=== PATIENT | male | born 1950 | race Caucasian/White ===

== ENCOUNTER 2019-12-23 07:30 | Outpatient (CLI) | payer MEDICARE, SELFPAY ==
--- NOTE | ~2019-12-23 | CT_ITS ---
EXAMINATION: CT abdomen pelvis wo con DATE: 12/23/2019 08:19 INDICATION: Gross hematuria TECHNIQUE: Computed tomography (CT) of the abdomen and pelvis was performed without intravenous contr ast. The dose-length product (DLP) was 1166.29 mGy-cm. Automated exposure control and iterative recon struction technique were employed. COMPARISON: None FINDINGS: The lung bases are clear. The heart size is normal. Calcified coronary artery atheroscleros is is noted. The liver, spleen, pancreas, gallbladder, and adrenal glands are normal. There is atroph y of the left kidney. There is an 11 mm cyst of the right kidney. No stones are identified in the kid neys, ureters, or bladder. There is no hydronephrosis or hydroureter. No suspicious renal or urotheli al lesion is identified although sensitivity is limited by the absence of intravenous contrast. The p rostate is enlarged. Colonic diverticulosis is present without evidence of diverticulitis. No patholo gically enlarged abdominal or pelvic lymph nodes are identified. There is no free intraperitoneal gas or evidence of bowel obstruction. There are changes of anterior and posterior lumbar fusion from L4 through S1. Severe spondylosis is noted at L3-4. IMPRESSION: 1. No CT correlate for the patient's symptoms. Sensitivity for renal or urothelial lesion limited by the absence of intravenous contrast, not given due to low GFR. Reviewed, dictated and finalized at location A. IMPRESSION: 1. No CT correlate for the patient's symptoms. Sensitivity for renal or urothel ial lesion limited by the absence of intravenous contrast, not given due to low GFR.
[2019-12-23 07:57] LABS: Estimated Glomerular Filt Rate 28
== END 2019-12-23 07:31 | disposition home or self-care (01) ==
PROVIDERS: PCP Internal Medicine; Visit Provider Urology
DX: R31.0 Gross hematuria (principal)
CPT/HCPCS: 74176

== ENCOUNTER 2020-05-04 15:01 | Outpatient (CLI) | payer MEDICARE, SELFPAY ==
--- NOTE | ~2020-05-04 | CT_ITS ---
EXAMINATION: CT lung screening DATE: 05/04/2020 15:28 INDICATION: Personal history of tobacco dependence, current smoker with 40 pack year history TECHNIQUE: Computed tomography (CT) of the chest was performed without intravenous contrast. The dose -length product (DLP) was 238.62 mGy-cm. Automated exposure control and iterative reconstruction tech [employer] were employed. COMPARISON: None FINDINGS: There is a 7 mm endobronchial filling defect in a right lower lobe bronchus on image 66. Th ere is moderate emphysema. The lungs are free of acute opacities. There is no pleural effusion or pne umothorax. Calcified pulmonary nodules and calcified bilateral hilar and mediastinal lymph nodes are consistent with old granulomatous disease. No pathologically enlarged thoracic lymph nodes are identi fied. The heart size is normal. Calcified coronary artery atherosclerosis is noted. There are bridgin g osteophytes at multiple levels in the spine, consistent with diffuse idiopathic skeletal hyperostos is (DISH). IMPRESSION: 1. Lung-RADS category 3: Probably benign. Followup with noncontrast low-dose chest CT in 6 months is recommended. Reviewed, dictated and finalized at location A. INE FINISHER IMPRESSION: 1. Lung-RADS category 3: Probably benign. Followup with noncontrast low-dose ch est CT in 6 months is recommended.
== END 2020-05-04 15:02 | disposition home or self-care (01) ==
PROVIDERS: PCP Internal Medicine; Visit Provider Nurse Practitioner
DX: Z12.2 Encounter for screening for malignant neoplasm of respiratory organs (principal); Z87.891 Personal history of nicotine dependence
CPT/HCPCS: 71271

== ENCOUNTER 2020-08-03 09:27 | Outpatient (CLI) | payer MEDICARE, SELFPAY ==
--- NOTE | ~2020-08-03 | US_ITS ---
EXAMINATION: US renal BI DATE: 08/03/2020 10:02 INDICATION: Chronic kidney disease TECHNIQUE: Multiple ultrasound grayscale images of the kidneys were obtained. COMPARISON: CT dated 12/23/2019 FINDINGS: The right kidney measures 10.9 x 5.6 x 5.4 with normal echogenicity. 10 mm anechoic cyst at the mid r ight kidney. The left kidney measures 7.3 x 3.5 x 4.2 cm with cortical thinning and increased echogen icity. There is no hydronephrosis in either kidney. No stones identified. There is diffuse mild blad [place] wall thickening to at least in part to incomplete distention but which may represent sequela of c hronic outlet obstruction from the enlarged prostate. IMPRESSION: 1. Unchanged moderate left renal atrophy and 10 mm right renal cyst. No hydronephrosis. 2. Diffuse mild bladder wall thickening which is likely due to combination of incomplete distention a nd chronic outlet obstruction from the enlarged prostate. Reviewed, dictated and finalized at location A. IMPRESSION: 1. Unchanged moderate left renal atrophy and 10 mm right renal cyst. No hydron ephrosis. 2. Diffuse mild bladder wall thickening which is likely due to combination of i ncomplete distention and chronic outlet obstruction from the enlarged prostate.
== END 2020-08-03 09:28 | disposition home or self-care (01) ==
PROVIDERS: PCP Internal Medicine; Visit Provider Internal Medicine Nephrology
DX: N18.32 Chronic kidney disease, stage 3b (principal); N28.1 Cyst of kidney, acquired; R93.41 Abnormal radiologic findings on diagnostic imaging of renal pelvis, ureter, or bladder
CPT/HCPCS: 76775

== ENCOUNTER 2020-11-04 11:20 | Outpatient (CLI) | payer MEDICARE, SELFPAY ==
--- NOTE | ~2020-11-04 | CT_ITS ---
EXAMINATION: CT diagnostic chest wo con EXAM DATE: 11/04/2020 12:25 INDICATION: R93.89 - Abnormal findings on diagnostic imaging of other specified body structures. Endo bronchial nodule. TECHNIQUE: Spiral CT of the chest without contrast. Axial, coronal and sagittal images of the chest were reviewed. Coronal maximum intensity pixel images of chest reviewed. The dose-length product ( DLP) for this examination was 478.22 mGy-cm. The exposure was tailored according to patient size (au to mA exposure control), and iterative reconstruction (ASIR) was used as additional dose reduction te chnique. There is no prior study for comparison. FINDINGS: Moderate emphysema. Tracheobronchial tree is patent, no nodule identified on this exam. S ome scattered calcified lung granulomata. No suspicious nodules.. There are no pleural or pericardial effusions. Tracheobronchial tree is patent. There is no mediastinal, hilar or axillary lymphaden opathy. There is no pneumothorax. Heart normal in size. There is mild to moderate coronary ming rial calcification, arterial sclerosis. Upper abdomen is unremarkable. Mid and lower thoracic diff use idiopathic skeletal hyperostosis. There are no osteoblastic or osteolytic lesions identified. IMPRESSION: 1. Moderate emphysema. 2. Postinfectious residua. 3. Consider one-year follow-up LDCT if patient still qualifies. Reviewed, dictated and finalized at location B.
== END 2020-11-04 11:21 ==
PROVIDERS: PCP Internal Medicine; Visit Provider Nurse Practitioner
DX: R93.89 Abnormal findings on diagnostic imaging of other specified body structures (principal); J43.9 Emphysema, unspecified
CPT/HCPCS: 71250

== ENCOUNTER 2022-04-18 10:30 | Outpatient (CLI) | payer MEDICARE, SELFPAY ==
[2022-04-18 11:18] LABS: Partial Thromboplastin Time 27.1 SECONDS (22.3-36.8)
[2022-04-18 11:26] LABS: Anion Gap 12 mmol/L (8-16); Blood Urea Nitrogen 28 mg/dL (9-20); Calcium 9.7 mg/dL (8.4-10.2); Carbon Dioxide 29 mmol/L (22-30); Chloride 104 mmol/L (98-107); Estimated Glomerular Filt Rate 29; Glucose 54 mg/dL (65-110); Potassium 4.4 mmol/L (3.4-5.0); Sodium 145 mmol/L (137-145)
== END 2022-04-18 10:31 | disposition home or self-care (01) ==
PROVIDERS: Anesthesiology; PCP Family Medicine; Visit Provider Podiatrist Foot & Ankle Surgery
DX: N18.30 Chronic kidney disease, stage 3 unspecified (principal); E11.9 Type 2 diabetes mellitus without complications; Z01.818 Encounter for other preprocedural examination
CPT/HCPCS: 36415; 80048; 85610; 85730

== ENCOUNTER 2022-08-11 04:22 | Day surgery (SDC) | payer MEDICARE, SELFPAY ==
--- NOTE | 2022-08-04 13:29 | PC.NURSE ---
Report to the Outpatient Waiting Room, entrance under the green pavilion located off [facility], at time _1130 on date __08/11/22 . Planned Procedure Time: __1330 . Time changes happen often and if your time is changed the preop area will call you the afternoon before. - You and your visitor will be asked to self-screen and do not enter if you have any COVID symptoms. - A mask is optional within the hospital at this time. Patients may have clear liquids (water, carbonated beverages, clear teas, apple juice) until 3 hours prior to surgery with a maximum of 20 ounces. - No food from midnight until time of surgery - Infants may have breast milk until 4 hours before surgery, formula 6 hours prior to surgery. - Children will be allowed to drink immediately following surgery. If applicable, please bring a bottle or sippy cup to assist with drinking. Juice, water, soda, and popsicles are readily available. For infants on formula, please bring formula the day of surgery. Pacifiers are allowed. Take the following medications with a SIP of water the morning of surgery: _AMLODIPINE, DO NOT STOP ANY OF YOUR OTHER PRESCRIPTION MEDICATIONS PRIOR TO SURGERY ?EXCEPT THE FOLLOWING Medications to discontinue per physician __ASPIRIN AND XARELTO PER DR CERVANTES WILL CALL Please no make-up, nail algerian, hairspray, perfume, deodorant, or body powder the day of surgery. No jewelry (including any body piercings) or valuables the day of surgery, leave them at home. Please take a shower or bath the night before, or the morning of, surgery with an antibacterial soap. Wear comfortable, loose fitting clothing. Children are encouraged to wear pajamas. - Jewelry must be removed prior to entering the operating room. Rings and piercings that are not removed may be cut off. - The hospital will not accept responsibility for valuables. - Please leave all valuables, including medications, at home the day of surgery. If you are going home after surgery, a licensed contract driver must drive you home. - NO public transportation without another adult if you receive anesthesia. - We recommend that an adult stay with you for 24 hours following discharge. - We also recommend that you do not drive, make important decision, drink alcoholic beverages, or take any drugs that were not prescribed by your health care provider for at least 24 hours after your discharge time. For Pediatric surgeries, we recommend two adults accompany the child home. Follow any additional instructions given to you from your surgeon. If you or anyone in your household have experienced Covid symptoms in the past week, please notify your surgeon or the nurse liaison at the phone number below for possible testing. Telephone instructions given to __PT'S TERI and asked if any additional questions and then verbalized understanding. Patient advised to call surgeon office or pre surgery nurse liaison [phone] if any additional questions.
[2022-08-04 13:39] VITALS: BMI 28.9
--- NOTE | 2022-08-07 12:32 | PC.NURSE ---
RECEIVED CALL FROM LAB @1220 WITH CRITICAL GLUCOSE OF 47. CALLED PT @ 1225, SPOKE TO WHO STATES PT ATE LUNCH SOON THEY GOT HOME FROM PREOP TESTING AND THAT HE IS FEELING FINE. INSTRUCTED TO REPORT ANY HYPOGLYEMIC EPISODED TO PMD IF PT SYMPTOMATIC. VERBALIZED UNDERSTANDING.
--- NOTE | 2022-08-10 14:50 | WPDANESEPPF ---
Anes - Initial Pre Proc Eval Procedure: Operation Date: 08/11/22 13:30 Proposed Procedures p Amputation Right Great Toe and Right Second Toe - Santosh Alvarez JR, MD Date/Time: 08/10/22 14:50 Surgeon: Santosh Alvarez JR, MD Pre Op Diagnosis: Gangrene Rt Foot Patient Data Age: 71 Gender: M Height: 1.83 m Weight: 96.65 kg Allergies Allergy/AdvReac Type Severity Reaction Status Date / Time SIBUTRAMINE HCL M-HYDRATE AdvReac Mild (MERIDIA) Uncoded 08/04/22 13:12 Watery Eyes/Blurred Vision Home Medications Medication Instructions Recorded Confirmed Type aspirin 81 mg tablet,delayed 81 mg PO DAILY 04/24/19 08/04/22 History release (Adult Aspirin Regimen) Cbd 25 mg PRN PRN Pain 04/13/22 08/04/22 History blood sugar diagnostic (OneTouch #100 ea 05/04/22 05/23/22 Rx Ultra Test strips) insulin regular human 100 unit/mL 30 unit (0.3 mL) subcut TID #30 mL 05/04/22 08/04/22 Rx injection solution (Humulin R Regular U-100 Insulin) pen needle, diabetic 31 gauge x #400 ea 05/04/22 05/23/22 Rx 5/16 (BD Ultra-Fine Short Pen Needle) amlodipine 5 mg tablet 5 mg PO DAILY 05/22/22 08/04/22 History ammonium lactate 12 % topical cream 1 applic topical BID 05/22/22 08/04/22 History rivaroxaban 2.5 mg tablet (Xarelto) 2.5 mg PO BID 05/22/22 08/04/22 History rosuvastatin 10 mg tablet See Rx Instructions .Route 05/31/22 08/04/22 Rx .COMPLEX #90 tabs insulin detemir U-100 100 unit/mL 40 unit (0.4 mL) subcut BID #90 mL 07/17/22 08/04/22 Rx (3 mL) subcutaneous pen insulin syringe,safetyneedle 0.3 #500 ea 07/26/22 Rx mL 30 x 5/16 dulaglutide 1.5 mg/0.5 mL 1.5 mg subcut WEEKLY 08/04/22 08/04/22 [facility] empagliflozin 25 mg tablet 25 mg PO DAILY 08/04/22 08/04/22 History (Jardiance) ramipril 5 mg capsule 5 mg PO DAILY 08/04/22 08/04/22 History Patient hx anesthesia problems: none Family hx anesthesia problems: none Results Review: All pre-operative results and documents have been reviewed as part of the pre-operative evaluation. [facility] Past Medical History Medical History (Updated 08/10/22 @ 14:53 by Reji Egan MD) CKD (chronic kidney disease), stage III Elevated PSA Essential (primary) hypertension Gangrene History of CVA in adulthood Long-term insulin use Mixed hyperlipidemia PAD (peripheral artery disease) Polycythemia Pulmonary emphysema Screening for colon cancer Smoker Type 2 diabetes mellitus with stage 3 chronic kidney disease Surgical History Surgical History History of lumbar fusion S/P peripheral artery angioplasty with stent placement Family History Family History Father Cerebrovascular accident Mother Family history of lupus erythematosus Social History Social History Smoking packs per day: 2 Smoking cigarettes per day: 40.0 Years smoked: 60 Smoking pack-years: 120.00 Smoking status: Former smoker Tobacco type: cigarettes Second hand tobacco smoke exposure: Yes Smoking end date: 05/03/22 Additional smoking assessment comments: STATES CURRENTLY DOWN TO SMOKING ABOUT 3 CIGARETTES/DAY Alcohol intake: current Alcohol use details: RARELY - STATES COUPLE TIMES A YEAR Substance use: current Substance use type: marijuana Other substance usage details: CDB 25MG GUMMY DAILY Last use: 07/29/22 Lack of Transportation: No Lack of Food: Never True Current Housing: I Have Housing Concerned About Future Housing: No Difficulty Paying Gas/Electric Bills: No Difficulty Paying for Meds: Decline to Answer Currently Unemployed: No Education: Trade/Vocational Certificate Difficulty w/ Childcare or Family Care: No Living arrangements: with family Occupation/Education: retired Gender identity (if v
--- NOTE | ~2022-08-11 | XR_ITS ---
XR surgery orthopedic DATE: 08/11/2022 13:56 INDICATION: Amputation TECHNIQUE: Single AP exposures of the toes 2. Seconds fluoroscopy time 0.1188 cGycm2 total DAP COMPARISON: None FINDINGS: There is complete amputation of the first and second digits. IMPRESSION: Amputation of first and second digits Reviewed, dictated and finalized at Location A. Reviewed, dictated and finalized at location []
--- NOTE | 2022-08-11 07:12 | WPDHPUPDATE1 ---
History and Physical Update Update Date/Time: 08/11/22 07:12 History and Physical has been reviewed, including an updated exam of the patient. There are NO changes in the patient's condition. Risks, benefits, and alternatives have been discussed and questions answered. Patient agrees to proceed with procedure.
[2022-08-11 12:13] LABS: Glucose Point of Care 162 mg/dl (65-105)
[2022-08-11 12:28] VITALS: BP 103/66; PULSE 75; RESP 14; TEMP 36; O2SAT 98
[2022-08-11] MEDS: LACTATED RINGERS 1,000 ML 30 ML IV CONT (12:50)
[2022-08-11] MEDS: ceFAZolin 2 GM/D5W 50 ML 2 GM/50 ML BAG IVPB (13:11)
[2022-08-11] MEDS: LIDOCAINE HCL 2% PF INJ 5 ML VIAL 30 ML INFILTRATE (13:42)
[2022-08-11] MEDS: BUPivacaine HCL 0.5% 10 ML AMP INFILTRATE (13:42)
[2022-08-11 14:14] VITALS: BP 161/78; PULSE 75; RESP 16; O2SAT 95
[2022-08-11 14:22] LABS: Glucose Point of Care 110 mg/dl (65-105)
--- NOTE | 2022-08-11 14:23 | P.OP_ITS ---
Procedure Note - Detailed Date of Procedure 08/11/22 Pre-op Diagnosis Gangrene Right Foot Post-op Diagnosis Same Procedure Performed Amputation of the right great toe and second toe Surgeon Santosh Alvarez JR, DANII Anesthesia MAC and Local Indications Gangrene to the right great toe and second toe Findings Post amputation of the right great toe and second toe the tissue was healthy, no signs of infection nor necrosis. Description of Procedure Under mild sedation, the patient was brought to the operating room, placed on the operating table in the supine position. A pneumatic ankle tourniquet was placed about the patient's ankle. Following general anesthesia, I performed a proximal 1st and 2nd metatarsal Cheema Block. The foot was then scrubbed, prepped, and draped in the usual aseptic manner with Betadine. An Esmarch bandage was then used to examine the patient's foot and pneumatic ankle tourniquet was then inflated. Surgery began in the following manner. Attention was directed to the dorsal aspect of the first and 2nd metatarsal phalangeal joint region where a racquet style incision was made about the base of the the hallux and 2nd digit. The incision was continued deep down through the subcutaneous tissues using sharp and blunt dissection. All bleeders were cauterized as necessary. A full-length periosteal incision was made overlying the 1st and 2nd metatarsal phalangeal joint, disarticulating the hallux and 2nd digit. The hallux and 2nd digit was removed from the operative site and placed on the back table and later sent for gross and histopathology. The remaining tissue was healthy and bleeding. The cartilage to the first and 2nd metatarsal head were normal and healthy. The wound site was then flushed with copious amounts of sterile saline. Next, the subcutaneous structures overlying the 1st and 2nd metatarsophalangeal joints were reapproximated with 4- 0 Vicryl. Next, the skin was reapproximated and coapted utilizing 3-0 Prolene in simple interrupted suture fashion technique. Upon completion of the procedure, the incisions were dressed with Adaptic, 4 x 4's, Kerlix, and Coban. The pneumatic ankle tourniquet was then deflated and a prompt hyperemic response noted to all digits of the foot. A surgical shoe was then applied. The patient did very well with the procedure and the anesthesia. The patient was transferred to the recovery room with vital signs stable and vascular status intact to all remaining toes of the affected foot. Following a period of postoperative monitoring, the patient will be discharged home on the following written and oral postoperative instructions: 1. Keep the dressing clean, dry, and intact. Use a cast protector bag with showers. 2. The patient should use a surgical shoe for ambulation postoperatively. 3. The patient should be on bedrest with bathroom privileges and elevate the affected foot when at rest. 4. The patient to contact Dr. Alvarez for all postop care and if any problems arise. 5. Prescriptions were written for Percocet 5/325 dispensed 40 to be taken 1 p.o. q.4 to 6 hours as needed for severe pain. Estimated Blood Loss 1 Packing No Pathology Yes Complications No immediate complications Condition Stable Disposition Same day
[2022-08-11 14:45] VITALS: BP 171/86; PULSE 68; RESP 16
[2022-08-11 15:05] VITALS: BP 177/86; PULSE 71; RESP 18
== END 2022-08-11 15:20 | disposition home or self-care (01) ==
PROVIDERS: PCP Family Medicine; Visit Provider Podiatrist Foot & Ankle Surgery
PROC: (CPT 28820; principal; 2022-08-11 13:30)
DX: E11.52 Type 2 diabetes mellitus with diabetic peripheral angiopathy with gangrene (principal); I96 Gangrene, not elsewhere classified; E11.69 Type 2 diabetes mellitus with other specified complication; M86.171 Other acute osteomyelitis, right ankle and foot; I12.9 Hypertensive chronic kidney disease with stage 1 through stage 4 chronic kidney disease, or unspecified chronic kidney disease; E11.22 Type 2 diabetes mellitus with diabetic chronic kidney disease; N18.30 Chronic kidney disease, stage 3 unspecified; E78.2 Mixed hyperlipidemia; E11.51 Type 2 diabetes mellitus with diabetic peripheral angiopathy without gangrene; J43.9 Emphysema, unspecified; Z86.73 Personal history of transient ischemic attack (TIA), and cerebral infarction without residual deficits; Z95.820 Peripheral vascular angioplasty status with implants and grafts; Z98.1 Arthrodesis status; F17.210 Nicotine dependence, cigarettes, uncomplicated; F12.90 Cannabis use, unspecified, uncomplicated; Z79.4 Long term (current) use of insulin; Z79.82 Long term (current) use of aspirin; Z79.01 Long term (current) use of anticoagulants; Z79.899 Other long term (current) drug therapy; Z79.84 Long term (current) use of oral hypoglycemic drugs
CPT/HCPCS: 28820 ×2; 82948; 88305; 88311; 99199; J0690; J2250; J2704; J3010; J7120

== ENCOUNTER 2023-12-03 11:02 | Outpatient (CLI) | payer MEDICARE, SELFPAY ==
--- NOTE | ~2023-12-03 | CT_ITS ---
CT Scan of the Chest without Contrast: Clinical Indication: Lung cancer screening, nicotine dependence Technique: Contiguous sections were acquired throughout the chest without intravenous contrast. Dose reduction technique was used on this scan by utilizing automated exposure control and iterative recon struction technique. The dose-length product (DLP) was 152.74 mGy-cm. COMPARISON: 11/04/2020 Findings: There is no evidence of any significant mediastinal, hilar or axillary lymphadenopathy. Moderate to s evere coronary artery calcification present. There is no evidence of pleural or pericardial effusion. Moderate upper lobe paraseptal emphysema present bilaterally. Calcified left lower lobe granuloma not ed. Images through the upper abdomen reveal atrophic left kidney with probable stent at the origin of lef t renal artery. Impression: Lung RADS 2: Benign appearance. 12 month follow-up screening CT advised. Moderate paraseptal emphysema. Reviewed, dictated and finalized at [facility]. Impression: Lung RADS 2: Benign appearance. 12 month follow-up screening CT advised. Moderate paraseptal emphysema.
== END 2023-12-03 11:03 | disposition home or self-care (01) ==
PROVIDERS: PCP Family Medicine; Visit Provider Nurse Practitioner Family
DX: Z12.2 Encounter for screening for malignant neoplasm of respiratory organs (principal); J43.9 Emphysema, unspecified; Z87.891 Personal history of nicotine dependence
CPT/HCPCS: 71271

== ENCOUNTER 2024-04-03 12:21 | Outpatient (CLI) | payer MEDICARE, SELFPAY ==
[2024-04-03 12:42] LABS: Basophils Absolute Auto 0.1 K/mm3 (0.0-0.1); Basophils Percent Auto 1.6 % (0.2-1.2); Eosinophils Absolute Auto 0.1 K/mm3 (0-0.3); Eosinophils Percent Auto 1.9 % (0-4.4); Hematocrit 52.4 % (42.0-52.0); Hemoglobin 17.3 g/dL (14.0-18.0); Immature Granulocyte Absolute 0.02 K/mm3 (0.00-0.031); Immature Granulocyte Percent A 0.3 % (0-0.5); Lymphocytes Absolute Auto 1.51 K/mm3 (0.9-3.2); Lymphocytes Percent Auto 23.5 % (18.3-44.2); Mean Corpuscular Hemoglobin 30.1 pg (26-34); Mean Corpuscular Volume 91.1 fl (80-100); Mean Platelet Volume 11.9 fl (7.4-10.4); Monocytes Absolute Auto 0.5 K/mm3 (0.1-0.6); Monocytes Percent Auto 7.3 % (2.6-8.5); Neutrophils Absolute Auto 4.2 K/mm3 (1.3-6.7); Neutrophils Percent Auto 65.4 % (45.5-73.1); Platelet Count Result 165 k/mm3 (150-375); Red Blood Count 5.75 M/mm3 (4.6-6.20); Red Cell Distribution Width 13.1 % (11.5-14.5); White Blood Count 6.4 K/mm3 (4.5-10.0)
--- OUTSIDE RECORDS SUMMARY | 2024-04-03 13:09 | XMS_ITS | Referral Summary ---
Author Organization [facility] [employer] Address [address] [place] [address] Care Team Providers Care Finish Remover Name Role Phone Jere Tillman MD Primary Care Provider [phone] Kieran Albert MD Unavailable [phone] Alek Enrique MD Unavailable Source Comments [facility],non-owned Affiliates and Associated Physician Practices is amultiple site organization consisting of ambulatory clinics and hospital sitesin [place], [place], [place] and [place]. This disclosure is being madepursuant to the Care Everywhere program and may not contain all information available regarding this patient. Last updated 17.[facility] Allergies Active Allergy Reactions Criticality Noted Date Comments Meridia 06/19/2011 Medications * Be aware that medications may not be up to date on this document. Alwaysverify current medications with the patient. Medication Sig Dispensed Refills Start Date End Date Status rosuvastatin (CRESTOR) 10 MG tablet Take 10 mg by mouth every other day 0 08/16/2015 Active amLODIPine-valsar chen (EXFORGE) 10-320 MG tablet Take 1 Tab by mouth Active HYDROcodone-aceta minophen (NORCO) 5-325 MG tablet Take 1 Tab by mouth every 4 hours as needed for Pain 30 Tab 08/17/2016 Active aspirin (ASPIRIN) 81 MG chew tablet Take 81 mg by mouth once daily Active insulin detemir (LEVEMIR) pen Inject 70 Units subcutaneously 2 times daily Active insulin regular human (HUMULIN R; NOVOLIN R) 100 UNIT/ML injection Inject 30 Units subcutaneously 3 times daily before meals Active ezetimibe (ZETIA) 10 MG tablet Take 1 tablet by mouth once daily 30 tablet 5 09/14/2017 Active hydroCHLOROthiazi de (HYDRODIURIL) 12.5 MG Take 1 tablet by mouth once daily 30 tablet 5 09/15/2017 Active Active Problems Problem Noted Date Diagnosed Date Syncope 09/11/2017 Septic shock(785.52) 08/10/2016 Overview (12/03/2016): IMO Update 12/03/2016 Perforated viscus 08/10/2016 Peritonitis 08/10/2016 Carotid stenosis 07/07/2014 History of stroke 04/24/2013 Osteoarthritis of hip 02/04/2013 Overview (07/27/2014): Piriformis syndrome 02/04/2013 Tendinitis of left rotator cuff 02/04/2013 Pain in joint, shoulder region - left 02/04/2013 Stroke 01/21/2013 Carotid stenosis, symptomatic, with infarction 1 03/23/2012 Overview (01/21/2013): S/p stent assisted angioplasty Weakness of left upper extremity 12/09/2012 Weakness of left leg 12/09/2012 HTN (hypertension) 12/09/2012 DM (diabetes mellitus) 12/09/2012 Low back pain 06/27/2010 Overview (01/10/2015): Immunizations Name Administration Dates Next Due INFLUENZA VACCINE 12/10/2012 Social History Tobacco Use Types Packs/Day Years Used Date Smoking Tobacco: Every Day Cigarettes 2 45 Smokeless Tobacco: Never Tobacco Cessation:Ready to Q uit: Yes; Counseling Given: Yes Alcohol Use Standard Drinks/Week Comments Yes 0 (1 standard drink = 0.6 oz pur e alcohol) Rarely Sex and Gender Information Value Date Recorded Sex Assigned at Not on file Gender Identity Not on file Sexual Orientation Not on file Last Filed Vital Signs Vital Sign Reading Time Taken Comments Blood Pressure 144/65 09/14/2017 11:29 AM CDT Pulse 50 09/14/2017 11:29 AM CDT Temperature 36.8 ??C (98.2 ??F) 09/14/2017 11:29 AM C DT Respiratory Rate 18 09/14/2017 11:29 AM CDT Oxygen Saturation 98% 09/14/2017 11:29 AM CDT Inhaled Oxygen Concentration 21% 08/17/2016 1 0:26 AM CDT Weight 95.3 kg (210 lb) 09/11/2017 2:35 PM CDT Height 177.8 cm (5' 10 ) 09/11/2017 2:35 PM CDT Body Mass Index 30.13 09/11/2017 2:35 PM CDT Functional Status Functional Status Response Date of Assess ment Is person deaf or have serious hearing difficult y? No 09/14/2017 Is person blind or have serious difficulty seein g? No 09/14/2017 Does person have serious dif ficulty walking/climbing stairs? No 09/14/2017 Does person have difficulty dressing/bathing? No 09/14/2017 Does person have difficulty doing errands alone? No 09/14/2017 Cognitive Status Response Date of Assessm ent Does person have difficulty concentrating/remembering/making decisions? No 09/14/2017 Plan of Treatment Not on file Administered Medications Advance Directives * Full Code (Latest Code Status on File) Date Activated Date Inactivated Comments 09/13/2017 1:38 PM 09/14/2017 3:41 PM * Full Code Date Activated Date Inactivated Comments 09/11/2017 6:04 PM 09/13/2017 1:38 PM * Full Code Date Activated Date Inactivated Comments 08/10/2016 12:12 PM 08/17/2016 2:30 PM * Full Code Date Activated Date Inactivated Comments 08/10/2016 11:40 AM 08/10/2016 12:12 PM * FULL RESUSCITATION Date Activated Date Inactivated Comments 12/13/2012 8:01 AM 12/28/2012 12:02 PM Care Teams Finish Remover Relationship Specialty Start Date End Date Jere Tillman MD [address] [place] [id number] PCP - General 06/07/10 Kieran Albert MD [address] [place] [id number] Orthopedic Surgery 07/10/11 Alek Enrique MD [address] [place] [address] Orthopedic Surgery 05/22/13
--- OUTSIDE RECORDS SUMMARY | 2024-04-03 13:09 | XMS_ITS | CONTINUITY OF CARE DOCUMENT ---
Author Name sandoval nick Address Unknown Organization [facility] Address [id number] [place] [address] [address] [place] [address] Phone [phone] Care Team Providers Care Roving Weight Gauger Name Role Phone Micah BRO, Bernardo Unavailable [phone] REAGAN SAUL MD Unavailable REAGAN SAUL MD Unavailable PROBLEMS Condition Status Date Provider Notes Anemia active Zaria Aj Subclavian stenosis - right active Bernardo Obrien MD Gangrene completed - Bernardo Obrien MD PVC's active Bernardo Obrien MD Syncope completed - Echo Gutierrez RN CAD active Bernardo Obrien MD PVD - unspecified active Echo Nolan N Aortic atherosclerosis active Echo Puente son RN Carotid artery stenosis - right active Echo Gutierrez third mate insufficiency chronic unspecified active Echo Gutierrez third mate artery stenosis active Echo engel RN Tobacco abuse active Echo Gutierrez RN Hypertension active ? Echo Gutierrez RN Hyperlipidemia active ? 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 Echo Gutierrez RN C V A / Stroke active ? Echo Gutierrez RN ( History of) ENCOUNTERS Date Type Provider Location Encounter Diag nosis - In-person encounter Office Visit Bernardo Obrien MD [facility] Office - In-person encounter Office Visit Bernardo [facility] Office - In-person encounter Office Visit Bernardo [facility] Office - In-person encounter Office Visit Bernardo [facility] - In-person encounter Office Visit Bernardo [facility] Gangrene - In-person encounter Office Visit Bernardo [facility] - In-person encounter Office Visit Bernardo [facility] - In-person encounter Office Visit Bernardo [facility] - In-person encounter Office Visit Bernardo [facility] - In-person encounter Office Visit Bernardo [facility] - In-person encounter Office Visit Bernardo [facility] - In-person encounter Office Visit Bernardo [facility] - In-person encounter Office Visit Bernardo [facility] - In-person encounter Office Visit Bernardo [facility] Syncope - In-person encounter Office Visit Bernardo [facility] PVC's - In-person encounter Office Visit Bernardo [facility] - In-person encounter Office Visit Bernardo [facility] CAD - In-person encounter Office Visit Bernardo [facility] CAD - In-person encounter Office Visit Bernardo [facility] - In-person encounter Office Visit Bernardo [facility] - In-person encounter Office Visit Bernardo [facility] C V A / StrokeDiabet es, Type 2HyperlipidemiaHypertensi onTobacco abuseRenal artery stenosisRenal insufficiency chronic unspecifiedCarotid artery stenosis - rightAortic atherosclerosisPVD - unspecified VITAL SIGNS Date Observation Value Provider Body Mass Index (Ratio) 24.01 kg/m2 [facility] Micah BRO weight E&M 182 [lb_av] Anna O'Junior PRIMING MIXTURE CARRIER blood pressure, diastolic 84 mm[Hg] Li nkLogic blood pressure, systolic 130 mm[Hg] Silvana kLogic respiratory rate E&M 16 /min Jaja Hunter pulse rate 80 /min Jaja Hunter height E&M 73 [in_i] Jaja Hunter oxygen saturation, oximetry 97 % Jaja Hunter blood pressure, diastolic 84 mm[Hg] Va lerie Hunter blood pressure, systolic 130 mm[Hg] Jes nu Hunter blood pressure, cuff size regular Va lerie Hunter Body Mass Index (Ratio) 26.78 kg/m2 nicole Obrien MD blood pressure, diastolic 72 mm[Hg] Me juan pablo Linson blood pressure, systolic 135 mm[Hg] Angelina an Linson oxygen saturation, oximetry 96 % Germania Linson pulse rate 70 /min Germania Linson blood pressure, cuff size regular Me juan pablo Linson respiratory rate E&M 18 /min Germania L inson weight E&M 203 [lb_av] Germania Linson Body Mass Index (Ratio) 27.31 kg/m2 [facility] Micah RBO blood pressure, diastolic 65 mm[Hg] Mi kash Pollard blood pressure, systolic 105 mm[Hg] Bryon helle Pollard oxygen saturation, oximetry 99 % Jacque Pollard pulse rate 96 /min Jacque mckeon respiratory rate E&M 16 /min Wendy Pollard blood pressure, cuff size large Althea hewitt Atul weight E&M 207 [lb_av] Jacque mckeon height E&M 73 [in_i] Jacque mckeon Body Mass Index (Ratio) 27.04 kg/m2 Sund xavier Obrien MD blood pressure, diastolic 95 mm[Hg] St lary Amaro blood pressure, systolic 160 mm[Hg] Sta anna marie Amaro oxygen saturation, oximetry 98 % Ghislaine Amaro pulse rate 78 /min Ghislaine Amaro respiratory rate E&M 18 /min Ghislaine schulte weight E&M 205 [lb_av] Ghislaine Amaro height E&M 73 [in_i] Jammie Corrigan Body Mass Index (Ratio) 27.18 kg/m2 Sund xavier Obrien MD blood pressure, diastolic 66 mm[Hg] Lupe nkLogpernell blood pressure, systolic 100 mm[Hg] Silvana kLog blood pressure, diastolic 66 mm[Hg] Althea hewitt Pollard blood pressure, systolic 100 mm[Hg] Bryon shahab Pollard oxygen saturation, oximetry 96 % Jacque Pollard pulse rate 87 /min Jacque mckeon weight E&M 206 [lb_av] Jacque mckeon respiratory rate E&M 16 /min Wendy Pollard blood pressure, cuff size large Althea hewitt Atul height E&M 73 [in_i] Jacque mckeon Body Mass Index (Ratio) 27.84 kg/m2 Sund p Micah BRO blood pressure, diastolic 53 mm[Hg] An gerson Suggs blood pressure, systolic 96 mm[Hg] Joanna luna Ifeanyi oxygen saturation, oximetry 97 % Whit Ifeanyi pulse rate 83 /min Whit Ifeanyi weight E&M 211 [lb_av] Whit Ifeanyi blood pressure, cuff size large An gerson Ifeanyi height E&M 73 [in_i] Whit Ifeanyi blood pressure, cuff size large Ke rri [facility]rockingham memorial hospitalmary blood pressure, diastolic 62 mm[Hg] Ke rri Nolanueashleyrockingham memorial hospitalmary blood pressure, systolic 94 mm[Hg] Silva ri Tknfeldmary oxygen saturation, oximetry 97 % Brook Hector respiratory rate E&M 14 /min Brook G usmanenedonovaneldmary pulse rate 72 /min Brook Sandinenfe ld height E&M 73 [in_i] Brook Sandinenfe [facility] Body Mass Index (Ratio) 27.84 kg/m2 p Micah BRO blood pressure, diastolic 70 mm[Hg] Sandra allen O'Junior blood pressure, systolic 120 mm[Hg] Marysol blankenship O'Junior oxygen saturation, oximetry 98 % Aminah O'Junior respiratory rate E&M 16 /min Aminah O'Junior pulse rate 73 /min Aminah O'Junior blood pressure, resting Yes [place] ferreira O'Junior weight E&M 211 [lb_av] Aminah O'Junior height E&M 73 [in_i] Aminah O'Junior Body Mass Index (Ratio) 28.63 kg/m2 Sund eenicole Obrien MD blood pressure, diastolic 89 mm[Hg] Lupe brizuela Perez blood pressure, systolic 143 mm[Hg] Maylin a Perez weight E&M 217 [lb_av] Dipti Perez pulse rate 77 /min Dipti Perez oxygen saturation, oximetry 97 % Dipti Perez Body Mass Index (Ratio) 28.36 kg/m2 Sund ellennicole Obrien MD respiratory rate E&M 16 /min Wendy Pollard height E&M 73 [in_i] Macarena cervantes blood pressure, diastolic 74 mm[Hg] Lupe brizuela Perez blood pressure, systolic 136 mm[Hg] Maylin a Perez weight E&M 215 [lb_av] Dipti Perez pulse rate 75 /min Dipti Perez oxygen saturation, oximetry 97 % Dipti Perez Body Mass Index (Ratio) 29.42 kg/m2 Sund ellennicole Obrien MD blood pressure, diastolic, supine 80 mm[H g] Portia Larry blood pressure, systolic, supine E&M 116 mm[Hg] Portia [place] blood pressure, diastolic 80 mm[Hg] Lupe nkLogic blood pressure, systolic 116 mm[Hg] Silvana kLogic oxygen saturation, oximetry 96 % Portia [place] respiratory rate E&M 16 /min Portia [place] pulse rate 75 /min Portia [place] blood pressure, cuff size large Ka leatha Larry blood pressure, diastolic 80 mm[Hg] Ka leatha [place] blood pressure, systolic 116 mm[Hg] Lula rice Larry height E&M 73 [in_i] Jacque mckeon weight E&M 223 [lb_av] Portia [place] Body Mass Index (Ratio) 27.44 kg/m2 [facility] blood pressure, cuff size large Althea hewitt [place] blood pressure, diastolic 90 mm[Hg] Althea hewitt [place] blood pressure, systolic 150 mm[Hg] Bryon gudino [place] oxygen saturation, oximetry 97 % Jacque Pollard respiratory rate E&M 16 /min Wendy crain Pollard pulse rate 84 /min Jacque mckeon weight E&M 208 [lb_av] Jacqueelvin mckeon height E&M 73 [in_i] Jacque mckeon Body Mass Index (Ratio) 28.10 kg/m2 [facility] Ob[facility] MD blood pressure, diastolic 96 mm[Hg] Althea hewitt [place] blood pressure, systolic 168 mm[Hg] Bryon gudino [place] blood pressure, resting Yes Reji oconnor [place] oxygen saturation, oximetry 98 % Jacque [place] respiratory rate E&M 20 /min Wendy crain [place] pulse rate 64 /min Jacque [place] weight E&M 213 [lb_av] Jacque [place] height E&M 73 [in_i] Jacque Holly Body Mass Index (Ratio) 29.81 kg/m2 [facility] xavier Obrien MD blood pressure, diastolic 80 mm[Hg] Sandra Rothman'Junior blood pressure, systolic 140 mm[Hg] Marysol blankenship O'Junior oxygen saturation, oximetry 98 % Aminah O'Junior respiratory rate E&M 18 /min Aminah O'Junior pulse rate 77 /min Aminah O'Junior weight E&M 226 [lb_av] Aminah O'Junior height E&M 73 [in_i] Aminah O'Junior Body Mass Index (Ratio) 31.00 kg/m2 Jaqui Obrien MD pulse rate 42 /min Anni Zeny oxygen saturation, oximetry 98 % Anni Zeny blood pressure, cuff size large Rh mercedes Moura blood pressure, diastolic, standing 60 mm [Hg] Anni Zeny blood pressure, systolic, standing 95 mm[ Hg] Anni Zeny blood pressure, diastolic 55 mm[Hg] Rh onjad Moura blood pressure, systolic 105 mm[Hg] Rho priscilla Zeny weight E&M 235 [lb_av] Anni Zeny height E&M 73 [in_i] Anni Zeny Body Mass Index (Ratio) 31.40 kg/m2 Yadira Gutierrez RN blood pressure, diastolic 60 mm[Hg] Rh mercedes Zeny blood pressure, systolic 135 mm[Hg] Rho priscilla Zeny oxygen saturation, oximetry 99 % Anni Zeny respiratory rate E&M 19 /min Anni Zeny blood pressure, cuff size regular Rh mercedes Zeny weight E&M 238 [lb_av] Anni Zeny height E&M 73 [in_i] Anni Zeny Body Mass Index (Ratio) 30.84 kg/m2 Yadira Gutierrez RN respiratory rate E&M 20 /min Echo Gutierrez RN pulse rate 94 /min Echo ornelas RN oxygen saturation, oximetry 97 % Echo Gutierrez RN blood pressure, diastolic 54 mm[Hg] Tamika Gutierrez RN blood pressure, systolic 104 mm[Hg] Maricarmen Gutierrez RN weight E&M 233.8 [lb_av] Partha naylor height E&M 73 [in_i] Partha dasilva Body Mass Index (Ratio) 30.21 kg/m2 Yadira Gutierrez RN blood pressure, diastolic 80 mm[Hg] Sandra terrancewilla Sigifredo blood pressure, systolic 134 mm[Hg] Marysol joseph Sigifredo pulse rate 81 /min Cinthia Sigifredo oxygen saturation, oximetry 98 % Cinthia Sigifredo respiratory rate E&M 17 /min Cinthia Sigifredo weight E&M 229 [lb_av] Cinthia Sigifredo height E&M 73 [in_i] Cinthia Sigifredo Body Mass Index (Ratio) 29.02 kg/m2 Jaqui Obrien MD blood pressure, diastolic, left arm 60 mm [Hg] Mehnaz Thomas blood pressure, systolic, left arm 130 mm [Hg] Mehnaz Thomas blood pressure, diastolic, right arm 70 m m[Hg] Mehnaz Thomas blood pressure, systolic, right arm 140 m m[Hg] Mehnaz Thomas blood pressure, diastolic 70 mm[Hg] Stevie Smith blood pressure, systolic 140 mm[Hg] Lacie roneygerson Thomas oxygen saturation, oximetry 98 % Mehnaz Thomas pulse rate 62 /min Mehnaz Thomas respiratory rate E&M 14 /min Mehnaz Thomas weight E&M 220 [lb_av] Mehnazisaias Thomas height E&M 73 [in_i] Mehnaz Thomas Body Mass Index (Ratio) 27.97 kg/m2 Jaqui Obrien MD blood pressure, diastolic 78 mm[Hg] Te julian Sánchez blood pressure, systolic 138 mm[Hg] Edin larissa Sánchez oxygen saturation, oximetry 98 % Angel Sánchez pulse rate 72 /min Angel Sánchez respiratory rate E&M 16 /min Angel Sánchez weight E&M 212 [lb_av] Angel Sánchez height E&M 73 [in_i] Angel Sánchez Body Mass Index (Ratio) 29.15 kg/m2 Maricarmenr kae Gutierrez RN blood pressure, resting Yes Iesh a [place] blood pressure, diastolic 60 mm[Hg] Ie sha [place] blood pressure, systolic 100 mm[Hg] Ies jhon [place] oxygen saturation, oximetry 97 % Pascale [place]ins respiratory rate E&M 16 /min P[place]ale Glenda lundberg pulse rate 78 /min [place] weight E&M 221 [lb_av] [place] height E&M 73 [in_i] [place] ALLERGIES Allergy Name Onset Date Reaction Criticality Status MERIDIA High Criticality active RESULTS Date Observation Value Provider Reference Range Interpretation Location 3 microalbumin/creat inine ratio, urine 373 MG/G CREAT Link[facility] 0-29 High 3 microalbumin, random, urine 20.4 mg/dL [facility] Units converted. See lab report for original value. 3 creatinine, random, urine 54.7 mg/dL [facility] Not Estab. 3 lipoprotein, beta, serum, point, quantitative, calculated 77 mg/dL [facility] 0-99 3 HDL cholesterol, serum 50 mg/dL [facility] >39 3 triglyceride, serum, random 208 mg/dL [facility] 0-149 High 3 cholesterol, serum 162 mg/dL [facility] 541-060 5732/03/1 1 hemoglobin A1C, blood, as % of total hemoglobin 6.7 % [facility] 4.8-5.6 High 6 basophil count, absolute 0.10 x10E9/L [facility] 0.00-0.08 High 6 Eosinophil Absolute Count 0.15 X10E9/L [facility] 0.00-0.47 6 monocyte count, blood, automated 0.55 X10E9/L [facility] 0.26-1.07 6 lymphocyte count, blood, automated 1.55 X10E9/L [facility] 1.07-3.94 6 Absolute Neutrophils 4.52 X10E9/L [facility] 2.01-7.14 6 basophils as percent of blood leukocytes 1.4 % [facility] 0.0-2.0 6 eosinophils as percent of blood leukocytes 2.2 % [facility] 0.0-6.0 6 monocytes as percent of blood leukocytes 8.0 % [facility] 5.0-13.0 6 lymphocytes as percent of blood leukocytes 22.5 % [facility] 20.0-43.0 6 neutrophils as percent of blood leukocytes 65.5 % [facility] 44.0-73.0 6 platelet count 166 X10E9/L [facility] 181-150 8422/02/1 red blood cell distribution width 12.8 % [facility] 12.1-14.9 6 mean corpuscular hemoglobin concentration, RBC 33.5 G/DL [facility] 30.8-35.9 6 mean corpuscular hemoglobin, RBC 30.6 pg [facility] 26.7-34.0 6 mean corpuscular volume, RBC 91.4 fL [facility] 80.7-98.3 hematocrit, blood 54.4 % [facility] 35.2-51.7 High hemoglobin, blood 18.2 g/dL [facility] 12.0-17.6 erythrocyte (RBC) count 5.95 X10E12/L [facility] 3.80-5.40 High 6 leukocyte count, blood 6.9 X10E9/L [facility] 4.4-10.7 6 prothrombin time (patient) 10.8 s [facility] 9.1-12.0 6 international normalized ratio (INR) 1.0 [facility] 0.9-1.2 6 lipoprotein, beta, serum, point, quantitative, calculated 59 mg/dL [facility] 0-99 6 HDL cholesterol, serum 41 mg/dL [facility] >39 6 triglyceride, serum, random 150 mg/dL [facility] 0-149 High 6 cholesterol, serum 126 mg/dL [facility] 360-516 3954/12/0 6 calcium, serum 10.5 mg/dL [facility] 8.6-10.2 High 6 carbon dioxide, venous blood 21 mmol/L [facility] 20-29 6 chloride, serum 101 mmol/L [facility] 96-106 6 potassium, serum 5.3 mmol/L [facility] 3.5-5.2 High 6 sodium, serum 142 mmol/L [facility] 756-794 0257/12/0 6 urea nitrogen/creatinin e ratio, serum 11 [facility] 10-24 6 creatinine, serum 2.22 mg/dL [facility] 0.76-1.27 High 6 urea nitrogen, blood 24 mg/dL [facility] 8-27 6 blood glucose, random 148 mg/dL [facility] 70-99 High 6 basophil count, absolute 0.1 x10E3/uL [facility] 0.0-0.2 Eosinophil Absolute Count 0.2 X10E3/UL [facility] 0.0-0.4 monocyte count, blood, automated 0.6 X10E3/UL [facility] 0.1-0.9 lymphocyte count, blood, automated 1.6 X10E3/UL [facility] 0.7-3.1 6 Absolute Neutrophils 5.6 X10E3/UL [facility] 1.4-7.0 6 basophils as percent of blood leukocytes 1 % [facility] Not Estab. 6 eosinophils as percent of blood leukocytes 2 % [facility] Not Estab. 6 monocytes as percent of blood leukocytes 8 % [facility] Not Estab. 6 lymphocytes as percent of blood leukocytes 20 % [facility] Not Estab. 6 neutrophils as percent of blood leukocytes 68 % [facility] Not Estab. 6 platelet count 178 X10E3/UL [facility] 314-193 2151/12/0 6 red blood cell distribution width 12.2 % [facility] 11.6-15.4 6 mean corpuscular hemoglobin concentration, RBC 34.2 G/DL [facility] 31.5-35.7 6 mean corpuscular hemoglobin, RBC 30.9 pg [facility] 26.6-33.0 6 mean corpuscular volume, RBC 90 fL [facility] 79-97 6 hematocrit, blood 55.5 % [facility] 37.5-51.0 High 6 hemoglobin, blood 19.0 g/dL [facility] 13.0-17.7 High 6 erythrocyte (RBC) count 6.14 X10E6/UL [facility] 4.14-5.80 High 6 leukocyte count, blood 8.1 X10E3/UL [facility] 3.4-10.8 6 c-reactive protein, quantitative, serum 2.59 mg/L [facility] 0.00-3.00 6 lipoprotein, beta, serum, point, quantitative, calculated 43 mg/dL [facility] 0-99 6 HDL cholesterol, serum 43 mg/dL [facility] >39 6 triglyceride, serum, random 160 mg/dL [facility] 0-149 High 6 cholesterol, serum 113 mg/dL [facility] [id number] 5969/11/0 3 microalbumin/creat inine ratio, urine 370 MG/G CREAT [facility] 0-29 High 3 microalbumin, random, urine 68.04 mg/dL [facility] Units converted. See lab report for original value. 3 creatinine, random, urine 184.0 mg/dL [facility] Not Estab. HISTORY OF MEDICATION USE Medication Status Instructions Dates Provider Indications Com ments Xarelto 2.5 mg tablet active TAKE 1 TABLET BY MOUTH TWICE DAILY 03/18 Pamela Rushing Xarelto 2.5 mg tablet completed TAKE 1 TABLET(2.5 MG) BY MOUTH TWICE DAILY 07/26 - 03/18 Pamela Rushi amlodipine 5 mg tablet active TAKE 1 TABLET BY MOUTH EVERY DAY 04/27 Freya Mei ramipril 5 mg capsule active TAKE 1 CAPSULE BY MOUTH EVERY DAY 03/06 [facility] Ozempic 1 mg/dose (4 mg/3 mL) pen injector active Inject 1 mg subcutaneously once a week 03/05nicole Obrien MD Jardiance 25 mg tablet active TAKE 1 TABLET BY MOUTH EVERY DAY 03/24 Keagan ammonium lactate 12% cream active as directed Jaja Harrison ramipril 5 mg capsule completed Take 1 capsule by mouth once a day 06/05 - 03/06 Jammie Corrigan Humulin R Regular U-100 Insuln 100 unit/mL solution active as directed Jaja Harrison Levemir FlexTouch U-100 Insuln 100 unit/mL (3 mL) insulin pen active inject 30 units twice a day Bernardo Micah BRO amlodipine 5 mg tablet completed - 06/05eep Micah BRO Xarelto 2.5 mg tablet completed Take 1 tablet by mouth twice a day - 07/26 [facility] ammonium lactate 12% cream completed Apply 1 liberally to affected area as directed 04/19 - 06/05xavier Obrien MD clopidogrel 75 mg tablet completed Take 1 tablet by mouth once a day 04/13 - 05/03eep Micah BRO Jardiance 25 mg tablet completed Take 1 tablet by mouth once a day TAKE 1 TABLET BY MOUTH DAILY 09/23 - 03/24 Jacque Pollard Jardiance 25 mg tablet completed TAKE 1 TABLET BY MOUTH DAILY 09/22 - 09/23 Brook Young Jardiance 10 mg tablet completed Take 1 tablet once a day 03/13 - 09/22 Jacque Atul FARXIGA 10 MG ORAL TABLET completed One tab by mouth daily Reduces cardiovascular and heart failure hospitalizations 03/06 - 03/13 Rubi Novak RN candesartan 4 mg tablet completed 1 tablet once a day 03/06 - 05/03xavier Obrien MD Trulicity 1.5 mg/0.5 mL pen injector completed Inject 1 pen injector subcutaneously once a week 04/27 - 10/14 Anna Abdullahi NP losartan 50 mg tablet completed Take 1 tablet once a day 05/06 - Bernardo Obrien MD CILOSTAZOL 100 MG ORAL TABLET completed Take 1 Tab Twice a Day 04/05 - 05/06 Bernardo Obrien MD CLOPIDOGREL 75MG TABLETS completed TAKE 1 TABLET BY MOUTH DAILY 07/20 - 03/06 Aminah Abdullahi DOXYCYCLINE HYCLATE 100 MG ORAL CAPSULE completed take one tablet by mouth once daily 03/14 - 03/06 Aminah Abdullahi #30, 15 days supply, Filled 9 ezetimibe 10 mg tablet completed 1 tablet once a day - 10/14 Jaja Harrison JARDIANCE 10 MG ORAL TABLET completed one tab by mouth daily 03/19 - Partha Dowell aspirin 81 mg tablet,delayed release (DR/EC) active 1 tablet by mouth once a day 09/11 Echo Gutierrez RN PANTOPRAZOLE SODIUM 40 MG INTRAVENOUS SOLUTION RECONSTITUTED completed Take 1 tab twice a day 09/11 - Partha Dowell Crestor 5 mg tablet active 1 tablet once a day 07/24xavier Obrien MD HYDROCHLOROTHIAZI DE 12.5 MG ORAL CAPSULE completed ONE TAB. DAILY - 05/06xavier Obrien MD LEVEMIR SOLUTION completed 40 unit twice a day 03/06 - 05/03xavier Obrien MD HYDROCODONE-ACETA MINOPHEN 5-325 MG ORAL TABLET completed as needed - 03/06 Aminah O'Junior Humulin R Regular U-100 Insuln 100 unit/mL solution completed as directed - 05/03 Bernardo Obrien MD EXFORGE HCT 10-320-25 MG ORAL TABLET completed 1 tab once daily - 05/06 Bernardo Obrien MD ASPIRIN 325 MG ORAL TABLET completed 07/24 - 09/11 Angel Olivernn SOCIAL HISTORY Date Observation Value Provider number of years as a smoker 40+ Jacque Pollard smoking history, tot al pack/day 2 Jacque Pollard cigarette use yes Jacque Hernandez cristina smoking status Former smoker Jacque nunes number of years as a smoker 40+ Ghislaine Prem smoking history, tot al pack/day 2 Ghislaine Prem cigarette use yes Ghislaine Prem smoking status Former smoker Ghislaine Prem number of years as a smoker 40+ Jacque Pollard smoking history, tot al pack/day 2 Jacque Pollard cigarette use yes Jacque Hernandez cristina smoking status Former smoker Jacque nunes social history E&M Smoking History: Nicole meneses is a former smoker. Bernardo Obrien MD social history reviewed E&M revi ewed - no changes required Bernardo Obrien MD number of years as a smoker 40+ Whit Suggs smoking history, tot al pack/day 2 Whit Suggs cigarette use yes Whit Suggs smoking status Former smoker Bernardo Obrien MD smoking/tobacco cess ation, patient education and counseling yes Aminah O'Junior number of years as a smoker 40+ Aminah O'Junior smoking history, tot al pack/day 2 Aminah O'Junior cigarette use yes Aminah O'Junior smoking status Current every day smoker M sahil O'Junior smoking history, tot al pack/day 2 Portia Pichardon cigarette use yes Portia Pichardon smoking status Current every day smoker Costa Juarez smoking/tobacco cess ation, patient education and counseling yes Jacque Pollard number of years as a smoker 40+ Jacque Pollard smoking history, tot al pack/day 1-2 Jacque Pollard cigarette use yes Jacque Hernandez nd smoking status Current every day smoker Anabel Pollard smoking/tobacco cess ation, patient education and counseling yes Jacque Holly number of years as a smoker 40+ Jacque Holly smoking history, tot al pack/day 1-2 Jacque Elayne cigarette use yes Jacque Jimenez y smoking status Current every day smoker Anabel Holly social history reviewed E&M revi ewed - no changes required Echo Gutierrez RN smoking/tobacco cess ation, patient education and counseling yes Aminah O'Junior number of years as a smoker 40+ Aminah O'Junior smoking history, tot al pack/day 1-2 Aminah O'Junior cigarette use yes Aminah O'Junior smoking status Current every day smoker M arsha O'Junior smoking/tobacco cess ation, patient education and counseling yes Bernardo Obrien MD social history reviewed E&M revi ewed - no changes required Bernardo Obrien MD smoking status Current every day smoker An Moura social history reviewed E&M revi ewed - no changes required Echo Gutierrez RN smoking/tobacco cess ation, patient education and counseling yes Anni Moura number of years as a smoker 40+ Anni Moura smoking history, tot al pack/day 1-2 Anni Moura cigarette use yes Anni Moura smoking status Current every day smoker An Moura smoking/tobacco cess ation, patient education and counseling yes Echo Gutierrez RN social history reviewed E&M revi ewed - no changes required Echo Gutierrez RN number of years as a smoker 40+ Partha Dowell smoking history, tot al pack/day 1-2 Partha Dowell cigarette use yes Partha naylor smoking status Current every day smoker Anabel Dowell smoking/tobacco cess ation, patient education and counseling yes Bernardo Obrien MD social history reviewed E&M revi ewed - no changes required Bernardo Obrien MD smoking status Current every day smoker Anabel Mei number of years as a smoker 48 a Bernardo Obrien MD smoking history, tot al pack/day 2-3 Bernardo Obrien MD cigarette use yes Bernardo Obrien MD smoking status Current every day smoker Haley Obrien MD smoking/tobacco cess ation, patient education and counseling yes Bernardo Obrien MD social history reviewed E&M revi ewed - no changes required Bernardo Obrien MD social history reviewed E&M revi ewed - no changes required Echo Gutierrez RN number of years as a smoker 48 a Bernardo Obrien MD smoking history, tot al pack/day 2-3 Bernardoxavier Obrien MD cigarette use yes Bernardoxavier Obrien MD social history reviewed E&M revi ewed - no changes required Bernardo Obrien MD social history E&M Patient ricky johnson smokes every day. Smoking History: P atient currently smokes every day. P atient has been counseled to quit. Bernardo Obrien MD smoking/tobacco cess ation, patient education and counseling yes Bernardo Obrien MD smoking status current every day smoker Haley Obrien MD FUNCTIONAL STATUS Date Observation Value Provider HRA, CV Assess/Plan, Angina (inactive) Management Plan continue current therapy Bernardo Obrien MD HRA, CV Assess/Plan, Angina (inactive) Management Plan continue current therapy Bernardo Obrien MD HRA, CV Assess/Plan, Angina (inactive) Management Plan continue current therapy Jaja Isaias De La Torre [employer]IMING M[employer]TURE [employer]RIER HRA, CV Assess/Plan, Angina (inactive) Management Plan continue current therapy Bernardo Obrien MD HRA, CV Assess/Plan, Angina (inactive) Management Plan continue current therapy Bernardo Obrien MD HRA, CV Assess/Plan, Angina (inactive) Management Plan continue current therapy Bernardo Obrien MD HRA, CV Assess/Plan, Angina (inactive) Management Plan continue current therapy Jaja A Wil [employer]URE [employer]ER HRA, CV Assess/Plan, Angina (inactive) Management Plan continue current therapy Bernardo Obrien MD HRA, CV Assess/Plan, Angina (inactive) Management Plan continue current therapy Bernardo Obrien MD HRA, CV Assess/Plan, Angina (inactive) Management Plan continue current therapy Bernardo Obrien MD HRA, CV Assess/Plan, Angina (inactive) Management Plan continue current therapy Bernardo Obrien MD HRA, CV Assess/Plan, Angina (inactive) Management Plan continue current therapy Jaja Isaias De La Torre [employer]IMING M[employer]ER HRA, CV Assess/Plan, Angina (inactive) Management Plan continue current therapy Bernardo Obrien MD HRA, CV Assess/Plan, Angina (inactive) Management Plan continue current therapy Echo Gutierrez RN HRA, CV Assess/Plan, Angina (inactive) Management Plan continue current therapy Bernardo Obrien HRA, CV Assess/Plan, Angina (inactive) Management Plan continue current therapy Echo Gutierrez NURSE AIDE EVALUATOR HISTORY Family Member Condition Full Brother Family History of Di abetes: Paternal Grandfather Family History of C VA or Stroke: Father Family History of CV A or Stroke: INSURANCE PROVIDERS Payer name Policy type / Coverage type [employer] party ID [employer] MEDICARE ADVANTAGE HMO-POS HMO [id number] ADVANCE DIRECTIVES Name Date DISCUSSED - NO DECISION MADE TREATMENT PLAN Date Name Performer [id number],Amarilys, H breann has since last visit had his great and 2nd toe amputated - and is healing H breann also had a US to bilateral LE today a ll the stents are patent, and arteries are open Micah BRO [id number],Amarilys, H breann has since last visit had his great and 2nd toe amputated H berann also had a US to bilateral LE today a ll the stents are patent, and arteries are open Jaja De La Torre [employer]IMING M[employer]TURE CARRIER [id number],C, l dl 59 w ill check LP(a) Jaja De La Torre [employer] M[employer] CARRIER [id number],C, B P today: 105/65 P rior BP: 160/95 (07/17/2022) Labs Reviewed: C reat:2.20 - (04/2022) C hol: 126 (02/07/2022) HDL: 41 (02/07/2022) w ill check UACR Jaja De La Torre [employer] CARRIER [id number],C,H as now quit smoking Jaja De La Torre [employer]IMING M[employer]TURE CARRIER [id number],C, n egative doppler 2020 Jaja De La Torre [employer] M[employer]TURE CARRIER [id number],C, a bdominal aortic atherosclerosis and stenosis, and left iliac stenosis. . CT Abd/thorax also showed atherosclerosis thoracic aorta likely has CAD as well e cho 2018 - EF 65%, mild AI Jaja Luna De La Torre BEBE [id number],C, r are cp a lways sob - copd Jaja Luna Wil SPENCE [id number],C,takes a puff every now and then Micah BRO [id number],C,a dvised to check at home His updated medication list for this problem includes: Ramipril 5 Mg Capsule (Ramipril) ..... Take 1 capsule by mouth once a day Aspirin 81 Mg Tablet,delayed Release (dr/ec) (Aspirin) ..... 1 tablet by mouth once a day BP today: 160/95 P rior BP: 100/66 (06/05/2022) Labs Reviewed: C reat: 2.22 (02/07/2022) C hol: 126 (02/07/2022) HDL: 41 (02/07/2022) Bernardo Obrien MD [id number],C, n egative doppler 2020 Bernardo Obrien MD [id number],C,I s walking and wants amputation for his first two toes/ R ight sfa stents patent on doppler Bernardo Obrien MD [id number],C,l dl 59 c martak Lp(a) Bernardo Obrien MD [id number],C,on jardiance Bernardo Obrien MD [id number],C, Since February when he underwent the AIF on the Right LE and was admitted for lytic rx afterwards, and 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 The rest of his foot has improved. Bernardo Obrien MD [id number],C,tolerating as a and xarelo Bernardo Obrien MD [id number],C, S juan the last visit he now is scheduled for a TMA of the right foot. 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 Tonja crain is scheduled for surgery in 2 days and the question is 'will there be enough circulation to heal the surgical wound?' d ry gangrene to the two toes, and wound to the lateral aspect of the heel S /p extensive intervention on the right leg for CLI. He had rethrombosed his SFA, popliteal, and BTK vessels. He had distal emoblization and was admitted for lytic therapy. He is now on aspirin and xarelto. Feels much better and his pain has resolved. Ambulating with a boot. Bernardo Obrien MD [id number],C, c heck A1c l ast A1c 7% d ouble trulicity to 1.5mg [facility] [id number],C, L DL 59 His updated medication list for this problem includes: Crestor 5 Mg Tablet (Rosuvastatin) ..... 1 tablet once a day Ezetimibe 10 Mg Tablet (Ezetimibe) ..... 1 tablet once a day [facility] [id number],S, H e has now quit smoking - very difficult but he continues to be successful [facility] [id number],S, r are cp a lways sob - copd [facility] [id number],C, B P today: 96/53 P rior BP: 94/62 (04/19/2022) The following medications were removed from the medication list: Candesartan 4 Mg Tablet (Candesartan) ..... 1 tablet once a day His updated medication list for this problem includes: Aspirin 81 Mg Tablet,delayed Release (dr/ec) (Aspirin) ..... 1 tablet by mouth once a day Candesartan 4 Mg Tablet (Candesartan) ..... 1 tablet once a day [facility] [id number],C, B P today: 94/62 P rior BP: 120/70 (02/22/2022) Labs Reviewed: C reat: 2.22 (02/07/2022) C hol: 126 (02/07/2022) HDL: 41 (02/07/2022) Jaja Luna Wil [employer]IMING M[employer] CARRIER [id number],C, H e has now quit smoking - very difficult but he continues to be successful Jaja De La Torre [employer]IM[employer] CARRIER [id number],C, c r 2.22 Jaja Isaias Wil [employer]ER [id number],C, S juan the last visit he now is scheduled for a TMA of the right foot. Currently it is still dry gangrene in the and 2nd toes of the foot. Tonja crain is scheduled for surgery in 2 days and the question is 'will there be enough circulation to heal the surgical wound?' dry gangrene to the two toes, and wound to the lateral aspect of the heel will obtain sensilase today to determine possiblity of healing post amputation Jaja De La Torre [employer]IM[employer] M[employer] CARRIER [id number],C, H is updated medication list for this problem includes: Aspirin 81 Mg Tablet,delayed Release (dr/ec) (Aspirin) ..... 1 tablet by mouth once a day Candesartan 4 Mg Tablet (Candesartan) ..... 1 tablet once a day [facility] [id number],C,R LE pain better post intervention but had dry gangrene in disal 1/2 of first and second toes. w ill do close surveillance advised to see Dr Alvarez (his health actuary for toe amputation) or might auto amputate h breann has no pain and this is dry gangrene [facility] [id number],C,100% isr left kidney on angiogram [facility] [id number],C,c r 2.22 [facility] [id number],C,w ill do aif in our lab with CO2 angiography [facility] [id number],C, H is updated medication list for this problem includes: Aspirin 81 Mg Tablet,delayed Release (dr/ec) (Aspirin) ..... 1 tablet by mouth once a day Candesartan 4 Mg Tablet (Candesartan) ..... 1 tablet once a day [facility] [id number],C,urged to quit [facility] [id number],C,C /o right leg geting cold and right calf weakness. He had to walk 600feet and right leg cramped up and had to stop twice 'left leg was fine. He can do 100 to 200 feet before he has to stop. Tonja crain is still smoking w ill plan aif as he is very sytomatic and finds this very limiting Micah BRO [id number],C,C /o right arm becoming weak if he does too much but states that he is very inactive. Micah BRO [id number],C,dm better wti h jardiance - 7% Micah BRO [id number],C,s till smoking n o intention of quitting l dct Micah BRO [id number],C,improved per pt Obrien [id number],C,n egative doppler 2020p Micah BRO [id number],C,C /o right leg geting cold and right calf weakness c heck bárbara Micah BRO [id number],C,r ight arm pain with exertion b ut does not bother enought to fix Micah BRO [id number],C, r are cp a lways sob - copd Micah BRO [id number],C,j ardiance 10 i ncrease to 25 uacr 370 Micah BRO [id number],C,wc Da s [id number],C,s till smoking u rged to quit Micah BRO [id number],C,n o claudication n o wounds or sores Micah BRO [id number],C,no cp or sob Micah BRO [id number],C,no palpitatio n Micah BRO [id number],C,r ight upper arm pain sometimes - l asts 10 minutes o nce every three days o ptions d/w pt and he does not thinks the sx are bad enough and will leave it be for now Bernardonicole Obrien MD [id number],C, s /p left renal stents in 2017 - was a herculink stent a ppear occluded on doppler today with atropic left kidney Bernardo Micah BRO [id number],C,a pparently about the same per Bernardo Micah BRO [id number],C,will check li pids and CRP Jaja De La Torre [employer]IMING M[employer] CARRIER [id number],C, s tates last hgb a1c 7 c heck uacr also advised to cut levemir down to 30 u bid Jaja De La Torre [employer]IMING MIXTURE CARRIER [id number],C, B P today: 150/90 P rior BP: 168/96 (07/05/2020) Jaja De La Torre [employer]IMING M[employer]TURE CARRIER [id number],C, c ontinues to smoke, not able to quit Jaja De La Torre [employer]IMING MIXTURE CARRIER [id number],C, s /p left renal stents Jaja De La Torre [employer]IMING M[employer]TURE CARRIER [id number],C, His renal function is worse and sees Dr Zimmerman. Jaja De La Torre [employer]IMING MIXTURE CARRIER [id number],C, a sx f ound on doppler Jaja De La Torre [employer]IMING M[employer]TURE CARRIER [id number],C, d zia shows previously treated right sfa is ok'left inspector poising - leave alone as not bothering him ABIs 07/2020 - R SFA papent, occluded left proximal to distal SFA, 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 Jaja De La Torre [employer]IM[employer] M[employer]TURE CARRIER [id number],C,l ast doppler 07/2020 - P atent right ICA stent. 2 . <50% stenosis of the left ICA. Jaja De La Torre [employer]IMING M[employer]TURE CARRIER Cardiology: H e has gone back to smoking 3/4 pack/day. S tressed cessation Anna Kaylen SPENCE Cardiology: Labs: l ipo-a: 39.3 t otal: 162, TG 208, HDL 50, LDL 77 The following medications were removed from the medication list: Ezetimibe 10 Mg Tablet (Ezetimibe) ..... 1 tablet once a day H is updated medication list for this problem includes: Crestor 5 Mg Tablet (Rosuvastatin) ..... 1 tablet once a day Anna Abdullahi NP Cardiology: B P today: 130/84 P rior BP: 135/72 (04/16/2023) Labs Reviewed: C reat: 2.22 (02/07/2022) C hol: 162 (04/27/2023) HDL: 50 (04/27/2023) LDL: 77 (04/27/2023) T (04/27/2023) His updated medication list for this problem includes: Amlodipine 5 Mg Tablet (Amlodipine) ..... Take 1 tablet by mouth every day Ramipril 5 Mg Capsule (Ramipril) ..... Take 1 capsule by mouth every day Aspirin 81 Mg Tablet,delayed Release (dr/ec) (Aspirin) ..... 1 tablet by mouth once a day Anna Abdullahi NP Cardiology:Will upda te probnp 04/2023 Labs: a lb/Cr ratio: 373 04/2022 Labs: C r 2.20 e GFR = 29 Anna Abdullahi NP Cardiology: c arotid duplex (05/01/2023): 1 . Mild plaque with less than 50% stenosis of the internal carotid arteries bilaterally. 2 . Vertebral flow is antegrade bilaterally. 3 . Right carotid stents are patent with no significant abnormalities. Anna Abdullahi NP Cardiology: s table clinically W ill update BÁRBARA next visit BÁRBARA(05/01/23): 1 . Moderate arterial disease of the right lower extremity. Stents in right SFA appear to be patent. 2 . Left SFA occluded. AIF (04/2023) 1 . Successful atherectomy and angioplasty of the entire SFA/popliteal which was done with three different devices Auryon 1.5, Auryon 2.0, and Jetstream 2.4/3.4. 2 . Stenting of the ostium of the SFA for an unyielding lesion. 3 . Atherectomy and angioplasty of right TP trunk and peroneal. 4 . Thrombectomy and angioplasty of the right distal peroneal 5 . Angioplasty of the posterior tibial artery and the lateral plantar artery in the foot. Anna Abdullahi [employer]IMING MIXTURE CARRIER Cardiology: d enies chest pain Anna Abdullahi [employer]IMING [employer]TURE CARRIER Cardiology: d enies pain Anna Abdullahi [employer]IMING M[employer]TURE CARRIER Cardiology:still andi lujan Bernardo Das Cardiology: H is updated medication list for this problem includes: Crestor 5 Mg Tablet (Rosuvastatin) ..... 1 tablet once a day Ezetimibe 10 Mg Tablet (Ezetimibe) ..... 1 tablet once a day C HOL: 126 (02/07/2022) LDL: 59 (02/07/2022) HDL: 41 (02/07/2022) T (02/07/2022) will check lipids Bernardo Das Cardiology: H is updated medication list for this problem includes: Ramipril 5 Mg Capsule (Ramipril) ..... Take 1 capsule by mouth every day Aspirin 81 Mg Tablet,delayed Release (dr/ec) (Aspirin) ..... 1 tablet by mouth once a day Obrien Cardiology:check bmp Obrien Cardiology:check carotids [facility] Cardiology:stable cl inically c heck bárbara Obrien Cardiology:no angina [facility]:right arm - once in a while - not bad enough per him Bernardo Das Cardiology: Tonja crain has since last visit had his great and 2nd toe amputated - and is healing Tonja crain also had a US to bilateral LE today a ll the stents are patent, and arteries are open Bernardo Micah BRO Cardiology: Tonja crain has since last visit had his great and 2nd toe amputated H e also had a US to bilateral LE today a ll the stents are patent, and arteries are open Jaja De La Torre [employer]IM[employer] M[employer] CARRIER Cardiology: l dl 59 w ill check LP(a) Jaja De La Torre [employer] CARRIER Cardiology: B P today: 105/65 P rior BP: 160/95 (07/17/2022) Labs Reviewed: C reat:2.20 - (04/2022) C hol: 126 (02/07/2022) HDL: 41 (02/07/2022) w ill check UACR Jaja De La Torre [employer]IM[employer] M[employer]TURE CARRIER Cardiology:Has now q uit smoking Jaja De La Torre [employer]IMING M[employer]URE CARRIER Cardiology: n egative doppler 2020 Jaja De La Torre [employer]IMING M[employer]TURE CARRIER Cardiology: a bdominal aortic atherosclerosis and stenosis, and left iliac stenosis. . CT Abd/thorax also showed atherosclerosis thoracic aorta likely has CAD as well e cho 2018 - EF 65%, mild AI Jaja De La Torre [employer]IMING M[employer]TURE CARRIER Cardiology: r are cp a lways sob - copd Jaja De La Torre [employer]IM[employer] CARRIER Cardiology:takes a puff every no w and then Bernardonicole Obrien MD Cardiology:advised t o check at home His updated medication list for this problem includes: Ramipril 5 Mg Capsule (Ramipril) ..... Take 1 capsule by mouth once a day Aspirin 81 Mg Tablet,delayed Release (dr/ec) (Aspirin) ..... 1 tablet by mouth once a day BP today: 160/95 P rior BP: 100/66 (06/05/2022) Labs Reviewed: C reat: 2.22 (02/07/2022) C hol: 126 (02/07/2022) HDL: 41 (02/07/2022) Bernardo Obrien MD Cardiology: n egative doppler 2020xavier Obrien MD Cardiology:Is walkin g and wants amputation for his first two toes/ R ight sfa stents patent on doppler Bernardo Obrien MD Cardiology:ldl 59 c heck Lp(a) Bernardo Obrien MD Cardiology:on jardiance Bernardo Obrien MD Cardiology: Since when he underwent the AIF on the Right LE and was admitted for lytic rx afterwards, and 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 The rest of his foot has improved. Bernardo Obrien MD Cardiology:tolerating asa and xa relo Bernardoxavier Obrien MD Cardiology: S juan the last visit he now is scheduled for a TMA of the right foot. 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 Tonja crain is scheduled for surgery in 2 days and the question is 'will there be enough circulation to heal the surgical wound?' d ry gangrene to the two toes, and wound to the lateral aspect of the heel S /p extensive intervention on the right leg for CLI. He had rethrombosed his SFA, popliteal, and BTK vessels. He had distal emoblization and was admitted for lytic therapy. He is now on aspirin and xarelto. Feels much better and his pain has resolved. Ambulating with a boot. Bernardo Obrien MD Cardiology: c heck A1c l ast A1c 7% d ouble trulicity to 1.5mg Bernardoxavier Obrien MD Cardiology: L DL 59 His updated medication list for this problem includes: Crestor 5 Mg Tablet (Rosuvastatin) ..... 1 tablet once a day Ezetimibe 10 Mg Tablet (Ezetimibe) ..... 1 tablet once a day Bernardo Obrien MD Cardiology: Tonja crain has now quit smoking - very difficult but he continues to be successful Bernardo Obrien MD Cardiology: r are cp a lways sob - copd Bernardonicole Obrien MD Cardiology: B P today: 96/53 P rior BP: 94/62 (04/19/2022) The following medications were removed from the medication list: Candesartan 4 Mg Tablet (Candesartan) ..... 1 tablet once a day His updated medication list for this problem includes: Aspirin 81 Mg Tablet,delayed Release (dr/ec) (Aspirin) ..... 1 tablet by mouth once a day Candesartan 4 Mg Tablet (Candesartan) ..... 1 tablet once a day Bernardo Obrien MD Cardiology: B P today: 94/62 P rior BP: 120/70 (02/22/2022) Labs Reviewed: C reat: 2.22 (02/07/2022) C hol: 126 (02/07/2022) HDL: 41 (02/07/2022) Jaja Garciae [employer]IM[employer] M[employer] CAR[employer]ER Cardiology: Tonja crain has now quit smoking - very difficult but he continues to be successful Jaja Isaias De La Torre [employer]IM[employer] M[employer]TURE CARRIER Cardiology: c r 2.22 Jaja A Wil SPENCE Cardiology: S juan the last visit he now is scheduled for a TMA of the right foot. 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 Tonja crain is scheduled for surgery in 2 days and the question is 'will there be enough circulation to heal the surgical wound?' dry gangrene to the two toes, and wound to the lateral aspect of the heel will obtain sensilase today to determine possiblity of healing post amputation Jaja Isaias De La Torre NP Cardiology: H is updated medication list for this problem includes: Aspirin 81 Mg Tablet,delayed Release (/ec) (Aspirin) ..... 1 tablet by mouth once a day Candesartan 4 Mg Tablet (Candesartan) ..... 1 tablet once a day Bernardoxavier Obrien MD Cardiology:RLE pain better post intervention but had dry gangrene in disal 1/2 of first and second toes. w ill do close surveillance advised to see Dr Alvarez (his health actuary for toe amputation) or might auto amputate tonja crain has no pain and this is dry gangrene Bernardoxavier Obrien MD Cardiology:100% isr left kidney on angiogram Bernardonicole Obrien MD Cardiology:cr 2.22 Bernardoxavier Obrien MD Cardiology:will do aif in our la b with CO2 angiography Bernardoxavier Obrien MD Cardiology: H is updated medication list for this problem includes: Aspirin 81 Mg Tablet,delayed Release (dr/ec) (Aspirin) ..... 1 tablet by mouth once a day Candesartan 4 Mg Tablet (Candesartan) ..... 1 tablet once a day Micah BRO Cardiology:urged to quit Micah BRO Cardiology:C/o right leg geting cold and right calf weakness. He had to walk 600feet and right leg cramped up and had to stop twice 'left leg was fine. He can do 100 to 200 feet before he has to stop. H breann is still smoking w ill plan aif as he is very sytomatic and finds this very limiting Micah BRO Cardiology:C/o right arm becoming weak if he does too much but states that he is very inactive. Micah BRO Cardiology:dm better wtih jardia nce - 7% Obrien Cardiology:still smo baljit n o intention of quitting l dct Micah BRO Cardiology:improved per pt Micah BRO Cardiology:negative doppler 2020 Micah BRO Cardiology:C/o right leg geting cold and right calf weakness c heck bárbara Obrien Cardiology:right arm pain with exertion b ut does not bother enought to fix Micah BRO Cardiology: r are cp a lways sob - copd Micah BRO Cardiology:jardiance 10 i ncrease to 25 uacr 370 Micah BRO Cardiology:wc Micah BRO Cardiology:still smo baljit u rged to quit Micah BRO Cardiology:no claudi cation n o wounds or sores Obrien Cardiology:no cp or sob Micah BRO Cardiology:no palpitation Micah BRO Cardiology:right upp er arm pain sometimes - l asts 10 minutes o nce every three days o ptions d/w pt and he does not thinks the sx are bad enough and will leave it be for now Bernardo Micah BRO Cardiology: s /p left renal stents in 2017 - was a herculink stent a ppear occluded on doppler today with atropic left kidney Micah BRO Cardiology:apparentl y about the same per Bernardo Micah BRO Cardiology:will check lipids and CRP Jaja De La Torre NP Cardiology: s tates last hgb a1c 7 c heck uacr also advised to cut levemir down to 30 u bid Jaja De La Torre NP Cardiology: B P today: 150/90 P rior BP: 168/96 (07/05/2020) Jaja De La Torre NP Cardiology: c ontinues to smoke, not able to quit Jaja De La Torre NP Cardiology: s /p left renal stents Jaja De La Torre NP Cardiology: His renal function is worse and sees Dr Zimmerman. Jaja De La Torre NP Cardiology: a sx f ound on doppler Jaja De La Torre NP Cardiology: mason lizarraga shows previously treated right sfa is ok'left inspector poising - leave alone as not bothering him ABIs 07/2020 - R SFA papent, occluded left proximal to distal SFA, 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 Jaja De La Torre NP Cardiology:last dopp ler 07/2020 - P atent right ICA stent. 2 . <50% stenosis of the left ICA. Jaja De La Torre NP :asx f ound on doppler Micah BRO Cardiology:bp high d id not tiake his meds today Micah BRO Cardiology: H is updated medication list for this problem includes: Ezetimibe 10 Mg Oral Tablet (Ezetimibe) ..... 1 tab once daily Crestor 10 Mg Oral Tablet (Rosuvastatin calcium) ..... One tab. daily Micah BRO Cardiology: His jose l function is worse and sees Dr Zimmerman. samples of jardiance provided Bernardo Obrien MD Cardiology:stent in [place]ahi ok n ew right subclavian stenosis - high velocity n o right arm sx l eave alone Bernardo Obrien MD Cardiology:no angina Bernardo Obrien MD Cardiology:doppler s hows previously treated right sfa is ok'left inspector poising - leave alone as not bothering him Bernardo Obrien MD Cardiology:. No curr ent ulcers. He walks with a cane. Back is limiting factor in exertion although does report chronic leg pains. His health actuary says left foot pulse getting weak. left SFA is ostially occluded and popliteal collateralizes in the P1 segment via collaterals from the profunda.three-vessel runoff below the knee proximally. check sensilase BÁRBARA Echo Gutierrez RN Cardiology:moderate LICA stenosis 2013 R t carotid artery stent 2013 h as not been following up check carotid u/s Echo Gutierrez RN Cardiology:03/2018 total 98, trig 172, hdl 36, ldl 28 Echo Gutierrez RN Cardiology:BP today: 140/80 P rior BP: 95/60 (05/06/2018) Echo Gutierrez RN Cardiology:states la st hgb a1c 7 c heck uacr f arxiga 10mg daily samples given a lso advised to cut levemir down to 30 u bid Echo Gutierrez RN Cardiology:states la st creat 2.3 s gasper as in 2016 Echo Gutierrez RN Cardiology:continues to smoke, n ot able to quit Echo Gutierrez RN Cardiology:Denies CP . States chronic SOB but not worsening lately. Tonja crain reports blood in urine about 2 weeks ago, he stopped plavix with resolution of blood in urine. He resumed plavix and the hematuria recurred. He has seen urologist, has cystoscopy scheduled. remains off plavix but tolerating asa Echo Gutierrez RN Cardiology -ltr done :States his right 1st toe is doing better and foot/leg feels better. His back is the limiting factor in his walking distance now and his right leg does not bother him anymore. has palpable pulses c ilostazol stopped Bernardoxavier Obrien MD Cardiology -ltr done :hgb a1c 8.2 w ill add trulicity Bernardoxavier Obrien MD Cardiology -ltr done :will stop hct B P today: 105/55 P rior BP: 135/60 (04/01/2018) Bernardoxavier Obrien MD Cardiology -ltr done :bp low- passed out - orthostatic - went to hospital [facility] orthostatic today stop hct Bernardoxavier Obrien MD Cardiology -ltr done :foot better -has palpable pulses c ilostazol stopped Bernardonicole Obrien MD Cardiology -ltr done :he is continuing to work on quitting c utting down, mostly around .25 ppd Bernardonicole Obrien MD Cardiology -ltr done :RVOT origin i n ventricular bigeminy on ekg today n ot perfusing pvcs as pulse ox only shows HR of 42 but EKG has HR 80 d enies dizziness, fatigue m ild-mod CAD w ill check echo, holter Bernardonicole Obrien MD Cardiology:hgb a1c 8.2 Echo Randhawa RN Cardiology: stat e Creat now 2.3 w ill likely need CO2 angio Echo Gutierrez RN Cardiology:03/2018 total 98, trig 172, hdl 36, ldl 28 Echo Gutierrez RN Cardiology:BP today: 135/60 P rior BP: 104/54 (10/17/2017) Echo Gutierrez RN Cardiology:still smo baljit T he Patient was reencouraged to stop smoking. Echo Gutierrez RN Cardiology:Reports r ight 1st toe ingrown toenail, saw health actuary (), took part of toenail off about 2 weeks ago. On ATBs. It seemed to be healing up, then he stubbed his right 1st toe about 5 days ago. Saw today and pt was told that toe looks gangrenous and needs either improved circulation or amputation. sensilase today and schedule for AIF Echo Gutierrez RN Cardiology:last cr 1.9 Echo Randhawa RN Cardiology:moderate, non-obstructive CAD by recent cardiac cath r isk factor modification and medical management c ontinues to smoke and doesn't seem like he is going to try quitting again Echo Gutierrez RN Cardiology: States r ight calf pain usually bothers him quickly, but back bothers him first. r ecent cath showed right ostial SFA occlusion c an consider interventoin if finds lige style limiting Echo Gutierrez RN Cardiology: Denies s yncope. Had one episode of dizziness but found his BS was 52. Pt finished 30 day monitor, but final result not available yet (he turned it in today). P reliminary results show NSR, SB rate 52-77. Echo Gutierrez RN Cardiology:09/2017 hg b a1c 6.6 u acr 491 q ualifies for dkd Echo Gutierrez RN Cardiology:09/2017 Ch olesterol 105 T riglycerides 182 (H) H DL Chol 26 (L) L DL Calculated 43 Echo Gutierrez RN Cardiology:continues to smoke T he Patient was reencouraged to stop smoking. Echo Gutierrez RN Cardiology:BP today: 104/54 P rior BP: 134/80 (01/17/2017) Echo Gutierrez RN Cardiology -ltr done :lateral wall ischemia by nuc w ill need cath f homer right sharon test unable to straighten left arm fully due to prior cva but has good left radial flow --may need to have tech hold left hand for cath call Mason palmerflorinabreann - 3N Bernardo Obrien MD Cardiology -ltr done:will add ja rdiance Bernardo Obrien MD Cardiology -ltr done:per Calliso n Bernardo Obrien MD Cardiology -ltr done :will try chantix -script given w ill need to r/o AAA Bernardo Obrien MD Cardiology -ltr done:Creat 2 Sun lauro Obrien MD Cardiology -ltr done :BP today: 134/80 P rior BP: 140/70 (11/20/2016) Bernardo Obrien MD Cardiology -SD TO DO : H is updated medication list for this problem includes: Aspirin Adult Low Dose 81 Mg Oral Tbec (Aspirin) ..... One tab by mouth daily Exforge Hct 10-320-25 Mg Oral Tabs (Atupgrylkq-lbnlssowf-jays) BP today: 140/70 P rior BP: 138/78 (09/11/2016) Bernardo Obrien MD Cardiology -SD TO DO :has right sfa occlusion H as limited walking capacity of 200 feet both due to back pain and pain right calf. Bernardo Obrien MD Cardiology -SD TO DO :s/p left renal stents Bernardo Obrien MD Cardiology -ltr done:wc Echo gamboa RN Cardiology -ltr done:cut back to 03/06 ppd Echo Gutierrez RN Cardiology -ltr done :plan renal angiopgraph and interventon Echo Gutierrez RN Cardiology -ltr done:no claudiat ion Echo Gutierrez RN Cardiology:creat 1.9-2.5 Bernardo Obrien MD Cardiology:abdominal aortic atherosclerosis and stenosis, and left iliac stenosis. . CT Abd/thorax also showed atherosclerosis thoracic aorta likely has CAD as well e cho 2012 showed likely normal systolic function but was tds Bernardo Obrien MD Cardiology: bilatera l (left high grade, right moderate grade) renal artery stenosis, abdominal aortic atherosclerosis and stenosis, and left iliac stenosis. He had abdominal MRA done to evaluate for 60# weight loss over 4 months. His mesenteric arteries were widely patent. CT Abd/thorax also showed atherosclerosis thoracic aorta and mildly atrophic left kidney. He also has history of DM, HTN, high cholesterol, CKD with Creatinine 1.9-2.5. He has history of CVA with right carotid stent placed by . 03/01/2015 Creat was 1.4 ---11/2015 Creat 2.3 m ildly atrophic left kidney + CKD + severe left CAROLIN >>>>renal artery stent Bernardo Obrien MD Cardiology:abdominal aortic atherosclerosis and stenosis, and left iliac stenosis. H e has BLE leg weakness, LLLE>RLE, but he is unsure if his leg weakness is related to his chronic back problems, stroke, or something else. He does not have SOB, but this is because he is limited by his legs and back in his exertion. Bernardo Obrien MD Cardiology:07/2016 Ch olesterol 124 T riglycerides 171 (H) H DL Chol 33 (L) L DL Calc 57 ----on Crestor 10mg Bernardo Obrien MD Cardiology:07/2016 hgb a1c 7.4 Kemp stephen Obrien MD Cardiology:smokes 2- 3ppd for past 50 years T he Patient was reencouraged to stop smoking. Bernardo Obrien MD Cardiology:hx rt carotid artery stent by Matthew Obrien MD Date Name B TYPE NATRIURETIC P EPTIDE (BNP) Low Dose Lung CT Arterial Duplex Bi-L ower EX Carotid Duplex Bilat eral LIPID PANEL Lipoprotein (a) Microalb/Creatinine Urine, Random Lipoprotein (a) Arterial Duplex Bi-L ower EX Arterial Duplex Bi-L ower EX Arterial - SENSILASE HEMOGLOBIN A1c CBC (INCLUDES DIFF/P LT) Arterial - SENSILASE OCCULT BLOOD, STOOL PROTHROMBIN TIME WIT H INR LIPID PANEL CBC (INCLUDES DIFF/P LT) BASIC METABOLIC PANE L W/EGFR Arterial Duplex Bi-L ower EX Low Dose Lung CT Complete Echo C-REACTIVE PROTEIN LIPID PANEL Renal Artery Duplex Arterial Duplex Bi-L ower EX Microalb/Creatinine Urine, Random Carotid Duplex Bilat eral Holter Monitor 24 Hr Complete Echo AIF Intervention - S [facility] HISTORY OF PROCEDURES Procedure Date Procedure Name Provider Procedure Notes S tatus Complex e/m visit add on Bernardo Obrien MD completed EKG Bernardo Obrien MD completed EKG Bernardo Obrien MD completed EKG Bernardo Obrien MD completed EKG Bernardo Obrien MD completed EKG Bernardo Obrien MD completed Mobile Cardiac Telem etry - Tech Bernardo Obrien MD completed Mobile Cardiac Telem etry - Prof Bernardo Obrien MD completed SNOMED-CT: 080529881 Smoking Cessation Counseling Bernardo Obrien MD completed SNOMED-CT: 11914597 Physical Exam, Performed: Pulse Exam of Foot Bernardo Obrien MD completed SNOMED-CT: 560871982 216177 Current Medications Documented Bernardo Obrien MD completed Stress EKG Anthony Shea MD complet ed Regadenoson, 4 units Bernardo Obrien MD completed Cardiolite, 2 units Bernardo Obrien MD c ompleted SPECT Images Anthony Shea MD compl eted SNOMED-CT: 19927105 Physical Exam, Performed: Pulse Exam of Foot Bernardo Obrien MD completed SNOMED-CT: 521124399 005387 Current Medications Documented Bernardo Obrien MD completed SNOMED-CT: 426383461 Smoking Cessation Counseling Bernardo Obrien MD completed SNOMED-CT: 06158576 Physical Exam, Performed: Pulse Exam of Foot Bernardo Obrien MD completed SNOMED-CT: 486843502 497596 Current Medications Documented Bernardo Obrien MD completed SNOMED-CT: 793114657 Smoking Cessation Counseling Bernardo Obrien MD completed SNOMED-CT: 81546290 Physical Exam, Performed: Pulse Exam of Foot Bernardo Obrien MD completed EKG Bernardo Obrien MD completed SNOMED-CT: 071052606 280143 Current Medications Documented Bernardo Obrien MD completed
--- OUTSIDE RECORDS SUMMARY | 2024-04-03 13:09 | XMS_ITS | Clinical Summary ---
Author Organization [facility] [employer] Address [address] [place] [address] Care Team Providers Care B2B Account Executive Name Role Phone Jere Tillman MD Primary Care Provider [phone] Kieran Albert MD Unavailable [phone] Alek Enrique MD Unavailable [phone] Source Comments [facility],non-owned Affiliates and Associated Physician Practices is amultiple site organization consisting of ambulatory clinics and hospital sitesin [place], [place], [place] and [place]. This disclosure is being madepursuant to the Care Everywhere program and may not contain all information available regarding this patient. Last updated 17.[facility] Allergies Active Allergy Reactions Criticality Noted Date [...] Administration Dates Next Due INFLUENZA VACCINE 12/10/2012 Family History Medical History Relation Name Comments Cancer Brother 3 Diabetes Maternal Grandmother Relation Name Status Comments Brother 1 Alive Brother 2 Brother 3 Father Maternal Grandmother Mother Sister Alive Social History Tobacco Use Types Packs/Day Years [...] Mass Index 30.13 09/11/2017 2:35 PM CDT Plan of Treatment Health Maintenance Due Date Last Done Comments COLOGUARD (AGES 45-75) - COL ON CA SCREENING 1948 COLON MONITORING 1948 COLONOSCOPY - COLON CA SCREENING 1948 CT COLONOGRAPHY - COLON CA SCREENING 1950 Colorectal Cancer Screening 1948 FIT - COLON CA SCREENING 1948 FLEX SIG - COLON CA SCREENING 1948 HEPATITIS C SCREENING 12/17/1966 DTAP/TDAP/TD VACCINES (1 - Tdap) 12/22/1967 PNEUMOCOCCAL VACCINE 50+ (1 of 2 - PCV) 12/22/1967 LUNG CANCER SCREENING 1998 ZOSTER VACCINE (1 of 2) 1998 COVID-19 VACCINE ( - 2023-2 5 season) 2023 INFLUENZA VACCINE (#1) 2023 12/10/2012 Respiratory Syncytial Virus (RSV) Vaccine Pt: or over 60 yrs (1 - 1-dose 75+ series) 12/22/2023 DEPRESSION SCREENING 03/05/2024 MEDICARE AWV ? CALENDAR YEAR 2024 HEPATITIS B VACCINE Aged Out No longe r eligible based on patient's age to complete this topic HIB VACCINE Aged Out No longer eligi ble based on patient's age to complete this topic HPV VACCINE Aged Out No longer eligi ble based on patient's age to complete this topic MENINGOCOCCAL (Group B) VACCINE Aged Out No longer eligible based on patient's age to complete this topic MENINGOCOCCAL VACCINE Aged Out No romain jill eligible based on patient's age to complete this topic Advance Directives * Full Code (Latest Code [...] 8:01 AM 12/28/2012 12:02 PM Care Teams B2B Account Executive Relationship Specialty Start Date End Date Jere Tillman MD [address] [place] [address] PCP - General 06/07/10 Kieran Albert MD [address] [place] [address] Orthopedic Surgery 07/10/11 Alek Enrique MD [address] [place] [phone] Orthopedic Surgery 05/22/13
--- OUTSIDE RECORDS SUMMARY | 2024-04-03 13:09 | XMS_ITS | Continuity of Care Document ---
Author Organization [facility] Address [address] [place] [address] Phone Care Team Providers Care Bar Host Name Role Phone Bryan Chapman MD Unavailable Unavailable Allergies, Adverse Reactions, Alerts Substance Reaction Status Criticality No Known Allergies Active No Inform ation Advance Directives Directive Yes / No Effective Date File Name No Information Encounters Encounter Description Practice Location Reason(s) For Visit Diagnoses Date Provider Providers Copied on Encounter [facility], [address], [place], [place], [address], tel:[phone] [facility] [place] Elevated PSAOther microscopic hematuria Adela Adams. [address], [facility] [address], [place], [address], . tel:[phone] Referring Provider: [address], [place], [address]. tel:[phone] [facility], [address], [place], [place], [address], tel:[phone] [facility] [place] Elevated PSA Adela He [address], [place], [address], . tel:[phone] Referring Provider: [address], [place], [address]. tel:[phone] [facility], [address], [place], [place], [address], tel:[phone] [facility] [place] Elevated PSAOther microscopic hematuria Adela Adams. [address], [facility] [address], [place], [address], [place]. tel:[phone] Referring Provider: Jere Tillman, [address], [place], [address]. tel:[phone] Family History Family Member Type Diagnosis Age At Onset No Information Payers Payer name Insurance type Covered libertarian ID Authoriza tion(s) EXCLUSIVE CHOICE [facility] CI [id number] Social History Type Description Quantity Date Captured Comments Sex Male Smoking Status No Information Chief Complaint And Reason For Visit No Information Reason For Referral Reason For Referral No Information History Of Present Illness Encounter Date Complaint History Of Prese nt Illness No Information Functional Status Date Functional Assessmen t No Information Instructions Date Instruction Additional Infor mation No Information Assessments Type Assessment Date No Information Patient Care Teams Name Effective Dates (start - stop) Status Members No Information
--- OUTSIDE RECORDS SUMMARY | 2024-04-03 13:10 | XMS_ITS | Encounter Summary ---
Author Organization [facility] Address [address] [place] [address] Care Team Providers Care Hot Molder Name Role Phone Jere Tillman MD Primary Care Provider [phone] Kieran Albert MD Unavailable [phone] Alek Enrique MD Unavailable [phone] Encounter Details Date Type Department Care Team (Late st Contact Info) Description 04/20/2022 Lab Requisition [facility] [address] [place] [address] [place] [address] [address] [place], [place] [id number] Social History Tobacco Use Types Packs/Day Years Used Date Smoking Tobacco: Every Day Cigarettes 2 45 Smokeless Tobacco: Never Alcohol Use Standard Drinks/Week Comments Yes 0 (1 standard drink = 0.6 oz pur e alcohol) Rarely Sex and Gender Information Value Date Recorded Sex Assigned at Not on file Gender Identity Not on file Sexual Orientation Not on file documented as of this encounter Functional Status Functional Status Response Date of [...] person have difficulty concentrating/remembering/making decisions? No 09/14/2017 documented as of this encounter Plan of Treatment Not on file documented as of this encounter Procedures Procedure Name Priority Date/Time Associated Diagnosis Comments CBC W AUTO DIFFERENTIAL STAT 04/20/2022 11:24 AM REGIONAL REHABILITATION DIRECTOR documented in this encounter Results * (ABNORMAL) CBC WITH DIFFERENTIAL (04/20/2022 11:24 AM REGIONAL REHABILITATION DIRECTOR) WBC 6.9 4.4 - 10.7 x10E9/L 04/20/2022 1:59 PM REGIONAL REHABILITATION DIRECTOR [facility] WBC Corrected 04/20/2022 1:59 PM REGIONAL REHABILITATION DIRECTOR [facility] RBC 5.95(H) 3.80 - 5.40 x10E12/L 04/20/2022 1:59 PM REGIONAL REHABILITATION DIRECTOR [facility] Hemoglobin 18.2(H) 12.0 - 17.6 gm/dL 04/20/2022 1:59 PM REGIONAL REHABILITATION DIRECTOR [facility] Hematocrit 54.4(H) 35.2 - 51.7 % 04/20/2022 1:59 PM REGIONAL REHABILITATION DIRECTOR [facility] MCV 91.4 80.7 - 98.3 fl 04/20/2022 1:59 PM REGIONAL REHABILITATION DIRECTOR [facility] MCH 30.6 26.7 - 34.0 pg 04/20/2022 1:59 PM REGIONAL REHABILITATION DIRECTOR [facility] MCHC 33.5 30.8 - 35.9 gm/dL 04/20/2022 1:59 PM REGIONAL REHABILITATION DIRECTOR [facility] Platelet Count 166 153 - 416 x10E9/L 04/20/2022 1:59 PM REGIONAL REHABILITATION DIRECTOR [facility] RDW-CV 12.8 12.1 - 14.9 % 04/20/2022 1:59 PM REGIONAL REHABILITATION DIRECTOR [facility] MPV 12.3 9.4 - 12.9 fl 04/20/2022 1:59 PM REGIONAL REHABILITATION DIRECTOR [facility] Neutrophils % 65.5 44.0 - 73.0 % 04/20/2022 1:59 PM REGIONAL REHABILITATION DIRECTOR [facility] Lymphocytes % 22.5 20.0 - 43.0 % 04/20/2022 1:59 PM REGIONAL REHABILITATION DIRECTOR [facility] Monocytes % 8.0 5.0 - 13.0 % 04/20/2022 1:59 PM REGIONAL REHABILITATION DIRECTOR [facility] Eosinophils % 2.2 0.0 - 6.0 % 04/20/2022 1:59 PM REGIONAL REHABILITATION DIRECTOR [facility] Basophils % 1.4 0.0 - 2.0 % 04/20/2022 1:59 PM REGIONAL REHABILITATION DIRECTOR [facility] Immature Granulocytes 0.4 0 - 1 % 04/20/2022 1:59 PM REGIONAL REHABILITATION DIRECTOR [facility] Neutrophil Absolute 4.52 2.01 - 7.14 x10E9/L 04/20/2022 1:59 PM REGIONAL REHABILITATION DIRECTOR [facility] Lymphocytes Absolute 1.55 1.07 - 3.94 x10E9/L 04/20/2022 1:59 PM REGIONAL REHABILITATION DIRECTOR [facility] Monocytes Absolute 0.55 0.26 - 1.07 x10E9/L 04/20/2022 1:59 PM REGIONAL REHABILITATION DIRECTOR [facility] Eosinophils Absolute 0.15 0 - 0.47 x10E9/L 04/20/2022 1:59 PM REGIONAL REHABILITATION DIRECTOR [facility] Basophils Absolute 0.10(H) 0 - 0.08 x10E9/L 04/20/2022 1:59 PM REGIONAL REHABILITATION DIRECTOR [facility] Immature Granulocytes Absolute 0.03 0.00 - 0.06 x10E9/L 04/20/2022 1:59 PM REGIONAL REHABILITATION DIRECTOR [facility] nRBC Auto 0 /100 WBC 04/20/2022 1:59 PM [facility] Blood BLOOD SPECIMEN / Unknown Venipuncture / Unknown 04/20/2022 11:24 AM REGIONAL REHABILITATION DIRECTOR 04/20/2022 1:39 PM REGIONAL REHABILITATION DIRECTOR Bernardo Obrien MD LAB - HEMATOLOGY ORD ERABLES [facility] [address] [place] [address] documented in this encounter Visit Diagnoses Not on filedocumented in this encounter Care Teams Hot Molder Relationship Specialty Start Date End Date Jere Tillman MD [address] [place] [address] PCP - General 06/07/10 Kieran Albert MD [address] [place] [address] Orthopedic Surgery 07/10/11 Alek Enrique MD [address] [place] [address] Orthopedic Surgery 05/22/13 documented as of this encounter
--- OUTSIDE RECORDS SUMMARY | 2024-04-03 13:10 | XMS_ITS | Encounter Summary ---
Author Organization [facility] Address [address] [place] [address] Care Team Providers Care Flooring Installer Name Role Phone Jere Tillman MD Primary Care Provider [phone] Kieran Albert MD Unavailable [phone] Alek Enrique MD Unavailable [phone] Encounter Details Date Type Department Care Team (Late st Contact Info) Description 05/28/2013 Therapy Visit EXTERNAL NON-M DEPT Unknown, Provider Social History Tobacco Use Types Packs/Day Years Used Date Smoking Tobacco: Former Cigarettes 2 45 1 - 12/29/2012 Smokeless Tobacco: Never Alcohol Use Standard Drinks/Week Comments Yes 0 (1 standard drink = 0.6 oz pur e alcohol) Rarely Sex and Gender Information Value Date Recorded Sex Assigned at Not on file Gender Identity Not on file Sexual Orientation Not on file documented as of this encounter Plan of Treatment Not on file documented as of this encounter Visit Diagnoses Not on filedocumented in this encounter Care Teams Flooring Installer Relationship Specialty Start Date End Date Jere Tillman MD [address] [place] [phone] PCP - General 06/07/10 Kieran Albert MD [address] [place] [address] Orthopedic Surgery 07/10/11 Alek Enrique MD [address] [place] [phone] Orthopedic Surgery 05/22/13 documented as of this encounter
--- OUTSIDE RECORDS SUMMARY | 2024-04-03 13:10 | XMS_ITS | Patient Health Summary ---
Author Organization [facility] Address [address] 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 This disclosure is being madepursuant to the Care Everywhere program and may not contain all information available regarding this patient. Last updated 17.[facility] Allergies * Meridia Medications * Be aware that medications may not be up to date on this document. Alwaysverify current medications with the patient. * rosuvastatin (CRESTOR) 10 MG tablet(Started 08/16/2015) Take 10 mg by mouth every other day * amLODIPine-valsartan (EXFORGE) 10-320 MG tablet Take 1 Tab by mouth * HYDROcodone-acetaminophen (NORCO) 5-325 MG tablet(Started 08/17/2016) Take 1 Tab by mouth every 4 hours as needed for Pain * aspirin (ASPIRIN) 81 MG chew tablet Take 81 mg by mouth once daily * insulin detemir (LEVEMIR) pen Inject 70 Units subcutaneously 2 times daily * insulin regular human (HUMULIN R; NOVOLIN R) 100 UNIT/ML injection Inject 30 Units subcutaneously 3 times daily before meals * ezetimibe (ZETIA) 10 MG tablet(Started 09/14/2017) Take 1 tablet by mouth once daily 5 refills remaining * hydroCHLOROthiazide (HYDRODIURIL) 12.5 MG(Started 09/15/2017) Take 1 tablet by mouth once daily 5 refills remaining Active Problems Problem Noted Date Diagnosed Date Syncope 09/11/2017 Septic shock(785.52) 08/10/2016 Perforated viscus 08/10/2016 Peritonitis 08/10/2016 Carotid stenosis 07/07/2014 History of stroke 04/24/2013 Osteoarthritis of hip 02/04/2013 Piriformis syndrome 02/04/2013 Tendinitis of left rotator cuff 02/04/2013 Pain in joint, shoulder region - left 02/04/2013 Stroke 01/21/2013 Carotid stenosis, symptomatic, with infarction 1 03/23/2012 Weakness of left upper extremity 12/09/2012 Weakness of left leg 12/09/2012 HTN (hypertension) 12/09/2012 DM (diabetes mellitus) 12/09/2012 Low back pain 06/27/2010 Immunizations * INFLUENZA VACCINE(Given 12/10/2012) Social History Tobacco Use Types Packs/Day Years [...] Mass Index 30.13 09/11/2017 2:35 PM CDT Procedures * CBC W AUTO DIFFERENTIAL(Performed 04/20/2022) * CARDIAC RHYTHM STRIP ORDER(Performed 09/19/2017) * CARDIAC PROCEDURE ORDER(Performed 09/19/2017) * GLUCOSE - POINT OF CARE(Performed 09/14/2017) * GLUCOSE - POINT OF CARE(Performed 09/14/2017) * COMPREHENSIVE METABOLIC PANEL(Performed 09/14/2017) * CBC W AUTO DIFFERENTIAL(Performed 09/14/2017) * ALDOSTERONE/RENIN RATIO PANEL(Performed 09/14/2017) Performed for Weakness of left upper extremity * GLUCOSE - POINT OF CARE(Performed 09/13/2017) * GLUCOSE - POINT OF CARE(Performed 09/13/2017) * MICROALB/CREAT RATIO URINE RANDOM PANEL(Performed 09/13/2017) Performed for Syncope, unspecified syncope type, Weakness of left upper extremity * CARDIAC CATH(Performed 09/13/2017) * GLUCOSE - POINT OF CARE(Performed 09/13/2017) * CARDIAC CATH CONSULT(Performed 09/13/2017) * CARDIAC EKG ORDER(Performed 09/12/2017) * GLUCOSE - POINT OF CARE(Performed 09/12/2017) * GLUCOSE - POINT OF CARE(Performed 09/12/2017) * URINE DRUG SCREEN IMMUNOASSAY(Performed 09/12/2017) Performed for Syncope, unspecified syncope type * VAS CAROTID DUPLEX BILATERAL(Performed 09/12/2017) Performed for Syncope, unspecified syncope type * ECHOCARDIOGRAM 2D WITH DOPPLER(Performed 09/12/2017) Performed for Syncope, unspecified syncope type * GLUCOSE - POINT OF CARE(Performed 09/12/2017) * GLUCOSE - POINT OF CARE(Performed 09/12/2017) * LIPID PROFILE(Performed 09/12/2017) Performed for Other hyperlipidemia * TSH REFLEX FREE T4(Performed 09/12/2017) Performed for Syncope, unspecified syncope type * TROPONIN I(Performed 09/12/2017) Performed for Syncope, unspecified syncope type * HEMOGLOBIN A1C(Performed 09/12/2017) * CBC W AUTO DIFFERENTIAL(Performed 09/12/2017) * BASIC METABOLIC PANEL (CALCIUM TOTAL)(Performed 09/12/2017) * GLUCOSE - POINT OF CARE(Performed 09/11/2017) * URINE MICROSCOPIC ONLY REFLEX TO CULTURE(Performed 09/11/2017) * TROPONIN I(Performed 09/11/2017) * URINALYSIS REFLEX MICROSCOPIC REFLEX CULTURE(Performed 09/11/2017) * GLUCOSE - POINT OF CARE(Performed 09/11/2017) * XR CHEST 1VW PORTABLE(Performed 09/11/2017) Performed for Syncope, unspecified syncope type * CULTURE BLOOD(Performed 09/11/2017) * CULTURE BLOOD(Performed 09/11/2017) * TYPE + SCREEN PANEL(Performed 09/11/2017) * CK BLOOD(Performed 09/11/2017) * PT-INR(Performed 09/11/2017) * TROPONIN I(Performed 09/11/2017) * TSH(Performed 09/11/2017) * MAGNESIUM BLOOD(Performed 09/11/2017) * LIPASE BLOOD(Performed 09/11/2017) * COMPREHENSIVE METABOLIC PANEL(Performed 09/11/2017) * CBC W AUTO DIFFERENTIAL(Performed 09/11/2017) * NT-PRO BNP(Performed 09/11/2017) * ALCOHOL ETHYL BLOOD(Performed 09/11/2017) * EKG 12-LEAD(Performed 09/11/2017) Performed for Syncope, unspecified syncope type * GLUCOSE - POINT OF CARE(Performed 09/11/2017) * URINALYSIS REFLEX TO MICROSCOPIC NO CULTURE(Performed 12/05/2016) Performed for Weakness of left upper extremity, Low back pain with sciatica, sciatica laterality unspecified, unspecified back pain laterality, unspecified chronicity, Weakness of left leg, Essentialhypertension, Carotid stenosis, symptomatic, with infarction ([facility]), Piriformis syndrome, unspecified laterality, Tendinitis of left rotator cuff, Arthralgia of shoulder, unspecified laterality, History of stroke, Stenosis of right carotid artery, Septic shock(785.52), Perforated viscus, Peritonitis(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), Type 1 diabetes mellituswith other specified complication ([facility]), Cerebrovascular accident (CVA) due to bilateral stenosis of middle cerebral arteries ([facility]), Osteoarthritis of hip, unspecified laterality, unspecified osteoarthritis type * LIPID PROFILE(Performed 12/05/2016) Performed for Weakness of left upper extremity, Low back pain with sciatica, sciatica laterality unspecified, unspecified back pain laterality, unspecified chronicity, Weakness of left leg, Essentialhypertension, Carotid stenosis, symptomatic, with infarction (HCC), Piriformis syndrome, unspecified laterality, Tendinitis of left rotator cuff, Arthralgia of shoulder, unspecified laterality, History of stroke, Stenosis of right carotid artery, Septic shock(785.52), Perforated viscus, Peritonitis(HCC), 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) (HCC), Type 1 diabetes mellituswith other specified complication (HCC), Cerebrovascular accident (CVA) due to bilateral stenosis of middle cerebral arteries (HCC), Osteoarthritis of hip, unspecified laterality, unspecified osteoarthritis type * HEMOGLOBIN A1C(Performed 12/05/2016) Performed for Weakness of left upper extremity, Low back pain with sciatica, sciatica laterality unspecified, unspecified back pain laterality, unspecified chronicity, Weakness of left leg, Essentialhypertension, Carotid stenosis, symptomatic, with infarction (HCC), Piriformis syndrome, unspecified laterality, Tendinitis of left rotator cuff, Arthralgia of shoulder, unspecified laterality, History of stroke, Stenosis of right carotid artery, Septic shock(785.52), Perforated viscus, Peritonitis(HCC), 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) (HCC), Type 1 diabetes mellituswith other specified complication (HCC), Cerebrovascular accident (CVA) due to bilateral stenosis of middle cerebral arteries (HCC), Osteoarthritis of hip, unspecified laterality, unspecified osteoarthritis type * CBC W AUTO DIFFERENTIAL(Performed 12/05/2016) Performed for Weakness of left upper extremity, Low back pain with sciatica, sciatica laterality unspecified, unspecified back pain laterality, unspecified chronicity, Weakness of left leg, Essentialhypertension, Carotid stenosis, symptomatic, with infarction (HCC), Piriformis syndrome, unspecified laterality, Tendinitis of left rotator cuff, Arthralgia of shoulder, unspecified laterality, History of stroke, Stenosis of right carotid artery, Septic shock(785.52), Perforated viscus, Peritonitis(HCC), 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) (HCC), Type 1 diabetes mellituswith other specified complication (HCC), Cerebrovascular accident (CVA) due to bilateral stenosis of middle cerebral arteries (HCC), Osteoarthritis of hip, unspecified laterality, unspecified osteoarthritis type * BASIC METABOLIC PANEL (CALCIUM TOTAL)(Performed 12/05/2016) Performed for Weakness of left upper extremity, Low back pain with sciatica, sciatica laterality unspecified, unspecified back pain laterality, unspecified chronicity, Weakness of left leg, Essentialhypertension, Carotid stenosis, symptomatic, with infarction (HCC), Piriformis syndrome, unspecified laterality, Tendinitis of left rotator cuff, Arthralgia of shoulder, unspecified laterality, History of stroke, Stenosis of right carotid artery, Septic shock(785.52), Perforated viscus, Peritonitis(HCC), 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) (HCC), Type 1 diabetes mellituswith other specified complication (HCC), Cerebrovascular accident (CVA) due to bilateral stenosis of middle cerebral arteries (HCC), Osteoarthritis of hip, unspecified laterality, unspecified osteoarthritis type * CARDIAC EKG ORDER(Performed 11/21/2016) * LIPID PROFILE(Performed 10/13/2016) Performed for Atherosclerosis of [place] artery of both lower extremities with intermittent claudication (HCC), Atherosclerosis of aorta (HCC), Occlusion of right carotid artery, 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, Atherosclerosis of renal artery (HCC), Tobacco abuse, Other and unspecified hyperlipidemia, Diabetes mellitus without complication (HCC), Acute, but ill-defined, cerebrovascular disease * BASIC METABOLIC PANEL (CALCIUM TOTAL)(Performed 10/13/2016) Performed for Atherosclerosis of [place] artery of both lower extremities with intermittent claudication (HCC), Atherosclerosis of aorta (HCC), Occlusion of right carotid artery, 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, Atherosclerosis of renal artery (HCC), Tobacco abuse, Other and unspecified hyperlipidemia, Diabetes mellitus without complication (HCC), Acute, but ill-defined, cerebrovascular disease * PT-INR(Performed 10/13/2016) Performed for Atherosclerosis of [place] artery of both lower extremities with intermittent claudication (HCC), Atherosclerosis of aorta (HCC), Occlusion of right carotid artery, 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, Atherosclerosis of renal artery (HCC), Tobacco abuse, Other and unspecified hyperlipidemia, Diabetes mellitus without complication (HCC), Acute, but ill-defined, cerebrovascular disease * CARDIAC RHYTHM STRIP ORDER(Performed 08/18/2016) * GLUCOSE - POINT OF CARE(Performed 08/17/2016) * GLUCOSE - POINT OF CARE(Performed 08/17/2016) * GLUCOSE - POINT OF CARE(Performed 08/16/2016) * GLUCOSE - POINT OF CARE(Performed 08/16/2016) * GLUCOSE - POINT OF CARE(Performed 08/16/2016) * BASIC METABOLIC PANEL (CALCIUM TOTAL)(Performed 08/16/2016) * GLUCOSE - POINT OF CARE(Performed 08/15/2016) * GLUCOSE - POINT OF CARE(Performed 08/15/2016) * GLUCOSE - POINT OF CARE(Performed 08/15/2016) * GLUCOSE - POINT OF CARE(Performed 08/15/2016) * COMPREHENSIVE METABOLIC PANEL(Performed 08/15/2016) * GLUCOSE - POINT OF CARE(Performed 08/14/2016) * GLUCOSE - POINT OF CARE(Performed 08/14/2016) * GLUCOSE - POINT OF CARE(Performed 08/14/2016) * OT EVAL AND TREAT(Performed 08/14/2016) * FL UGI SERIES(Performed 08/14/2016) Performed for Acute gastric ulcer with perforation (HCC) * GLUCOSE - POINT OF CARE(Performed 08/14/2016) * COMPREHENSIVE METABOLIC PANEL(Performed 08/14/2016) * CBC W AUTO DIFFERENTIAL(Performed 08/14/2016) * GLUCOSE - POINT OF CARE(Performed 08/14/2016) * GLUCOSE - POINT OF CARE(Performed 08/14/2016) * GLUCOSE - POINT OF CARE(Performed 08/13/2016) * GLUCOSE - POINT OF CARE(Performed 08/13/2016) * XR ABDOMEN KUB(Performed 08/13/2016) Performed for Perforated chronic stomach ulcer (HCC) * GLUCOSE - POINT OF CARE(Performed 08/13/2016) * CULTURE BLOOD(Performed 08/13/2016) * CULTURE BLOOD(Performed 08/13/2016) * VANCOMYCIN LEVEL TROUGH(Performed 08/13/2016) * GLUCOSE - POINT OF CARE(Performed 08/13/2016) * GLUCOSE - POINT OF CARE(Performed 08/13/2016) * GLUCOSE - POINT OF CARE(Performed 08/13/2016) * COMPREHENSIVE METABOLIC PANEL(Performed 08/13/2016) * CBC W AUTO DIFFERENTIAL(Performed 08/13/2016) * GLUCOSE - POINT OF CARE(Performed 08/13/2016) * GLUCOSE - POINT OF CARE(Performed 08/12/2016) * GLUCOSE - POINT OF CARE(Performed 08/12/2016) * GLUCOSE - POINT OF CARE(Performed 08/12/2016) * GLUCOSE - POINT OF CARE(Performed 08/12/2016) * XR CHEST 1VW PORTABLE(Performed 08/12/2016) Performed for Acute respiratory failure with hypoxia (HCC) * COMPREHENSIVE METABOLIC PANEL(Performed 08/12/2016) * CBC W AUTO DIFFERENTIAL(Performed 08/12/2016) * MAGNESIUM BLOOD(Performed 08/12/2016) * TROPONIN I(Performed 08/12/2016) * GLUCOSE - POINT OF CARE(Performed 08/12/2016) * BLOOD GASES ART (ISTAT)(Performed 08/12/2016) * BLOOD GASES ARTERIAL POCT(Performed 08/12/2016) * GLUCOSE - POINT OF CARE(Performed 08/11/2016) * GLUCOSE - POINT OF CARE(Performed 08/11/2016) * GLUCOSE - POINT OF CARE(Performed 08/11/2016) * BLOOD GASES ART (ISTAT)(Performed 08/11/2016) * GLUCOSE - POINT OF CARE(Performed 08/11/2016) * GLUCOSE - POINT OF CARE(Performed 08/11/2016) * XR CHEST 1VW PORTABLE(Performed 08/11/2016) Performed for Acute respiratory failure with hypoxia (HCC) * PHOSPHORUS BLOOD(Performed 08/11/2016) * MAGNESIUM BLOOD(Performed 08/11/2016) * COMPREHENSIVE METABOLIC PANEL(Performed 08/11/2016) * CBC W AUTO DIFFERENTIAL(Performed 08/11/2016) * LACTIC ACID BLOOD(Performed 08/11/2016) * GLUCOSE - POINT OF CARE(Performed 08/11/2016) * GLUCOSE - POINT OF CARE(Performed 08/10/2016) * GLUCOSE - POINT OF CARE(Performed 08/10/2016) * GLUCOSE - POINT OF CARE(Performed 08/10/2016) * BLOOD GASES ART (ISTAT)(Performed 08/10/2016) * MAGNESIUM BLOOD(Performed 08/10/2016) * BASIC METABOLIC PANEL (CALCIUM TOTAL)(Performed 08/10/2016) * CBC W AUTO DIFFERENTIAL(Performed 08/10/2016) * ED CENTRAL LINE PLACEMENT(Performed 08/10/2016) * ED CRITICAL CARE(Performed 08/10/2016) * BLOOD GASES ARTERIAL POCT(Performed 08/10/2016) * BLOOD GASES ARTERIAL POCT(Performed 08/10/2016) Performed for Carotid stenosis, symptomatic, with infarction (HCC) * EKG 12-LEAD(Performed 08/10/2016) Performed for Other chest pain * CULTURE VRE(Performed 08/10/2016) * TROPONIN I(Performed 08/10/2016) * PHOSPHORUS BLOOD(Performed 08/10/2016) * MAGNESIUM BLOOD(Performed 08/10/2016) * COMPREHENSIVE METABOLIC PANEL(Performed 08/10/2016) * CBC W AUTO DIFFERENTIAL(Performed 08/10/2016) * LACTIC ACID BLOOD(Performed 08/10/2016) * CULTURE MRSA(Performed 08/10/2016) * XR CHEST 1VW PORTABLE(Performed 08/10/2016) Performed for Acute respiratory failure with hypoxia (HCC) * BLOOD GASES ART (ISTAT)(Performed 08/10/2016) * PT EVAL AND TREAT(Performed 08/10/2016) * LACTATE MARINA POC NOTIFICATION(Performed 08/10/2016) * CULTURE AFB+SMEAR(Performed 08/10/2016) Performed for Diagnosis unknown * CULTURE ANAEROBE(Performed 08/10/2016) Performed for Diagnosis unknown * SUSCEPTIBILITY FUNGUS/YEAST(Performed 08/10/2016) Performed for Diagnosis unknown * CULTURE BLOOD(Performed 08/10/2016) * CULTURE BLOOD(Performed 08/10/2016) * LAPAROTOMY EXPLORATORY(Performed 08/10/2016) * HYDROXYBUTYRATE BETA(Performed 08/10/2016) * TROPONIN I(Performed 08/10/2016) * XR CHEST 1VW PORTABLE(Performed 08/10/2016) Performed for Other chest pain * ISTAT CG4+ ART(Performed 08/10/2016) * ECHOCARDIOGRAM 2D WITH DOPPLER(Performed 08/10/2016) Performed for Other chest pain * CT ANGIO CHEST ABDOMEN PELVIS(Performed 08/10/2016) Performed for Other chest pain * XR CHEST 1VW PORTABLE(Performed 08/10/2016) Performed for Other chest pain * EKG 12-LEAD(Performed 08/10/2016) Performed for Other chest pain * LIPASE BLOOD(Performed 08/10/2016) * PT-INR(Performed 08/10/2016) * COMPREHENSIVE METABOLIC PANEL(Performed 08/10/2016) * CBC W AUTO DIFFERENTIAL(Performed 08/10/2016) * TROPONIN I(Performed 08/10/2016) * EKG 12-LEAD(Performed 08/10/2016) Performed for Other chest pain * PT-INR(Performed 08/04/2016) Performed for Pre-operative cardiovascular examination, Atherosclerosis of aorta (HCC), 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 * LIPID PROFILE(Performed 08/04/2016) Performed for Pre-operative cardiovascular examination, Atherosclerosis of aorta (HCC), 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 * CBC W AUTO DIFFERENTIAL(Performed 08/04/2016) Performed for Pre-operative cardiovascular examination, Atherosclerosis of aorta (HCC), 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 * BASIC METABOLIC PANEL (CALCIUM TOTAL)(Performed 08/04/2016) Performed for Pre-operative cardiovascular examination, Atherosclerosis of aorta (HCC), 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 * LIPID PROFILE(Performed 07/24/2016) Performed for Weakness of left upper extremity, Weakness of left leg, Essential hypertension, Carotid stenosis, symptomatic, with infarction (HCC), Tendinitis of left rotator cuff * BASIC METABOLIC PANEL (CALCIUM TOTAL)(Performed 07/24/2016) Performed for Weakness of left upper extremity, Weakness of left leg, Essential hypertension, Carotid stenosis, symptomatic, with infarction (HCC), Tendinitis of left rotator cuff * HEMOGLOBIN A1C(Performed 07/04/2016) Performed for Essential hypertension, malignant, 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-stage renal disease) (HCC), Mixed hyperlipidemia * CBC W AUTO DIFFERENTIAL(Performed 07/04/2016) Performed for Essential hypertension, malignant, 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-stage renal disease) (HCC), Mixed hyperlipidemia * BASIC METABOLIC PANEL (CALCIUM TOTAL)(Performed 07/04/2016) Performed for Essential hypertension, malignant, 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-stage renal disease) (HCC), Mixed hyperlipidemia * VAS CAROTID DUPLEX BILATERAL(Performed 07/04/2016) Performed for Carotid stenosis, right * MRI ANGIO ABDOMEN WWO CONTRAST(Performed 12/14/2015) Performed for Abdominal pain, unspecified location * CREATININE BLOOD - POINT OF CARE (IP)(Performed 12/02/2015) * CT CHEST ABDOMEN PELVIS W CONT(Performed 12/02/2015) Performed for Unintentional weight loss * TSH(Performed 11/24/2015) Performed for Elevated prostate specific antigen (PSA), Essential hypertension, malignant, 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-stage renal disease) (HCC), Mixed hyperlipidemia, Encounter for long-term (current) use of medications * T4 FREE(Performed 11/24/2015) Performed for Elevated prostate specific antigen (PSA), Essential hypertension, malignant, 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-stage renal disease) (HCC), Mixed hyperlipidemia, Encounter for long-term (current) use of medications * HEPATIC FUNCTION PANEL(Performed 11/24/2015) Performed for Elevated prostate specific antigen (PSA), Essential hypertension, malignant, 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-stage renal disease) (HCC), Mixed hyperlipidemia, Encounter for long-term (current) use of medications * LIPID PROFILE(Performed 11/24/2015) Performed for Elevated prostate specific antigen (PSA), Essential hypertension, malignant, 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-stage renal disease) (HCC), Mixed hyperlipidemia, Encounter for long-term (current) use of medications * HEMOGLOBIN A1C(Performed 11/24/2015) Performed for Elevated prostate specific antigen (PSA), Essential hypertension, malignant, 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-stage renal disease) (HCC), Mixed hyperlipidemia, Encounter for long-term (current) use of medications * BASIC METABOLIC PANEL (CALCIUM TOTAL)(Performed 11/24/2015) Performed for Elevated prostate specific antigen (PSA), Essential hypertension, malignant, 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-stage renal disease) (HCC), Mixed hyperlipidemia, Encounter for long-term (current) use of medications * PROSTATE SPECIFIC ANTIGEN DIAGNOSTIC(Performed 11/24/2015) Performed for Elevated prostate specific antigen (PSA), Essential hypertension, malignant, 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-stage renal disease) (HCC), Mixed hyperlipidemia, Encounter for long-term (current) use of medications * VAS CAROTID DUPLEX BILATERAL(Performed 08/24/2015) Performed for Stenosis of carotid artery, unspecified laterality * US RETROPERITONEAL COMPLETE(Performed 07/26/2015) Performed for CKD (chronic kidney disease), unspecified stage * URINALYSIS REFLEX TO MICROSCOPIC NO CULTURE(Performed 07/23/2015) Performed for 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-stage renal disease) ([facility]) * BASIC METABOLIC PANEL (CALCIUM TOTAL)(Performed 07/23/2015) Performed for 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-stage renal disease) ([facility]) * CULTURE URINE(Performed 07/23/2015) Performed for 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-stage renal disease) ([facility]) * LIPID PROFILE(Performed 07/22/2015) Performed for Essential hypertension, malignant, 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-stage renal disease) ([facility]), Mixed hyperlipidemia * HEMOGLOBIN A1C(Performed 07/22/2015) Performed for Essential hypertension, malignant, 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-stage renal disease) ([facility]), Mixed hyperlipidemia * BASIC METABOLIC PANEL (CALCIUM TOTAL)(Performed 07/22/2015) Performed for Essential hypertension, malignant, 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-stage renal disease) ([facility]), Mixed hyperlipidemia * PROSTATE SPECIFIC ANTIGEN DIAGNOSTIC(Performed 07/22/2015) Performed for Elevated prostate specific antigen (PSA) * BASIC METABOLIC PANEL (CALCIUM TOTAL)(Performed 03/01/2015) Performed for Routine general medical examination at a health care facility, Essential hypertension * MYOGLOBIN URINE QUANTITATIVE(Performed 03/01/2015) Performed for Routine general medical examination at a health care facility, Essential hypertension * ALDOLASE(Performed 03/01/2015) Performed for Routine general medical examination at a health care facility, Essential hypertension * MICROALBUMIN URINE RANDOM(Performed 03/01/2015) Performed for Routine general medical examination at a health care facility, Essential hypertension * PROSTATE SPECIFIC ANTIGEN DIAGNOSTIC(Performed 03/01/2015) Performed for Routine general medical examination at a health care facility, Essential hypertension * HEMOGLOBIN A1C(Performed 03/01/2015) Performed for Routine general medical examination at a health care facility, Essential hypertension * CK BLOOD(Performed 03/01/2015) Performed for Routine general medical examination at a health care facility, Essential hypertension * HEPATIC FUNCTION PANEL(Performed 03/01/2015) Performed for Routine general medical examination at a health care facility, Essential hypertension * LIPID PROFILE(Performed 03/01/2015) Performed for Routine general medical examination at a health care facility, Essential hypertension * MICROALBUMIN URINE RANDOM(Performed 10/21/2014) Performed for Type II or unspecified type diabetes mellitus without mention of complication, not stated as uncontrolled (HCC) * HEPATIC FUNCTION PANEL(Performed 10/21/2014) Performed for Type II or unspecified type diabetes mellitus without mention of complication, not stated as uncontrolled (HCC) * LIPID PROFILE(Performed 10/21/2014) Performed for Type II or unspecified type diabetes mellitus without mention of complication, not stated as uncontrolled (HCC) * HEMOGLOBIN A1C(Performed 10/21/2014) Performed for Type II or unspecified type diabetes mellitus without mention of complication, not stated as uncontrolled (HCC) * TSH REFLEX FREE T4(Performed 10/21/2014) Performed for Type II or unspecified type diabetes mellitus without mention of complication, not stated as uncontrolled (HCC) * CK BLOOD(Performed 10/21/2014) Performed for Type II or unspecified type diabetes mellitus without mention of complication, not stated as uncontrolled (HCC) * CBC W AUTO DIFFERENTIAL(Performed 10/21/2014) Performed for Type II or unspecified type diabetes mellitus without mention of complication, not stated as uncontrolled (HCC) * BASIC METABOLIC PANEL (CALCIUM TOTAL)(Performed 10/21/2014) Performed for Type II or unspecified type diabetes mellitus without mention of complication, not stated as uncontrolled (HCC) * VAS CAROTID DUPLEX BILATERAL(Performed 07/10/2014) Performed for Carotid stenosis, unspecified laterality * XR SHOULDER LEFT 2VW OR MORE(Performed 10/01/2013) Performed for Left shoulder pain * VAS CAROTID DUPLEX BILATERAL(Performed 07/08/2013) Performed for Carotid stenosis * GLUCOSE - POINT OF CARE(Performed 05/02/2013) * ACROMIOPLASTY/SUBACROMIAL DECOMPRESSION SHOULDER(Performed 05/02/2013) Performed for Rotator Cuff (Capsule) Sprain, Loose body in shoulder joint * GLUCOSE - POINT OF CARE(Performed 05/02/2013) * EKG 12-LEAD(Performed 05/02/2013) Performed for Preop examination * MRI SHOULDER LEFT WO CONTRAST(Performed 04/18/2013) Performed for Adhesive capsulitis of shoulder * XR SHOULDER LEFT 2VW OR MORE(Performed 02/04/2013) Performed for Pain in joint, shoulder region * XR HIP RIGHT 2VW OR MORE(Performed 02/04/2013) Performed for Hip pain * BASIC METABOLIC PANEL (CALCIUM TOTAL)(Performed 12/27/2012) * BASIC METABOLIC PANEL (CALCIUM TOTAL)(Performed 12/26/2012) * BASIC METABOLIC PANEL (CALCIUM TOTAL)(Performed 12/23/2012) * BASIC METABOLIC PANEL (CALCIUM TOTAL)(Performed 12/20/2012) * POTASSIUM BLOOD(Performed 12/19/2012) * BASIC METABOLIC PANEL (CALCIUM TOTAL)(Performed 12/19/2012) * POTASSIUM BLOOD(Performed 12/18/2012) * ERYTHROPOIETIN(Performed 12/18/2012) * FERRITIN(Performed 12/18/2012) * IRON + TIBC PANEL(Performed 12/18/2012) * BASIC METABOLIC PANEL (CALCIUM TOTAL)(Performed 12/18/2012) * CBC W/O DIFFERENTIAL(Performed 12/18/2012) * BASIC METABOLIC PANEL (CALCIUM TOTAL)(Performed 12/17/2012) * CBC W/O DIFFERENTIAL(Performed 12/17/2012) * CBC W/O DIFFERENTIAL(Performed 12/16/2012) * BASIC METABOLIC PANEL (CALCIUM TOTAL)(Performed 12/16/2012) * CARDIAC RHYTHM STRIP ORDER(Performed 12/13/2012) * CBC W/O DIFFERENTIAL(Performed 12/13/2012) * BASIC METABOLIC PANEL (CALCIUM TOTAL)(Performed 12/13/2012) * URINE MICROSCOPIC ONLY REFLEX TO CULTURE(Performed 12/13/2012) * URINALYSIS REFLEX MICROSCOPIC REFLEX CULTURE(Performed 12/13/2012) * GLUCOSE - POINT OF CARE(Performed 12/12/2012) * GLUCOSE - POINT OF CARE(Performed 12/12/2012) * GLUCOSE - POINT OF CARE(Performed 12/11/2012) * GLUCOSE - POINT OF CARE(Performed 12/11/2012) * GLUCOSE - POINT OF CARE(Performed 12/11/2012) * IR CAROTID STENT W EMBOL PROT(Performed 12/11/2012) Performed for Stroke (HCC) * GLUCOSE - POINT OF CARE(Performed 12/11/2012) * PT PTT PANEL(Performed 12/11/2012) * GLUCOSE - POINT OF CARE(Performed 12/10/2012) * GLUCOSE - POINT OF CARE(Performed 12/10/2012) * ECHOCARDIOGRAM 2D WITH DOPPLER(Performed 12/10/2012) Performed for Stroke (HCC) * GLUCOSE - POINT OF CARE(Performed 12/10/2012) * TROPONIN I(Performed 12/10/2012) * TROPONIN I(Performed 12/10/2012) * TROPONIN I(Performed 12/10/2012) * LIPID PROFILE(Performed 12/10/2012) * URINALYSIS REFLEX TO MICROSCOPIC NO CULTURE(Performed 12/10/2012) * GLUCOSE - POINT OF CARE(Performed 12/09/2012) * CT ANGIO BRAIN AND NECK(Performed 12/09/2012) Performed for Stroke (HCC) * MRI BRAIN WO CONTRAST(Performed 12/09/2012) Performed for Stroke (HCC) * CBC W AUTO DIFFERENTIAL(Performed 12/09/2012) * COMPREHENSIVE METABOLIC PANEL(Performed 12/09/2012) * HEMOGLOBIN A1C(Performed 12/09/2012) * MRI CERVICAL SPINE WWO CONT(Performed 11/25/2012) Performed for Upper extremity dysfunction * CT CERVICAL SPINE WO CONTRAST(Performed 11/25/2012) Performed for Neck pain * CT HEAD WO CONTRAST(Performed 11/25/2012) Performed for Upper extremity dysfunction * COMPREHENSIVE METABOLIC PANEL(Performed 11/25/2012) * CBC W AUTO DIFFERENTIAL(Performed 11/25/2012) * PT PTT PANEL(Performed 08/01/2011) * BASIC METABOLIC PANEL (CALCIUM TOTAL)(Performed 08/01/2011) * CBC W AUTO DIFFERENTIAL(Performed 08/01/2011) * XR PELVIS W BILAT HIP 2VW(Performed 06/19/2011) Performed for Pain in joint, pelvic region and thigh * MRI PELVIS WO CONTRAST(Performed 05/10/2011) Performed for Other chronic pain * IMAGING/RADIOLOGY/XRAY RESULTS ORDER(Performed 06/13/2010) * IMAGING/RADIOLOGY/XRAY RESULTS ORDER(Performed 06/13/2010) * XR LUMBAR SPINE 4VW OR MORE(Performed 06/07/2010) Performed for Other acute pain Results * (ABNORMAL) CBC WITH DIFFERENTIAL (04/20/2022 11:24 AM CLINICAL INTERVIEWER) Only the most recent of18 resultswithin the time period is included. WBC 6.9 4.4 - 10.7 x10E9/L 04/20/2022 1:59 PM CLINICAL INTERVIEWER [facility] WBC Corrected 04/20/2022 1:[address] [facility] RBC 5.95(H) 3.80 - 5.40 x10E12/L 04/20/2022 1:[address] [facility] Hemoglobin 18.2(H) 12.0 - 17.6 gm/dL 04/20/2022 1:[address] [facility] Hematocrit 54.4(H) 35.2 - 51.7 % 04/20/2022 1:[address] [facility] MCV 91.4 80.7 - 98.3 fl 04/20/2022 1:[address] [facility] MCH 30.6 26.7 - 34.0 pg 04/20/2022 1:[address] [facility] MCHC 33.5 30.8 - 35.9 gm/dL 04/20/2022 1:[address] [facility] Platelet Count 166 153 - 416 x10E9/L 04/20/2022 1:[address] [facility] RDW-CV 12.8 12.1 - 14.9 % 04/20/2022 1:[address] [facility] MPV 12.3 9.4 - 12.9 fl 04/20/2022 1:[address] [facility] Neutrophils % 65.5 44.0 - 73.0 % 04/20/2022 1:[address] [facility] Lymphocytes % 22.5 20.0 - 43.0 % 04/20/2022 1:[address] [facility] Monocytes % 8.0 5.0 - 13.0 % 04/20/2022 1:59 PM CLINICAL INTERVIEWER [facility] Eosinophils % 2.2 0.0 - 6.0 % 04/20/2022 1:59 PM CLINICAL INTERVIEWER [facility] Basophils % 1.4 0.0 - 2.0 % 04/20/2022 1:59 PM CLINICAL INTERVIEWER [facility] Immature Granulocytes 0.4 0 - 1 % 04/20/2022 1:59 PM CLINICAL INTERVIEWER [facility] Neutrophil Absolute 4.52 2.01 - 7.14 x10E9/L 04/20/2022 1:59 PM CLINICAL INTERVIEWER [facility] Lymphocytes Absolute 1.55 1.07 - 3.94 x10E9/L 04/20/2022 1:59 PM CLINICAL INTERVIEWER [facility] Monocytes Absolute 0.55 0.26 - 1.07 x10E9/L 04/20/2022 1:[address] [facility] Eosinophils Absolute 0.15 0 - 0.47 x10E9/L 04/20/2022 1:[address] [facility] Basophils Absolute 0.10(H) 0 - 0.08 x10E9/L 04/20/2022 1:[address] [facility] Immature Granulocytes Absolute 0.03 0.00 - 0.06 x10E9/L 04/20/2022 1:[address] [facility] nRBC Auto 0 /100 WBC 04/20/2022 1:[address] [facility] Blood BLOOD SPECIMEN / Unknown Venipuncture / Unknown 04/20/2022 11:24 AM CLINICAL INTERVIEWER 04/20/2022 1:39 PM CLINICAL INTERVIEWER Beverly Obrien MD LAB - HEMATOLOGY ORD ERABLES [facility] [address], [place] [id number] * CARDIAC RHYTHM STRIP ORDER (09/19/2017 2:34 AM CDT) Only the most recent of3 resultswithin the time period is included. Narrative 09/19/2017 2:34 AM CDT Ordered by an unspecified provider. Scanned Document CARDIAC SERVICES ORD ERABLES * CARDIAC PROCEDURE ORDER (09/19/2017 2:32 AM CDT) Narrative 09/19/2017 2:32 AM CDT Ordered by an unspecified provider. Scanned Document CARDIAC SERVICES ORD ERABLES * (ABNORMAL) GLUCOSE - POINT OF CARE (09/14/2017 11:29 AM CDT) Only the most recent of61 resultswithin the time period is included. Glucose WB/POC 111(H) 70 - 106 mg/dL 09/14/2017 11:55 AM CDT [facility] Blood BLOOD SPECIMEN / Unknown 09/14/2017 11:29 AM CDT 09/14/2017 11:55 AM CDT Lee Corbett MD LAB - POIN T OF CARE ORDERABLES [facility] [address] [place] [address] * ALDOSTERONE/RENIN RATIO PANEL (09/14/2017 4:06 AM CDT) Pathologist [facility] Aldosterone 1.8 0.0 - 30.0 ng/dL 09/23/2017 3:09 PM CDT [facility] ([facility]) Comment: This test was developed and its performance characteristics determined by [facility]. It has not been cleared or approved by the Food and Drug Administration. Renin 0.233 0.167 - 5.380 ng/mL/hr 09/23/2017 3:09 PM [facility]T [facility] Comment: This test was developed and its performance characteristics determined by [facility]. It has not been cleared or approved by the Food and Drug Administration. Aldosterone/Renin Ratio 7.7 0.0 - 30.0 09/23/2017 3:09 PM CDT [facility] ([facility]) Comment:Units: ng/dL per ng/ mL/hr Blood BLOOD SPECIMEN / Unknown Venipuncture / Unknown 09/14/2017 4:06 AM CDT 09/14/2017 4:15 AM CDT Narrative [facility] ([facility]) - 09/23/2017 3:09 PM CDT Performed at: ??01 - [facility] [address], [place] ??[id number] [employer] Mach[employer] Mechanic: Omid Coronado MD, Phone: ??[phone] Beverly Obrien MD LAB - CHEMISTRY MAGALY [facility] [address] [place] [address] * (ABNORMAL) COMPREHENSIVE METABOLIC PANEL (09/14/2017 4:06 AM CDT) Only the most recent of11 resultswithin the time period is included. [facility] Glucose 137(H) 74 - 106 mg/dL 09/14/2017 4:39 AM CDT [facility] Sodium 138 136 - 145 mmol/L 09/14/2017 4:39 AM CDT [facility] Potassium 4.3 3.5 - 5.1 mmol/L 09/14/2017 4:39 AM CDT [facility] Chloride 107 98 - 107 mmol/L 09/14/2017 4:39 AM CDT [facility] CO2 22 22 - 31 mmol/L 09/14/2017 4:39 AM CDT [facility] Calcium 8.9 8.5 - 10.1 mg/dL 09/14/2017 4:39 AM CDT [facility] Anion Gap 9 8 - 16 mmol/L 09/14/2017 4:39 AM CDT [facility] BUN 28(H) 7 - 21 mg/dL 09/14/2017 4:39 AM CDT [facility] Creatinine 1.90(H) 0.50 - 1.30 mg/dL 09/14/2017 4:39 AM CDT [facility] Alkaline Phosphatase 127(H) 38 - 126 U/L 09/14/2017 4:39 AM CDT [facility] ALT 25 13 - 61 U/L 09/14/2017 4:39 AM CDT [facility] AST 15 5 - 40 U/L 09/14/2017 4:39 AM CDT [facility] Protein Total 6.6 6.4 - 8.2 gm/dL 09/14/2017 4:39 AM CDT [facility] Albumin 3.3(L) 3.4 - 5.0 gm/dL 09/14/2017 4:39 AM CDT [facility] Bilirubin Total 0.4 0.2 - 1.0 mg/dL 09/14/2017 4:39 AM CDT [facility] eGFR by MDRD 35(L) >60 mL/min/1.7 3m2 09/14/2017 4:39 AM CDT [facility] eGFR by MDRD 43(L) >60 mL/min/1.7 3m2 09/14/2017 4:39 AM CDT [facility] Blood BLOOD SPECIMEN / Unknown Venipuncture / Unknown 09/14/2017 4:06 AM CDT 09/14/2017 4:15 AM CDT Lee Corbett MD LAB - CHEM ISTRY ORDERABLES Performing Organization Address [facility] Co de Phone Number [facility] [address] [place] [address] * (ABNORMAL) MICROALB/CREAT RATIO URINE RANDOM PANEL (09/13/2017 4:12 PM CDT) Creatinine Urine 55 mg/dL 09/14/19 18 4:43 PM CDT [facility] Microalbumin Urine 27.0 mg/dL 09/13/2017 4:43 PM CDT [facility] Microalbumin/Crea tinine Ratio 491(H) <30 mg/g 09/13/2017 4:43 PM CDT [facility] Urine URINE SPECIMEN OBTAINED BY CLEAN CATCH PROCEDURE / Unknown Collection / Unknown 09/13/2017 4:12 PM CDT 09/13/2017 4:18 PM CDT Beverly Obrien MD LAB - URINE CHEMISTR Y ORDERABLES Performing Organization Address City/[facility]/ZIP Co de Phone Number [facility] [address] [place] [address] * CARDIAC CATH PROCEDURE (09/13/2017 12:00 PM CDT) 09/13/2017 12:0 0 PM CDT Narrative Procedure Note Beverly Obrien MD - 09/13/2017 11:34 PM CDT [facility] CARDIAC CATHETERIZATION PATIENT: MAGDALENE CARRENO MR#: [id number] ADMIT DATE: 09/11/2017 CSN: [id number] PROCEDURE DATE: 09/13/2017 :1950 PHYSICIAN: Beverly Obrien MD ROOM: [id number] REFERRING PHYSICIAN: CARLOS MANUEL TANNER Patient of Dr. Tillman INDICATION FOR PROCEDURE: Syncope and evaluation of coronary arterydisease as a possible cause of his syncope. PROCEDURE PERFORMED: Left heart catheterization, selective left andright coronary angiography, left ventriculography, renal artery angiography. TECHNIQUE: After informed consent, the patient was brought to the cathlab. Right groin was prepped and draped in usual sterile fashion. The right femoral artery was anesthetized with 2% lidocaine. The right femoral veinwas punctured with a 5-Sudanese sheath. A 5-Sudanese JL4 and JR4 catheter wasused to engage the respective coronary arteries to obtain selective angiogram.A pigtail catheter was used to enter the LV, but LV-gram was not done. Subsequently, the JR4 catheter was used to engage the renal arteries bilaterally. This was done because of the patient's history of renalartery stenosis and chronic kidney disease. There were no complications. Allthe equipment was removed. The patient was transferred in stable conditionafter deploying a Mynx device to the right groin. The patient received 2 mgof Versed and 50 mcg of fentanyl for the procedure and a trained nurse was available for the entire duration to monitor the patient. The caseduration was 24 minutes. FINDINGS: Hemodynamics: Left ventricle pressure 175/18 mmHg. Pullback pressure was 175/60 mmHg. CORONARY ANATOMY: Left main coronary is normal. LAD is mild proximalin proximal mid aspect. The 2nd diagonal branch is moderate in size and has50% stenosis. Circumflex nondominant, normal. Right coronary is dominant,has 30% plaque in the mid segment and distal segment without any significant disease. Left ventricle was not done. Renal arteries demonstrates normal right renal artery. The left renalartery has a stent which is widely patent. The lower pole of the right andleft renal artery is not feeling very well and may have an occluded branch tothe lower pole of the left renal artery. There was occluded branch to theleft lower lobe of the left kidney. IMPRESSION: 1. Moderate nonobstructive coronary artery disease.No significant lesions. 2. LV gram was not done. 3. Mildly elevated left ventricular end-diastolic pressure is 18 mmHg. 4. Patent stent in the left renal. PLAN: We will recommend medical management only at this time. Thank you for allowing us in participation. BEVERLY OBRIEN MD SD/MODL #: [id number] cc: MD Jere Newell MD MEDICAL/SURGICAL CARDIAC CATHETERIZATION - [facility] Mohsen Otis Ron DO CARDIAC SERVICE S ORDERABLES [facility] * CARDIAC EKG ORDER (09/12/2017 9:24 PM CDT) Only the most recent of2 resultswithin the time period is included. Narrative 09/12/2017 9:24 PM CDT Ordered by an unspecified provider. Scanned Document CARDIAC SERVICES ORD ERABLES * DRUG SCREEN TOX URINE PANEL (09/12/2017 3:39 PM CDT) Pathologist [facility] Amphetamines Screen Urine Not Detected Not Detected 09/12/2017 3:57 PM CDT [facility] Barbiturates Screen Urine Not Detected Not Detected 09/12/2017 3:57 PM CDT [facility] Benzodiazepines Screen Urine Not Detected Not Detected 09/12/2017 3:57 PM CDT [facility] Cannabinoids Screen Urine Not Detected Not Detected 09/12/2017 3:57 PM CDT [facility] Cocaine Screen Urine Not Detected Not Detected 09/12/2017 3:57 PM CDT [facility] Methadone Screen Urine Not Detected Not Detected 09/12/2017 3:57 PM CDT [facility] Opiate Screen Urine Not Detected Not Detected 09/12/2017 3:57 PM CDT [facility] Phencyclidine Screen Urine Not Detected Not Detected 09/12/2017 3:57 PM CDT [facility] Urine URINE / Unknown Collection / Unknown 09/12/2017 3:39 PM CDT 09/12/2017 3:44 PM CDT Narrative [facility] - 09/12/2017 3:57 PM CDT This drug screen is designed for MEDICAL purposes only. It is not to be used for legal purposes, including but not limited to worker's comp, police investigations, occupational issues, child custody, etc. ??Any positive result is only presumptive and must be confirmed with a separate confirmatory test ordered by the physician. Drug Screening Test Cutoff Values: AMPHETAMINES ?1000 ng/mL BARBITURATES ? 200 ng/mL BENZODIAZEPINES ??200 ng/mL CANNABINOIDS(THC) 50 ng/mL COCAINE ?300 ng/mL METHADONE ?300 ng/mL OPIATES ?300 ng/mL PHENCYCLIDINE(PCP)25 ng/mL Lee Corbett MD LAB - URIN E CHEMISTRY ORDERABLES [facility] [address] [place] [id number] * VAS CAROTID DUPLEX BILATERAL (09/12/2017 2:12 PM CDT) Only the most recent of5 resultswithin the time period is included. Anatomical Region Laterality Modality Ultrasound 09/12/2017 1:26 PM CDT Narrative Procedure Note Tito Nam MD - 09/12/[address] [address] Carotid Duplex Report Pat.Name: MAGDALENE CARRENO Pat.ID: [id number] St.Date: 09/12/2017 Exam Time: 1:26:00 PM Study Type:Carotid Age: 10 1950,66Y Sex: MALE Sonogrphr: Sudheer Samuel RVT Pat. Stat.:Inpatient Room: 4748 Reason for Study:Syncope History / Clinical:Hypertension, Diabetes, CVA, Hyperlipidemia, CKD Procedures:Carotid Duplex - Bilateral Race: 2 Visit ID: [id number] ++++++++++++++++++++++++++++++++++++ SUMMARY: ++++++++++++++++++++++++++++++++++++ There are no hemodynamically significant stenoses in either the right or left extracranial carotid arterial system. There is normal antegrade flow in left vertebral artery and bidirectional flow in right. ++++++++++++++++++++++++++++++++++++ FINDINGS: ++++++++++++++++++++++++++++++++++++ Procedure: The extracranial carotid systems were examined bilaterally with duplex and color flow imaging as well as spectral Doppler analysis. Study Quality: This study is of adequate technical quality. Rt CCA: A stent is visualized in the right common carotid artery extending into the internal carotid artery. Intimal thickening is present Rt Bulb: Calcified plaque noted in right bulb. A stent was visualized within the right bulb. Rt ICA: A stent is visualized in the right ICA. Rt Vert: Bidirectional flow within the right vertebral Artery. Lt CCA: There is irregular, heterogenous plaque in the common carotid artery. Lt Bulb: There is irregular, heterogenous plaque in the bulb, extending into the ICA and ECA.. Lt ICA: There is smooth, homogenous plaque in the proximal ICA. Lt Vert: Antegrade flow within the left vertebral Artery. Carotid Findings: Right Left Verteb.Flw To and Fro Antegrade ++++++++++++++++++++++++++++++++++++ MEASUREMENTS: ++++++++++++++++++++++++++++++++++++ DOPPLER Left CCA Dist CCA Dist PSV 81.5 cm/s CCA Dist EDV 15.8 cm/s Left CCA Mid CCA Mid PSV 103 cm/s CCA Mid EDV 16.5 cm/s Left CCA Prox CCA Prox PSV 85.6 cm/s CCA Prox EDV 15.7 cm/s Left ECA ECA PSV 88.5 cm/s ECA EDV 0 cm/s Left ICA Dist ICA Dist PSV 63.9 cm/s ICA Dist EDV 13.5 cm/s Left ICA Prox ICA Prox PSV 68.6 cm/s ICA Prox EDV 18.8 cm/s Left ICA/CCA ICA/CCA PSV 0.67 Left Vertebral Vertebral PSV 63.3 cm/s Vertebral EDV 13.5 cm/s Right CCA Dist CCA Dist PSV 181 cm/s CCA Dist EDV 39.3 cm/s Right CCA Mid CCA Mid PSV 81.5 cm/s CCA Mid EDV 11.7 cm/s Right CCA Prox CCA Prox PSV 96.2 cm/s CCA Prox EDV 13.5 cm/s Right ECA ECA PSV 220 cm/s ECA EDV 0 cm/s Right ICA Dist ICA Dist PSV 81.7 cm/s ICA Dist EDV 14.1 cm/s Right ICA Prox ICA Prox PSV 120 cm/s ICA Prox EDV 23.6 cm/s Right ICA/CCA ICA/CCA PSV 1.47 Signed 09/12/2017 06:10 PM Tito Nam MD Sisi Ardon SENIOR SOFTWARE ARCHITECT-QUENCHING MACHINE OPERATOR [facility] RDERABLES * ECHOCARDIOGRAM 2D WITH DOPPLER (09/12/2017 1:53 PM CDT) Only the most recent of3 resultswithin the time period is included. 09/12/2017 1:53 PM CDT Narrative [facility] - 09/12/2017 3:[address] PM [address]T [address] [address] Transthoracic Echocardiogram 2D, M-mode, Doppler, and Color Doppler Patient: MAGDALENE CARRENO MR number: [id number] Height: 70 in Weight: 210 lb BSA: 2.13 m?? Study date: 12-Sep-2017 : 1950 Age: 66 years Gender: Male Race: Allergies: MERIDIA Diagnoses: R55. - Syncope and collapse Reading Physician: ??Brian Garcia MD Referring Physician: ??Chelle Howard M.D COURT BAILIFF OR SHERIFF: ??Nel Gaytan [facility] Cardiology Group: ??[facility] Summary: - ??Clinical question: - ??Syncope - ??History: - ??high cholesterol, DM, CVA, CKD, HTN - ??Procedure information: - ??TTE [facility] inpatient rm [id number] at 1353. - ??Left ventricle: - ??Systolic function was normal. Ejection fraction was estimated in the range of 55 % to 65 %. - ??There were no regional wall motion abnormalities. - ??Wall thickness was increased. - ??There was mild concentric hypertrophy. - ??Mitral valve: - ??There was mild regurgitation. - ??Left atrium: - ??The atrium was mildly dilated. - ??Tricuspid valve: - ??There was mild regurgitation. Indications: Syncope History: Prior history: high cholesterol, DM, CVA, CKD, HTN Procedure: The study was performed in the [facility]. This was a routine study. TTE [facility] inpatient rm [id number] at 1353. The transthoracic approach was used. The study included complete 2D imaging, M-mode, complete spectral Doppler, and color Doppler. Systolic blood pressure was 157 mmHg. Diastolic blood pressure was 92 mmHg. Intravenous contrast (Definity) was administered. Left ventricle: Size was normal. Systolic function was normal. Ejection fraction was estimated in the range of 55 % to 65 %. There were no regional wall motion abnormalities. Wall thickness was increased. There was mild concentric hypertrophy. Aortic valve: The valve was trileaflet. Leaflets exhibited normal thickness and normal cuspal separation. Doppler: There was no stenosis. There was no regurgitation. Aorta: The root exhibited normal size. Mitral valve: Valve structure was normal. There was normal leaflet separation. Doppler: The transmitral velocity was within the normal range. There was no evidence for stenosis. There was mild regurgitation. Left atrium: The atrium was mildly dilated. Right ventricle: The size was normal. Systolic function was normal. Wall thickness was normal. Pulmonic valve: Leaflets exhibited normal thickness, no calcification, and normal cuspal separation. Doppler: There was no regurgitation. Pulmonary artery: The size was normal. Doppler: Systolic pressure was within the normal range. Tricuspid valve: The valve structure was normal. There was normal leaflet separation. Doppler: The transtricuspid velocity was within the normal range. There was no evidence for tricuspid stenosis. There was mild regurgitation. Right atrium: Size was normal. Pericardium: The pericardium was normal in appearance. System measurement tables 2D IVSd: 2 cm LVEDV MOD A4C: 74.8 ml LVESV MOD A4C: 31.1 ml LVIDd: 4.7 cm LVIDs: 3 cm LVPWd: 2 cm CW PV Vmax: 1.1 m/s AV Vmax: 1 m/s AV maxP.2 mmHg PV maxP.5 mmHg MM LA Diam: 4 cm AV Cusp: 2.2 cm Ao Diam: 3.7 cm LA/Ao: 1.1 PW LVOT Vmax: 1.1 m/s Lateral E/e': 7.2 Septal E/e': 9.4 MV A Ever: 0.7 m/s MV Dec [place]: 2.6 m/s2 MV DecT: 286.4 ms MV E Ever: 0.7 m/s MV E/A Ratio: 1.1 Prepared and signed by Brian Garcia MD Signed 12-Sep-2017 15:49:20 Procedure Note Unknown, Provider, MD - 09/12/[address] [id number] Transthoracic Echocardiogram 2D, M-mode, Doppler, and Color Doppler Patient: MAGDALENE CARRENO MR number: [id number] Height: 70 in Weight: 210 lb BSA: 2.13 m?? Study date: 12-Sep-2017 : 1950 Age: 66 years Gender: Male Race: Allergies: MERIDIA Diagnoses: R55. - Syncope and collapse Reading Physician: Brian Garcia MD Referring Physician: Chelle Howard M.D COURT BAILIFF OR SHERIFF: Nel Gaytan [facility] Cardiology Group: [facility] Summary: - Clinical question: - Syncope - History: - high cholesterol, DM, CVA, CKD, HTN - Procedure information: - TTE [facility] inpatient rm [id number] at 1353. - Left ventricle: - Systolic function was normal. Ejection fraction was estimated in the range of 55 % to 65 %. - There were no regional wall motion abnormalities. - Wall thickness was increased. - There was mild concentric hypertrophy. - Mitral valve: - There was mild regurgitation. - Left atrium: - The atrium was mildly dilated. - Tricuspid valve: - There was mild regurgitation. Indications: Syncope History: Prior history: high cholesterol, DM, CVA, CKD, HTN Procedure: The study was performed in the [facility]-. This was a routine study. TTE [facility] inpatient rm [id number] at 1353. The transthoracic approach was used. The study included complete 2D imaging, M-mode, complete spectral Doppler, and color Doppler. Systolic blood pressure was 157 mmHg. Diastolic blood pressure was 92 mmHg. Intravenous contrast (Definity) was administered. Left ventricle: Size was normal. Systolic function was normal. Ejection fraction was estimated in the range of 55 % to 65 %. There were no regional wall motion abnormalities. Wall thickness was increased. There was mild concentric hypertrophy. Aortic valve: The valve was trileaflet. Leaflets exhibited normal thickness and normal cuspal separation. Doppler: There was no stenosis. There was no regurgitation. Aorta: The root exhibited normal size. Mitral valve: Valve structure was normal. There was normal leaflet separation. Doppler: The transmitral velocity was within the normal range. There was no evidence for stenosis. There was mild regurgitation. Left atrium: The atrium was mildly dilated. Right ventricle: The size was normal. Systolic function was normal. Wall thickness was normal. Pulmonic valve: Leaflets exhibited normal thickness, no calcification, and normal cuspal separation. Doppler: There was no regurgitation. Pulmonary artery: The size was normal. Doppler: Systolic pressure was within the normal range. Tricuspid valve: The valve structure was normal. There was normal leaflet separation. Doppler: The transtricuspid velocity was within the normal range. There was no evidence for tricuspid stenosis. There was mild regurgitation. Right atrium: Size was normal. Pericardium: The pericardium was normal in appearance. System measurement tables 2D IVSd: 2 cm LVEDV MOD A4C: 74.8 ml LVESV MOD A4C: 31.1 ml LVIDd: 4.7 cm LVIDs: 3 cm LVPWd: 2 cm CW PV Vmax: 1.1 m/s AV Vmax: 1 m/s AV maxP.2 mmHg PV maxP.5 mmHg MM LA Diam: 4 cm AV Cusp: 2.2 cm Ao Diam: 3.7 cm LA/Ao: 1.1 PW LVOT Vmax: 1.1 m/s Lateral E/e': 7.2 Septal E/e': 9.4 MV A Ever: 0.7 m/s MV Dec [place]: 2.6 m/s2 MV DecT: 286.4 ms MV E Ever: 0.7 m/s MV E/A Ratio: 1.1 Prepared and signed by Brian Garcia MD Signed 12-Sep-2017 15:49:20 Katelynn DAVIS ECHO ORDER JOSE ENRIQUE [facility] * TSH REFLEX FREE T4 (09/12/2017 3:58 AM CDT) Only the most recent of2 resultswithin the time period is included. [facility] TSH 2.30 0.358 - 3.740 ulU/mL 09/12/2017 9:14 AM CDT [facility] Blood BLOOD SPECIMEN / Unknown Venipuncture / Unknown 09/12/2017 3:58 AM CDT 09/12/2017 8:50 AM CDT Katelynn Mclaughlin APRN-QUENCHING MACHINE OPERATOR LAB - CHEM ISTRY ORDERABLES Performing Organization Address City/[facility]/ZIP Co de Phone Number [facility] [address] [place] [phone] * TROPONIN I (09/12/2017 3:58 AM CDT) Only the most recent of10 resultswithin the time period is included. [facility] Troponin I <0.015 0.000 - 0.049 ng/mL 09/12/2017 8:47 AM CDT [facility] Blood BLOOD SPECIMEN / Unknown Venipuncture / Unknown 09/12/2017 3:58 AM CDT 09/12/2017 8:20 AM CDT Narrative [facility] - 09/12/2017 8:47 AM CDT Note: Diagnosis of myocardial infarction requires symptoms of ischemia or EKG changes of ischemia and Troponin I >99th of normal (0.05 ng/mL). Troponin should be drawn on initial assessment and 3-6 hours later as clinically indicated. Any condition resulting in myocardial cell damage can increase cardiac troponin levels. In addition to myocardial infarction, these include but are not limited to congestive heart failure (CHF), arrhythmia, myocarditis, and non-cardiac related causes such as pulmonary embolism, renal failure and sepsis. Katelynn Mclaughlin [facility] LAB - CHEM ISTRY ORDERABLES Performing Organization Address [facility] Co de Phone Number [facility] [address] [place] [address] * (ABNORMAL) HEMOGLOBIN A1C (09/12/2017 3:58 AM CDT) Only the most recent of8 resultswithin the time period is included. Hemoglobin A1c 6.6(H) 4.2 - 6.3 % 09/12/2017 5:50 AM CDT [facility] Estimated Average Glucose 143 mg/dL 09/12/2017 5:50 AM CDT [facility] Whole Blood BLOOD SPECIMEN WITH EDTA / Unknown Venipuncture / Unknown 09/12/2017 3:58 AM CDT 09/12/2017 4:36 AM CDT Sisi Ardon [facility] - CHEMISTR Y ORDERABLES Performing Organization Address [facility] de Phone Number [facility] [address] [place] [phone] * (ABNORMAL) BASIC METABOLIC PANEL (CALCIUM TOTAL) (09/12/2017 3:58 AM CDT) Only the most recent of23 resultswithin the time period is included. Glucose 133(H) 74 - 106 mg/dL 09/12/2017 4:59 AM CDT [facility] Sodium 138 136 - 145 mmol/L 09/12/2017 4:59 AM CDT [facility] Potassium 4.8 3.5 - 5.1 mmol/L 09/12/2017 4:59 AM CDT [facility] Chloride 108(H) 98 - 107 mmol/L 09/12/2017 4:59 AM CDT [facility] CO2 24 22 - 31 mmol/L 09/12/2017 4:59 AM CDT [facility] Calcium 8.7 8.5 - 10.1 mg/dL 09/12/2017 4:59 AM CDT [facility] Anion Gap 6(L) 8 - 16 mmol/L 09/12/2017 4:59 AM CDT [facility] BUN 28(H) 7 - 21 mg/dL 09/12/2017 4:59 AM CDT [facility] Creatinine 1.90(H) 0.50 - 1.30 mg/dL 09/12/2017 4:59 AM CDT [facility] eGFR by MDRD 35(L) >60 mL/min/1.7 3m2 09/12/2017 4:59 AM CDT [facility] eGFR by MDRD 43(L) >60 mL/min/1.7 3m2 09/12/2017 4:59 AM CDT [facility] Blood BLOOD SPECIMEN / Unknown Venipuncture / Unknown 09/12/2017 3:58 AM CDT 09/12/2017 4:36 AM CDT Carlos Manuel Tanner MD LAB - CHEMISTRY MAGALY GARCIA [facility] Organization Address City/State/ZIP Co de Phone Number [facility] [address] [place] [address] * (ABNORMAL) LIPID PROFILE (09/12/2017 3:58 AM CDT) Only the most recent of10 resultswithin the time period is included. Cholesterol 105 <200 mg/dL 09/12/2017 9:14 AM CDT [facility] Triglycerides 182(H) <150 mg/dL 09/12/2017 9:14 AM T [facility] HDL Cholesterol 26(L) >40 mg/dL 8 9:14 AM CDT [facility] LDL Calculated 43 <130 mg/dL 09/12/2017 9:14 AM T [facility] VLDL Calculated 36(H) <=30 mg/dL 8 9:14 AM CDT [facility] Chol HDL Ratio 4.0 <4.5 09/12/2017 9:14 AM CDT [facility] LDL/HDL Ratio 1.6 <5.0 09/12/2017 9:14 AM CDT [facility] Blood BLOOD SPECIMEN / Unknown Venipuncture / Unknown 09/12/2017 3:58 AM CDT 09/12/2017 8:50 AM CDT Katelynn Nick Mclaughlin SENIOR SOFTWARE ARCHITECT-QUENCHING MACHINE OPERATOR LAB - CHEM ISTRY ORDERABLES Performing Organization Address [facility] Co de Phone Number [facility] [address] [place] [address] * URINE MICROSCOPIC ONLY REFLEX TO CULTURE (09/11/2017 8:25 PM CDT) Only the most recent of2 resultswithin the time period is included. Reflex Status Culture not indicated 09/11/2017 8:43 PM CDT [facility] RBC UA 0-5 0-5, None Seen # /hpf 09/11/2017 8:43 PM CDT [facility] WBC UA 0-5 0-5, None Seen # /hpf 09/11/2017 8:43 PM CDT [facility] Bacteria UA None Seen None Seen 09/11/2017 8:43 PM CDT [facility] Squamous Epithelial Cells 0-2 None Seen, 0-2, 3-5 /hpf 09/11/2017 8:43 PM CDT [facility] Mucus UA 1+ /LPF 09/11/2017 8:43 PM CDT [facility] Urine URINE SPECIMEN OBTAINED BY CLEAN CATCH PROCEDURE / Unknown Collection / Unknown 09/11/2017 8:25 PM CDT 09/11/2017 8:30 PM CDT Narrative [facility] - 09/11/2017 8:43 PM CDT Carlos Manuel Tanner MD LAB - URINALYSIS ORD ERABLES Performing Organization Address [facility] Co de Phone Number [facility] [address] [place] [address] * (ABNORMAL) URINALYSIS REFLEX MICROSCOPIC REFLEX CULTURE (09/11/2017 8:25 PM CDT) Only the most recent of2 resultswithin the time period is included. Color UA Straw Straw, Yellow 09/11/2017 8:43 PM CDT [facility] Clarity UA Clear Clear 09/11/2017 8:43 PM CDT [facility] Glucose UA 1+(A) Negative 09/11/2017 8:43 PM CDT [facility] Bilirubin UA Negative Negative 09/11/2017 8:43 PM CDT [facility] Ketone UA Negative Negative 09/11/2017 8:43 PM CDT [facility] Specific [place] UA 1.010 1.005 - 1.030 09/11/2017 8:43 PM CDT [facility] Blood UA 1+(A) Negative 09/11/2017 8:43 PM CDT [facility] pH UA 5.0 5.0 - 8.0 pH 09/11/2017 8:43 PM CDT [facility] Protein UA 1+(A) Negative 09/11/2017 8:43 PM CDT [facility] Urobilinogen UA Negative Negative mg/dL 09/11/2017 8:43 PM CDT [facility] Nitrite UA Negative Negative 09/11/2017 8:43 PM CDT [facility] Leukocyte UA Negative Negative 09/11/2017 8:43 PM CDT [facility] Urine Microscopy Urine microscopy to follow 09/11/2017 8:43 PM CDT [facility] Reflex Status Culture not indicated 09/11/2017 8:43 PM CDT [facility] Urine URINE SPECIMEN OBTAINED BY CLEAN CATCH PROCEDURE / Unknown Collection / Unknown 09/11/2017 8:25 PM CDT 09/11/2017 8:30 PM CDT Narrative [facility] - 09/11/2017 8:43 PM CDT Carlos Manuel Tanner MD LAB - URINALYSIS ORD ERABLES [facility] [address] [place] [address] * XR CHEST 1VW PORTABLE (09/11/2017 3:15 PM CDT) Only the most recent of6 resultswithin the time period is included. Anatomical Region Laterality Modality Chest Radiographic Katie ging 09/11/2017 3:20 PM CDT Impressions 09/11/2017 3:21 PM CDT No acute disease. Reading Radiologist: Germania Lovell MD on 09/11/2017 at 3:21 PM Narrative 09/11/2017 3:21 PM CDT AP Portable Chest Indication: Chest pain and shortness of breath Findings: A single portable view of the chest shows the lungs are clear. There is mild cardiomegaly. Pulmonary vascularity is unremarkable. Procedure Note Germania Lovell MD - 09/11/2017 AP Portable Chest Indication: Chest pain and shortness of breath Findings: A single portable view of the chest shows the lungs are clear. There is mild cardiomegaly. Pulmonary vascularity is unremarkable. IMPRESSION No acute disease. Reading Radiologist: Germania Lovell MD on 09/11/2017 at 3:21 PM Carlos Manuel Tanner MD DIAGNOSTIC IMAGING O RDHEATHER * CULTURE BLOOD (09/11/2017 3:02 PM CDT) Only the most recent of6 resultswithin the time period is included. Culture No growth day 5 ERASMO 09/16/2017 5:00 PM CDT [facility] Blood PERIPHERAL BLOOD / Unknown Venipuncture / Unknown 09/11/2017 3:02 PM CDT 09/11/2017 3:07 PM CDT Carlos Manuel Tanner MD LAB - MICROBIOLOGY O RDERABLES [facility] [address] [place] [address], [facility] [phone] * NT-PRO BNP (09/11/2017 2:38 PM CDT) NT-proBNP 89.0 <300.0 pg/mL 09/11/2017 3:39 PM CDT [facility] Blood BLOOD SPECIMEN / Unknown Venipuncture / Unknown 09/11/2017 2:38 PM CDT 09/11/2017 3:05 PM CDT Narrative [facility] - 09/11/2017 3:39 PM CDT NT-proBNP Patient Age ? Acute HF Unlikely ? Acute HF Likely <50 years ? <300 pg/mL ? >450 pg/mL 50-75 years ?<300 pg/mL ? >900 pg/mL >75 years ? <300 pg/mL ? >1800 pg/mL Reference: BETTY Lucas et al. ICON Study. Heart Journal (2006) 27, 330- 337 Both BNP and NT-proBNP derive from the precursor molecule called proBNP which is secreted from the ventricles in response to ventricle volume expansion and/or pressure overload. The secreted proBNP is subsequently cleaved by enzymes to form BNP, the active hormone and NT-proBNP an inactive metabolite. NT-proBNP has a longer half-life of 1.5-2.0 hours verses BNP with a half-life of 20 min for BNP. Both are useful biomarkers of ventricular distension due to increased intracardiac pressure. Both BNP and NT-proBNP increase with age and renal insufficiency. Increased concentrations of NT-proBNP have also been observed in the setting of acute myocardial infarction, right ventricular failure, valvular heart disease, and atrial fibrillation. Carlos Manuel Tanner MD LAB - CHEMISTRY MAGALY GARCIA Performing Organization Address [facility] Co de Phone Number [facility] [address] [place] [address] * TYPE + SCREEN PANEL (09/11/2017 2:38 PM CDT) ABO A 09/11/2017 3:59 PM CDT [facility] Rh Type Positive 09/11/2017 3:59 PM CDT [facility] Comment:History checked. Antibody Screen Negative 09/11/2017 3:59 PM CDT [facility] Blood Bank BLOOD SPECIMEN / Unknown Venipuncture / Unknown 09/11/2017 2:38 PM CDT 09/11/2017 3:05 PM CDT Carlos Manuel Tanner MD LAB - BLOOD BANK ORD HEATHER Performing Organization Address [facility] Co de Phone Number [facility] [address] * PT-INR (09/11/2017 2:38 PM CDT) Only the most recent of4 resultswithin the time period is included. PT 10.2 9.5 - 11.6 sec 09/11/2017 3:24 PM CDT [facility] INR 0.9 0.9 - 1.1 09/11/2017 3:24 PM CDT [facility] Blood BLOOD SPECIMEN / Unknown Venipuncture / Unknown 09/11/2017 2:38 PM CDT 09/11/2017 3:05 PM CDT Narrative [facility] - 09/11/2017 3:24 PM CDT Conventional Warfarin Anticoagulant Therapy: INR Reference Range: ??2.0-3.0 Intensive Warfarin Anticoagulant Therapy: INR Reference Range: ? 2.5-3.5 Carlos Manuel Tanner MD LAB - COAGULATION OR DERABLES Performing Organization Address [facility] de Phone Number [facility] [address] [place] [address] * MAGNESIUM BLOOD (09/11/2017 2:38 PM CDT) Only the most recent of5 resultswithin the time period is included. Magnesium 2.3 1.6 - 2.6 mg/dL 09/11/2017 3:30 PM CDT [facility] Blood BLOOD SPECIMEN / Unknown Venipuncture / Unknown 09/11/2017 2:38 PM CDT 09/11/2017 3:05 PM CDT Carlos Manuel Tanner MD LAB - CHEMISTRY MAGALY GARCIA Performing Organization Address [facility] de Phone Number [facility] [address] [place] [address] * (ABNORMAL) LIPASE BLOOD (09/11/2017 2:38 PM CDT) Only the most recent of2 resultswithin the time period is included. Lipase 66(L) 73 - 393 U/L 09/11/2017 3:30 PM CDT [facility] Blood BLOOD SPECIMEN / Unknown Venipuncture / Unknown 09/11/2017 2:38 PM CDT 09/11/2017 3:05 PM CDT Carlos Manuel Tanner MD LAB - CHEMISTRY MAGALY GARCIA Performing Organization Address [facility] de Phone Number [facility] [id number] [place] [phone] * CK BLOOD (09/11/2017 2:38 PM CDT) Only the most recent of3 resultswithin the time period is included. Pathologist [facility] CK 75 35 - 232 U/L 09/11/2017 3:32 PM CDT [facility] Blood BLOOD SPECIMEN / Unknown Venipuncture / Unknown 09/11/2017 2:38 PM CDT 09/11/2017 3:05 PM CDT Carlos Manuel Tanner MD LAB - CHEMISTRY [facility] Performing Organization Address City/[facility]/ZIP Co de Phone Number [facility] [address] [place] [address] * ALCOHOL ETHYL BLOOD (09/11/2017 2:38 PM CDT) [facility] Ethanol <3 <10 mg/dL 09/11/2017 3:30 PM CDT [facility] Ethanol Calculated <0.003 <0.100 gm/dL 09/11/2017 3:30 PM CDT [facility] Blood BLOOD SPECIMEN / Unknown Venipuncture / Unknown 09/11/2017 2:38 PM CDT 09/11/2017 3:05 PM CDT Narrative [facility] - 09/11/2017 3:30 PM CDT Non Legal Serum Alcohol Carlos Manuel Tanner MD LAB - CHEMISTRY MAGALY GARCIA Performing Organization Address City/[facility]/ZIP Co de Phone Number [facility] [address] [place] [phone] * TSH (09/11/2017 2:38 PM CDT) Only the most recent of2 resultswithin the time period is included. Pathologist [facility] TSH 3.73 0.358 - 3.740 uIU/mL 09/11/2017 3:39 PM CDT [facility] Blood BLOOD SPECIMEN / Unknown Venipuncture / Unknown 09/11/2017 2:38 PM CDT 09/11/2017 3:05 PM CDT Carlos Manuel Tanner MD LAB - CHEMISTRY VIVIANGermaine WATERSCRISELDA [facility] [address] [place] [phone] * EKG 12-LEAD (09/11/2017 2:24 PM CDT) Only the most recent of5 resultswithin the time period is included. Ventricular Rate 68 BPM [facility] Atrial Rate 68 BPM [facility] P-R Interval 178 ms [facility] QRS Duration ms 94 ms [facility] Q-T Interval ms 404 ms [facility] QTC Calculation (Bezet) 429 ms [facility] Calculated P [place] 34 degrees [facility] Calculated R [place] 20 degrees [facility] Calculated T [place] 94 degrees [facility] Interpretation EKG Normal sinus rhythm Nonspecific T wave abnormality Abnormal ECG When compared with ECG of 10-AUG-2016 13:05, Premature ventricular complexes are no longer Present Confirmed by MD MAURICIO, JENNIFER ([id number]) on 09/12/2017 11:04:53 AM DP MUSE 09/11/2017 2:24 PM CDT 09/12/2017 11:04 AM CDT Carlos Manuel Tanner MD ECG ORDERABLES Performing Organization Address [facility] Co de Phone Number [facility] * (ABNORMAL) URINALYSIS ROUTINE AUTO (12/05/2016 8:23 AM CDT) Only the most recent of3 resultswithin the time period is included. Color UA Yellow Straw, Yellow, Dark Yellow 12/05/2016 8:37 AM CDT [facility] Clarity UA Clear 12/05/2016 8:37 AM CDT [facility] Specific [place] UA 1.016 1.005 - 1.030 12/05/2016 8:37 AM CDT [facility] pH UA 6.0 5.0 - 8.0 pH 12/05/2016 8:37 AM CDT [facility] Protein UA 2+(A) Negative 12/05/2016 8:37 AM CDT [facility] Blood UA Negative Negative 12/05/2016 8:37 AM CDT [facility] Leukocyte UA Trace(A) Negative 12/05/2016 8:37 AM CDT [facility] Nitrite UA Negative Negative 12/05/2016 8:37 AM CDT [facility] Glucose UA Negative Negative 12/05/2016 8:37 AM CDT [facility] Ketone UA Negative Negative 12/05/2016 8:37 AM CDT [facility] Bilirubin UA Negative Negative 12/05/2016 8:37 AM CDT [facility] Urobilinogen UA 1.0 0.1 - 1.0 EU/dL 12/05/2016 8:37 AM CDT [facility] WBC UA Auto 5-10(A) 0-2, 2-5 # /hpf 12/05/2016 8:37 AM CDT [facility] RBC UA Auto 0-2 0-2, 2-5 # /hpf 12/05/2016 8:37 AM CDT [facility] Epithelial Cell UA Auto 0-2 0-2, 2-5 # /hpf 12/05/2016 8:37 AM CDT [facility] Bacteria UA Auto None seen None seen 12/06/19 8:37 AM CDT [facility] Hyaline Casts UA Auto 0-2 0 - 2 #/lpf 12/05/2016 8:37 AM CDT [facility] Urine URINE SPECIMEN OBTAINED BY CLEAN CATCH PROCEDURE / Unknown Collection / Unknown 12/05/2016 8:23 AM CDT 12/05/2016 8:29 AM CDT Jere Tillman MD LAB - URINALYSIS ORD ERABLES [facility] [address] [place] [address] * FL FLUORO UGI SERIES (08/14/2016 10:38 AM CDT) Anatomical Region Laterality Modality Abdomen Radiographic Katie ging 08/14/2016 11:2 8 AM CDT Impressions 08/14/2016 11:47 AM CDT NO EVIDENCE OF A POSTOPERATIVE LEAK. Edited by Angela Grier on 08/14/2016 11:41 AM Narrative 08/14/2016 11:47 AM CDT WATER-SOLUBLE FLUOROSCOPIC UPPER GI SERIES CLINICAL INDICATION: Epigastric pain. Abdominal pain. Status post surgical repair of a perforated gastric ulcer. DESCRIPTION: The total fluoroscopy time was 2 minutes. 65 fluoroscopic images were obtained. 200 mL of Omnipaque 350 water-soluble contrast was injected through the patient's nasogastric tube. The stomach is normal in contour and caliber. There is prompt emptying into the duodenum. There is no leakage of contrast to suggest a residual perforation. No contrast is seen entering the nearby surgical drain. Procedure Note Doris Baez MD - 08/14/2016 WATER-SOLUBLE FLUOROSCOPIC UPPER GI SERIES CLINICAL INDICATION: Epigastric pain. Abdominal pain. Status post surgical repair of a perforated gastric ulcer. DESCRIPTION: The total fluoroscopy time was 2 minutes. 65 fluoroscopic images were obtained. 200 mL of Omnipaque 350 water-soluble contrast was injected through the patient's nasogastric tube. The stomach is normal in contour and caliber. There is prompt emptying into the duodenum. There is no leakage of contrast to suggest a residual perforation. No contrast is seen entering the nearby surgical drain. IMPRESSION NO EVIDENCE OF A POSTOPERATIVE LEAK. Edited by Angela Grier on 08/14/2016 11:41 AM Tito Nam MD FLUOROSCOPY ORDERABL ES * XR ABDOMEN 1 VW (08/13/2016 1:39 PM CDT) Anatomical Region Laterality Modality Abdomen Radiographic Katie ging 08/13/2016 1:55 PM CDT Narrative 08/13/2016 1:59 PM CDT ABDOMEN AP Indication: NG tube placement aftercare. FINDINGS: An enteric tube is seen at the superior edge of the film, appears to be within the distal esophagus. Right upper quadrant surgical drain is noted. Gas pattern is unremarkable. Edited by Leann Martinez on 08/13/2016 1:57 PM Procedure Note Quinn Santos MD - 08/13/2016 ABDOMEN AP Indication: NG tube placement aftercare. FINDINGS: An enteric tube is seen at the superior edge of the film, appears to be within the distal esophagus. Right upper quadrant surgical drain is noted. Gas pattern is unremarkable. Edited by Leann Martinez on 08/13/2016 1:57 PM Ilan Glover MD DIAGNOSTIC IMAGING O RDERABLES * VANCOMYCIN LEVEL TROUGH (08/13/2016 9:18 AM CDT) Vancomycin Trough 17.2 10.0 - 20.0 ug/mL 08/13/2016 9:42 AM CDT [facility] Blood BLOOD SPECIMEN / Unknown 08/13/2016 9:18 AM CDT 08/13/2016 9:27 AM CDT Miquel David MD LAB - CHEMISTRY MAGALY GARCIA [facility] [address] [place] [address] * (ABNORMAL) BLOOD GASES ART (ISTAT) (08/12/2016 3:52 AM CDT) Only the most recent of4 resultswithin the time period is included. pH Arterial POCT 7.40 7.35 - 7.45 pH 08/12/2016 3:56 AM CDT [facility] pCO2 Arterial 35.3 35 - 45 mmHg 08/12/2016 3:56 AM CDT [facility] pO2 Arterial 60(L) 80 - 100 mmHg 08/12/2016 3:56 AM CDT [facility] HCO3 Arterial POCT 21.7(L) 22 - 26 mmol/L 08/12/2016 3:56 AM CDT [facility] BE Arterial -3(L) -2 - 2 mmol/L 08/12/2016 3:56 AM CDT [facility] TCO2 Arterial Calc POCT 23 23 - 27 mmol/L 08/12/2016 3:56 AM CDT [facility] O2 Saturation Arterial 91 90 - 100 % 08/12/2016 3:56 AM CDT [facility] Site Art Line 08/12/2016 3:56 AM CDT [facility] Gabriel's Test NA 08/12/2016 3:56 AM CDT [facility] Treatment Delivery Method Nasal Can 08/12/2016 3:56 AM CDT [facility] Sample iSTAT ARTERI 08/12/2016 3:56 AM CDT [facility] PT iSTAT [id number] 08/12/2016 3:56 AM CDT [facility] LPM iSTAT 4 08/12/2016 3:56 AM CDT [facility] Device 08/12/2016 3:56 AM CDT [facility] Role Player ID [id number] 08/12/2016 3:56 AM CDT [facility] Blood ARTERIAL BLOOD SPECIMEN / Unknown 08/12/2016 3:52 AM CDT 08/12/2016 3:56 AM CDT Jaja Rosas MD LAB - POINT OF CARE ORDERABLES Performing Organization Address [facility] Co de Phone Number [facility] RESP THERAPY [id number] [place] [address] * BLOOD GASES ARTERIAL POCT (08/12/2016 2:04 AM CDT) Only the most recent of3 resultswithin the time period is included. Comment Notification Label Only - See Separate Report 08/12/2016 4:02 AM CDT [facility] Blood BLOOD SPECIMEN / Unknown 08/12/2016 2:04 AM CDT 08/12/2016 2:04 AM CDT Miquel David MD LAB - BLOOD GASES OR DERABLES Performing Organization Address [facility] de Phone Number [facility] RESP THERAP[facility] [address] [place] [address] * (ABNORMAL) PHOSPHORUS BLOOD (08/11/2016 4:18 AM CDT) Only the most recent of2 resultswithin the time period is included. Phosphorus 2.4(L) 2.5 - 4.9 mg/dL 08/11/2016 4:55 AM CDT [facility] Blood BLOOD SPECIMEN / Unknown 08/11/2016 4:18 AM CDT 08/11/2016 4:18 AM CDT Miquel David MD LAB - CHEMISTRY ORDE RABLES Performing Organization Address [facility] Co de Phone Number [facility] [address] [place] [address] * LACTIC ACID BLOOD (08/11/2016 4:18 AM CDT) Only the most recent of2 resultswithin the time period is included. Lactic Acid 2.1 0.7 - 2.1 mmol/L 08/11/2016 4:45 AM CDT [facility] Blood BLOOD SPECIMEN / Unknown 08/11/2016 4:18 AM CDT 08/11/2016 4:17 AM CDT Tiffanie Katz MD LAB - CHEMISTRY MAGALY EVELINCRISELDA [facility] [address] [place] [address] * ED CRITICAL CARE (08/10/2016 1:46 PM CDT) Narrative Tiffanie Katz MD - 08/10/2016 1:46 PM CDT Tiffanie Katz MD ? 08/10/2016 ??1:46 PM Critical Care Performed by: TIFFANIE KATZ Authorized by: TIFFANIE KATZ Total critical care time: 75 minutes Critical care time was exclusive of separately billable procedures and treating other patients. Critical care was necessary to treat or prevent imminent or life-threatening deterioration of the following conditions: active unstable angina. Critical care was time spent personally by me on the following activities: blood draw for specimens, discussions with consultants, evaluation of patient's response to treatment, obtaining history from patient or surrogate, ordering and review of laboratory studies, pulse oximetry, review of old charts, development of treatment plan with patient or surrogate, examination of patient, ordering and performing treatments and interventions, ordering and review of radiographic studies and re-evaluation of patient's condition. Tiffanie Katz MD PROCEDURE/MINOR SURG ICAL ORDERABLES * ED CENTRAL LINE PLACEMENT (08/10/2016 1:46 PM CDT) Narrative Tiffanie Katz MD - 08/10/2016 1:46 PM CDT Tiffanie Katz MD ? 08/10/2016 ??1:46 PM Central Line Date/Time: 08/10/2016 7:51 AM Performed by: TIFFANIE KATZ Authorized by: TIFFANIE KATZ Consent: Verbal consent obtained. Risks and benefits: risks, benefits and alternatives were discussed Consent given by: patient Patient understanding: patient states understanding of the procedure being performed Patient consent: the patient's understanding of the procedure matches consent given Relevant documents: relevant documents present and verified Patient identity confirmed: verbally with patient and arm band Time out: Immediately prior to procedure a time out was called to verify the correct patient, procedure, equipment, technical customer support specialist and site/side marked as required. Indications: vascular access Anesthesia: Local Anesthetic: lidocaine 1% without epinephrine Anesthetic total: 2 mL Sedation: Patient sedated: no Preparation: skin prepped with ChloraPrep Skin prep agent dried: skin prep agent completely dried prior to procedure Sterile barriers: all five maximum sterile barriers used - cap, mask, sterile gown, sterile gloves, and large sterile sheet Hand hygiene: hand hygiene performed prior to central venous catheter insertion Location details: left internal jugular Patient position: Trendelenburg Pre-procedure: landmarks identified Ultrasound guidance: yes Sterile ultrasound techniques: sterile gel and sterile probe covers were used Number of attempts: 1 Successful placement: yes Post-procedure: line sutured Patient tolerance: Patient tolerated the procedure well with no immediate complications Tiffanie Katz MD PROCEDURE/MINOR SURG ICAL ORDERABLES * CULTURE VRE (08/10/2016 12:45 PM CDT) Culture Negative for vancomycin-resi stant Enterococci (VRE) ERASMO 08/12/2016 7:33 AM CDT [facility] MICROBIOLOG[facility] Stool RECTAL SWAB / Unknown 08/10/2016 12:45 PM CDT 08/10/2016 1:33 PM CDT Miquel David MD LAB - MICROBIOLOGY O RDERABLES [facility] MICROBIOLOG[facility] [address] [place] [address], [facility] [phone] * CULTURE MRSA (08/10/2016 12:44 PM CDT) Culture Negative for methicillin-resist ant Staphylococcus aureus (MRSA) ERASMO 08/12/2016 7:37 AM CDT [facility] MICROBIOLOGY Microbiology SPECIMEN FROM NASAL FOSSAE / Unknown 08/10/2016 12:44 PM CDT 08/10/2016 1:33 PM CDT Miquel David MD LAB - MICROBIOLOGY O RDERABLES Performing Organization Address City/[facility]/ZIP Co de Phone Number [facility] MICROBIOLOGY [address] [place] [address], [facility] [phone] * LACTATE MARINA POC NOTIFICATION (08/10/2016 11:14 AM CDT) Comment Notification Label Only - See Separate Report 08/10/2016 1:01 PM CDT [facility] Blood BLOOD SPECIMEN / Unknown 08/10/2016 11:14 AM CDT 08/10/2016 11:14 AM CDT Tiffanie Katz MD LAB - BLOOD GASES OR DERABLES Performing Organization Address [facility] Co de Phone Number [facility] [address] [place], [place] [id number] [place] [address] * CULTURE AFB+SMEAR (08/10/2016 10:32 AM CDT) Culture No acid-fast bacillus isolated 09/19/2016 8:12 AM CDT [facility] MICRO[facility] AFB Smear No acid-fast bacilli seen 09/19/2016 8:12 AM CDT [facility]CRO[facility] Microbiology PERITONEAL FLUID / Unknown 08/10/2016 10:32 AM CDT 08/10/2016 10:37 AM CDT Narrative [facility] - 09/19/2016 8:12 AM CDT Surgical Description: Peritoneal Fluid Tito Nam MD LAB - MICROBIOLOGY O RDERABLES Performing Organization Address City/[facility]/ZIP Co de Phone Number [facility] [address] [place] [address], [facility] [phone] * (ABNORMAL) CULTURE ANAEROBE (08/10/2016 10:32 AM CDT) Culture Rare Brandi albicans(AA) ERASMO 08/25/2016 4:04 PM CDT [facility]CRO[facility] Comment:Referred to [facility] Lab oratories [address] [place] [address] Culture Rare Streptococcus mitis/oralis(AA) ERASMO 08/25/2016 4:04 PM CDT [facility] Culture Rare Streptococcus salivarius ssp salivarius(AA) ERASMO 08/25/2016 4:04 PM CDT [facility]CRO[facility] Microbiology PERITONEAL FLUID / Unknown 08/10/2016 10:32 AM CDT 08/10/2016 10:37 AM CDT Narrative [facility] - 08/25/2016 4:04 PM CDT Surgical Description: Peritoneal Fluid Organism Antibiotic Method Susceptibility Streptococcus mitis/oralis Ceftriaxone ERASMO 0.5 ug/mL: Susceptible Streptococcus mitis/oralis Clindamycin ERASMO <=0.25 ug/mL: Susceptible Streptococcus mitis/oralis Erythromycin ERASMO 2 ug/mL: Resistant Streptococcus mitis/oralis Levofloxacin ERASMO 1 ug/mL: Susceptible Streptococcus mitis/oralis Penicillin G ERASMO 0.25 ug/mL: Intermediate Streptococcus mitis/oralis Vancomycin ERASMO 0.5 ug/mL: Susceptible Streptococcus salivarius ssp salivarius Ceftriaxone ERASMO 0.25 ug/mL: Susceptible Streptococcus salivarius ssp salivarius Clindamycin ERASMO <=0.25 ug/mL: Susceptible Streptococcus salivarius ssp salivarius Erythromycin ERASMO <=0.12 ug/mL: Susceptible Streptococcus salivarius ssp salivarius Levofloxacin ERASMO 1 ug/mL: Susceptible Streptococcus salivarius ssp salivarius Penicillin G ERASMO 1 ug/mL: Intermediate Streptococcus salivarius ssp salivarius Vancomycin ERASMO 0.5 ug/mL: Susceptible Tito Nam MD LAB - MICROBIOLOGY O SARAH Performing Organization Address [facility] Co de Phone Number [facility] MICROBIOLOGY [address] [place] [address], [facility] [phone] * SUSCEPTIBILITY FUNGUS (08/10/2016 10:32 AM CDT) Microbiology PERITONEAL FLUID / Unknown 08/10/2016 10:32 AM CDT 08/10/2016 10:37 AM CDT Tito Nam MD LAB - MICROBIOLOGY O RDERABEVERLY Performing Organization Address [facility] Co de Phone Number [facility] MICROBIOLOGY [address] [place] [address], [facility] [phone] * HYDROXYBUTYRATE BETA (08/10/2016 9:30 AM CDT) Beta-Hydroxybu tyrate 0.5 <0.6 mmol/L 08/10/2016 9:34 AM CDT [facility] Blood BLOOD SPECIMEN / Unknown 08/10/2016 9:30 AM CDT 08/10/2016 9:32 AM CDT Narrative [facility] - 08/10/2016 9:34 AM CDT Betahydroxybutyrate comment: This test replaces Serum Acetone testing.Results 0.6-1.5 mmol/L could require medical intervention. Results >1.5 mmol/L may be indicative of diabetic ketoacidosis. Use in conjunction with Serum Glucose levels. Tiffanie Katz MD LAB - CHEMISTRY MAGALY GARCIA [facility] [address] [place] [address] * (ABNORMAL) ISTAT CG4+ ART (08/10/2016 7:59 AM CDT) Pathologist [facility] Lactate iSTAT Arterial POCT 1.76 0.70 - 2.10 mmol/L 08/10/2016 10:28 AM CDT [facility] pH Arterial POCT 7.27(L) 7.35 - 7.45 pH 08/10/2016 10:28 AM CDT [facility] pCO2 Arterial 40.9 35 - 45 mmHg 08/10/2016 10:28 AM CDT [facility] pO2 Arterial 55(L) 80 - 100 mmHg 08/10/2016 10:28 AM CDT [facility] HCO3 Arterial POCT 18.9(L) 22 - 26 mmol/L 08/10/2016 10:28 AM CDT [facility] BE Arterial -8(L) -2 - 2 mmol/L 08/10/2016 10:28 AM CDT [facility] TCO2 Arterial Calc POCT 20(L) 23 - 27 mmol/L 08/10/2016 10:28 AM CDT [facility] O2 Saturation Arterial 84(L) 90 - 100 % 08/10/2016 10:28 AM CDT [facility] Sample iSTAT ARTERI 08/10/2016 10:28 AM CDT [facility] Site L Radial 08/10/2016 10:28 AM CDT [facility] Gabriel's Test POS/PASS 08/10/2016 10:28 AM CDT [facility] Treatment Delivery Method Nasal Can 08/10/2016 10:28 AM CDT [facility] LPM iSTAT 3.5 08/10/2016 10:28 AM CDT [facility] PT iSTAT [id number] 08/10/2016 10:28 AM CDT [facility] Blood ARTERIAL BLOOD SPECIMEN / Unknown 08/10/2016 7:59 AM CDT 08/10/2016 10:28 AM CDT Tiffanie Katz MD LAB - POINT OF CARE ORDERABLES Performing Organization Address City/State/[facility] Co de Phone Number [facility] [address] * CT ANGIO CHEST ABD PELVIS (08/10/2016 7:01 AM CDT) Anatomical Region Laterality Modality Computed Tomogra phy 08/10/2016 7:14 AM CDT Impressions 08/10/2016 7:31 AM CDT No aortic aneurysm or dissection identified. Pneumoperitoneum with findings suggesting perforated peptic ulcer. See above. 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 Technique:Axial CT imaging from the lung apices to the aortic bifurcation was performed before and after administration of 80 mL Visipaque 320 intravenous contrast. Renal protective protocol was performed prior to contrast injection. Maximum intensity projection and 3-D volume rendered reconstructions of the arterial vasculature were created on an independent workstation. Findings: CTA Thorax: There is no evidence of aortic aneurysm or aortic dissection. Mediastinal structures are unremarkable. There is atelectasis at the lung bases bilaterally. The lung santoyo are otherwise well aerated. There is no pleural effusion. The bony thorax is intact. CTA Abdomen: The abdominal aorta is normal in caliber. ??No focal aneurysm or dissection is identified. There is considerable plaque inferiorly. The renal and mesenteric arteries are patent. The liver, spleen, right kidney adrenal glands, and pancreas are unremarkable. Left kidney is atrophic. Bile ducts are not grossly dilated. There is pneumoperitoneum. There is wall thickening at the gastric antrum and proximal duodenum. Findings are suspicious for perforated peptic ulcer for which appropriate follow-up is required. This critical value was discussed in person with Dr. Katz at 7:20 AM, August 10, 2016.. Procedure Note Sagar Lazaro MD - 08/10/2016 CT Angiography Thorax with and without contrast CT Angiography Abdomen with and without contrast CT 3D Reconstruction Clinical Indication: Severe Chest pain, Severe abdominal pain, abdominal and thoracic aortic dissection and aneurysm. Technique:Axial CT imaging from the lung apices to the aortic bifurcation was performed before and after administration of 80 mL Visipaque 320 intravenous contrast. Renal protective protocol was performed prior to contrast injection. Maximum intensity projection and 3-D volume rendered reconstructions of the arterial vasculature were created on an independent workstation. Findings: CTA Thorax: There is no evidence of aortic aneurysm or aortic dissection. Mediastinal structures are unremarkable. There is atelectasis at the lung bases bilaterally. The lung santoyo are otherwise well aerated. There is no pleural effusion. The bony thorax is intact. CTA Abdomen: The abdominal aorta is normal in caliber. No focal aneurysm or dissection is identified. There is considerable plaque inferiorly. The renal and mesenteric arteries are patent. The liver, spleen, right kidney adrenal glands, and pancreas are unremarkable. Left kidney is atrophic. Bile ducts are not grossly dilated. There is pneumoperitoneum. There is wall thickening at the gastric antrum and proximal duodenum. Findings are suspicious for perforated peptic ulcer for which appropriate follow-up is required. This critical value was discussed in person with Dr. Katz at 7:20 AM, August 10, 2016.. IMPRESSION No aortic aneurysm or dissection identified. Pneumoperitoneum with findings suggesting perforated peptic ulcer. See above. Tiffanie Katz MD CT ORDERABLES * MRA ABDOMEN W/WO CONTRAST (12/14/2015 4:45 PM CDT) Anatomical Region Laterality Modality Abdomen Magnetic Resonan ce 12/15/2015 9:11 AM CDT Impressions 12/15/2015 9:49 AM CDT HIGH-GRADE STENOSIS OF THE PROXIMAL LEFT RENAL ARTERY. FOCAL SHORT MODERATE GRADE SEGMENTAL STENOSIS OF THE MID RIGHT RENAL ARTERY. FOCAL MODERATE GRADE STENOSIS OF THE INFRARENAL ABDOMINAL AORTA. MULTIPLE SITES OF LOW AND MODERATE GRADE STENOSES WITHIN THE LEFT COMMON ILIAC ARTERY. WIDELY PATENT MESENTERIC VASCULATURE. Edited by Shelli Rubi on 12/15/2015 9:34 AM Narrative 12/15/2015 9:49 AM CDT MRA ABDOMEN WITH INTRAVENOUS CONTRAST CLINICAL INDICATION: Chronic diffuse abdominal pain. Mesenteric ischemia. TECHNIQUE: 3-D volumetric postcontrast MRA imaging of the abdomen with multiplanar maximum intensity projection reconstruction was performed. 15 mL Dotarem intravenous contrast was utilized. FINDINGS: There is a high-grade stenosis measuring 5 mm in length involving the proximal left renal artery. There is a short 1 mm in length focal moderate grade segmental stenosis involving the mid right renal artery. There is normal caliber and wide patency to the celiac, superior mesenteric, and inferior mesenteric arteries. Numerous sites of intimal plaque formation are noted within the infrarenal abdominal aorta and bilateral common iliac arteries. There is a focal moderate grade stenosis involving the infrarenal abdominal aorta occurring 3 cm proximal to the aortic bifurcation. There are multiple segmental low and moderate grade stenoses within the left common iliac artery. No significant stenosis is identified within the right common iliac artery. Procedure Note Doris Baez MD - 12/15/2015 MRA ABDOMEN WITH INTRAVENOUS CONTRAST CLINICAL INDICATION: Chronic diffuse abdominal pain. Mesenteric ischemia. TECHNIQUE: 3-D volumetric postcontrast MRA imaging of the abdomen with multiplanar maximum intensity projection reconstruction was performed. 15 mL Dotarem intravenous contrast was utilized. FINDINGS: There is a high-grade stenosis measuring 5 mm in length involving the proximal left renal artery. There is a short 1 mm in length focal moderate grade segmental stenosis involving the mid right renal artery. There is normal caliber and wide patency to the celiac, superior mesenteric, and inferior mesenteric arteries. Numerous sites of intimal plaque formation are noted within the infrarenal abdominal aorta and bilateral common iliac arteries. There is a focal moderate grade stenosis involving the infrarenal abdominal aorta occurring 3 cm proximal to the aortic bifurcation. There are multiple segmental low and moderate grade stenoses within the left common iliac artery. No significant stenosis is identified within the right common iliac artery. IMPRESSION HIGH-GRADE STENOSIS OF THE PROXIMAL LEFT RENAL ARTERY. FOCAL SHORT MODERATE GRADE SEGMENTAL STENOSIS OF THE MID RIGHT RENAL ARTERY. FOCAL MODERATE GRADE STENOSIS OF THE INFRARENAL ABDOMINAL AORTA. MULTIPLE SITES OF LOW AND MODERATE GRADE STENOSES WITHIN THE LEFT COMMON ILIAC ARTERY. WIDELY PATENT MESENTERIC VASCULATURE. Edited by Shelli Rubi on 12/15/2015 9:34 AM Jere Tillman MD MR ORDERABLES * (ABNORMAL) CREATININE BLOOD - POINT OF CARE (IP) (12/02/2015 2:30 PM CDT) Creatinine POCT 1.98(A) 0.7 - 1.2 mg/dL [facility] POCT TESTING QC Verified Yes Yes [facility] POC T TESTING Blood specimen (specimen) BLOOD SPECIMEN / Unknown 12/02/2015 2:30 PM CDT Jere Tillman MD LAB - POINT OF CARE ORDERABLES [facility] POCT TESTING [address] [place] [address] * CT THORAX ABDOMEN PELVIS W CONT (12/02/2015 1:36 PM CDT) Anatomical Region Laterality Modality Chest, Abdomen, Pelvis Computed Tomography 12/02/2015 2:45 PM CDT Impressions 12/02/2015 3:26 PM CDT 1. Emphysematous changes as described. 2. Right renal cyst. 3. Diverticulosis. 4. Enlarged prostate gland. 5. Postoperative changes. Edited by Leann Martinez on 12/02/2015 3:08 PM Narrative 12/02/2015 3:[address] THORAX WITH CONTRAST CT ABDOMEN WITH CONTRAST CT PELVIS WITH CONTRAST INDICATION: Unintentional weight loss of 60 pounds since March 2015. Renal failure. Abdominal pain. Cough. TECHNIQUE: 2.5 mm axial images through the thorax with intravenous contrast followed by 5 mm images abdomen and pelvis with oral and intravenous contrast. 50 cc Visipaque was injected intravenously. COMPARISON: None. FINDINGS: CT THORAX: No bulky axillary, mediastinal or hilar lymphadenopathy is present. There is a lymph node in the aorticopulmonary window region measuring 0.8 cm in its short axis. Atherosclerotic changes of the thoracic aorta are present. There is no evidence of pulmonary embolus. Dependent atelectasis is present. There is no pleural effusion or pneumothorax. There is a calcified granuloma superior segment right lower lobe on image 58 measuring 0.3 cm. Mild emphysematous changes and subpleural cystic changes are present, particularly in the upper lung santoyo. There are multilevel degenerative changes of the spine. CT ABDOMEN: The visualized liver, gallbladder, spleen, pancreas, and adrenal glands show no acute abnormalities. There is a presumed cortical cyst upper pole right kidney measuring 0.8 cm. No obstructive uropathy is present. The left kidney is mildly atrophic. There is atherosclerotic calcification of the abdominal aorta. Scattered content is present throughout the colon. There is no bowel obstruction or free air. CT PELVIS: Streak artifact from internal stabilization lower lumbar spine is present. There is increased content in the colon. Diverticulosis descending colon and sigmoid colon is incidentally noted. No gross pericolonic inflammatory changes are present to suggest acute diverticulitis. There is no free air or free fluid. Urinary bladder is partially distended. Prostate gland is mildly enlarged measuring 4.9 x 5.2 cm. Procedure Note Mario Carrillo MD - 12/02/[address] CT [address] WITH CONTRAST CT ABDOMEN WITH CONTRAST CT PELVIS WITH CONTRAST INDICATION: Unintentional weight loss of 60 pounds since March 2015. Renal failure. Abdominal pain. Cough. TECHNIQUE: 2.5 mm axial images through the thorax with intravenous contrast followed by 5 mm images abdomen and pelvis with oral and intravenous contrast. 50 cc Visipaque was injected intravenously. COMPARISON: None. FINDINGS: CT THORAX: No bulky axillary, mediastinal or hilar lymphadenopathy is present. There is a lymph node in the aorticopulmonary window region measuring 0.8 cm in its short axis. Atherosclerotic changes of the thoracic aorta are present. There is no evidence of pulmonary embolus. Dependent atelectasis is present. There is no pleural effusion or pneumothorax. There is a calcified granuloma superior segment right lower lobe on image 58 measuring 0.3 cm. Mild emphysematous changes and subpleural cystic changes are present, particularly in the upper lung santoyo. There are multilevel degenerative changes of the spine. CT ABDOMEN: The visualized liver, gallbladder, spleen, pancreas, and adrenal glands show no acute abnormalities. There is a presumed cortical cyst upper pole right kidney measuring 0.8 cm. No obstructive uropathy is present. The left kidney is mildly atrophic. There is atherosclerotic calcification of the abdominal aorta. Scattered content is present throughout the colon. There is no bowel obstruction or free air. CT PELVIS: Streak artifact from internal stabilization lower lumbar spine is present. There is increased content in the colon. Diverticulosis descending colon and sigmoid colon is incidentally noted. No gross pericolonic inflammatory changes are present to suggest acute diverticulitis. There is no free air or free fluid. Urinary bladder is partially distended. Prostate gland is mildly enlarged measuring 4.9 x 5.2 cm. IMPRESSION 1. Emphysematous changes as described. 2. Right renal cyst. 3. Diverticulosis. 4. Enlarged prostate gland. 5. Postoperative changes. Edited by Leann Martinez on 12/02/2015 3:08 PM Jere Tillman MD CT ORDERABLES * (ABNORMAL) PROSTATE SPECIFIC ANTIGEN DIAGNOSTIC (11/24/2015 8:49 AM CDT) Only the most recent of3 resultswithin the time period is included. PSA 6.03(H) 0.00 - 4.00 ng/mL 11/24/2015 9:17 AM CDT [facility] Blood BLOOD SPECIMEN / Unknown Lab Venipuncture / Unknown 11/24/2015 8:49 AM CDT 11/24/2015 8:54 AM CDT Jere Tillman MD [facility] Organization Address City/State/ZIP Co de Phone Number [facility] [address] [place] [address] * (ABNORMAL) HEPATIC FUNCTION PANEL (11/24/2015 8:49 AM CDT) Only the most recent of3 resultswithin the time period is included. Alkaline Phosphatase 147(H) 38 - 126 U/L 11/24/2015 9:16 AM CDT [facility] ALT 14 13 - 61 U/L 11/24/2015 9:16 AM CDT [facility] AST <3(L) 5 - 40 U/L 11/24/2015 9:16 AM CDT [facility] Protein Total 7.3 6.4 - 8.2 gm/dL 11/24/2015 9:16 AM CDT [facility] Albumin 3.8 3.4 - 5.0 gm/dL 11/24/2015 9:16 AM CDT [facility] Bilirubin Total 0.6 0.2 - 1.0 mg/dL 11/24/2015 9:16 AM CDT [facility] Bilirubin Direct 0.2 0 - 0.3 mg/dL 11/24/2015 9:16 AM CDT [facility] Blood BLOOD SPECIMEN / Unknown Lab Venipuncture / Unknown 11/24/2015 8:49 AM CDT 11/24/2015 8:54 AM CDT Jere Tillman MD LAB - CHEMISTRY ORDBaitianshi Performing Organization Address City/[facility]/ZIP Co de Phone Number [facility] [address] [place] [address] * T4 FREE (11/24/2015 8:49 AM CDT) [facility] Signature T4 Free 1.06 0.65 - 1.34 ng/dL 11/24/2015 9:17 AM CDT [facility] Blood BLOOD SPECIMEN / Unknown Lab Venipuncture / Unknown 11/24/2015 8:49 AM CDT 11/24/2015 8:54 AM CDT Jere Tillman MD LAB - CHEMISTRY ORDBaitianshi Performing Organization Address City/[facility]/ZIP Co de Phone Number [facility] [address] [place] [address] * US RETROPERITONEAL COMPLETE (KIDNEYS) (07/26/2015 1:15 PM CDT) Anatomical Region Laterality Modality Abdomen Ultrasound 07/26/2015 3:04 PM CDT Impressions 07/26/2015 3:36 PM CDT Small right renal cyst, otherwise unremarkable. Edited by Leann Martinez on 07/26/2015 3:18 PM Narrative 07/26/2015 3:36 PM CDT ULTRASOUND BILATERAL KIDNEYS AND BLADDER Indication: Chronic renal failure. Findings: Ultrasound without prior shows the right kidney to measure 11.47 x 4.66 x 6.09 cm and the left kidney to measure 10.56 x 4.16 x 4.63 cm. There is no hydronephrosis. Within the right kidney, there is a small anechoic cyst measuring 0.86 x 0.63 x 0.75 cm. The urinary bladder is not distended. Procedure Note Mario Carrillo MD - 07/26/2015 ULTRASOUND BILATERAL KIDNEYS AND BLADDER Indication: Chronic renal failure. Findings: Ultrasound without prior shows the right kidney to measure 11.47 x 4.66 x 6.09 cm and the left kidney to measure 10.56 x 4.16 x 4.63 cm. There is no hydronephrosis. Within the right kidney, there is a small anechoic cyst measuring 0.86 x 0.63 x 0.75 cm. The urinary bladder is not distended. IMPRESSION Small right renal cyst, otherwise unremarkable. Edited by Leann Martinez on 07/26/2015 3:18 PM Jere Tillman MD ORDERABLES * CULTURE URINE (07/23/2015 1:53 PM CDT) Pathologist [facility] Culture <10,000 CFU/mL urogenital eugenio ERASMO 07/25/2015 8:09 AM CDT [facility] MICROBIOLOGY Urine URINE SPECIMEN OBTAINED BY CLEAN CATCH PROCEDURE / Unknown Lab Venipuncture / Unknown 07/23/2015 1:53 PM CDT 07/23/2015 2:01 PM CDT Jere Tillman MD LAB - MICROBIOLOGY O RDERABLES [facility] MICROBIOLOGY [address] [place] [address], [facility] [phone] * MICROALBUMIN URINE RANDOM (03/01/2015 12:12 PM CLINICAL INTERVIEWER) Only the most recent of2 resultswithin the time period is included. Microalbumin Urine 32.5 mg/dL 03/01/2015 1:37 PM CLINICAL INTERVIEWER [facility] Urine URINE / Unknown Collection / Unknown 03/01/2015 12:12 PM CLINICAL INTERVIEWER 03/01/2015 12:33 PM CLINICAL INTERVIEWER Jere Tillman MD LAB - URINE CHEMISTR Y ORDERABLES Performing Organization Address [facility]/ZIP Co de Phone Number [facility] [address] [place] [phone] * MYOGLOBIN URINE QUANTITATIVE (03/01/2015 12:12 PM CLINICAL INTERVIEWER) Myoglobin Urine <2 0 - 13 ng/mL 03/03/2015 1:21 PM CLINICAL INTERVIEWER [facility] ([facility]) Urine specimen (specimen) URINE SPECIMEN OBTAINED BY CLEAN CATCH PROCEDURE / Unknown Collection / Unknown 03/01/2015 12:12 PM CLINICAL INTERVIEWER 03/01/2015 12:33 PM CLINICAL INTERVIEWER Narrative [facility] ([facility]) - 03/03/2015 1:21 PM CLINICAL INTERVIEWER Performed at: ??01 - [facility] [address] ??[id number] [employer]igarette Machines Mechanic: Omid Coronado MD, Phone: ??[phone] Jere Tillman MD LAB - URINE CHEMISTR Y ORDERABLES Performing Organization Address [facility] de Phone Number [facility] ([facility]) * ALDOLASE (03/01/2015 12:12 PM CLINICAL INTERVIEWER) Aldolase 5.1 3.3 - 10.3 U/L 03/02/2015 12:15 PM CLINICAL INTERVIEWER [facility] ([facility]) Blood specimen (specimen) BLOOD SPECIMEN / Unknown Collection / Unknown 03/01/2015 12:12 PM CLINICAL INTERVIEWER 03/01/2015 12:33 PM CLINICAL INTERVIEWER Narrative [facility] ([facility]) - 03/02/2015 12:15 PM CLINICAL INTERVIEWER Performed at: ??01 - [facility] [address] ??[id number] Cigarette Mach[employer] Mechanic: Thierno Peace PhD, Phone: ??[phone] Jere Tillman MD LAB - CHEMISTRY MAGALY GARCIA Performing Organization Address City/[facility]/ZIP Co de Phone Number [facility] ([facility]) * XR SHOULDER 2+ VW LEFT (10/01/2013 11:23 AM CDT) Only the most recent of2 resultswithin the time period is included. Anatomical Region Laterality Modality Upper Extremity Radiographic Katie ging Narrative 10/01/2013 11:22 AM CDT Noris Garcia ? 10/01/2013 11:22 AM See progress notes for results Shruthi Underwood MD DIAGNOSTIC IMAGING ORDERABLES * MRI SHOULDER WO CONT LEFT (04/18/2013 10:03 AM CLINICAL INTERVIEWER) Anatomical Region Laterality Modality Upper Extremity Magnetic Resonan ce 04/18/2013 10:3 2 AM CLINICAL INTERVIEWER Impressions 04/18/2013 11:39 AM CLINICAL INTERVIEWER LOW-GRADE ARTICULAR-SIDED PARTIAL TEARING INVOLVING THE INFRASPINATUS AND SUBSCAPULARIS TENDONS DESCRIBED ABOVE. MODERATE TO HIGH-GRADE THINNING OF THE ARTICULAR CARTILAGE AT THE CENTRAL ASPECT OF THE HUMERAL HEAD SMALL INTRA-ARTICULAR BODY IN THE AXILLARY POUCH SUBACROMIAL ENTHESOPHYTE AND HYPERTROPHY OF THE ACROMIOCLAVICULAR JOINT. THIS RESULTS IN MASS EFFECT TO THE MYOTENDINOUS JUNCTION OF THE SUPRASPINATUS MODERATE-SIZED JOINT EFFUSION Edited by Jammie Michelle on 04/18/2013 10:46 AM Narrative 04/18/2013 11:39 AM CLINICAL INTERVIEWER MRI LEFT SHOULDER WITHOUT CONTRAST CLINICAL INDICATION: Severe left shoulder pain and limited range of motion. TECHNIQUE: Multiplanar, multisequence MR imaging of the left shoulder was performed in all 3 orthogonal planes without contrast. FINDINGS: There is a small low-grade articular-sided partial tear involving the mid fibers of the infraspinatus tendon occurring in the critical zone. The tear measures 2.5 mm in AP dimension. There is a low-grade articular-sided partial tear involving the upper fibers of the subscapularis tendon occurring at the lesser tuberosity attachment site. There are no other rotator cuff tendon abnormalities. There is a physiologic amount of fluid within the subacromial-subdeltoid bursa. Signal of the biceps tendon and glenoid labrum are within normal limits. There is no evidence of paralabral ganglion cyst formation. There is moderate to high-grade thinning of the articular cartilage involving the central aspect of the humeral head. There is a small 2.5 mm low signal lesion within the axillary pouch most likely representing a intra-articular body. There is no evidence of muscle edema or muscle atrophy. There are no mass lesions. There is a moderate-sized joint effusion. There is a subacromial enthesophyte. There is hypertrophy of the acromioclavicular joint. This causes mass effect to the myotendinous junction of the supraspinatus. The glenohumeral joint is congruent. Procedure Note Doris Baez MD - 04/18/2013 MRI LEFT SHOULDER WITHOUT CONTRAST CLINICAL INDICATION: Severe left shoulder pain and limited range of motion. TECHNIQUE: Multiplanar, multisequence MR imaging of the left shoulder was performed in all 3 orthogonal planes without contrast. FINDINGS: There is a small low-grade articular-sided partial tear involving the mid fibers of the infraspinatus tendon occurring in the critical zone. The tear measures 2.5 mm in AP dimension. There is a low-grade articular-sided partial tear involving the upper fibers of the subscapularis tendon occurring at the lesser tuberosity attachment site. There are no other rotator cuff tendon abnormalities. There is a physiologic amount of fluid within the subacromial-subdeltoid bursa. Signal of the biceps tendon and glenoid labrum are within normal limits. There is no evidence of paralabral ganglion cyst formation. There is moderate to high-grade thinning of the articular cartilage involving the central aspect of the humeral head. There is a small 2.5 mm low signal lesion within the axillary pouch most likely representing a intra-articular body. There is no evidence of muscle edema or muscle atrophy. There are no mass lesions. There is a moderate-sized joint effusion. There is a subacromial enthesophyte. There is hypertrophy of the acromioclavicular joint. This causes mass effect to the myotendinous junction of the supraspinatus. The glenohumeral joint is congruent. IMPRESSION LOW-GRADE ARTICULAR-SIDED PARTIAL TEARING INVOLVING THE INFRASPINATUS AND SUBSCAPULARIS TENDONS DESCRIBED ABOVE. MODERATE TO HIGH-GRADE THINNING OF THE ARTICULAR CARTILAGE AT THE CENTRAL ASPECT OF THE HUMERAL HEAD SMALL INTRA-ARTICULAR BODY IN THE AXILLARY POUCH SUBACROMIAL ENTHESOPHYTE AND HYPERTROPHY OF THE ACROMIOCLAVICULAR JOINT. THIS RESULTS IN MASS EFFECT TO THE MYOTENDINOUS JUNCTION OF THE SUPRASPINATUS MODERATE-SIZED JOINT EFFUSION Edited by Jammie Michelle on 04/18/2013 10:46 AM Alek Enrique MD MR ORDERABLES * XR HIP 2+ VW RIGHT (02/04/2013 1:15 PM CLINICAL INTERVIEWER) Anatomical Region Laterality Modality Pelvis, Lower Extremity Radiogra [facility] Narrative 02/04/2013 1:20 PM CLINICAL INTERVIEWER Rufina Henderson RT(R) ? 02/04/2013 ??1:20 PM See progress notes for results Procedure Note Rufina Henderson, RT(R) - 02/04/2013 1:20 PM CST See progress notes for results Alek Enrique MD DIAGNOSTIC IMAGING ORDERABLES * POTASSIUM BLOOD (12/19/2012 3:18 PM CDT) Only the most recent of2 resultswithin the time period is included. Potassium 4.9 3.5 - 5.1 mmol/L 12/19/2012 4:06 PM CDT [facility] Blood BLOOD SPECIMEN / Unknown 12/19/2012 3:18 PM CDT 12/19/2012 3:18 PM CDT Cari Tavera MD LAB - CHEMISTRY MAGALY GARCIA [facility] Organization Address City/State/ZIP Co de Phone Number [facility] [address] [place] [phone] * ERYTHROPOIETIN (12/18/2012 4:40 AM CDT) Erythropoietin 10 4 - 27 mU/mL 12/19/2012 3:24 AM CDT [employer] Comment: INTERPRETIVE INFORMATION: Erythropoietin Normal serum concentrations of erythropoietin for 95% of individuals with normal hematocrits range from 4-27 mU/mL. As the hematocrit is lowered by iron deficiency, aplastic, or hemolytic anemia, the concentration of erythropoietin increases as shown in the graph below. In the absence of anemia, elevated concentrations are seen in renal tumors, as a manifestation of renal transplant rejection, and in secondary polycythemia. Low values may be observed in hemochromatosis. ?Expected Erythropoietin Concentrations in Patients ? with Uncomplicated Anemia ?? Erythropoietin (mU/mL) ?100,000 - + ?+ ? 10,000 - +....... ?+ ....... ?1,000 - + ?....... ?+ ? ........ ?100 - + ? ........ ?+ ?........ ? 10 - + ?........ ?+---+---+---+---+---+---+ ? 10 ?? 20 ??30 ??40 ??50 ??60 ??70 ?(Hematocrit %) ?(Contributions To Nephrology 1988:66:54-62) Decreased erythropoietin concentrations with an elevated hematocrit are observed in patients with polycythemia rubra vera, and with a decreased hematocrit in patients with HIV infection who are receiving AZT. ??Patients on AZT who have anemia and erythropoietin concentrations of less than or equal to 500 mU/mL may benefit from therapy with recombinant EPO ([facility] [id number],1989). Blood specimen (specimen) BLOOD SPECIMEN / Unknown 12/18/2012 4:40 AM CDT 12/18/2012 6:52 AM CDT Charmaine Hernandez MD LAB - CHEMISTRY MAGALY GARCIA [facility] Organization Address City/State/ZIP Co de Phone Number [facility] [employer] [address] [place] [phone] * (ABNORMAL) CBC W/O DIFFERENTIAL (12/18/2012 4:40 AM CDT) Only the most recent of4 resultswithin the time period is included. WBC 4.9 4.4 - 10.7 x10^9/L 12/18/2012 7:03 AM CDT [facility] RBC 5.57(H) 3.80 - 5.40 x10^12/L 12/18/2012 7:03 AM CDT [facility] Hemoglobin 17.5 12.0 - 17.6 g/dL 12/18/2012 7:03 AM CDT [facility] Hematocrit 48.9 35.2 - 51.7 % 12/18/2012 7:03 AM CDT [facility] MCV 87.8 80.7 - 98.3 fl 12/18/2012 7:03 AM CDT [facility] MCH 31.4 26.7 - 34.0 pg 12/18/2012 7:03 AM CDT [facility] MCHC 35.8 30.8 - 35.9 gm/dL 12/18/2012 7:03 AM CDT [facility] Platelet Count 160 153 - 416 x10^9/L 12/18/2012 7:03 AM CDT [facility] RDW-CV 13.2 12.1 - 14.9 % 12/18/2012 7:03 AM CDT [facility] MPV 12.2 9.4 - 12.9 fl 12/18/2012 7:03 AM CDT [facility] Blood BLOOD SPECIMEN / Unknown 12/18/2012 4:40 AM CDT 12/18/2012 6:52 AM CDT Cari Tavera MD LAB - HEMATOLOGY VIVIAN ROMERO [facility] [address] [place] [address] * IRON + TIBC PANEL (12/18/2012 4:40 AM CDT) Iron 137 50 - 170 ug/dL 12/19/2012 11:55 AM CDT [facility] Comment: REFERENCE INTERVAL: Iron, Serum or Plasma Access complete set of age- and/or gender-specific reference intervals for this test in the [facility] Laboratory Test Directory ([employer]). TIBC 318 240 - 450 ug/dL 12/19/2012 11:55 AM CDT [facility] [employer] Comment: REFERENCE INTERVAL: Iron Binding Capacity Total Access complete set of age- and/or gender-specific reference intervals for this test in the [facility] Laboratory Test Directory ([employer]). Transferrin Saturation % 43 20 - 50 %sat 12/19/2012 11:55 AM CDT [facility] Blood specimen (specimen) BLOOD SPECIMEN / Unknown 12/18/2012 4:40 AM CDT 12/18/2012 6:52 AM CDT Charmaine Hernandez MD LAB - CHEMISTRY MAGALY GARCIA Performing Organization Address City/[facility]/ZIP Co de Phone Number [facility] [address] [place] [address] * FERRITIN (12/18/2012 4:40 AM CDT) Ferritin 76 22 - 322 ng/mL 12/18/2012 7:21 AM CDT [facility] Blood BLOOD SPECIMEN / Unknown 12/18/2012 4:40 AM CDT 12/18/2012 6:52 AM CDT Charmaine Hernandez MD LAB - CHEMISTRY MAGALY GARCIA Performing Organization Address City/[facility]/ZIP Co de Phone Number [facility] [address] [place] [address] * IR CAROTID STENT W EMBOL PROT (12/11/2012 9:21 AM CDT) Anatomical Region Laterality Modality X-Ray Angiograph y Narrative 12/17/2012 2:24 PM CDT SEE OPERATIVE REPORT IN NOTES SECTION OF PATIENT'S CHART. Procedure Note Marko Chicas (Clerical Edit), RT(R) - 12/17/2012 SEE OPERATIVE REPORT IN NOTES SECTION OF PATIENT'S CHART. Robert Castro MD IR ORDERABLES * PT PTT PANEL (12/11/2012 3:44 AM CDT) Only the most recent of2 resultswithin the time period is included. PT 10.1 9.4 - 11.2 sec 12/11/2012 4:24 AM CDT [facility] INR 0.96 0.9 - 1.1 12/11/2012 4:24 AM CDT [facility] PTT 26.1 24.0 - 32.0 sec 12/11/2012 4:24 AM CDT [facility] Blood BLOOD SPECIMEN / Unknown 12/11/2012 3:44 AM CDT 12/11/2012 4:11 AM CDT Narrative [facility] - 12/11/2012 4:24 AM CDT Conventional Anticoagulant Therapy INR Reference Ranges: ??2.0-3.0 Intensive Anticoagulant Therapy INR Reference Ranges: ? 2.5-3.5 Robert Castro MD LAB - COAGULATION ORDERABLES [facility] [address] [place] [address] * CT ANGIO NECK HEAD W WO CONTRAST (12/09/2012 4:17 PM CDT) Anatomical Region Laterality Modality Head Computed Tomogra phy 12/09/2012 4:48 PM CDT Impressions 12/09/2012 7:07 PM CDT HIGH GRADE STENOSIS INVOLVING THE PROXIMAL RIGHT INTERNAL CAROTID ARTERY. MODERATE GRADE STENOSIS INVOLVING THE MIDPORTION OF THE LEFT COMMON CAROTID ARTERY. FINDINGS CTA Brain: The internal carotid arteries, middle cerebral arteries, anterior cerebral arteries, vertebral arteries, posterior cerebral arteries, basilar artery, and branch vessels of the [place] are widely patent without evidence of vessel stenosis or vessel occlusion. No intracranial aneurysms are identified. IMPRESSION UNREMARKABLE BRAIN CTA. Edited by Bertha Soliz on 12/09/2012 5:21 PM Narrative 12/09/2012 7:[address] ANGIOGRAPHY NECK WITH CONTRAST CT ANGIOGRAPHY HEAD WITH CONTRAST CT 3D RECONSTRUCTION CLINICAL INDICATION: Left-sided weakness, CVA. TECHNIQUE: Axial CT images from the transverse aortic arch through the cranial vertex were obtained following the administration of 80 cc Omnipaque-350 intravenous contrast. Multiplanar reformatted, maximum intensity projection, and 3D volume rendered reconstructions of the arterial vasculature of the neck and brain were performed on an independent workstation. FINDINGS CTA Neck: Indirect assessment of the distal portions of the bilateral internal carotid arteries relative to the proximal portions reveals a high grade stenosis at the proximal right internal carotid artery. The most stenotic portion of the proximal right internal carotid artery measures 1.4 mm in width. Normal caliber of the distal portion measures approximately 5 to 6 mm in width. No hemodynamically-significant stenosis is seen within the left internal carotid artery. There is a moderate grade stenosis involving the midportion of the left common carotid artery occurring at the level of the upper pole of the thyroid gland. There is wide patency of the right common carotid artery. There is wide patency of the bilateral vertebral and external carotid arteries. Procedure Note Doris Baez MD - 12/09/2012 CT ANGIOGRAPHY NECK WITH CONTRAST CT ANGIOGRAPHY HEAD WITH CONTRAST CT 3D RECONSTRUCTION CLINICAL INDICATION: Left-sided weakness, CVA. TECHNIQUE: Axial CT images from the transverse aortic arch through the cranial vertex were obtained following the administration of 80 cc Omnipaque-350 intravenous contrast. Multiplanar reformatted, maximum intensity projection, and 3D volume rendered reconstructions of the arterial vasculature of the neck and brain were performed on an independent workstation. FINDINGS CTA Neck: Indirect assessment of the distal portions of the bilateral internal carotid arteries relative to the proximal portions reveals a high grade stenosis at the proximal right internal carotid artery. The most stenotic portion of the proximal right internal carotid artery measures 1.4 mm in width. Normal caliber of the distal portion measures approximately 5 to 6 mm in width. No hemodynamically-significant stenosis is seen within the left internal carotid artery. There is a moderate grade stenosis involving the midportion of the left common carotid artery occurring at the level of the upper pole of the thyroid gland. There is wide patency of the right common carotid artery. There is wide patency of the bilateral vertebral and external carotid arteries. IMPRESSION HIGH GRADE STENOSIS INVOLVING THE PROXIMAL RIGHT INTERNAL CAROTID ARTERY. MODERATE GRADE STENOSIS INVOLVING THE MIDPORTION OF THE LEFT COMMON CAROTID ARTERY. FINDINGS CTA Brain: The internal carotid arteries, middle cerebral arteries, anterior cerebral arteries, vertebral arteries, posterior cerebral arteries, basilar artery, and branch vessels of the [place] are widely patent without evidence of vessel stenosis or vessel occlusion. No intracranial aneurysms are identified. IMPRESSION UNREMARKABLE BRAIN CTA. Edited by Bertha Soliz on 12/09/2012 5:21 PM [address] Castro MD CT ORDERABLES * MRI BRAIN NON CONTRAST (12/09/2012 3:40 PM CDT) Anatomical Region Laterality Modality Head Magnetic Resonan ce 12/09/2012 4:06 PM CDT Impressions 12/09/2012 4:29 PM CDT The diffusion-weighted images show several punctate lesions with abnormal signal in the right frontoparietal region consistent with recent infarcts. On the axial T1-weighted images, increased signal is noted in several of the gyri at the same location as well as more anteriorly in the right hemisphere suggesting the possibility of petechial hemorrhage. No mass or midline shift can be identified in comparison to the examination of November 25, 2012. Edited by Jammie Michelle on 12/09/2012 4:19 PM Narrative 12/09/2012 4:29 PM CDT MRI BRAIN WITHOUT CONTRAST INDICATION: Left-sided weakness. CVA. TECHNIQUE: Noncontrast images of the brain were performed using a variety of MR sequences. FINDINGS: The diffusion-weighted images show several punctate lesions with increased signal in the white matter of the right cerebral hemisphere in the posterior frontal lobe extending into the frontoparietal convexity. Some of these areas are visible on the ADC map images. There is no mass effect or midline shift at the current time. The lesions are also visible on the axial FLAIR images. On the T1-weighted images, a subtle increased signal is noted in the gyri of the posterior right frontal lobe overlying the same area as the diffusion-weighted abnormalities. In addition, however, there are more subtle areas of increased signal in the gyri of the right frontal lobe anterior to the diffusion-weighted abnormalities. The ventricular system is stable in size compared to the brain CT of November 25, 2012. Procedure Note Moshe Marcum MD - 12/09/2012 MRI BRAIN WITHOUT CONTRAST INDICATION: Left-sided weakness. CVA. TECHNIQUE: Noncontrast images of the brain were performed using a variety of MR sequences. FINDINGS: The diffusion-weighted images show several punctate lesions with increased signal in the white matter of the right cerebral hemisphere in the posterior frontal lobe extending into the frontoparietal convexity. Some of these areas are visible on the ADC map images. There is no mass effect or midline shift at the current time. The lesions are also visible on the axial FLAIR images. On the T1-weighted images, a subtle increased signal is noted in the gyri of the posterior right frontal lobe overlying the same area as the diffusion-weighted abnormalities. In addition, however, there are more subtle areas of increased signal in the gyri of the right frontal lobe anterior to the diffusion-weighted abnormalities. The ventricular system is stable in size compared to the brain CT of November 25, 2012. IMPRESSION The diffusion-weighted images show several punctate lesions with abnormal signal in the right frontoparietal region consistent with recent infarcts. On the axial T1-weighted images, increased signal is noted in several of the gyri at the same location as well as more anteriorly in the right hemisphere suggesting the possibility of petechial hemorrhage. No mass or midline shift can be identified in comparison to the examination of November 25, 2012. Edited by Jammie Michelle on 12/09/2012 4:19 PM Robert Castro MD MR ORDERABLES * MRI SPINE CERVICAL WITH AND WITHOUT CONTRAST (11/25/2012 6:48 PM CDT) Anatomical Region Laterality Modality Spine Magnetic Resonan ce 11/25/2012 7:11 PM CDT Impressions 11/25/2012 7:13 PM CDT Cervical spinal cord is normal in signal intensity. No significant central canal stenosis is seen at any level. Neural foraminal narrowing is present from C3-4 to C6-7. This examination was transcribed using the [employer] voice recognition system without human hot roller. ??In an effort to expedite patient care, this report has not been adjusted for typographical, grammatical, and syntax by a trained medical records library professor. Narrative 11/25/2012 7:13 PM CDT MRI cervical spine with and without contrast Indication: Upper extremity dysfunction Technique: The following sequences were obtained: Sagittal and axial T1 before and after administration of 20 cc gadolinium, sagittal and axial T2, sagittal STIR, 3-D cervical myelogram Findings: Alignment of the cervical spine is within normal limits. The cervical spinal cord is normal in morphology and in signal intensity. There is no abnormal enhancement of the cervical spinal cord at any level. Bone marrow signal is unremarkable. There is a posterior disc herniation and osteophytic ridge from C3-4 through C6-7. This does not result in significant central canal stenosis at any level. Moderate right neural foraminal narrowing is present at C3-4. There is moderate neural foraminal narrowing bilaterally at C4-5 and C5-6. Moderate to severe neural foraminal narrowing is present on the right at C6-7. Procedure Note Yessica Prasad MD - 11/25/2012 MRI cervical spine with and without contrast Indication: Upper extremity dysfunction Technique: The following sequences were obtained: Sagittal and axial T1 before and after administration of 20 cc gadolinium, sagittal and axial T2, sagittal STIR, 3-D cervical myelogram Findings: Alignment of the cervical spine is within normal limits. The cervical spinal cord is normal in morphology and in signal intensity. There is no abnormal enhancement of the cervical spinal cord at any level. Bone marrow signal is unremarkable. There is a posterior disc herniation and osteophytic ridge from C3-4 through C6-7. This does not result in significant central canal stenosis at any level. Moderate right neural foraminal narrowing is present at C3-4. There is moderate neural foraminal narrowing bilaterally at C4-5 and C5-6. Moderate to severe neural foraminal narrowing is present on the right at C6-7. IMPRESSION Cervical spinal cord is normal in signal intensity. No significant central canal stenosis is seen at any level. Neural foraminal narrowing is present from C3-4 to C6-7. This examination was transcribed using the [email or web address] voice recognition system without human hot roller. In an effort to expedite patient care, this report has not been adjusted for typographical, grammatical, and syntax by a trained medical records library professor. Mario James MD MR ORDERABLES * CT CERVICAL SPINE NON CONTRAST (11/25/2012 3:06 PM CDT) Anatomical Region Laterality Modality Spine Computed Tomogra phy 11/25/2012 3:22 PM CDT Impressions 11/25/2012 3:24 PM CDT No fracture, subluxation or osseous destruction in the cervical spine Narrative 11/25/2012 3:24 PM CDT EXAM: CT Cervical Spine Without Contrast INDICATION: Cervicalgia COMPARISON: none available TECHNIQUE: Helically acquired contiguous axial sections through the C-spine performed without IV contrast. Thin collimation was used. Sagittal and coronal reconstructions were performed from the original helical data. FINDINGS: There is no compression fracture or subluxation. There is no osseous destruction. There is no prevertebral soft tissue swelling. A posterior neural arch fracture is not identified. There is hypertrophic spurring throughout the cervical spine but more prominent at C4-5 and C5-6. There is no evidence of central canal stenosis on this noncontrast CT scan. Procedure Note Almas Kwong MD - 11/25/2012 EXAM: CT Cervical Spine Without Contrast INDICATION: Cervicalgia COMPARISON: none available TECHNIQUE: Helically acquired contiguous axial sections through the C-spine performed without IV contrast. Thin collimation was used. Sagittal and coronal reconstructions were performed from the original helical data. FINDINGS: There is no compression fracture or subluxation. There is no osseous destruction. There is no prevertebral soft tissue swelling. A posterior neural arch fracture is not identified. There is hypertrophic spurring throughout the cervical spine but more prominent at C4-5 and C5-6. There is no evidence of central canal stenosis on this noncontrast CT scan. IMPRESSION No fracture, subluxation or osseous destruction in the cervical spine Mario James MD CT ORDERABLES * CT HEAD - NON CONTRAST (11/25/2012 1:52 PM CDT) Anatomical Region Laterality Modality Head Computed Tomogra phy 11/25/2012 1:54 PM CDT Impressions 11/25/2012 1:[address] scan of the brain. Narrative 11/25/2012 1:[address] BRAIN WITHOUT CONTRAST INDICATION:Left-sided weakness and arm pain The CT brain scan without contrast demonstrates the ventricles to be normal in size and midline. An intracranial mass, hemorrhage, or cortical infarction are not demonstrated. An intracranial mass, hemorrhage or cortical infarction are not demonstrated. The mastoid air cells and visualized paranasal sinuses are clear. Procedure Note Sarthak Valentin MD - 11/25/2012 CT BRAIN WITHOUT CONTRAST INDICATION:Left-sided weakness and arm pain The CT brain scan without contrast demonstrates the ventricles to be normal in size and midline. An intracranial mass, hemorrhage, or cortical infarction are not demonstrated. An intracranial mass, hemorrhage or cortical infarction are not demonstrated. The mastoid air cells and visualized paranasal sinuses are clear. IMPRESSION Unremarkable CT scan of the brain. Mario James MD CT ORDERABLES * XR HIPS BILAT 2VWS W PELVIS (06/19/2011 12:58 PM CDT) Anatomical Region Laterality Modality Pelvis, Lower Extremity Other Narrative 06/19/2011 12:58 PM CDT RT Tyler ? 06/19/2011 12:58 PM See progress notes for results Procedure Note Graciela Caballero, RT - 06/19/2011 12:58 PM CDT See progress notes for results Newton Rosenberg IV, MD DIAGNOSTIC IMAGING O RDERABLES * MRI PELVIS NON CONTRAST (05/10/2011 5:50 PM CLINICAL INTERVIEWER) Anatomical Region Laterality Modality Pelvis Magnetic Resonan ce 05/11/2011 9:07 AM CLINICAL INTERVIEWER Impressions 05/11/2011 9:32 AM CLINICAL INTERVIEWER FOCAL SEPARATION OF THE LEFT ANTERIOR LABRUM COMPATIBLE WITH A LABRAL TEAR. THERE IS FORMATION OF A NEARBY PARALABRAL GANGLION CYST. FOCAL CHRONIC APPEARING CARTILAGE TEAR WITH SUBCHONDRAL CYSTIC CHANGE INVOLVING THE ANTEROSUPERIOR RIGHT ACETABULUM. Narrative 05/11/2011 9:32 AM CLINICAL INTERVIEWER MRI PELVIS WITHOUT CONTRAST CLINICAL INDICATION: Severe bony pelvic pain and limited range of motion. Severe bony bilateral hip pain. TECHNIQUE: Routine MR imaging of the pelvis was performed in all 3 orthogonal planes without contrast. FINDINGS: There is a focal 10 mm high-grade cartilage tear with subchondral cyst formation involving the anterosuperior right acetabulum. This appears chronic. There is an elongated 2.5 x 0.7 cm paralabral ganglion cyst located at the anteromedial margin of the left hip joint. This appears to originate from a focal separation of the anterior left acetabular labrum. The right acetabular labrum is intact. The bilateral iliofemoral ligament, ischiofemoral ligament, and ligamentum teres are intact. There are no sites of bone marrow edema. There is no MR evidence of avascular necrosis. Paramagnetic artifact from lower lumbar transpedicular fusion hardware is noted. High signal consistent with chronic denervation is noted within the posterior paraspinal lumbar musculature. This is a common finding following lumbar surgery. The signal of the tendons of the gluteals, iliopsoas, rectus femora, and hamstring tendons are within normal limits. The signal of the pubic symphysis and associated adductor tendon attachments are within normal limits. Procedure Note Doris Baez MD - 05/11/2011 MRI PELVIS WITHOUT CONTRAST CLINICAL INDICATION: Severe bony pelvic pain and limited range of motion. Severe bony bilateral hip pain. TECHNIQUE: Routine MR imaging of the pelvis was performed in all 3 orthogonal planes without contrast. FINDINGS: There is a focal 10 mm high-grade cartilage tear with subchondral cyst formation involving the anterosuperior right acetabulum. This appears chronic. There is an elongated 2.5 x 0.7 cm paralabral ganglion cyst located at the anteromedial margin of the left hip joint. This appears to originate from a focal separation of the anterior left acetabular labrum. The right acetabular labrum is intact. The bilateral iliofemoral ligament, ischiofemoral ligament, and ligamentum teres are intact. There are no sites of bone marrow edema. There is no MR evidence of avascular necrosis. Paramagnetic artifact from lower lumbar transpedicular fusion hardware is noted. High signal consistent with chronic denervation is noted within the posterior paraspinal lumbar musculature. This is a common finding following lumbar surgery. The signal of the tendons of the gluteals, iliopsoas, rectus femora, and hamstring tendons are within normal limits. The signal of the pubic symphysis and associated adductor tendon attachments are within normal limits. IMPRESSION FOCAL SEPARATION OF THE LEFT ANTERIOR LABRUM COMPATIBLE WITH A LABRAL TEAR. THERE IS FORMATION OF A NEARBY PARALABRAL GANGLION CYST. FOCAL CHRONIC APPEARING CARTILAGE TEAR WITH SUBCHONDRAL CYSTIC CHANGE INVOLVING THE ANTEROSUPERIOR RIGHT ACETABULUM. Jere C Kopjas MD MR ORDERABLES * IMAGING/RADIOLOGY/XRAY RESULTS ORDER (06/13/2010) Only the most recent of2 resultswithin the time period is included. Anatomical Region Laterality Modality Other Jere Tillman MD IMAGING * XR LUMBAR SPINE 4+ VW (06/07/2010 2:13 PM CDT) Anatomical Region Laterality Modality Spine Radiographic Katie ging 06/07/2010 2:49 PM CDT Impressions 06/08/2010 1:29 PM CDT POSTERIOR FUSION OF L4 THROUGH S1 Narrative 06/08/2010 1:29 PM CDT LUMBAR SPINE 5 VIEWS INDICATION: Low back pain FINDINGS: Five views of the lumbar spine were obtained. Posterior fusion of L4, L5 and S1 are demonstrated with bipedicle screws and osteometallic hardware. There are intervertebral disc space devices of L4-L5 and L5-S1. No acute fracture or hardware complication is seen. Procedure Note Mario Carrillo MD - 06/08/2010 LUMBAR SPINE 5 VIEWS INDICATION: Low back pain FINDINGS: Five views of the lumbar spine were obtained. Posterior fusion of L4, L5 and S1 are demonstrated with bipedicle screws and osteometallic hardware. There are intervertebral disc space devices of L4-L5 and L5-S1. No acute fracture or hardware complication is seen. IMPRESSION POSTERIOR FUSION OF L4 THROUGH S1 Jere Tillman MD DIAGNOSTIC IMAGING O [facility] Care Teams Eyeglass Lens Cutter Relationship Specialty Start Date End Date Jere Tillman MD [address] [place] [address] PCP - General 06/07/10 Kieran Albert MD [address] [place] [address] Orthopedic Surgery 07/10/11 Alek Enrique MD [address] [place] [address] Orthopedic Surgery 05/22/13
--- OUTSIDE RECORDS SUMMARY | 2024-04-03 13:10 | XMS_ITS | Encounter Summary ---
Author Organization [facility] Address [address] [place] [address] Care Team Providers Care Deputy Sheriff Generalist Name Role Phone Jere Tillman MD Primary Care Provider [phone] Kieran Albert MD Unavailable [phone] Alek Enrique MD Unavailable [phone] Encounter Details Date Type Department Care Team (Late st Contact Info) Description 06/25/2013 Therapy Visit EXTERNAL NON-[facility] DEPT Unknown, Provider Social History Tobacco Use [...] on filedocumented in this encounter Care Teams Deputy Sheriff Generalist Relationship Specialty Start Date End Date Jere Tillman MD [address] [place] [address] PCP - General 06/07/10 Kieran Albert MD [address] [place] [address] Orthopedic Surgery 07/10/11 Alek Enrique MD [address] [place] [address] Orthopedic Surgery 05/22/13 documented as of this encounter
--- OUTSIDE RECORDS SUMMARY | 2024-04-03 13:10 | XMS_ITS | Encounter Summary ---
Author Organization [facility] Address [address] [place] [address] Care Team Providers Care Civil Engineering Project Designer Name Role Phone Jere Tillman MD Primary Care Provider [phone] Kieran Albert MD Unavailable [phone] Alek Enrique MD Unavailable [phone] Encounter Details Date Type Department Care Team (Late st Contact Info) Description 08/22/2016 [facility] Outpatient Visit [facility] [address] [place] [address] Yoly Moreno, CLINICAL DATA SPECIALIST-ARCHITECTURAL SUPERINTENDENT [address] [address] Social History Tobacco Use Types Packs/Day Years [...] or have serious hearing difficult y? No 08/10/2016 Is person blind or have serious difficulty seein g? No 08/10/2016 Does person have serious dif ficulty walking/climbing stairs? No 08/10/2016 Does person have difficulty dressing/bathing? No 08/10/2016 Does person have difficulty doing errands alone? No 08/10/2016 Cognitive Status Response Date of Assessm ent Does person have difficulty concentrating/remembering/making decisions? No 08/10/2016 documented as of this encounter Plan of Treatment Not on file documented as of this encounter Visit Diagnoses Not on filedocumented in this encounter Care Teams Civil Engineering Project Designer Relationship Specialty Start Date End Date Jere Tillman MD [address] [place] [address] PCP - General 06/07/10 Kieran Albert MD [address] [place] [address] Orthopedic Surgery 07/10/11 Alek Enrique MD [address] [place] [address] Orthopedic Surgery 05/22/13 documented as of this encounter
--- OUTSIDE RECORDS SUMMARY | 2024-04-03 13:10 | XMS_ITS | Continuity of Care Document ---
Author Organization [facility] Address [address] [place] [address] Phone Care Team Providers Care Professor Of Theology Name Role Phone Unavailable Unavailable Unavailable Procedures Procedure Date OFFICE CONSULT, 15 MIN, 3 KE Y COMPS: PROB FOCUS HX; PROB FOCUS EXAM; [facility] Advance Directives Directive Yes / No Effective Date File Name No Information Encounters Encounter Description Practice Location Reason(s) For Visit Diagnoses Date Provider Providers Copied on Encounter OFFICE CONSULT, 15 MIN, 3 QUINTEROS COMPS: PROB FOCUS HX; PROB FOCUS EXAM; [facility] , [address], [place], [place], [id number], [place] tel:[phone] [facility] ECONOMIC PROBLEM No Information Family History Family Member Type Diagnosis Age At Onset No Information Payers Payer name Insurance type Covered alliance party ID Authoriza tion(s) No Information Social History Type Description Quantity Date Captured [...]
--- OUTSIDE RECORDS SUMMARY | 2024-04-03 13:10 | XMS_ITS | Encounter Summary ---
Author Organization [facility] Address [address] [place] [address] Care Team Providers Care Sales Representative Uniforms Name Role Phone Jere Tillman MD Primary Care Provider [phone] Kieran Albert MD Unavailable [phone] Alek Enrique MD Unavailable [phone] Encounter Details Date Type Department Care Team (Late st Contact Info) Description 07/22/2013 Therapy Visit EXTERNAL NON-[facility] DEPT Unknown, Provider Social History Tobacco Use [...] on filedocumented in this encounter Care Teams Sales Representative Uniforms Relationship Specialty Start Date End Date Jere Tillman MD [address] [place] [address] PCP - General 06/07/10 Kieran Albert MD [address] [place] [address] Orthopedic Surgery 07/10/11 Alek Enrique MD [address] [place] [address] Orthopedic Surgery 05/22/13 documented as of this encounter
--- OUTSIDE RECORDS SUMMARY | 2024-04-03 13:10 | XMS_ITS | Clinical Summary ---
Author Organization [facility] Address [address] [place] [address] Phone Care Team Providers Care Manager Intermediate Name Role Phone Wilber Whittington MD Primary Care Provider [phone] Allergies Active Allergy Reactions Criticality Noted Date Comments Sibutramine 06/19/2011 Medications Medication Sig Dispensed Refills Start Date End Date Status aspirin (Aspirin Adult Low Dose) 81 MG EC tablet Take by mouth 09/10/2016 Active candesartan (ATACAND) 32 MG tablet Take 32 mg by mouth 1 (one) time each day 04/27/2020 Active Trulicity 0.75 MG/0.5ML solution pen-injector INJECT 0.75 MG UNDER THE SKIN EVERY WEEK 06/01/2020 Active ezetimibe (ZETIA) 10 MG tablet Take 10 mg by mouth 1 (one) time each day 05/25/2020 Active insulin detemir (LEVEMIR) 100 UNIT/ML injection Inject 70 Units under the skin 2 times daily Active HumuLIN R 100 UNIT/ML injection INJECT 30 UNITS THREE TIMES DAILY. 04/05/2020 Active rosuvastatin (CRESTOR) 10 MG tablet Take 5 mg by mouth 1 (one) time each day 04/26/2020 Active Jardiance 25 MG tablet Take 1 tablet by mouth 1 (one) time each day 09/23/2021 Active terbinafine (LamISIL) 250 MG tablet Take 250 mg by mouth 1 (one) time each day 09/07/2021 Active Active Problems Problem Noted Date Diagnosed Date Secondary hyperparathyroidism, non-renal 022 Chronic kidney disease stage 3B 11/21/2021 Hyperlipidemia 11/04/2020 Coronary arteriosclerosis 01/16/2017 Peritonitis 08/10/2016 Atherosclerosis of aorta 07/23/2016 Renal artery stenosis 07/23/2016 Carotid artery obstruction 01/21/2013 Overview (06/28/2020): S/p stent assisted angioplasty Stroke 01/21/2013 Diabetes mellitus 12/09/2012 Hypertensive disorder 12/09/2012 Immunizations Name Administration Dates Next Due Influenza TIV (IM) 05/16/2021(Deferred: Patient Refused) Influenza, Unspecified 12/10/2012 Pneumococcal Conjugate 11/04/2015 Family History Medical History Relation Comments Kidney disease Neg Hx Social History Tobacco Use Types Packs/Day Years Used Date Smoking Tobacco: Heavy Smoker Cigarettes Smokeless Tobacco: Never Alcohol Use Standard Drinks/Week Comments Yes 0 (1 standard drink = 0.6 oz pur e alcohol) occasionally Sex and Gender Information Value Date Recorded Sex Assigned at Not on file Gender Identity Not on file Sexual Orientation Not on file Last Filed Vital Signs Vital Sign Reading Time Taken Comments Blood Pressure 118/80 11/21/2021 9:44 AM CDT Pulse 60 11/21/2021 9:44 AM CDT Temperature 35.8 ??C (96.4 ??F) 11/21/2021 9:44 AM CD T Respiratory Rate - - Oxygen Saturation - - Inhaled Oxygen Concentration - - Weight 95.3 kg (210 lb) 11/21/2021 9:44 AM CDT Height 185.4 cm (6' 1 ) 11/21/2021 9:44 AM CDT Body Mass Index 27.71 11/21/2021 9:44 AM CDT Plan of Treatment Health Maintenance Due Date Last Done Comments Pneumococcal PPSV23/PCV13 65 + Years / High and Highest Risk (1 of 4 - PCV) 1956 Diabetic Foot Exam 1958 Ophthalmology Exam 1958 Influenza Vaccine (#1) 2023 12/10/2012 Care Teams Manager Intermediate Relationship Specialty Start Date End Date Wilber Whittington MD [address] [facility] [address] [facility] [address] [place] [address] PCP - General Internal Medicine 11/21/21
--- OUTSIDE RECORDS SUMMARY | 2024-04-03 13:10 | XMS_ITS | Encounter Summary ---
Author Organization [facility] Address [address] [place] [address] Care Team Providers Care Crank Hand Name Role Phone Jere Tillman MD Primary Care Provider [phone] Kieran Albert MD Unavailable [phone] Alek Enriqeu MD Unavailable [phone] Encounter Details Date Type Department Care Team (Late st Contact Info) Description 08/13/2013 Therapy Visit EXTERNAL NON-[facility] DEPT Unknown, Provider [...] on filedocumented in this encounter Care Teams Crank Hand Relationship Specialty Start Date End Date Jere Tillman MD [address] [place] [address] PCP - General 06/07/10 Kieran Albert MD [address] [place] [address] Orthopedic Surgery 07/10/11 Alek Enrique MD [address] [place] [address] Orthopedic Surgery 05/22/13 documented as of this encounter
--- OUTSIDE RECORDS SUMMARY | 2024-04-03 13:10 | XMS_ITS | Encounter Summary ---
Author Organization [facility] Address [address] [place] [address] Care Team Providers Care Chrome Cleaner Name Role Phone Jere Tillman MD Primary Care Provider [phone] Kieran Albert MD Unavailable [phone] Alek Enrique MD Unavailable [phone] Encounter Details Date Type Department Care Team (Late st Contact [facility]) Description 09/24/2013 Therapy Visit [facility] Orthopedics [address] [facility] [address] [place] [address] [place] [address] [address] Social History Tobacco Use Types Packs/Day Years [...] on filedocumented in this encounter Care Teams Chrome Cleaner Relationship Specialty Start Date End Date Jere Tillman MD [address] [place] [address] PCP - General 06/07/10 Kieran Albert MD [address] [place] [address] Orthopedic Surgery 07/10/11 Alek Enrique MD [address] [place] [address] Orthopedic Surgery 05/22/13 documented as of this encounter
--- OUTSIDE RECORDS SUMMARY | 2024-04-03 13:10 | XMS_ITS | Continuity of Care Document ---
Author Organization [facility] Address [address] [place] [address] [place] [address] Phone Care Team Providers Care Dice Table Operator Name Role Phone Burak Webber DO Unavailable Unavailable Advance Directives Directive Yes / No Effective Date File Name No Information Encounters Encounter Description Practice Location Reason(s) For Visit Diagnoses Date Provider Providers Copied on Encounter [facility], [id number] [place] [address] [address], [place], [place], [id number], [place] tel:[phone] [facility] [place] No Information Lawanda Tuttle. [address] [place], [address], [place]. tel: [phone] Family History Family Member Type Diagnosis Age At Onset No Information Payers Payer name Insurance type Covered alliance party ID Authoriza tion(s) [place] [id number] Social History Type Description Quantity Date Captured [...]
--- OUTSIDE RECORDS SUMMARY | 2024-04-03 13:10 | XMS_ITS | Encounter Summary ---
Author Organization [facility] Address [address] [place] [address] Care Team Providers Care Sprinkler Fitter Apprentice Name Role Phone Wilber Whittingtno MD Primary Care Provider Encounter Details Date Type Department Care Team (Late st Contact Info) Description 04/02/2024 External Device Data [place] ABSTRACTION Provider, Abstract NO ADDRESS ON FILE Social History Tobacco Use Types Packs/Day Years Used Date Smoking Tobacco: Every Day Cigarettes 0.8 60 Smokeless Tobacco: Never Alcohol Use Standard Drinks/Week Comments Yes 0 (1 standard drink = 0.6 oz pur e alcohol) 1 drink rarely Sex and Gender Information Value Date Recorded Sex Assigned at Not on file Legal Sex Male 2:29 PM CDT Gender Identity Not on file Sexual Orientation Not on file documented as of this encounter Plan of Treatment Upcoming Encounters Date Type Department Care Team (Late st Contact Info) Description 04/18/2024 9:00 AM AGRISCIENCE TEACHER Office Visit [facility] Oncology and Hematology - [place] [address] [place] [address] [address] [place] [address] Kieran Fowler MD [address] [facility] [address] [place] [address] documented as of this encounter Visit Diagnoses Not on filedocumented in this encounter Care Teams Sprinkler Fitter Apprentice Relationship Specialty Start Date End Date Wilber Whittington MD [address] [place] [address] PCP - General Family Practice 09/26/23 documented as of this encounter
--- OUTSIDE RECORDS SUMMARY | 2024-04-03 13:10 | XMS_ITS | Clinical Summary ---
Author Organization [facility] Address [address] [facility] [place] [address] Care Team Providers Care Telephone Worker Name Role Phone Wilber Whittington MD Primary Care Provider [phone] Allergies No known active allergies Medications aspirin (TERESA CHEWABLE) 81 mg Tablet, Chewable Take 81 mg by mouth daily. Active empagliflozin (Jardiance) 25 mg tablet Take 1 Tablet by mouth daily. Active amLODIPine-vals liliane 10-320 mg Tablet Take 1 Tablet by mouth. Active insulin regular (HUMULIN R,NOVOLIN R) 100 unit/mL vial Inject 30 Units by subcutaneous injection. Active insulin detemir U-100 (LEVEMIR) 100 unit/mL pen syringe Inject 70 Units by subcutaneous injection. Active ramipriL (ALTACE) 5 mg capsule Take 5 mg by mouth daily. Active rivaroxaban (Xarelto) 2.5 mg Tablet Take 2.5 mg by mouth 2 times daily. Active rosuvastatin (CRESTOR) 5 mg tablet Take 5 mg by mouth daily. Active semaglutide (Ozempic) 1 mg/dose (2 mg/1.5 mL) Pen Injector Inject by subcutaneous injection. Active Active Problems Problem Noted Date Diagnosed Date H/O blood clots 10/09/2023 History of stroke 04/24/2013 Diabetes mellitus 12/09/2012 Hypertension 12/09/2012 Encounters Date Type Department Care Team Description 04/02/2024 External Device Data STL ABSTRACTION Provider, Abstract 03/27/2024 External Device Data ST[place] ABSTRACTION Provider, Abstract 03/24/2024 Orders Only [facility] Oncology and Hematology - [place] [address] [facility] [place] [address] Kieran Fowler MD Polycythemia vera ([facility]) 03/18/2024 External Device Data STL ABSTRACTION Provider, Abstract 03/13/2024 Orders Only [facility] Oncology [facility]ematology - [place] [address] [place] [address] Kieran Fowler MD 03/10/2024 Orders Only [facility] Oncology and Hematology - [place] [address] Kieran Fowler MD Polycythemia vera ([facility]) 02/25/2024 Orders Only [facility] Oncology and Hematology - [place] [address] [place] [id number] Kieran Fowler MD Polycythemia vera ([facility]) 02/11/2024 Orders Only [facility] Oncology and Hematology - [place] [address] Kieran Fowler MD Polycythemia vera ([facility]) 02/07/2024 Orders Only [facility] Oncology and Hematology - [place] [address] Kieran Fowler MD 01/28/2024 Orders Only [facility] Oncology and Hematology - [place] [address] [place] [address] Kieran Fowler MD Polycythemia vera ([facility]) 01/14/2024 Orders Only [facility] Oncology and Hematology - [place] [address] [place] [address] Kieran Fowler MD Polycythemia vera ([facility]) 01/09/2024 Orders Only [facility] Oncology and Hematology - [place] [address] [place] [id number] Kieran Fowler MD 01/07/2024 External Device Data STL ABSTRACTION Provider, Abstract from Last 3 Months Family History Medical History Relation Name Comments Pancreatic Cancer Brother 1 No Known Problems Brother 2 Multiple Sclerosis Daughter Kidney Disease Father SLE Mother Relation Name Status Comments Brother 1 Brother 2 Daughter Alive Father Mother Sister Alive Social History Tobacco Use Types Packs/Day Years Used Date Smoking Tobacco: Every Day Cigarettes 0.8 60 Smokeless Tobacco: Never Tobacco Cessation:Ready to Q uit: Not Asked; Counseling Given: Not Answered Alcohol Use Standard Drinks/Week Comments Yes 0 (1 standard drink = 0.6 oz pur e alcohol) 1 drink rarely Sex and Gender Information Value Date Recorded Sex Assigned at Not on file Legal Sex Male 2:29 PM CDT Gender Identity Not on file Sexual Orientation Not on file Last Filed Vital Signs Vital Sign Reading Time Taken Comments Blood Pressure 80/58 12/13/2023 11:03 AM CDT Pulse 73 12/13/2023 11:01 AM CDT Temperature 36.5 ??C (97.7 ??F) 12/13/2023 11:01 AM C DT Respiratory Rate 16 12/13/2023 11:01 AM CDT Oxygen Saturation 94% 12/13/2023 11:01 AM CDT Inhaled Oxygen Concentration - - Weight 80.4 kg (177 lb 3.2 oz) 12/13/2023 11:01 AM CDT Height 182.9 cm (6') 10/09/2023 10:30 AM CDT Body Mass Index 24.03 10/09/2023 10:30 AM CDT Plan of Treatment Upcoming Encounters Date Type Department Care Team (Late st Contact Info) Description 04/18/2024 9:00 AM LIBRARY MANAGER Office Visit [facility] Oncology and Hematology [facility] [address] [facility] [address] [place] [address] Kieran Fowler MD [address] [facility] [address] [place] [address] Health Maintenance Due Date Last Done Comments DIABETES ANNUAL FOOT EXAM 1966 DIABETES ANNUAL RETINAL EXAM 1966 DIABETES MICROALBUMIN ANNUAL SCREEN 1966 LDL CHOLESTEROL ANNUAL 1966 DTAP/TDAP/TD VACCINES (1 - Tdap) 12/22/1967 PNEUMOCOCCAL VACCINE 65+ YEARS (1 of 2 - PCV) 12/21/18 68 11/04/2015 COLORECTAL SCREENING 1993 Colorectal Cancer Screening 1993 FIT-DNA Q 3 years 1993 FIT/FOBT Q 1 year 1993 Flex Sig/CT Colonography Q 5 years 1993 Lung Cancer Screening 1998 ZOSTER VACCINE (1 of 2) 1998 DIABETES HBA1C Q 6 MONTHS 03/15/2018 09/12/2017 INFLUENZA VACCINE (#1) 2023 RSV VACCINE (60+ or ) (1 - 1-dose 75+ series) 12/22/2023 Medicare [place] ([place]) Prev entative Visit/Annual Wellness Visit 03/05/2024 Abdominal Aortic Aneurysm (AAA) Screening Completed 07/26/2015 Procedures Procedure Name Priority Date/Time Associated Diagnosis Comments CBC WITH DIFFERENTIAL Routine 03/06/2024 2:22 PM LIBRARY MANAGER CBC WITH DIFFERENTIAL Routine 02/06/2024 4:09 PM LIBRARY MANAGER CBC WITH DIFFERENTIAL Routine 01/09/2024 2:59 PM LIBRARY MANAGER from Last 3 Months Results * CBC WITH DIFFERENTIAL (03/06/2024 2:22 PM LIBRARY MANAGER) Only the most recent of3 resultswithin the time period is included. Blood us Kieran Fowler MD HEMATOLOGY ORDERABLES Final Res ult from Last 3 Months Insurance [facility] AD[facility] HMO Care Teams Telephone Worker Relationship Specialty Start Date End Date Wilber Whittington MD [address] [facility] [address] [place] [address] PCP - General Family Practice 09/26/23
== END 2024-04-03 12:22 | disposition home or self-care (01) ==
PROVIDERS: PCP Family Medicine; Visit Provider Internal Medicine Hematology & Oncology
DX: D45 Polycythemia vera (principal)
CPT/HCPCS: 36415; 85025; 99212; G0463

== ENCOUNTER 2024-05-01 13:44 | Outpatient (CLI) | payer MEDICARE, SELFPAY ==
[2024-05-01 14:45] LABS: Hematocrit 47.6 % (42.0-52.0); Hemoglobin 15.8 g/dL (14.0-18.0); Mean Corpuscular HGB Conc 33.2 g/dl (32-36); Mean Corpuscular Hemoglobin 29.6 pg (26-34); Mean Corpuscular Volume 89.1 fl (80-100); Mean Platelet Volume 12.4 fl (7.4-10.4); Platelet Count Result 174 k/mm3 (150-375); Red Blood Count 5.34 M/mm3 (4.6-6.20); Red Cell Distribution Width 13.2 % (11.5-14.5); White Blood Count 7.2 K/mm3 (4.5-10.0)
== END 2024-05-01 13:45 | disposition home or self-care (01) ==
PROVIDERS: PCP Family Medicine; Visit Provider Internal Medicine Hematology & Oncology
DX: D45 Polycythemia vera (principal)
CPT/HCPCS: 36415; 85027; 99212; G0463

== ENCOUNTER 2024-05-29 12:00 | Outpatient (CLI) | payer MEDICARE, SELFPAY ==
[2024-05-29 12:44] LABS: Hematocrit 50.6 % (42.0-52.0); Hemoglobin 17.1 g/dL (14.0-18.0); Mean Corpuscular HGB Conc 33.8 g/dl (32-36); Mean Corpuscular Hemoglobin 30.3 pg (26-34); Mean Corpuscular Volume 89.6 fl (80-100); Mean Platelet Volume 12.1 fl (7.4-10.4); Platelet Count Result 178 k/mm3 (150-375); Red Blood Count 5.65 M/mm3 (4.6-6.20); Red Cell Distribution Width 13.2 % (11.5-14.5); White Blood Count 5.6 K/mm3 (4.5-10.0)
--- OUTSIDE RECORDS SUMMARY | 2024-05-29 13:03 | XMS_ITS | Clinical Summary ---
Author Organization [facility] Address [address] [place] [address] Care Team Providers Care Rim Turning Finisher Name Role Phone Unavailable Primary Care Provider Unavailabl e Social History Tobacco Use Types Packs/Day Years Used Date Smoking Tobacco: Never Assessed Sex and Gender Information Value Date Recorded Sex Assigned at Not on file Legal Sex Male 5:13 PM CDT Gender Identity Not on file Sexual Orientation Not on file Plan of Treatment Health Maintenance Due Date Last Done Comments Colorectal Cancer Screening Colonoscopy (10 Years) 1948 Hepatitis C 1966 DTaP, Tdap and Td Vaccines ( 1 - Tdap) 12/22/1967 Zoster Vaccines (1 of 2) 1998 Pneumococcal Vaccine: 65+ Ye ars (1 of 1 - PCV) 2013 COVID-19 Vaccine ( - 2023-2 5 season) 2023 Influenza Adult (#1) 2023 RSV Immunization or 60+ Years (1 - 1-dose 75+ series) 12/22/2023 Meningococcal B Vaccine Aged Out No l onger eligible based on patient's age to complete this topic Meningococcal Vaccine Aged Out No romain jill eligible based on patient's age to complete this topic RSV Immunizations Under 20 Months Aged Out No longer eligible based on patient's age to complete this topic
--- OUTSIDE RECORDS SUMMARY | 2024-05-29 13:03 | XMS_ITS | Clinical Summary ---
Author Organization [facility] [employer] Address [address] [place] [address] Care Team Providers Care Band Instrument Repairer Name Role Phone Jere Tillman MD Primary Care Provider [phone] Kieran Albert MD Unavailable [phone] Alek Enrique MD Unavailable Source Comments [facility],non-owned Affiliates and Associated Physician Practices is amultiple site organization consisting of ambulatory clinics and hospital sitesin [place], [place], [place] and [place]. This disclosure is being madepursuant to the [...] 50 09/14/2017 11:29 AM CDT Temperature 36.8 C (98.2 F) 09/14/2017 11:29 AM CDT Respiratory Rate 18 09/14/2017 11:29 AM CDT [...] VACCINE (1 of 2) 1998 COVID-19 VACCINE (2023-2 5 season) 2023 INFLUENZA VACCINE (#1) 2023 12/10/2012 Respiratory Syncytial Virus (RSV) Vaccine Pt: or over 60 yrs (1 - 1-dose 75+ series) 12/22/2023 DEPRESSION SCREENING 03/05/2024 MEDICARE AWV CALENDAR YEAR 2024 HEPATITIS B VACCINE Aged Out No longe r eligible based on patient's age to complete this topic HIB VACCINE Aged Out No longer eligi ble based on patient's age to complete this topic HPV VACCINE Aged Out No longer eligi ble based on patient's age to complete this topic MENINGOCOCCAL (Group B) VACC INE SHARED DECISION-MAKING Aged Out No longer eligibl e based on patient's age to complete this topic MENINGOCOCCAL GROUPS A/C/Y/W VACCINE Aged Out No longer eligible b ased on patient's age to complete this topic [...] 8:01 AM 12/28/2012 12:02 PM Care Teams Band Instrument Repairer Relationship Specialty Start Date End Date Jere Tillman MD [address] [place] [address] PCP - General 06/07/10 Kieran Albert MD [address] [place] [address] Orthopedic Surgery 07/10/11 Alek Enrique MD [address] [place] [address] Orthopedic Surgery 05/22/13
--- OUTSIDE RECORDS SUMMARY | 2024-05-29 13:03 | XMS_ITS | Continuity of Care Document ---
Author Organization [facility] Address [address] [place] [address] Phone Care Team Providers Care Healthcare Administrative Assistant Name Role Phone Unavailable Unavailable Unavailable Procedures [...] PROB FOCUS HX; PROB FOCUS EXAM; STRTFWD [facility] , [address], [place], [place], [address], [place] tel:[phone] [facility] ECONOMIC PROBLEM No Information Family History Family Member Type Diagnosis Age At Onset No Information Payers Payer name Insurance type Covered libertarian ID Authoriza tion(s) No Information Social History [...]
--- OUTSIDE RECORDS SUMMARY | 2024-05-29 13:03 | XMS_ITS | Continuity of Care Document ---
Author Organization formerly [facility] Address [address] [place] [address] [place] [address] Phone Care Team Providers Care Paving Supervisor Name Role Phone Burak Webber DO Unavailable Unavailable Advance Directives Directive Yes / No Effective Date File Name No Information Encounters Encounter Description Practice Location Reason(s) For Visit Diagnoses Date Provider Providers Copied on Encounter [facility], [address] [place] [address] [address], [place], [place], [address], [place] tel:[phone] [facility] [employer] [place] No Information Lawanda Tuttle. [address] [place], [address], [place]. tel: [phone] Family History Family Member Type Diagnosis Age At Onset No Information Payers Payer name Insurance type Covered green party ID Authoriza tion(s) [place] [id number] Social History Type Description Quantity Date Captured [...]
--- OUTSIDE RECORDS SUMMARY | 2024-05-29 13:03 | XMS_ITS | Clinical Summary ---
Author Organization [facility] Address [address] [place] [address] Phone Care Team Providers Care Black Ash Burner Operator Name Role Phone Wilber Whittington MD Primary Care Provider [phone] Allergies Active Allergy Reactions Criticality Noted Date [...] 58 11/21/2021 9:44 AM CDT Temperature 35.8 C (96.4 F) 11/21/2021 9:44 AM CDT Respiratory Rate - - Oxygen Saturation - [...] Risk (1 of 4 - PCV) 1954 Pneumococcal PPSV23/PCV13 65 + Years / Low and Medium Risk (1 of 4 - PCV) 2013 Influenza Vaccine (#1) 2023 12/10/2012 Care Teams Black Ash Burner Operator Relationship Specialty Start Date End Date Wilber Whittington MD [address] [facility] [address] [facility] [address] [place] [address] PCP - General Internal Medicine 11/21/21
--- OUTSIDE RECORDS SUMMARY | 2024-05-29 13:03 | XMS_ITS | Encounter Summary ---
Author Organization [facility] Address [address] [facility] [place] [address] Care Team Providers Care Bartender Manager Name Role Phone Jere Tillman MD Primary Care Provider [phone] Kieran Albert MD Unavailable [phone] Alek Enrique MD Unavailable [phone] Encounter Details Date Type Department Care Team (Late st Contact [facility]) Description 09/24/[address] [facility] Orthopedics [address] [facility] [address] [place] [address] [place] [address] [address] Social History Tobacco Use Types [...] on filedocumented in this encounter Care Teams Bartender Manager Relationship Specialty Start Date End Date Jere Tillman MD [address] [place] [address] PCP - General 06/07/10 Kieran Albert MD [address] [place] [address] Orthopedic Surgery 07/10/11 Alek Enrique MD [address] [place] [address] Orthopedic Surgery 05/22/13 documented as of this encounter
--- OUTSIDE RECORDS SUMMARY | 2024-05-29 13:03 | XMS_ITS | Encounter Summary ---
Author Organization [facility] Address [address] [place] [address] Care Team Providers Care Dean Of Admissions Name Role Phone Jere Tillman MD Primary Care Provider [phone] Kieran Albert MD Unavailable [phone] Alek Enrique MD Unavailable [phone] Encounter Details Date Type Department Care Team [...] on filedocumented in this encounter Care Teams Dean Of Admissions Relationship Specialty Start Date End Date Jere Tillman MD [address] [place] [address] PCP - General 06/07/10 Kieran Albert MD [address] [place] [address] Orthopedic Surgery 07/10/11 Alek Enrique MD [address] [place] [address] Orthopedic Surgery 05/22/13 documented as of this encounter
--- OUTSIDE RECORDS SUMMARY | 2024-05-29 13:03 | XMS_ITS | Continuity of Care Document ---
Author Organization [facility] Address [address] [place] [address] Phone Care Team Providers Care Counselor Aid Name Role Phone Bryan Chapman MD Unavailable Unavailable Allergies, Adverse Reactions, Alerts Substance Reaction Status Criticality No Known Allergies Active No Inform ation Advance Directives Directive Yes / No Effective Date File Name No Information Encounters Encounter Description Practice Location Reason(s) For Visit Diagnoses Date Provider Providers Copied on Encounter [facility], [address], [place], [place], [address], tel:[phone] [facility] [place] Elevated PSAOther microscopic hematuria Adela [place]. [address], [facility] [address], [address], . tel:[phone] Referring Provider: [address], [place], [address]. tel:[phone] [facility], [address], [place], [place], [address], tel:[phone] [facility] [place] Elevated PSA Adela [place]. [address], [place], [address], . tel:[phone] Referring Provider: [address], [place], [address]. tel:[phone] [facility], [address], [place], [place], [address], tel:[phone] [facility] [place] Elevated PSAOther microscopic hematuria Adela [place]. [address], [facility] [address], [place], [address], [place]. tel:[phone] Referring Provider: Jere Tillman, [address], [place], [address]. tel:[phone] Family History Family Member Type Diagnosis Age At Onset No Information Payers Payer name Insurance type Covered democrat ID Authoriza tion(s) EXCLUSIVE CHOICE O [facility] CI [id number] Social History Type Description Quantity Date Captured [...]
--- OUTSIDE RECORDS SUMMARY | 2024-05-29 13:03 | XMS_ITS | Encounter Summary ---
Author Organization [facility] Address [address] [place] [address] Care Team Providers Care Flight Agent Name Role Phone Jere Tillman MD Primary Care Provider Kieran Albert MD Unavailable [phone] Alek Enrique MD Unavailable [phone] Encounter Details Date Type Department Care Team (Late st Contact Info) Description 08/22/2016 [facility] Outpatient Visit [facility] [address] [place] [address] Yoly Moreno, CLOCK AND WATCH ASSEMBLER-ECONOMICS INSTRUCTOR [address] [address] Social History Tobacco Use Types [...] on filedocumented in this encounter Care Teams Flight Agent Relationship Specialty Start Date End Date Jere Tillman MD [address] [place] [address] PCP - General 06/07/10 Kieran Albert MD [address] [place] [address] Orthopedic Surgery 07/10/11 Alek Enrique MD [address] [place] [address] Orthopedic Surgery 05/22/13 documented as of this encounter
--- OUTSIDE RECORDS SUMMARY | 2024-05-29 13:03 | XMS_ITS | Clinical Summary ---
Author Organization [facility] Mar[facility]el bynum [facility] Address [address] [place] [address] Care Team Providers Care Sports Management Intern Name Role Phone Wilber Whittington MD Primary Care Provider [phone] Allergies No known active allergies Medications aspirin [...] Active rosuvastatin (CRESTOR) 5 mg tablet Take 20 mg by mouth daily. Active semaglutide (Ozempic) 1 mg/dose (2 mg/1.5 mL) Pen Injector Inject by subcutaneous injection. Active ezetimibe (ZETIA) 10 mg tablet Take 1 Tablet by mouth daily. Active Active Problems Problem Noted Date Diagnosed Date H/O blood clots 10/09/2023 History of stroke 04/24/2013 Diabetes mellitus 12/09/2012 Hypertension 12/09/2012 Encounters Date Type Department Care Team Description 05/19/2024 Orders Only [facility] Oncology and Hematology - [place] [address] [place] [address] Kieran Fowler MD Polycythemia vera (CMS/HCC) 05/14/2024 External Device Data STL ABSTRACTION Provider, Abstract 05/13/2024 External Device Data STL ABSTRACTION Provider, Abstract 05/12/2024 Orders Only [facility] Oncology and Hematology - [place] [address] [place] [id number] Kieran Fowler MD 05/06/2024 External Device Data STL ABSTRACTION Provider, Abstract 05/05/2024 Orders Only [facility] On[facility] and Hematology - [place] [address] [place] [id number] Kieran Fowler MD Polycythemia vera (CMS/HCC) 04/23/2024 External Device Data STL ABSTRACTION Provider, Abstract 04/21/2024 Orders Only [facility] Oncology and Hematology - [place] [address] [place] [id number] Kieran Fowler MD Polycythemia vera (CMS/HCC) 04/18/2024 9:00 AM VIOLIN TUTOR Office Visit [facility] Oncology and Hematology - [place] [address] [place] [id number] Kieran Fowler MD Polycythemia vera (CMS/HCC) (Primary Dx) 04/18/2024 Orders Only [facility] Oncology and Hematology - [place] [address] [place] [address] Kieran Fowler MD 04/07/2024 Orders Only [facility] Oncology [facility]ematology - [place] [address] [place] [address] Kieran Fowler MD Polycythemia vera (CMS/HCC) 04/04/2024 Orders Only [facility] Oncology and Hematology - [place] [address] [place] [address] Kieran Fowler MD 04/02/2024 External Device Data STL ABSTRACTION Provider, Abstract 03/27/2024 External Device Data STL ABSTRACTION Provider, Abstract 03/24/2024 Orders Only [facility] On[facility] Hematology - [place] [address] [place] [address] Kieran Fowler MD Polycythemia vera (CMS/HCC) 03/18/2024 External Device Data STL ABSTRACTION Provider, Abstract 03/13/2024 Orders Only [facility] Oncology and Hematology [place] [address] [place] [address] Kieran Fowler MD 03/10/2024 Orders Only [facility] Oncology and Hematology - [place] [address] [place] [address] Kiearn Fowler MD Polycythemia vera (CMS/HCC) from Last 3 Months Family History Medical [...] Sign Reading Time Taken Comments Blood Pressure 123/72 04/18/2024 9:29 AM VIOLIN TUTOR Pulse 78 04/18/2024 9:29 AM VIOLIN TUTOR Temperature 35.9 C (96.7 F) 04/18/2024 9:29 AM VIOLIN TUTOR Respiratory Rate 16 04/18/2024 9:29 AM VIOLIN TUTOR Oxygen Saturation 91% 04/18/2024 9:29 AM VIOLIN TUTOR Inhaled Oxygen Concentration - - Weight 81.6 kg (180 lb) 04/18/2024 9:29 AM VIOLIN TUTOR Height 182.9 cm (6') 10/09/2023 10:30 AM CDT Body Mass Index 24.41 10/09/2023 10:30 AM CDT Plan of Treatment Upcoming Encounters Date Type Department Care Team (Late st Contact Info) Description 08/01/2024 11:30 AM CDT Office Visit [facility] Oncology and Hematology - [place] [address] [place] [address] Kieran Fowler MD [address] [facility] [address] [place] [address] Health Maintenance Due Date Last Done Comments DIABETES ANNUAL FOOT EXAM 1966 DIABETES ANNUAL RETINAL EXAM 1966 DIABETES MICROALBUMIN ANNUAL SCREEN 1966 LDL CHOLESTEROL ANNUAL 1966 DTAP/TDAP/TD VACCINES (1 - Tdap) 12/22/1967 PNEUMOCOCCAL VACCINE 50+ YEARS (1 of 2 - PCV) 12/21/18 [...] - 1-dose 75+ series) 12/22/2023 Medicare Advantage ([place]) Prev entative Visit/Annual Wellness Visit 03/05/2024 Abdominal Aortic Aneurysm (AAA) Screening Completed 07/26/2015 Procedures Procedure Name Priority Date/Time Associated Diagnosis Comments CBC WITH DIFFERENTIAL Routine 05/01/2024 2:24 PM VIOLIN TUTOR CBC WITH DIFFERENTIAL Routine 04/18/2024 9:18 AM VIOLIN TUTOR CBC WITH DIFFERENTIAL Routine 04/03/2024 12:31 PM VIOLIN TUTOR CBC WITH DIFFERENTIAL Routine 03/06/2024 2:22 PM VIOLIN TUTOR from Last 3 Months Results * CBC WITH DIFFERENTIAL (05/01/2024 2:24 PM VIOLIN TUTOR) Only the most recent of4 resultswithin the time period is included. Blood Kieran Fowler MD HEMATOLOGY ORDERABLES Final Res ult from Last 3 Months Insurance [facility] [id number] Care Teams Sports Management Intern Relationship Specialty Start Date End Date Wilber Whittington MD [address] [facility] [address] [place] [address] PCP - General Family Practice 09/26/23
--- OUTSIDE RECORDS SUMMARY | 2024-05-29 13:03 | XMS_ITS | Encounter Summary ---
Author Organization [facility] Address [address] [place] [address] Care Team Providers Care Head Of Transport Logistics Name Role Phone Jere Tillman MD Primary Care Provider [phone] Kieran Albert MD Unavailable Alek Enrique MD Unavailable [phone] Encounter Details Date Type Department Care Team (Late st Contact Info) Description 07/22/2013 Therapy Visit EXTERNAL NON-[facility] DEPT Unknown, Provider Social History Tobacco Use [...] on filedocumented in this encounter Care Teams Head Of Transport Logistics Relationship Specialty Start Date End Date Jere Tillman MD [address] [place] [address] PCP - General 06/07/10 Kieran Albert MD [address] [place] [address] Orthopedic Surgery 07/10/11 Alek Enrique MD [address] [place] [address] Orthopedic Surgery 05/22/13 documented as of this encounter
--- OUTSIDE RECORDS SUMMARY | 2024-05-29 13:03 | XMS_ITS | Encounter Summary ---
Author Organization [facility] Address [address] [place] [address] Care Team Providers Care Cap Cutter Name Role Phone Jere Tillman MD Primary Care Provider [phone] Kieran Albert MD Unavailable [phone] Alek Enrique MD Unavailable [phone] Encounter Details Date Type Department Care Team (Late st Contact Info) Description 06/25/2013 Therapy Visit EXTERNAL NON-[facility] DEPT Unknown, Provider [...] on filedocumented in this encounter Care Teams Cap Cutter Relationship Specialty Start Date End Date Jere Tillman MD [address] [place] [address] PCP - General 06/07/10 Kieran Albert MD [address] [place] [address] Orthopedic Surgery 07/10/11 Alek Enrique MD [address] [place] [address] Orthopedic Surgery 05/22/13 documented as of this encounter
--- OUTSIDE RECORDS SUMMARY | 2024-05-29 13:03 | XMS_ITS | Encounter Summary ---
Author Organization [facility] Address [address] [place] [address] Care Team Providers Care Kitchen Supervisor Name Role Phone Jere Tillman MD Primary Care Provider [phone] Kieran Albert MD Unavailable [phone] Alek Enrique MD Unavailable [phone] Encounter Details Date Type Department Care Team [...] on filedocumented in this encounter Care Teams Kitchen Supervisor Relationship Specialty Start Date End Date Jere Tillman MD [address] [place] [address] PCP - General 06/07/10 Kieran Albert MD [address] [place] [address] Orthopedic Surgery 07/10/11 Alek Enrique MD [address] [place] [address] Orthopedic Surgery 05/22/13 documented as of this encounter
--- OUTSIDE RECORDS SUMMARY | 2024-05-29 13:03 | XMS_ITS | CONTINUITY OF CARE DOCUMENT ---
Author Name sandoval nick Address Unknown Organization [facility] Address [id number] [place] [address] [address] [place] [address] Phone [phone] Care Team Providers Care Mold Burner Name Role Phone Micah BRO, Bernardo Unavailable [phone] REAGAN SAUL MD Unavailable REAGAN SAUL MD Unavailable PROBLEMS Condition Status Date Provider Notes Anemia active Zaria Aj Subclavian stenosis - right active Bernardo Obrien MD C V A / Stroke active ? Echo Gutierrez RN ( History of) Diabetes, Type 2 active ? Echo Gutierrez RN Hyperlipidemia active ? Echo Gutierrez RN Hypertension active ? Echo Gutierrez RN Tobacco abuse active Echo Gutierrez polisher aluminum artery stenosis active Echo engel polisher aluminum insufficiency chronic unspecified active Echo Gutierrez RN Carotid artery stenosis - right active Echo Gutierrez RN Aortic atherosclerosis active Echo Puente son RN PVD - unspecified active Echo Gutierrez R N CAD active Bernardo Obrien MD Syncope completed - Echo Gutierrez RN PVC's active Bernardo Bradford completed - Bernardo Obrien MD ENCOUNTERS Date Type Provider Location Encounter Diag nosis - In-person encounter Office Visit Bernardo Mohan Office - In-person encounter Office Visit Bernardo Mendozavey Office - In-person encounter Office Visit Bernardo [facility] - In-person encounter Office Visit Bernardo [facility]oz[facility] - In-person encounter Office Visit Bernardo [facility] - In-person encounter Office Visit Bernardo [facility]oz[facility]y Office Gangrene - In-person encounter Office Visit Bernardo Mohan [...] Observation Value Provider Body Mass Index (Ratio) 24.14 kg/m2 nicole Obiren MD oxygen saturation, oximetry 97 % Angelica Perez pulse rate 90 /min Angelica Perez blood pressure, diastolic 71 mm[Hg] Em allan Perez blood pressure, systolic 114 mm[Hg] Farzana Perez weight E&M 183 [lb_av] Angelica Perez blood pressure, cuff size regular Renee Perez height E&M 73 [in_i] Angelica Perez Body Mass Index (Ratio) 24.01 kg/m2 [facility] Micah BRO weight E&M 182 [lb_av] Anna O'Junior [facility] blood pressure, diastolic 84 mm[Hg] Li nkLogic [...] Hunter Body Mass Index (Ratio) 26.78 kg/m2 Sund ellennicole Obrien MD blood pressure, diastolic 72 mm[Hg] Me juan pablo Linson blood pressure, systolic 135 mm[Hg] Angelina an Linson oxygen saturation, oximetry 96 % Germania Linson pulse rate 70 /min Germania Linson blood pressure, cuff size regular Me juan pablo Linson respiratory rate E&M 18 /min Germania L inson weight E&M 203 [lb_av] Germania Linson Body Mass Index (Ratio) 27.31 kg/m2 Sund ellennicole Obrien MD blood pressure, diastolic 65 mm[Hg] Althea santoyole [place] blood pressure, systolic 105 mm[Hg] [facility] shahab [place] oxygen saturation, oximetry 99 % Jacque Pollard pulse rate 96 /min Jacque mckeon respiratory rate E&M 16 /min Wendy crain [place] blood pressure, cuff size large Wa kash Pollard weight E&M 207 [lb_av] Jacque mckeon height E&M 73 [in_i] Jacque mckeon Body Mass Index (Ratio) 27.04 kg/m2 ellennicole Obrien MD blood pressure, diastolic 95 mm[Hg] St lary Amaro blood pressure, systolic 160 mm[Hg] Kam Amaro oxygen saturation, oximetry 98 % Ghislaine Amaro pulse rate 78 /min Ghislaine Amaro respiratory rate E&M 18 /min Ghislaine schulte weight E&M 205 [lb_av] Ghislaine Amaro height E&M 73 [in_i] Jammie Corrigan Body Mass Index (Ratio) 27.18 kg/m2 Sund ellennicole Obrien MD blood pressure, diastolic 66 mm[Hg] Lupe Underwood blood pressure, systolic 100 mm[Hg] Silvana kLog blood pressure, diastolic 66 mm[Hg] Althea hewitt [place] blood pressure, systolic 100 mm[Hg] Bryon gudino [place] oxygen saturation, oximetry 96 % Jacque Atul pulse rate 87 /min Jacque mckeon weight E&M 206 [lb_av] Jacque mckeon respiratory rate E&M 16 /min Wendy crain Pollard blood pressure, cuff size large Althea hewitt [place] height E&M 73 [in_i] Jacque mckeon Body Mass Index (Ratio) 27.84 kg/m2 Jaqui Obrien MD blood pressure, diastolic 53 mm[Hg] An gerson Suggs blood pressure, systolic 96 mm[Hg] Any isaias Suggs oxygen saturation, oximetry 97 % Whit Suggs pulse rate 83 /min Whit Suggs weight E&M 211 [lb_av] Whitisaias Suggs blood pressure, cuff size large An gerson Suggs height E&M 73 [in_i] Whitisaias Suggs blood pressure, cuff size large Ke rri Gruenenfizzy blood pressure, diastolic 62 mm[Hg] Ke rri Gruenenfizzy blood pressure, systolic 94 mm[Hg] Ker ri Nolanuenenfizzy oxygen saturation, oximetry 97 % Brook Sandinenfizzy respiratory rate E&M 14 /min Brook G usmanenenfeldmary pulse rate 72 /min Brook Gruenenfe lder height E&M 73 [in_i] Brook Zunildae ldmary Body Mass Index (Ratio) 27.84 kg/m2 Jaqui Obrien MD blood pressure, diastolic 70 mm[Hg] Sandra allen O'Junior blood pressure, systolic 120 mm[Hg] Marysol JeanJunior oxygen saturation, oximetry 98 % Aminah OJunior respiratory rate E&M 16 /min Aminah ONicolasaJunior pulse rate 73 /min [facility], resting Yes Isael ferreira O'Junior weight E&M 211 [lb_av] Aminah OJunior height E&M 73 [in_i] Aminah OJunior Body Mass Index (Ratio) 28.63 kg/m2 Sund xavier Obrien MD blood pressure, diastolic 89 mm[Hg] Lupe Perez blood pressure, systolic 143 mm[Hg] Lis a Perez weight E&M 217 [lb_av] Dipti Perez pulse rate 77 /min Dipti Perez oxygen saturation, oximetry 97 % Dipti Perez Body Mass Index (Ratio) 28.36 kg/m2 Sund xavier Obrien MD respiratory rate E&M 16 /min Wendy Pollard height E&M 73 [in_i] Macarena Ellington son blood pressure, diastolic 74 mm[Hg] Lupe brizuela Perez blood pressure, systolic 136 mm[Hg] Lis a Perez weight E&M 215 [lb_av] Dipti Perez pulse rate 75 /min Dipti Perez oxygen saturation, oximetry 97 % Dipti Perez Body Mass Index (Ratio) 29.42 kg/m2 Sund xavier Obrien MD blood pressure, diastolic, supine 80 mm[H g] Portia [place] blood pressure, systolic, supine E&M 116 mm[Hg] Portia [place] blood pressure, diastolic 80 mm[Hg] Lupe nkLogic blood pressure, systolic 116 mm[Hg] Silvana Quintanillaogic oxygen saturation, oximetry 96 % Portia Larry respiratory rate E&M 16 /min Portia [place] pulse rate 75 /min Portia Larry blood pressure, cuff size large Stefany leatha Larry blood pressure, diastolic 80 mm[Hg] Stefany leatha [place] blood pressure, systolic 116 mm[Hg] Lula rice [place] height E&M 73 [in_i] Jacque mckeon weight E&M 223 [lb_av] Portia [place] Body Mass Index (Ratio) 27.44 kg/m2 Jaqui Obrien MD blood pressure, cuff size large Althea kash Atul blood pressure, diastolic 90 mm[Hg] Wa kash Atul blood pressure, systolic 150 mm[Hg] [facility] shahab Atul oxygen saturation, oximetry 97 % Jacque Pollard respiratory rate E&M 16 /min Wendy Pollard pulse rate 84 /min Jacque mckeon weight E&M 208 [lb_av] Jacque mckeon height E&M 73 [in_i] Jacque mckeon Body Mass Index (Ratio) 28.10 kg/m2 Jaqui Obrien MD blood pressure, diastolic 96 mm[Hg] Althea hewitt Elayne blood pressure, systolic 168 mm[Hg] Bryon helle Elayne blood pressure, resting Yes Reji Holly oxygen saturation, oximetry 98 % Jacque Holly respiratory rate E&M 20 /min Wendy Holly pulse rate 64 /min aJcque Holly weight E&M 213 [lb_av] Jacque Holly height E&M 73 [in_i] Jacque [place] Body Mass Index (Ratio) 29.81 kg/m2 Jaqui Obrien MD blood pressure, diastolic 80 mm[Hg] Sandra allen O'Junior blood pressure, systolic 140 mm[Hg] Marysol blankenship O'Junior oxygen saturation, oximetry 98 % Aminah O'Junior respiratory rate E&M 18 /min Aminah O'Junior pulse rate 77 /min Aminah O'Junior weight E&M 226 [lb_av] Aminah O'Junior height E&M 73 [in_i] Aminah O'Junior Body Mass Index (Ratio) 31.00 kg/m2 xavier Obrien MD pulse rate 42 /min Anni Moura oxygen saturation, oximetry 98 % Anni Moura blood pressure, cuff size large Rh onda Zeny blood pressure, diastolic, standing 60 mm [Hg] Anni Zeny blood pressure, systolic, standing 95 mm[ Hg] Anni Moura blood pressure, diastolic 55 mm[Hg] Rh onda Zeny blood pressure, systolic 105 mm[Hg] Rho priscilla Moura weight E&M 235 [lb_av] Anni Moura height E&M 73 [in_i] Anni Moura Body Mass Index (Ratio) 31.40 kg/m2 Yadira Gutierrez RN blood pressure, diastolic 60 mm[Hg] Rh onda Zeny blood pressure, systolic 135 mm[Hg] Rho priscilla Moura oxygen saturation, oximetry 99 % Anni Moura respiratory rate E&M 19 /min Anni Moura blood pressure, cuff size regular Rh onjad Moura weight E&M 238 [lb_av] Anni Moura height E&M 73 [in_i] Anni Moura Body Mass Index (Ratio) 30.84 kg/m2 Yadira Gutierrez RN respiratory rate E&M 20 /min Echo Gutierrez RN pulse rate 94 /min Echo Lydia ornelas RN oxygen saturation, oximetry 97 % Echo Brenda RN blood pressure, diastolic 54 mm[Hg] Tamika jeany Brenda RN blood pressure, systolic 104 mm[Hg] Maricarmen pallavi Brenda RN weight E&M 233.8 [lb_av] Partha gutierrezon height E&M 73 [in_i] Partha sanderson Body Mass Index (Ratio) 30.21 kg/m2 Maricarmenr kae Gutierrez RN blood pressure, diastolic 80 mm[Hg] Sandra Mei blood pressure, systolic 134 mm[Hg] Marysol Mei pulse rate 81 /min Cinthia Mei oxygen saturation, oximetry 98 % Cinthia Mei respiratory rate E&M 17 /min Cinthia Mei weight E&M 229 [lb_av] Cinthia Mei height E&M 73 [in_i] Cinthia Mei Body Mass Index (Ratio) 29.02 kg/m2 Jaqui Obrien MD blood pressure, diastolic, left arm 60 mm [Hg] Mehnaz Thomas blood pressure, systolic, left arm 130 mm [Hg] Mehnaz Thomas blood pressure, diastolic, right arm 70 m m[Hg] Mehnaz Thomas blood pressure, systolic, right arm 140 m m[Hg] Mehnaz Thomas blood pressure, diastolic 70 mm[Hg] Nallely Thomas blood pressure, systolic 140 mm[Hg] Lacie Thomas oxygen saturation, oximetry 98 % Mehnaz Thomas pulse rate 62 /min Mehnaz Thomas respiratory rate E&M 14 /min Mehnaz Thomas weight E&M 220 [lb_av] Mehnaz Thomas height E&M 73 [in_i] Mehnaz Thomas Body Mass Index (Ratio) 27.97 kg/m2 Jaqui Obrien MD blood pressure, diastolic 78 mm[Hg] Te onayaan Olivernn blood pressure, systolic 138 mm[Hg] Edin larissa Gonzalo oxygen saturation, oximetry 98 % Angel Gonzalo pulse rate 72 /min Rafaleonia Tustin respiratory rate E&M 16 /min Angel Tustin weight E&M 212 [lb_av] Angel [place] height E&M 73 [in_i] [facility] Body Mass Index (Ratio) 29.15 kg/m2 Yadira Gutierrez RN blood pressure, resting Yes Iesh a [place] blood pressure, diastolic 60 mm[Hg] Ie sha [place] blood pressure, systolic 100 mm[Hg] Ies ferreira [place] oxygen saturation, oximetry 97 % Pascale [place] respiratory rate E&M 16 /min Pascale W toño pulse rate 78 /min Pascale [place] [...] High 3 cholesterol, serum 162 mg/dL LinkLogic [phone]/03/1 1 hemoglobin A1C, blood, as % of [...] 44.0-73.0 6 platelet count 166 X10E9/L LinkLogic [phone]/02/1 6 red blood cell distribution width 12.8 % LinkLogic 12.1-14.9 6 mean corpuscular hemoglobin concentration, RBC 33.5 G/DL LinkLogic 30.8-35.9 6 mean corpuscular hemoglobin, RBC 30.6 pg LinkLogic 26.7-34.0 6 mean corpuscular volume, RBC 91.4 fL LinkLogic 80.7-98.3 6 hematocrit, blood 54.4 % LinkLogic 35.2-51.7 High 6 hemoglobin, blood 18.2 g/dL LinkLogic 12.0-17.6 6 erythrocyte (RBC) count 5.95 X10E12/L LinkLogic 3.80-5.40 [...] High 6 cholesterol, serum 126 mg/dL LinkLogic [phone]/12/0 6 calcium, serum 10.5 mg/dL LinkLogic 8.6-10.2 High 6 carbon dioxide, venous blood 21 mmol/L LinkLogic 20-29 6 chloride, serum 101 mmol/L LinkLogic 96-106 6 potassium, serum 5.3 mmol/L LinkLogic 3.5-5.2 High 6 sodium, serum 142 mmol/L LinkLogic [phone]/12/0 6 urea nitrogen/creatinin e ratio, serum 11 LinkLogic 10-24 6 creatinine, serum 2.22 mg/dL LinkLogic 0.76-1.27 High 6 urea nitrogen, blood 24 mg/dL LinkLogic 8-27 6 blood glucose, random 148 mg/dL LinkLogic 70-99 High 6 basophil count, absolute 0.1 x10E3/uL LinkLogic 0.0-0.2 6 Eosinophil Absolute Count 0.2 X10E3/UL LinkLogic 0.0-0.4 6 monocyte count, blood, automated 0.6 X10E3/UL LinkLogic 0.1-0.9 6 lymphocyte count, blood, automated 1.6 X10E3/UL LinkLogic [...] Estab. 6 platelet count 178 X10E3/UL LinkLogic [phone]/12/0 6 red blood cell distribution width 12.2 [...] High 6 cholesterol, serum 113 mg/dL LinkLogic [phone]/11/0 3 microalbumin/creat inine ratio, urine 370 MG/G CREAT LinkLogic 0-29 High 3 microalbumin, random, urine 68.04 mg/dL LinkLogic Units converted. See lab report for original value. 3 creatinine, random, urine 184.0 mg/dL LinkLogic Not Estab. HISTORY OF MEDICATION USE Medication Status Instructions Dates Provider Indications Com mentmisa Crestor 20 mg tablet active Take 1 tablet by mouth once a day 04/14 Anna Abdullahi NP Zetia 10 mg tablet active TAKE 1 TABLET BY MOUTH DAILY Anna Abdullahi NP Xarelto 2.5 mg tablet active TAKE 1 TABLET BY MOUTH TWICE DAILY 03/18 Pamela Rushing Xarelto 2.5 mg tablet completed TAKE 1 TABLET(2.5 MG) BY MOUTH TWICE DAILY 07/26 - 03/18 Pamela Rushing amlodipine 5 mg tablet active TAKE 1 TABLET BY MOUTH EVERY DAY 04/27 Freya Mei ramipril 5 mg capsule active TAKE 1 CAPSULE BY MOUTH EVERY DAY 03/06 Pamela Masseyhialetha Ozempic 1 mg/dose (4 mg/3 mL) pen injector active Inject 1 mg subcutaneously once a week 03/05 Micah BRO Jardiance 25 mg tablet active TAKE 1 TABLET BY MOUTH EVERY DAY 03/24 Keagan ammonium lactate 12% cream active as directed Jajanu Harrison ramipril 5 mg capsule completed Take 1 capsule by mouth once a day 06/05 - 03/06 Jammie Corrigan Humulin R Regular U-100 Insuln 100 unit/mL solution active as directed Jaja Harrison Levemir FlexTouch U-100 Insuln 100 unit/mL (3 mL) insulin pen active inject 30 units twice a day Bernardo Obrien MD amlodipine 5 mg tablet completed - 06/05 Bernardo Obrien MD Xarelto 2.5 mg tablet completed Take 1 tablet by mouth twice a day - 07/26 Keagan Rosario ammonium lactate 12% cream completed Apply 1 liberally to affected area as directed 04/19 - 06/05 Bernardo Obrien MD clopidogrel 75 mg tablet completed Take 1 tablet by mouth once a day 04/13 - 05/03xavier Obrien MD Jardiance 25 mg tablet completed Take 1 tablet by mouth once a day TAKE 1 TABLET BY MOUTH DAILY 09/23 - 03/24 Jacque Pollrad Jardiance 25 mg tablet completed TAKE 1 TABLET BY MOUTH DAILY 09/22 - 09/23 Brook Young Jardiance 10 mg tablet completed Take 1 tablet once a day 03/13 - 09/22 Jacque Pollard FARXIGA 10 MG ORAL TABLET completed One tab by mouth daily Reduces cardiovascular and heart failure hospitalizations 03/06 - 03/13 Rubi Novak RN candesartan 4 mg tablet completed 1 tablet once a day 03/06 - 05/03 Bernardo Obrien MD Trulicity 1.5 mg/0.5 mL pen injector completed Inject 1 pen injector subcutaneously once a week 04/27 - 10/14 Anna Abdullahi [facility] losartan 50 mg tablet completed Take 1 [...] tablet once a day - 10/14 Jaja Hunter JARDIANCE 10 MG ORAL TABLET completed one tab by mouth daily 03/19 - Partha Dowell aspirin 81 mg tablet,delayed release (/EC) active 1 tablet by mouth once a day 09/11 Echo Gutierrez RN PANTOPRAZOLE SODIUM 40 MG INTRAVENOUS SOLUTION RECONSTITUTED completed Take 1 tab twice a day 09/11 - Partha Dowell Crestor 20 mg tablet completed TAKE 1 TABLET BY MOUTH EVERY DAY 07/24 - 04/14 Anna Abdullahi NP HYDROCHLOROTHIAZI DE 12.5 MG ORAL CAPSULE completed ONE TAB. DAILY - 05/06 Bernardo Obrien MD LEVEMIR SOLUTION completed 40 unit twice a day 03/06 - 05/03xavier Obrien MD HYDROCODONE-ACETA MINOPHEN 5-325 MG ORAL TABLET completed as needed - 03/06 Aminah Abdullahi Humulin R Regular U-100 Insuln 100 unit/mL solution completed as directed - 05/03xavier Obrien MD EXFORGE HCT 10-320-25 MG ORAL TABLET completed 1 tab once daily - 05/06 Bernardo Obrien MD ASPIRIN 325 MG ORAL TABLET completed 07/24 - 09/11 Angel Sánchez SOCIAL HISTORY Date Observation Value Provider number of years as a smoker 40+ Angelica Perez smoking history, tot al pack/day 1 Angelica Perez cigarette use yes Angelica Perez smoking status Current every day smoker Germaine Perez number of years as a smoker 40+ Jacque Pollard smoking history, tot al pack/day 2 Jacque Pollard cigarette use yes Jacque Hernandez nd smoking status Former smoker Jacque Missy nunes number of years as a smoker 40+ Ghislaine Amaro smoking history, tot al pack/day 2 Ghislaine Amaro cigarette use yes Ghislaine Amaro smoking status Former smoker Ghislaine Amaro number of years as a smoker 40+ Jacque Pollard smoking history, tot al pack/day 2 Jacque Pollard cigarette use yes Jacque Hernandez nd smoking status Former smoker Jacque nunes social [...] O'Junior smoking status Current every day smoker Anabel sladejhon O'Junior smoking history, tot al pack/day 2 Portia Larry cigarette use yes Portia [place] smoking status Current every day smoker Costa espitia Larry smoking/tobacco cess ation, patient education and counseling yes Jacque Atul number of years as a smoker 40+ Jacque Pollard smoking history, tot al pack/day 1-2 Jacque Pollard cigarette use yes Jacque Hernandez nd smoking status Current every day smoker Anabel melo Pollard smoking/tobacco cess ation, patient education and counseling yes Jacque Holly number of years as a smoker 40+ Jacque Holly smoking history, tot al pack/day 1-2 Jacque Holly cigarette use yes Jacque aldridge smoking status Current every day smoker Anabel Holly social history reviewed E&M revi ewed - no changes required Echo Gutierrez RN smoking/tobacco cess ation, patient education and counseling yes Aminah Lorna'Junior number of years as a smoker 40+ Aminah O'Junior smoking history, tot al pack/day 1-2 Aminah O'Junior cigarette use yes Aminah O'Junior smoking status Current every day smoker M sahil Lorna'Junior smoking/tobacco cess ation, patient education and counseling yes Bernardo Obrien MD social history reviewed E&M revi ewed - no changes required Bernardo Obrien MD smoking status Current every day smoker R barber Moura social history reviewed E&M revi ewed - no changes required Echo Gutierrez RN smoking/tobacco cess ation, patient education and counseling yes Anni Moura number of years as a smoker 40+ Anni Moura smoking history, tot al pack/day 1-2 Anni Moura cigarette use yes Anni Moura smoking status Current every day smoker R barber Moura smoking/tobacco cess ation, patient education and counseling yes Echo Gutierrez RN social history reviewed E&M revi ewed - no changes required Ecoh Gutierrez RN number of years as a smoker 40+ Partha Dowell smoking history, tot al pack/day 1-2 Partha oDwell cigarette use yes Partha naylor smoking status Current every day smoker M Diann Dowell smoking/tobacco cess ation, patient education and counseling yes Bernardo Obrien MD social history reviewed E&M revi ewed - no changes required Bernardo Obrien MD smoking status Current every day smoker Anabel travis Mei number of years as a smoker 48 a Bernardo Obrien MD smoking history, tot al pack/day 2-3 Bernardonicole Obrien MD cigarette use yes Bernardo Micah BRO smoking status Current every day smoker S david Obrien MD smoking/tobacco cess ation, patient education and counseling yes Bernardoxavier Obrien MD social history reviewed E&M revi ewed - no changes required Bernardoxavier Obrien MD social history reviewed E&M revi ewed - no changes required Echo Gutierrez RN number of years as a smoker 48 a Bernardoxavier Obrien MD smoking history, tot al pack/day 2-3 Bernardo Micah BRO cigarette use yes Bernardo Micah BRO social history reviewed E&M revi ewed - no changes required Bernardonicole Obrien MD social history E&M Patient ricky johnson smokes every day. Smoking History: P at[place] currently smokes every day. P atient has been counseled to quit. Bernardonicole Obrien MD smoking/tobacco cess ation, patient education and counseling yes Bernardo Micah BRO smoking status current every day smoker S david Obrien MD FUNCTIONAL STATUS Date Observation Value Provider HRA, CV Assess/Plan, Angina (inactive) Management Plan continue current therapy Bernardo Micah BRO Reason Fall Assessme nt not done medical contraindication Angelica Perez HRA, CV Assess/Plan, Angina (inactive) Management Plan continue current therapy Bernardo Micah BRO HRA, CV Assess/Plan, Angina (inactive) Management Plan continue current therapy Bernardo Micah BRO HRA, CV Assess/Plan, Angina (inactive) Management Plan continue current therapy Jaja De La Torre NP HRA, CV Assess/Plan, Angina (inactive) Management Plan continue current therapy Bernardo Micah BRO HRA, CV Assess/Plan, Angina (inactive) Management Plan continue current therapy Bernardo Micah BRO HRA, CV Assess/Plan, Angina (inactive) Management Plan continue current therapy Obrien HRA, CV Assess/Plan, Angina (inactive) Management Plan continue current therapy Jaja Esparza Wil [facility] HRA, CV Assess/Plan, Angina (inactive) Management Plan continue current therapy Bernardo Obrien HRA, CV Assess/Plan, Angina (inactive) Management Plan continue current therapy Bernardo Obrien HRA, CV Assess/Plan, Angina (inactive) Management Plan continue current therapy Bernardo Obrien HRA, CV Assess/Plan, Angina (inactive) Management Plan continue current therapy Bernardo Obrien HRA, CV Assess/Plan, Angina (inactive) Management Plan continue current therapy Jaja Esparza Wil SPENCE HRA, CV Assess/Plan, Angina (inactive) Management Plan continue current therapy Bernardo Obrien HRA, CV Assess/Plan, Angina (inactive) Management Plan continue current therapy Echo Gutierrez RN HRA, CV Assess/Plan, Angina (inactive) Management Plan continue current therapy Bernardo Obrien HRA, CV Assess/Plan, Angina (inactive) Management Plan continue current therapy Echo Gutierrez RN FAMILY HISTORY Family Member Condition Full Brother Family History of Di abetes: Paternal Grandfather Family History of C VA or Stroke: Father Family History of CV A or Stroke: INSURANCE PROVIDERS Payer name Policy type / Coverage type [place] red green party ID [employer] MEDICARE ADVANTAGE ST 0 003 (HMO POS) Medicare [id number] ADVANCE DIRECTIVES Name Date DISCUSSED - NO DECISION MADE TREATMENT PLAN Date Name Performer [id number],C, Tonja crain has since last visit had his great and 2nd toe amputated - and is healing H germaine also had a US to bilateral LE today a ll the stents are patent, and arteries are open Bernardonicole Obrien MD [id number],C, Tonja crain has since last visit had his great and 2nd toe amputated Tonja crain also had a US to bilateral LE today a ll the stents are patent, and arteries are open Jaja De La Torre NP [id number],C, l dl 59 w ill check LP(a) Jaja De La Torre [facility] [id number],C, B P today: 105/65 P rior BP: 160/95 (07/17/2022) Labs Reviewed: C reat:2.20 - (04/2022) C hol: 126 (02/07/2022) HDL: 41 (02/07/2022) w ill check UACR Jaja De La Torre [facility] [id number],C,H as now quit smoking Jaja De La Torre [facility] [id number],C, n egative doppler 2020 Jaja De La Torre BEBE [id number],C, a bdominal aortic atherosclerosis and stenosis, and left iliac stenosis. . CT Abd/thorax also showed atherosclerosis thoracic aorta likely has CAD as well e cho 2019 - EF 65%, mild AI Jaja De La Torre BEBE [id number],C, r are cp a lways sob - copd Jaja Garciagermaine SPENCE [id number],C,takes a puff every now and then Bernardoxavier Obrien MD [id number],C,a dvised to check at home His updated [...] (02/07/2022) HDL: 41 (02/07/2022) Bernardo Obrien MD [id number],C, n egative doppler 2020 Bernardo Obrien MD [id number],C,I s walking and wants amputation for his first two toes/ R ight sfa stents patent on doppler Bernardo Obrien MD [id number],C,l dl 59 c eduardo Lp(a) Bernardo Obrien MD [id number],C,on jardiance Bernardo Obrien MD [id number],C, Since February when he underwent the AIF on the Right LE and was admitted for lytic rx afterwards, and 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 The rest of his foot has improved. Bernardo Obrien MD [id number],C,tolerating as a and xarelo Bernardonicole Obrien MD [id number],C, S juan the last visit he now [...] pain has resolved. Ambulating with a boot. Bernardonicole Obrien MD [id number],C, c heck A1c l ast A1c 7% d ouble trulicity to 1.5mg Bernardo Micah BRO [id number],C, L DL 59 His updated medication list for this problem includes: Crestor 5 Mg Tablet (Rosuvastatin) ..... 1 tablet once a day Ezetimibe 10 Mg Tablet (Ezetimibe) ..... 1 tablet once a day Bernardo Micah BRO [id number],S, H germaine has now quit smoking - very difficult but he continues to be successful [facility] Micah BRO [id number],S, r are cp a lways sob - copd Bernardo Obrien MD [id number],C, B P today: 96/53 P rior BP: [...] tablet once a day Bernardoxavier Obrien MD [id number],C, B P today: 94/62 P rior BP: 120/70 (02/22/2022) Labs Reviewed: C reat: 2.22 (02/07/2022) C hol: 126 (02/07/2022) HDL: 41 (02/07/2022) Jaja A Wil SPENCE [id number],C, H germaine has now quit smoking - very difficult but he continues to be successful Jaja De La Torre NP [id number],C, c r 2.22 Jaja Esparza Wil SPENCE [id number],C, S juan the last visit he now [...] healing post amputation Jaja De La Torre NP [id number],C, H is updated medication list for this problem includes: Aspirin 81 Mg Tablet,delayed Release (dr/ec) (Aspirin) ..... 1 tablet by mouth once a day Candesartan 4 Mg Tablet (Candesartan) ..... 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 w ill do close surveillance advised to see Dr Alvarez (his ball fringe machine operator for toe amputation) or might auto amputate h germaine has no pain and this is dry gangrene [facility] [id number],C,100% isr left kidney on angiogram [facility] [id number],C,c r 2.22 [facility] [id number],C,w ill do aif in our lab with CO2 angiography [facility] [id number],C, H is updated medication list for this problem includes: Aspirin 81 Mg Tablet,delayed Release (/ec) (Aspirin) ..... 1 tablet by mouth once a day Candesartan 4 Mg Tablet (Candesartan) ..... 1 tablet once a day [facility] [id number],C,urged to quit [facility] [id number],C,C /o right leg geting cold and right calf weakness. He had to walk 600feet and right leg cramped up and had to stop twice 'left leg was fine. He can do 100 to 200 feet before he has to stop. H germaine is still smoking w ill plan aif as he is very sytomatic and finds this very limiting [facility] [id number],C,C /o right arm becoming weak if he does too much but states that he is very inactive. [facility] [id number],C,dm better wti h jardiance - 7% [facility] [id number],C,s till smoking n o intention of quitting l dct [facility] [id number],C,improved per pt [facility] [id number],C,n egative doppler [facility] [id number],C,C /o right leg geting cold and right calf weakness c heck bárbara [facility] [id number],C,r ight arm pain with exertion b ut does not bother enought to fix [facility] [id number],C, r are cp a lways sob - copd [facility] [id number],C,j ardiance 10 i ncrease to 25 uacr 370 [facility] [id number],C,wc s [place] [id number],C,s till smoking u rged to quit [facility] [id number],C,n o claudication n o wounds or sores [facility] [id number],C,no cp or sob [facility] [id number],C,no palpitatio n [facility] [id number],C,r ight upper arm pain sometimes - l asts 10 minutes o nce every three days o ptions d/w pt and he does not thinks the sx are bad enough and will leave it be for now Bernardo Das [id number],C, s /p left renal stents in 2017 - was a herculink stent a ppear occluded on doppler today with atropic left kidney Bernardo Das [id number],C,a pparently about the same per [facility] [id number],C,will check li pids and CRP Jaja Isaias De La Torre [facility] [id number],C, s tates last hgb a1c 7 c heck uacr also advised to cut levemir down to 30 u bid Jaja De La Torre [facility] [id number],C, B P today: 150/90 P rior BP: 168/96 (07/05/2020) Jaja De La Torre [facility] [id number],C, c ontinues to smoke, not able to quit Jaja De La Torre [facility] [id number],C, s /p left renal stents Jaja De La Torre [facility] [id number],C, His renal function is worse and sees Dr Zimmerman. 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 Jaja De La Torre [facility] [id number],C,l ast doppler 07/2020 - P atent right ICA stent. 2 . <50% stenosis of the left ICA. Jaja De La Torre [facility] Cardiology: * Increase crestor to 20 mg/day and start zetia 10 mg/day. 04/2023 Labs: l ipo-a: 39.3 t otal: 162, TG 208, HDL 50, LDL 77 His updated medication list for this problem includes: Crestor 5 Mg Tablet (Rosuvastatin) ..... 1 tablet once a day Anna Abdullahi [facility] Cardiology: B P today: 114/71 P rior BP: 130/84 (10/15/2023) Labs Reviewed: C reat: 2.22 (02/07/2022) C [...] mouth once a day Anna Abdullahi NP Cardiology: D idn't get proBNP from last time. Dylan ornelas with [facility]. * Update labs. Get echo to see if he can start clinical trial for SGLT2i. 04/2023 Labs: a lb/Cr ratio: 373 04/2022 Labs: C r 2.20 e GFR = 29 Anna Abdullahi NP Cardiology: C arotid duplex (05/01/2023): 1 . Mild plaque with less than 50% stenosis of the internal carotid arteries bilaterally. 2 . Vertebral flow is antegrade bilaterally. 3 . Right carotid stents are patent with no significant abnormalities. Anna Abdullahi NP Cardiology: s table clinically BÁRBARA(05/01/23): 1 . Moderate arterial disease of [...] plantar artery in the foot. Anna Abdullahi NP Cardiology: D enies chest pain Anna Abdullahi NP Cardiology: D enies pain Anna Abdullahi NP Cardiology: S till smoking 3/4 pack/day. Now on light cigs. S tressed cessation Anna Abdullahi NP Cardiology: H e has gone back to smoking 3/4 pack/day. S tressed cessation Anna Abdullahi BEBE Cardiology: Labs: l ipo-a: 39.3 t otal: 162, TG 208, HDL 50, LDL 77 The following medications were removed from the medication list: Ezetimibe 10 Mg Tablet (Ezetimibe) ..... 1 tablet once a day H is updated medication list for this problem includes: Crestor 5 Mg Tablet (Rosuvastatin) ..... 1 tablet once a day Anna Abdullahi BEBE Cardiology: B P today: 130/84 P rior [...] by mouth once a day Anna Abdullahi BEBE Cardiology:Will upda te probnp 04/2023 Labs: a lb/Cr ratio: 373 04/2022 Labs: C r 2.20 e GFR = 29 Anna JenaJunior SPENCE Cardiology: c arotid duplex (05/01/2023): 1 . Mild plaque with less than 50% stenosis of the internal carotid arteries bilaterally. 2 . Vertebral flow is antegrade bilaterally. 3 . Right carotid stents are patent with no significant abnormalities. Anna Menafernando SPENCE Cardiology: s table clinically W ill update [...] plantar artery in the foot. Anna Abdullahi [facility] Cardiology: d enies chest pain Anna Abdullahi [facility] Cardiology: d enies pain Anna Abdullahi [facility] Cardiology:still smk oing l dct Bernardo Das Cardiology: H is updated medication list for this problem includes: Crestor 5 Mg Tablet (Rosuvastatin) ..... 1 tablet once a day Ezetimibe 10 Mg Tablet (Ezetimibe) ..... 1 tablet once a day C HOL: 126 (02/07/2022) LDL: 59 (02/07/2022) HDL: 41 (02/07/2022) T (02/07/2022) will check lipids Obrien Cardiology: H is updated medication list for this problem includes: Ramipril 5 Mg Capsule (Ramipril) ..... Take 1 capsule by mouth every day Aspirin 81 Mg Tablet,delayed Release (dr/ec) (Aspirin) ..... 1 tablet by mouth once a day Obrien Cardiology:check bmp Obrien Cardiology:check carotids [facility] Cardiology:stable cl inically c heck bárbara Obrien Cardiology:no angina Obrien Cardiology:right arm - once in a while - not bad enough per him Bernardo Micah BRO Cardiology: Tonja crain has [...] arteries are open Jaja De La Torre [facility] Cardiology: l dl 59 w ill check LP(a) Jaja De La Torre [facility] Cardiology: B P today: 105/65 P rior BP: 160/95 (07/17/2022) Labs Reviewed: C reat:2.20 - (04/2022) C hol: 126 (02/07/2022) HDL: 41 (02/07/2022) w ill check UACR Jaja De La Torre [facility] Cardiology:Has now q uit smoking Jaja De La Torre BEBE Cardiology: n egative doppler 2020 Jaja De La Torre [facility] Cardiology: a bdominal aortic atherosclerosis and stenosis, and left iliac stenosis. . CT Abd/thorax also showed atherosclerosis thoracic aorta likely has CAD as well e cho 2019 - EF 65%, mild AI Jaja De La Torre [facility] Cardiology: r are cp a lways sob - copd Jaja De La Torre BEBE Cardiology:takes a puff every no w and [...] Bernardo Obrien MD Cardiology: n egative doppler 2020 Bernardo Obrien MD Cardiology:Is walkin g and wants amputation for his first two toes/ R ight sfa stents patent on doppler Bernardo Obrien MD Cardiology:ldl 59 c heck Lp(a) Bernardo Obrien MD Cardiology:on jardiance Bernardo Obrien MD Cardiology: Since De when he underwent the AIF on the [...] pain has resolved. Ambulating with a boot. Bernardoxavier Obrien MD Cardiology: c heck A1c l ast A1c 7% d ouble trulicity to 1.5mg Bernardonicole Obrien MD Cardiology: L DL 59 His updated medication list for this problem includes: Crestor 5 Mg Tablet (Rosuvastatin) ..... 1 tablet once a day Ezetimibe 10 Mg Tablet (Ezetimibe) ..... 1 tablet once a day Bernardo Obrien MD Cardiology: Tonja crain has now quit smoking - very difficult but he continues to be successful Bernardonicole Obrien MD Cardiology: r are cp a [...] hol: 126 (02/07/2022) HDL: 41 (02/07/2022) Jaja Esparza Wil [facility] Cardiology: Tonja crain has now quit smoking - very difficult but he continues to be successful Jaja De La Torre [facility] Cardiology: c r 2.22 Jaja A Wil [...] post amputation Jaja Isaias De La Torre [facility] Cardiology: H is updated medication list for this problem includes: Aspirin 81 Mg Tablet,delayed Release (dr/ec) (Aspirin) ..... 1 tablet by mouth once a day Candesartan 4 Mg Tablet (Candesartan) ..... 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 w ill do close surveillance advised to see Dr Alvarez (his ball fringe machine operator for toe amputation) or might auto amputate h germaine has no pain and this is dry gangrene Bernardoxavier Obrien MD Cardiology:100% isr left kidney on angiogram Bernardonicole Obrien MD Cardiology:cr 2.22 Bernardoxavier Obrien MD Cardiology:will do aif in our la b with CO2 angiography Bernardonicole Obrien MD Cardiology: H is updated medication [...] feet before he has to stop. H germaine is still smoking w ill plan aif as he is very sytomatic and finds this very limiting Micah BRO Cardiology:C/o right arm becoming weak if he does too much but states that he is very inactive. Micah BRO Cardiology:dm better wtih jardia nce - 7% Micah BRO Cardiology:still smo baljit n o intention of quitting l dct Micah BRO Cardiology:improved per pt ep Micah BRO Cardiology:negative doppler 2020 Micah BRO Cardiology:C/o right leg geting cold and right calf weakness c heck bárbara Micah BRO Cardiology:right arm pain with exertion b ut does not bother enought to fix Micah BRO Cardiology: r are cp a lways sob - copd Micah BRO Cardiology:jardiance 10 i ncrease to 25 uacr 370 Micah BRO Cardiology:wc Micah BRO Cardiology:still smo baljit u rged to quit Micah BRO Cardiology:no claudi cation n o wounds or sores Micah BRO Cardiology:no cp or sob Micah BRO Cardiology:no [...] with atropic left kidney Bernardo Micah BRO Cardiology:apparentl y about the same [...] doppler Jaja De La Torre NP Cardiology: mike lizarraga shows previously treated 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 Jaja De La Torre NP Cardiology:last dopp ler 07/2020 - P atent right ICA stent. 2 . <50% stenosis of the left ICA. Jaja De La Torre NP :asx f ound on doppler Bernardo Micah BRO Cardiology:bp high d id not tiake his meds today Bernardo Micah BRO Cardiology: H is updated medication list for this problem includes: Ezetimibe 10 Mg Oral Tablet (Ezetimibe) ..... 1 tab once daily Crestor 10 Mg Oral Tablet (Rosuvastatin calcium) ..... One tab. daily Bernardoxavier Obrien MD Cardiology: His jose l function is worse and sees Dr Zimmerman. 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 No curr ent ulcers. He walks with a cane. Back is limiting factor in exertion although does report chronic leg pains. His ball fringe machine operator says left foot pulse getting weak. left SFA is ostially occluded and popliteal collateralizes in the P1 segment via collaterals from the profunda.three-vessel runoff below the knee proximally. check sensilase BÁRBARA Echo Gutierrez RN Cardiology:moderate LICA stenosis 2012 R t carotid artery stent 2012 h as not been following up check [...] anymore. has palpable pulses c ilostazol stopped Bernardo Obrien MD Cardiology -ltr done :hgb a1c 8.2 w ill add trulicity Bernardo Obrien MD Cardiology -ltr done :will stop hct B P today: 105/55 P rior BP: 135/60 (04/01/2018) Bernardo Obrien MD Cardiology -ltr done :bp low- passed out - orthostatic - went to hospital [facility] orthostatic today stop hct Bernardoxavier Obrien MD Cardiology -ltr done :foot better -has palpable pulses c ilostazol stopped Bernardoxavier Obrien MD Cardiology -ltr done :he is continuing to work on quitting c utting down, mostly around .25 ppd Bernardoxavier Obrien MD Cardiology -ltr done :RVOT origin i n ventricular bigeminy on ekg today n ot perfusing pvcs as pulse ox only shows HR of 42 but EKG has HR 80 d enies dizziness, fatigue m ild-mod CAD w ill check echo, holter Bernardoxavier Obrien MD Cardiology:hgb a1c 8.2 Echo Randhawa [...] r ight 1st toe ingrown toenail, saw ball fringe machine operator (), took part of toenail off about [...] tech hold left hand for cath call D ebbie - 3N Bernardo Obrien MD Cardiology -ltr done:will add ja rdiance Bernardo Obrien MD Cardiology -ltr done:per Calliso n Bernadro Obrien MD Cardiology -ltr done :will try [...] daily Exforge Hct 10-320-25 Mg Oral Tabs (Cxhigkpqun-hycuhlmwc-urgh) BP today: 140/70 P rior BP: 138/78 [...] stent by Matthew Obrien MD Date Name Complete Echo BASIC METABOLIC PANE L W/EGFR Microalb/Creatinine Urine, Random PROBNP, N TERMINAL B TYPE NATRIURETIC P EPTIDE (BNP) Low [...] S tatus Complex e/m visit add on Bernardoxavier Obrien MD completed Complex e/m visit add on Bernardoxavier Obrien MD completed EKG Bernardo Obrien MD completed EKG Bernardo Obrien MD completed EKG Bernardo Obrien MD completed EKG Bernardo Obrien MD completed EKG Bernardo Obrien MD completed Mobile Cardiac Telem etry - Tech Bernardo Obrien MD completed Mobile Cardiac Telem etry - Prof Bernardo Obrien MD completed SNOMED-CT: 172338919 Smoking Cessation Counseling Bernardo Obrien MD completed SNOMED-CT: 07113498 Physical Exam, Performed: Pulse Exam of Foot Bernardo Obrien MD completed SNOMED-CT: 108432692 684416 Current Medications Documented Bernardo Obrien MD completed Stress EKG Anthony Shea MD complet ed Regadenoson, 4 units Bernardo Obrien MD completed Cardiolite, 2 units Bernardo Obrien MD c ompleted SPECT Images Anthony Shea MD compl eted SNOMED-CT: 77857722 Physical Exam, Performed: Pulse Exam of Foot Bernardo Obrien MD completed SNOMED-CT: 650871800 610382 Current Medications Documented Bernardo Obrien MD completed SNOMED-CT: 842599081 Smoking Cessation Counseling Bernardo Obrien MD completed SNOMED-CT: 25112413 Physical Exam, Performed: Pulse Exam of Foot Bernardo Obrien MD completed SNOMED-CT: 993218292 022326 Current Medications Documented Bernardo Obrien MD completed SNOMED-CT: 839501320 Smoking Cessation Counseling Bernardo Obrien MD completed SNOMED-CT: 50301354 Physical Exam, Performed: Pulse Exam of Foot Bernardo Obrien MD completed EKG Bernardo Obrien MD completed SNOMED-CT: 128395891 510549 Current Medications Documented Bernardoxavier Obrien MD completed
--- OUTSIDE RECORDS SUMMARY | 2024-05-29 13:03 | XMS_ITS | Encounter Summary ---
Author Organization [facility] Address [address] [place] [address] Care Team Providers Care Fixture Relamper Name Role Phone Jere Tillman MD Primary Care Provider Kieran Albert MD Unavailable [phone] Alek Enrique MD Unavailable [phone] Encounter Details Date Type Department Care Team (Late st Contact Info) Description 04/20/2022 Lab Requisition [facility] [address] [place] [address] [place] [address] [address] [place], [place] [id number] Social History Tobacco Use Types Packs/Day Years [...] W AUTO DIFFERENTIAL STAT 04/20/2022 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 documented in this encounter Results * (ABNORMAL) CBC WITH DIFFERENTIAL (04/20/2022 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) WBC 6.9 4.4 - 10.7 x10E9/L 04/20/2022 1:59 PM ASSEMBLING MOTOR BUILDER [facility] WBC Corrected 04/20/2022 1:59 PM ASSEMBLING MOTOR BUILDER [facility] RBC 5.95(H) 3.80 - 5.40 x10E12/L 04/20/2022 1:59 PM ASSEMBLING MOTOR BUILDER [facility] Hemoglobin 18.2(H) 12.0 - 17.6 gm/dL 04/20/2022 1:59 PM ASSEMBLING MOTOR BUILDER [facility] Hematocrit 54.4(H) 35.2 - 51.7 % 04/20/2022 1:59 PM ASSEMBLING MOTOR BUILDER [facility] MCV 91.4 80.7 - 98.3 fl 04/20/2022 1:59 PM ASSEMBLING MOTOR BUILDER [facility] MCH 30.6 26.7 - 34.0 pg 04/20/2022 1:59 PM ASSEMBLING MOTOR BUILDER [facility] MCHC 33.5 30.8 - 35.9 gm/dL 04/20/2022 1:59 PM ASSEMBLING MOTOR BUILDER [facility] Platelet Count 166 153 - 416 x10E9/L 04/20/2022 1:59 PM ASSEMBLING MOTOR BUILDER [facility] RDW-CV 12.8 12.1 - 14.9 % 04/20/2022 1:59 PM ASSEMBLING MOTOR BUILDER [facility] MPV 12.3 9.4 - 12.9 fl 04/20/2022 1:59 PM ASSEMBLING MOTOR BUILDER [facility] Neutrophils % 65.5 44.0 - 73.0 % 04/20/2022 1:59 PM ASSEMBLING MOTOR BUILDER [facility] Lymphocytes % 22.5 20.0 - 43.0 % 04/20/2022 1:59 PM ASSEMBLING MOTOR BUILDER [facility] Monocytes % 8.0 5.0 - 13.0 % 04/20/2022 1:59 PM ASSEMBLING MOTOR BUILDER [facility] Eosinophils % 2.2 0.0 - 6.0 % 04/20/2022 1:59 PM ASSEMBLING MOTOR BUILDER [facility] Basophils % 1.4 0.0 - 2.0 % 04/20/2022 1:59 PM ASSEMBLING MOTOR BUILDER [facility] Immature Granulocytes 0.4 0 - 1 % 04/20/2022 1:59 PM ASSEMBLING MOTOR BUILDER [facility] Neutrophil Absolute 4.52 2.01 - 7.14 x10E9/L 04/20/2022 1:59 PM ASSEMBLING MOTOR BUILDER [facility] Lymphocytes Absolute 1.55 1.07 - 3.94 x10E9/L 04/20/2022 1:59 PM ASSEMBLING MOTOR BUILDER [facility] Monocytes Absolute 0.55 0.26 - 1.07 x10E9/L 04/20/2022 1:59 PM ASSEMBLING MOTOR BUILDER [facility] Eosinophils Absolute 0.15 0 - 0.47 x10E9/L 04/20/2022 1:59 PM ASSEMBLING MOTOR BUILDER [facility] Basophils Absolute 0.10(H) 0 - 0.08 x10E9/L 04/20/2022 1:59 PM ASSEMBLING MOTOR BUILDER [facility] Immature Granulocytes Absolute 0.03 0.00 - 0.06 x10E9/L 04/20/2022 1:59 PM ASSEMBLING MOTOR BUILDER [facility] nRBC Auto 0 /100 WBC 04/20/2022 1:59 PM [facility] Blood BLOOD SPECIMEN / Unknown Venipuncture / Unknown 04/20/2022 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 04/20/2022 1:39 PM ASSEMBLING MOTOR BUILDER Bernardo Obrien MD LAB - HEMATOLOGY ORD ERABLES [facility] [address] [place] [address] documented in this encounter Visit Diagnoses Not on filedocumented in this encounter Care Teams Fixture Relamper Relationship Specialty Start Date End Date Jere Tillman MD [address] [place] [address] PCP - General 06/07/10 Kieran Albert MD [address] [place] [address] Orthopedic Surgery 07/10/11 Alek Enrique MD [address] [place] [address] Orthopedic Surgery 05/22/13 documented as of this encounter
== END 2024-05-29 12:01 | disposition home or self-care (01) ==
LOC: ANHLAB 12:02
PROVIDERS: PCP Family Medicine; Visit Provider Internal Medicine Hematology & Oncology
DX: D45 Polycythemia vera (principal)
CPT/HCPCS: 36415; 85027; 99212; G0463

== ENCOUNTER 2024-06-26 12:00 | Outpatient (CLI) | payer MEDICARE, SELFPAY ==
[2024-06-26 12:23] LABS: Hematocrit 50.3 % (42.0-52.0); Hemoglobin 16.7 g/dL (14.0-18.0); Mean Corpuscular HGB Conc 33.2 g/dl (32-36); Mean Corpuscular Hemoglobin 29.8 pg (26-34); Mean Corpuscular Volume 89.8 fl (80-100); Mean Platelet Volume 12.1 fl (7.4-10.4); Platelet Count Result 145 k/mm3 (150-375); Red Cell Distribution Width 12.9 % (11.5-14.5)
--- OUTSIDE RECORDS SUMMARY | 2024-06-26 13:18 | XMS_ITS | Clinical Summary ---
Author Organization [facility] Address [address] [place] [address] Care Team Providers Care Pipe Crew Foreman Name Role Phone Unavailable Primary Care Provider [...] Td Vaccines ( 1 - Tdap) 12/22/1967 Pneumococcal Vaccine: 50+ Ye ars (1 of 1 - PCV) 1998 Zoster Vaccines (1 of 2) 1998 COVID-19 Vaccine ( - 2023-2 5 season) 2023 RSV Immunization or 60+ Years (1 [...]
--- OUTSIDE RECORDS SUMMARY | 2024-06-26 13:18 | XMS_ITS | Encounter Summary ---
Author Organization [facility] Address 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
--- OUTSIDE RECORDS SUMMARY | 2024-06-26 13:18 | XMS_ITS | Encounter Summary ---
Author Organization [facility] Address [address] 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
--- OUTSIDE RECORDS SUMMARY | 2024-06-26 13:18 | XMS_ITS | Clinical Summary ---
Author Organization [facility] Address [address] [place] [address] Care Team Providers Care Auto Body Repair Technician Name Role Phone Jere Tillman MD Primary Care Provider [phone] Kieran Albert MD Unavailable [phone] Alek Enrique MD Unavailable [phone] Source Comments [facility],non-owned Affiliates and Associated Physician Practices is amultiple site organization consisting of ambulatory clinics and hospital sitesin [place], [place], [place] and [place]. This disclosure is being madepursuant to the Care Everywhere program and may not contain all information available regarding this patient. Last updated 17.[facility] Allergies Active Allergy Reactions Criticality Noted Date Comments Meridia 06/19/2011 Medications * Be aware that medications may not be up to date on this document. Alwaysverify current medications with the patient. rosuvastatin (CRESTOR) 10 MG tablet Take 10 mg by mouth every other day 0 6 Active amLODIPine-sarah sartan (EXFORGE) 10-320 MG tablet Take 1 Tab by mouth Active HYDROcodone-ac etaminophen (NORCO) 5-325 MG tablet Take 1 Tab by mouth every 4 hours as needed for Pain 30 Tab 7 Active aspirin (ASPIRIN) 81 MG chew tablet Take 81 mg by mouth once daily Active insulin detemir (LEVEMIR) pen Inject 70 Units subcutaneously 2 times daily Active insulin regular human (HUMULIN R; NOVOLIN R) 100 UNIT/ML injection Inject 30 Units subcutaneously 3 times daily before meals Active ezetimibe (ZETIA) 10 MG tablet Take 1 tablet by mouth once daily 30 tablet 5 8 Active hydroCHLOROthi azide (HYDRODIURIL) 12.5 MG Take 1 tablet by mouth once daily 30 tablet 5 8 Active Active Problems Problem Noted Date Diagnosed [...] Low back pain 06/27/2010 Overview (01/10/2015): Immunizations Immunization Administration Dates Next Due INFLUENZA VACCINE 12/10/2012 [...] on file Legal Sex Male 11:38 AM CLINICAL VETERINARIAN Gender Identity Not on file Sexual Orientation Not on file 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 Not on file Not on file Last Filed Vital Signs [...] VACCINE ( - 2023-2 5 season) 2023 Respiratory Syncytial Virus (RSV) Vaccine Pt: or over 60 yrs (1 - 1-dose 75+ series) 12/22/2023 DEPRESSION SCREENING 03/05/2024 MEDICARE AWV CALENDAR YEAR 2024 INFLUENZA VACCINE (Season Ended) 2024 12/11/19 13 HEPATITIS B VACCINE Aged Out No longe [...] on patient's age to complete this topic Insurance [place] [id number] Advance Directives * Full Code (Latest Code [...] 8:01 AM 12/28/2012 12:02 PM Care Teams Auto Body Repair Technician Relationship Specialty Start Date End Date Jere Tillman MD [address] [place] [address] PCP - General 06/07/10 Kieran Albert MD [address] [place] [address] Orthopedic Surgery 07/10/11 Alek Enrique MD [address] [place] [address] Orthopedic Surgery 05/22/13
--- OUTSIDE RECORDS SUMMARY | 2024-06-26 13:18 | XMS_ITS | Encounter Summary ---
Author Organization [facility] Address [address] 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
--- OUTSIDE RECORDS SUMMARY | 2024-06-26 13:18 | XMS_ITS | Clinical Summary ---
Author Organization [facility] Address [address] [place] [address] Phone Care Team Providers Care Drug And Alcohol Counsellor Name Role Phone Wilber Whittington MD Primary Care Provider [phone] Allergies Active Allergy Reactions Criticality Noted Date Comments Sibutramine 06/19/2011 Medications aspirin (Aspirin Adult Low Dose) 81 MG [...] Diabetes mellitus 12/09/2012 Hypertensive disorder 12/09/2012 Immunizations Immunization Administration Dates Next Due Influenza TIV (IM) [...] at Not on file Legal Sex Male 1:25 PM [facility] Gender Identity Not on file Sexual Orientation [...] Comments Pneumococcal PPSV23/PCV13 65 + Years / Low and Medium Risk (1 of 4 - PCV) 1998 Influenza Vaccine (Season Ended) 2024 12/11/19 13 Insurance MEDICARE ADVANTAGE Care Teams Drug And Alcohol Counsellor Relationship Specialty Start Date End Date Wilber Whittington MD [address] [facility] [address] [facility] [address] [place] [address] PCP - General Internal Medicine 11/21/21
--- OUTSIDE RECORDS SUMMARY | 2024-06-26 13:18 | XMS_ITS | Encounter Summary ---
Author Organization [facility] Address [address] [place] [address] Care Team Providers Care Vault Clerk Name Role Phone Jere Tillman MD Primary Care Provider [phone] Kieran Albert MD Unavailable [phone] Alek Enrique MD Unavailable Encounter Details Date Type Department Care Team (Late st Contact Info) Description 04/20/2022 Lab Requisition [facility] [address] [place] [address] [place] [address] [facility] [address] [place], [place] [id number] Social History Tobacco Use Types Packs/Day Years Used Date Smoking Tobacco: Every Day Cigarettes 2 45 Smokeless Tobacco: Never Alcohol Use Standard Drinks/Week Comments Yes 0 (1 standard drink = 0.6 oz pur e alcohol) Rarely Sex and Gender Information Value Date Recorded Sex Assigned at Not on file Legal Sex Male 11:38 AM OXIDATION ENGINEER Gender Identity Not on file Sexual Orientation Not on file 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 Answer Date of Assessment Author No 09/14/2017 11:06 AM Micheal Sanford RN * Is person blind or have serious difficulty seeing? Answer Date of Assessment Author No 09/14/2017 11:06 AM Micheal Sanford RN * Does person have serious difficulty walking/climbing stairs? Answer Date of Assessment Author No 09/14/2017 11:06 AM Micheal Sanford RN * Does person have difficulty dressing/bathing? Answer Date of Assessment Author No 09/14/2017 11:06 AM Micheal Sanford RN * Does person have difficulty doing errands alone? Answer Date of Assessment Author No 09/14/2017 11:06 AM Micheal Sanford RN documented as of this encounter Mental Status * Does person have difficulty concentrating/remembering/making decisions? Answer Entry Date Author No 09/14/2017 11:06 AM Micheal Sanford RN documented in this encounter Plan of Treatment Not on file documented as of this encounter Procedures Procedure Name Priority Date/Time Associated Diagnosis Comments CBC W AUTO DIFFERENTIAL STAT 04/20/2022 11:24 AM OXIDATION ENGINEER documented in this encounter Results * (ABNORMAL) CBC WITH DIFFERENTIAL (04/20/2022 11:24 AM OXIDATION ENGINEER) WBC 6.9 4.4 - 10.7 x10E9/L 04/20/2022 1:59 PM OXIDATION ENGINEER [facility] WBC Corrected 04/20/2022 1:59 PM OXIDATION ENGINEER [facility] RBC 5.95(H) 3.80 - 5.40 x10E12/L 04/20/2022 1:59 PM OXIDATION ENGINEER [facility] Hemoglobin 18.2(H) 12.0 - 17.6 gm/dL 04/20/2022 1:59 PM OXIDATION ENGINEER [facility] Hematocrit 54.4(H) 35.2 - 51.7 % 04/20/2022 1:59 PM OXIDATION ENGINEER [facility] MCV 91.4 80.7 - 98.3 fl 04/20/2022 1:59 PM OXIDATION ENGINEER [facility] MCH 30.6 26.7 - 34.0 pg 04/20/2022 1:59 PM OXIDATION ENGINEER [facility] MCHC 33.5 30.8 - 35.9 gm/dL 04/20/2022 1:59 PM OXIDATION ENGINEER [facility] Platelet Count 166 153 - 416 x10E9/L 04/20/2022 1:[address] [facility] RDW-CV 12.8 12.1 - 14.9 % 04/20/2022 1:[address] [facility] MPV 12.3 9.4 - 12.9 fl 04/20/2022 1:[address] [facility] Neutrophils % 65.5 44.0 - 73.0 % 04/20/2022 1:[address] [facility] Lymphocytes % 22.5 20.0 - 43.0 % 04/20/2022 1:[address] [facility] Monocytes % 8.0 5.0 - 13.0 % 04/20/2022 1:[address] [facility] Eosinophils % 2.2 0.0 - 6.0 % 04/20/2022 1:[address] [facility] Basophils % 1.4 0.0 - 2.0 % 04/20/2022 1:[address] [facility] Immature Granulocytes 0.4 0 - 1 % 04/20/2022 1:[address] [facility] Neutrophil Absolute 4.52 2.01 - 7.14 x10E9/L 04/20/2022 1:[address] [facility] Lymphocytes Absolute 1.55 1.07 - 3.94 x10E9/L 04/20/2022 1:[address] [facility] Monocytes Absolute 0.55 0.26 - 1.07 x10E9/L 04/20/2022 1:[address] [facility] Eosinophils Absolute 0.15 0 - 0.47 x10E9/L 04/20/2022 1:[address] [facility] Basophils Absolute 0.10(H) 0 - 0.08 x10E9/L 04/20/2022 1:[address] [facility] Immature Granulocytes Absolute 0.03 0.00 - 0.06 x10E9/L 04/20/2022 1:[address] [facility] nRBC Auto 0 /100 WBC 04/20/2022 1:[address] [facility] Blood BLOOD SPECIMEN / Unknown Venipuncture / Unknown 04/20/2022 11:24 AM OXIDATION ENGINEER 04/20/2022 1:39 PM OXIDATION ENGINEER Bernardo Obrien MD LAB - HEMATOLOGY ORDERABLES Tana josh Result [facility] [address] [place] [address] documented in this encounter Visit Diagnoses Not on filedocumented in this encounter Care Teams Vault Clerk Relationship Specialty Start Date End Date Jere Tillman MD [address] [place] [address] PCP - General 06/07/10 Kieran Albert MD [address] [place] [address] Orthopedic Surgery 07/10/11 Alek Enrique MD [address] [place] [address] Orthopedic Surgery 05/22/13 documented as of this encounter
--- OUTSIDE RECORDS SUMMARY | 2024-06-26 13:18 | XMS_ITS | Encounter Summary ---
Author Organization [facility] Address [address] [facility] [place] [address] Care Team Providers Care Fabric Stretcher Name Role Phone Jere Tillman MD Primary Care Provider Kieran Albert MD Unavailable Alek Enrique MD Unavailable Encounter Details Date Type Department Care Team (Late st Contact Info) Description 09/24/2013 Therapy Visit 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
--- OUTSIDE RECORDS SUMMARY | 2024-06-26 13:18 | XMS_ITS | Encounter Summary ---
Author Organization [facility] Address [address] [place] [address] Care Team Providers Care Adult Secondary Education Instructor Name Role Phone Jere Tillman MD Primary Care Provider [phone] Kieran Albert MD Unavailable [phone] Alek Enrique MD Unavailable [phone] Encounter Details Date Type Department Care Team (Late st Contact Info) Description 08/22/2016 [facility] Outpatient Visit [facility] [address] [place] [address] Yoly Moreno, BAR ASSISTANT-AUDIT SPECIALIST [address] [address] Social History Tobacco Use Types Packs/Day Years Used Date Smoking Tobacco: Every Day Cigarettes 2 45 Smokeless Tobacco: Never Alcohol Use Standard Drinks/Week Comments Yes 0 (1 standard drink = 0.6 oz pur e alcohol) Rarely Sex and Gender Information Value Date Recorded Sex Assigned at Not on file Legal Sex Male 11:38 AM WINDMILL TECHNICIAN Gender Identity Not on file Sexual Orientation Not on file 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 Answer Date of Assessment Author No 08/10/2016 3:00 PM CDT Lisa Altamirano RN * Is person blind or have serious difficulty seeing? Answer Date of Assessment Author No 08/10/2016 3:00 PM Lisa Palencia RN * Does person have serious difficulty walking/climbing stairs? Answer Date of Assessment Author No 08/10/2016 3:00 PM Lisa Palencia RN * Does person have difficulty dressing/bathing? Answer Date of Assessment Author No 08/10/2016 3:00 PM Lisa Palencia RN * Does person have difficulty doing errands alone? Answer Date of Assessment Author No 08/10/2016 3:00 PM Lisa Palencia RN documented as of this encounter Mental Status * Does person have difficulty concentrating/remembering/making decisions? Answer Entry Date Author No 08/10/2016 3:00 PM Lisa Palencia RN documented in this encounter Plan of Treatment Not on file documented as of this encounter Visit Diagnoses Not on filedocumented in this encounter Care Teams Adult Secondary Education Instructor Relationship Specialty Start Date End Date Jere Tillman MD [address] [place] [address] PCP - General 06/07/10 Kieran Albert MD [address] [place] [address] Orthopedic Surgery 07/10/11 Alek Enrique MD [address] [place] [address] Orthopedic Surgery 05/22/13 documented as of this encounter
--- OUTSIDE RECORDS SUMMARY | 2024-06-26 13:18 | XMS_ITS | Clinical Summary ---
Author Organization [facility] Address [address] [place] [address] Care Team Providers Care Campus Dean Name Role Phone Wilber Whittington MD Primary Care Provider [phone] Allergies No known active allergies Medications aspirin [...] Encounters Date Type Department Care Team Description 06/16/2024 Orders Only [facility] Oncology and Hematology - [address] [address] [place] [address] Kieran Fowler MD Polycythemia vera (CMS/HCC) 06/02/2024 Orders Only [facility] Oncology and Hematology - [address] Kieran Fowler MD Polycythemia vera ([facility]/HCC) 05/19/2024 Orders Only [facility] Oncology and Hematology - [place] [address] Kieran Fowler MD Polycythemia vera ([facility]/HCC) 05/14/2024 External Device Data STL ABSTRACTION Provider, Abstract 05/13/2024 External Device Data STL ABSTRACTION Provider, Abstract 05/12/2024 Orders Only [facility] Oncology and Hematology - [address] [place] [address] Kieran Fowler MD 05/06/2024 External Device Data STL ABSTRACTION Provider, Abstract 05/05/2024 Orders Only [facility] Oncology and Hematology - [address] Kieran Fowler MD Polycythemia vera ([facility]) 04/23/2024 External Device Data STL ABSTRACTION Provider, Abstract 04/21/2024 Orders Only [facility] Oncology and Hematology - [address] [place] [address] Kieran Fowler MD Polycythemia vera ([facility]/HCC) 04/18/2024 9:00 AM SEAFOOD PROCESS WORKER Office Visit [facility] Oncology and Hematology - [place] [address] Kieran Fowler MD Polycythemia vera ([facility]) (Primary Dx) 04/18/2024 Orders Only [facility] Oncology and Hematology - [place] [address] [place] [phone] Kieran Fowler MD 04/07/2024 Orders Only [facility] Oncology and Hematology - [place] [address] Kieran Fowler MD Polycythemia vera (CMS/HCC) 04/04/2024 Orders Only [facility] Oncology and Hematology [address] [place] [address] Kieran Fowler MD 04/02/2024 External [...] Comments Blood Pressure 123/72 04/18/2024 9:29 AM SEAFOOD PROCESS WORKER Pulse 78 04/18/2024 9:29 AM SEAFOOD PROCESS WORKER Temperature 35.9 C (96.7 F) 04/18/2024 9:29 AM SEAFOOD PROCESS WORKER Respiratory Rate 16 04/18/2024 9:29 AM SEAFOOD PROCESS WORKER Oxygen Saturation 91% 04/18/2024 9:29 AM SEAFOOD PROCESS WORKER Inhaled Oxygen Concentration - - Weight 81.6 kg (180 lb) 04/18/2024 9:29 AM SEAFOOD PROCESS WORKER Height 182.9 cm (6') 10/09/2023 10:30 AM CDT Body Mass Index 24.41 10/09/2023 10:30 AM CDT Plan of Treatment Upcoming Encounters Date Type Department Care Team (Late st Contact Info) Description 08/01/2024 11:30 AM CDT Office Visit [facility] Oncology and Hematology [address] [place] [address] Kieran Fowler MD [address] [facility] [address] [place] [address] Health Maintenance Due Date Last [...] ) (1 - 1-dose 75+ series) 12/22/2023 Abdominal Aortic Aneurysm (AAA) Screening Completed 07/26/2015 Procedures Procedure Name Priority Date/Time Associated Diagnosis Comments CBC WITH DIFFERENTIAL Routine 05/01/2024 2:24 PM SEAFOOD PROCESS WORKER CBC WITH DIFFERENTIAL Routine 04/18/2024 9:18 AM SEAFOOD PROCESS WORKER CBC WITH DIFFERENTIAL Routine 04/03/2024 12:31 PM SEAFOOD PROCESS WORKER from Last 3 Months Results * CBC WITH DIFFERENTIAL (05/01/2024 2:24 PM SEAFOOD PROCESS WORKER) Only the most recent of3 resultswithin the time period is included. Blood Kieran Fowler MD HEMATOLOGY ORDERABLES Final Res ult from Last [address] [place] [id number] Care Teams Campus Dean Relationship Specialty Start Date End Date Wilber Whittington MD [address] [facility] [address] [place] [address] PCP - General Family Practice 09/26/23
--- OUTSIDE RECORDS SUMMARY | 2024-06-26 13:18 | XMS_ITS | Encounter Summary ---
Author Organization [facility] Address [address] [place] [address] Care Team Providers Care Chief Cloth Finishing Range Operator Name Role Phone Jere Tillman MD Primary Care Provider [phone] Kieran Albert MD Unavailable [phone] Alek Enrique MD Unavailable [phone] Encounter Details Date Type Department Care Team (Late st Contact Info) Description 07/22/2013 Therapy Visit [facility] DE[facility] Unknown, Provider Social History Tobacco Use Types Packs/Day Years Used Date Smoking Tobacco: Former Cigarettes 2 45 1 - 12/29/2012 Smokeless Tobacco: Never Alcohol Use Standard Drinks/Week Comments Yes 0 (1 standard drink = 0.6 oz pur e alcohol) Rarely Sex and Gender Information Value Date Recorded Sex Assigned at Not on file Legal Sex Male 11:38 AM PACKAGING TECH Gender Identity Not on file Sexual Orientation Not on file 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
--- OUTSIDE RECORDS SUMMARY | 2024-06-26 13:18 | XMS_ITS | CONTINUITY OF CARE DOCUMENT ---
Author Name sandoval nick Address Unknown Organization [facility] Address [address] [place] [address] [address] [place] [address] Phone [phone] Care Team Providers Care Survey Compiler Name Role Phone Micah BRO, Bernardo Unavailable [phone] REAGAN SAUL MD Unavailable REAGAN SAUL MD Unavailable [phone] PROBLEMS Condition Status Date Provider Notes Anemia active Zaria Aj Subclavian stenosis - right active Bernardo Obrien MD C V A / Stroke active ? Echo Gutierrez RN ( History of) Diabetes, Type 2 active ? Echo Gutierrez RN Hyperlipidemia active ? Echo Gutierrez RN Hypertension active ? 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 active Echo Gutierrez RN [...] CAD - In-person encounter Office Visit Bernardo Mhoan Office CAD - In-person encounter Office Visit Bernardo Mohan Office - In-person encounter Office Visit Bernardo Mohan Office - In-person encounter Office Visit Bernardo Mohan Office C V A / StrokeDiabet es, Type 2HyperlipidemiaHypertensi onTobacco abuseRenal artery stenosisRenal insufficiency chronic unspecifiedCarotid artery stenosis - rightAortic atherosclerosisPVD - unspecified VITAL SIGNS Date Observation Value Provider Body Mass Index (Ratio) 24.14 kg/m2 nicole Obrien MD oxygen saturation, oximetry 97 % Angelica Perez pulse rate 90 /min Angelica Perez blood pressure, diastolic 71 mm[Hg] Em allan Perez blood pressure, systolic 114 mm[Hg] Farzana Perez weight E&M 183 [lb_av] Angelica Perez blood pressure, cuff size regular Renee Perez height E&M 73 [in_i] Angelica Perez Body Mass Index (Ratio) 24.01 kg/m2 [facility] Micah BRO weight E&M 182 [lb_av] Anna O'Junior SERVICE CONSULTANT blood pressure, diastolic 84 mm[Hg] Li nkLogic [...] blood pressure, diastolic 65 mm[Hg] Althea santoyole [place] blood pressure, systolic 105 mm[Hg] [facility] shahab [place] oxygen saturation, oximetry 99 % Jacque Pollard pulse rate 96 /min Jacque mckeon respiratory rate E&M 16 /min Wendy crain [place] blood pressure, cuff size large Nv kash Pollard weight E&M 207 [lb_av] Jacque [...] blood pressure, diastolic 66 mm[Hg] Althea hewitt [place] blood pressure, systolic 100 mm[Hg] Bryon gudino [place] oxygen saturation, oximetry 96 % Jacque Atul pulse rate 87 /min Jacque mckeon weight E&M 206 [lb_av] Jacque mckeon respiratory rate E&M 16 /min Wendy crain Pollard blood pressure, cuff size large Althea hewitt [place] height E&M 73 [in_i] Jacque mckeon Body [...] /min Aminah ONicolasaJunior pulse rate 73 /min [facility], resting Yes Isael [...] pressure, diastolic, supine 80 mm[H g] Portia Meacham blood pressure, systolic, supine E&M 116 mm[Hg] Portia Meacham blood pressure, diastolic 80 mm[Hg] Lupe nkLogic blood pressure, systolic 116 mm[Hg] Silvana Quintanillaogic oxygen saturation, oximetry 96 % Portia Larry respiratory rate E&M 16 /min Portia Meacham pulse rate 75 /min Portia Larry blood pressure, cuff size large Stefany leatha Larry blood pressure, diastolic 80 mm[Hg] Stefany leatha [place] blood pressure, systolic 116 mm[Hg] Lula rice [place] height E&M 73 [in_i] Jacque mckeon weight E&M 223 [lb_av] Portia Meacham Body Mass Index (Ratio) 27.44 kg/m2 Jaqui Obrien MD blood pressure, cuff size large Althea kash Atul blood pressure, diastolic 90 mm[Hg] Nv kash Atul blood pressure, systolic 150 mm[Hg] [facility] shahab Atul oxygen saturation, oximetry 97 % [...] Holly oxygen saturation, oximetry 98 % Jacque Holyl respiratory rate E&M 20 /min Wendy Holly pulse rate 64 /min Jacque Holly weight E&M 213 [lb_av] Jacque Holly height E&M 73 [in_i] Jacque Radford Body Mass Index (Ratio) 29.81 kg/m2 Jaqui [...] % Angel Gonzalo pulse rate 72 /min Rafaelonia Antelope respiratory rate E&M 16 /min Angel Antelope weight E&M 212 [lb_av] Angel Antelope height E&M 73 [in_i] [facility] Body Mass Index (Ratio) 29.15 kg/m2 Yadira Gutierrez RN blood pressure, resting Yes Iesh a [place] blood pressure, diastolic 60 mm[Hg] Ie sha [place] blood pressure, systolic 100 mm[Hg] Ies ferreira [place] oxygen saturation, oximetry 97 % [place] respiratory rate E&M 16 /min Pascale W [...] High 3 cholesterol, serum 162 mg/dL Link[employer]ic 167-701 3591/03/1 1 hemoglobin A1C, blood, as % of [...] 44.0-73.0 6 platelet count 166 X10E9/L [facility] 119-633 2262/02/1 6 red blood cell distribution width 12.8 [...] High 6 cholesterol, serum 126 mg/dL [facility] 339-490 7351/12/0 6 calcium, serum 10.5 mg/dL [facility] 8.6-10.2 High 6 carbon dioxide, venous blood 21 mmol/L [facility] 20-29 6 chloride, serum 101 mmol/L [employer] 96-106 6 potassium, serum 5.3 mmol/L [employer] 3.5-5.2 High 6 sodium, serum 142 mmol/L [employer] 162-954 3718/12/0 6 urea nitrogen/creatinin e ratio, serum 11 [...] Estab. 6 platelet count 178 X10E3/UL [employer] 221-111 9310/12/0 6 red blood cell distribution width 12.2 [...] High 6 cholesterol, serum 113 mg/dL [employer] 578-654 1778/11/0 3 microalbumin/creat inine ratio, urine 370 MG/G CREAT Link[employer]ic 0-29 High 3 microalbumin, random, urine 68.04 mg/dL [employer] Units converted. See lab report for original value. 3 creatinine, random, urine 184.0 mg/dL LinkLog[facility] Not Estab. HISTORY OF MEDICATION USE Medication Status Instructions Dates Provider Indications Com ments Ozempic 1 mg/dose (4 mg/3 mL) pen injector active INJECT 1 MG UNDER THE SKIN ONCE A WEEK 06/17 [facility] Specialist Crestor 20 mg tablet active Take 1 tablet by mouth once a day 04/14 Anna Rothman'Junior SERVICE CONSULTANT Zetia 10 mg tablet active TAKE 1 [...] CAPSULE BY MOUTH EVERY DAY 03/06 Pamela Rushialetha Ozempic 1 mg/dose (4 mg/3 mL) pen injector completed Inject 1 mg subcutaneously once a week 03/05 - 06/17 [facility] Specialist Jardiance 25 mg tablet active TAKE 1 TABLET BY MOUTH EVERY DAY 03/24 Keagan ammonium lactate 12% cream active as directed Jaja Harrison ramipril 5 mg capsule completed Take 1 capsule by mouth once a day 06/05 - 03/06 Jammie Meenu Humulin R Regular U-100 Insuln 100 unit/mL solution active as directed Jaja Begum FlexTouch U-100 Insuln 100 unit/mL (3 mL) insulin pen active inject 30 units twice a day Bernardo Obrien MD amlodipine 5 mg tablet completed - 06/05xavier Obrien MD Xarelto 2.5 mg tablet completed [...] a week 04/27 - 10/14 Anna Abdullahi SERVICE CONSULTANT losartan 50 mg tablet completed Take 1 [...] EVERY DAY 07/24 - 04/14 Anna Abdullahi SERVICE CONSULTANT HYDROCHLOROTHIAZI DE 12.5 MG ORAL CAPSULE completed ONE TAB. DAILY - 05/06xavier Obrien MD LEVEMIR SOLUTION completed 40 unit twice a day 03/06 - 05/03 Bernardo Obrien MD HYDROCODONE-ACETA MINOPHEN 5-325 MG ORAL [...] nd smoking status Former smoker Jacque nunes number of years as a smoker 40+ Ghislaine Prem smoking history, tot al pack/day 2 Ghislaine Prem cigarette use yes Ghislaine Prem smoking status Former smoker Ghislaine Amaro number of years as a smoker 40+ Jacque Atul smoking history, tot al pack/day 2 Jacque Atul cigarette use yes Jacque Hernandez nd smoking [...] smoking status Current every day smoker Anabel sahil O'Junior smoking history, tot al pack/day 2 Portia Larry cigarette use yes Portia Larry smoking status Current every day smoker Costa Pichardon smoking/tobacco cess ation, patient education and counseling yes Jacqeu Pollard number of years as a smoker 40+ Jacque Pollard smoking history, tot al pack/day 1-2 Jacque Pollard cigarette use yes Jacque Hernandez nd smoking status Current every day smoker Anabel kameron Pollard smoking/tobacco cess ation, patient education and [...] smoking status Current every day smoker Anabel baxter O'Junior smoking/tobacco cess ation, patient education and [...] - no changes required Bernardoxavier Obrien MD smoking status Current every day smoker Anabel Mei number of years as a smoker 50 a Bernardoxavier Obrien MD smoking history, tot al pack/day 2-3 Bernardoxavier Obrien MD cigarette use yes Bernardonicole Obrien MD smoking status Current every day smoker S [...] revi ewed - no changes required Bernardo Micah BRO social history E&M Patient ricky johnson smokes [...] Assessme nt not done medical contraindication Angelica Chris HRA, CV Assess/Plan, Angina (inactive) Management Plan [...] Payer name Policy type / Coverage type [place] red green party ID [employer] MED[employer]ARE [employer]ANTAGE [address] (HMO POS) Medicare [id number] ADVANCE DIRECTIVES Name Date DISCUSSED - NO DECISION MADE TREATMENT PLAN Date Name Performer [id number],Tonja Panda has since last visit had his great and 2nd toe amputated - and is healing H germaine also had a US to bilateral LE today a ll the stents are patent, and arteries are open Bernardo Obrien MD [id number],Tonja Panda has since last visit had his great and 2nd toe amputated H germaine also had a US to bilateral LE today a ll the stents are patent, and arteries are open Jaja De La Torre SERVICE CONSULTANT [id number],C, l dl 59 w ill check LP(a) Jaja De La Torre SERVICE CONSULTANT [id number],C, B P today: 105/65 P rior BP: 160/95 (07/17/2022) Labs Reviewed: C reat:2.20 - (04/2022) C hol: 126 (02/07/2022) HDL: 41 (02/07/2022) w ill check UACR Jaja De La Torre SERVICE CONSULTANT [id number],C,H as now quit smoking Jaja De La Torre SERVICE CONSULTANT [id number],C, n egative doppler 2020 Jaja De La Torre SERVICE CONSULTANT [id number],C, a bdominal aortic atherosclerosis and stenosis, and left iliac stenosis. . CT Abd/thorax also showed atherosclerosis thoracic aorta likely has CAD as well e cho 2018 - EF 65%, mild AI Jaja De La Torre SERVICE CONSULTANT [id number],C, r are cp a lways sob - copd Jaaj De La Torre SERVICE CONSULTANT [id number],C,takes a puff every now and then Bernardonicole Obrien MD [id number],C,a dvised to check at home His updated [...] (02/07/2022) HDL: 41 (02/07/2022) Bernardo Obrien MD [id number],C, n egative doppler 2020 Bernardonicole Obrien MD [id number],C,I s walking and wants amputation for his first two toes/ R ight sfa stents patent on doppler Bernardo Obrien MD [id number],C,l dl 59 c heck Lp(a) Bernardo Obrien MD [id number],C,on jardiance Bernardo Obrien MD [id number],C, Since February when he underwent the AIF on the Right LE and was admitted for lytic rx afterwards, and 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 The rest of his foot has improved. Bernardo Obrien MD [id number],C,tolerating as a and xarelo Bernardo Obrien MD [id number],C, S juan the last visit he now is scheduled for a TMA of the right foot. 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 H e is scheduled for surgery in 2 days [...] Ambulating with a boot. Bernardo Obrien MD [id number],C, c heck A1c l ast A1c 7% d ouble trulicity to 1.5mg Bernardo Obrien MD [id number],C, L DL 59 His updated medication list for this problem includes: Crestor 5 Mg Tablet (Rosuvastatin) ..... 1 tablet once a day Ezetimibe 10 Mg Tablet (Ezetimibe) ..... 1 tablet once a day Bernardo Obrien MD [id number],S, H e has now quit smoking - very difficult but he continues to be successful [facility] [id number],S, r are cp a lways sob - copd [facility] [id number],C, B P today: 96/53 P rior BP: 94/62 (04/19/2022) The following medications were removed from the medication list: Candesartan 4 Mg Tablet (Candesartan) ..... 1 tablet once a day His updated medication list for this problem includes: Aspirin 81 Mg Tablet,delayed Release (dr/ec) (Aspirin) ..... 1 tablet by mouth once a day Candesartan 4 Mg Tablet (Candesartan) ..... 1 tablet once a day [facility] [id number],C, B P today: 94/62 P rior BP: 120/70 (02/22/2022) Labs Reviewed: C reat: 2.22 (02/07/2022) C hol: 126 (02/07/2022) HDL: 41 (02/07/2022) Jaja Esparza Wil SPENCE [id number],C, H germaine has now quit smoking - very difficult but he continues to be successful Jaja De La Torre NP [id number],C, c r 2.22 Jaja Isaias Wil SPENCE [id number],C, S juan the last visit he now [...] post amputation Jaja De La Torre NP [id number],C, H is updated medication list for this problem includes: Aspirin 81 Mg Tablet,delayed Release (dr/ec) (Aspirin) ..... 1 tablet by mouth once a day Candesartan 4 Mg Tablet (Candesartan) ..... 1 tablet once a day [facility] [id number],[facility],R LE pain better post intervention but had dry gangrene in disal 1/2 of first and second toes. w ill do close surveillance advised to see Dr Alvarez (his trackman for toe amputation) or might auto amputate h germaine has no pain and this is dry gangrene [facility] [id number],C,100% isr left kidney on angiogram [id number],C,c r 2.22 [facility] [id number],C,w ill do aif in our lab with CO2 angiography [facility] [id number],C, H is updated medication list for this problem includes: Aspirin 81 Mg Tablet,delayed Release (dr/ec) (Aspirin) ..... 1 tablet by mouth once a day Candesartan 4 Mg Tablet (Candesartan) ..... 1 tablet once a day [facility] [id number],C,urged to quit [facility] [id number],C,C /o right leg geting cold and right calf weakness. He had to walk 600feet and right leg cramped up and had to stop twice 'left leg was fine. He can do 100 to 200 feet before he has to stop. H germaine is still smoking w ill plan aif as he is very sytomatic and finds this very limiting [facility] [id number],C,C /o right arm becoming weak if he does too much but states that he is very inactive. [facility] [id number],C,dm better wti h jardiance - 7% [facility] [id number],C,s till smoking n o intention of quitting l dct Micah BRO [id number],C,improved per pt Micah BRO [id number],C,n egative doppler 2020 Micah BRO [id number],C,C /o right leg geting cold and right calf weakness c heck bárbara Micah BRO [id number],C,r ight arm pain with exertion b ut does not bother enought to fix Micah BRO [id number],C, r are cp a lways sob - copd Micah BRO [id number],C,j ardiance 10 i ncrease to 25 uacr 370 Micah BRO [id number],C,wc s [id number],C,s till smoking u rged to quit Micah BRO [id number],C,n o claudication n o wounds or sores Obrien [id number],C,no cp or sob Obrien [id number],C,no palpitatio n Micah BRO [id number],C,r ight upper arm pain sometimes - l asts 10 minutes o nce every three days o ptions d/w pt and he does not thinks the sx are bad enough and will leave it be for now Micah BRO [id number],C, s /p left renal stents in 2017 - was a herculink stent a ppear occluded on doppler today with atropic left kidney Micah BRO [id number],C,a pparently about the same per Micah BRO [id number],C,will check li pids and CRP Jaja De La Torre SERVICE CONSULTANT [id number],C, s dennis last hgb a1c 7 c heck uacr also advised to cut levemir down to 30 u bid Jaja De La Torre SERVICE CONSULTANT [id number],C, B P today: 150/90 P rior BP: 168/96 (07/05/2020) Jaja De La Torre SERVICE CONSULTANT [id number],C, c ontinues to smoke, not able to quit Jaja De La Torre SERVICE CONSULTANT [id number],C, s /p left renal stents Jaja De La Torre SERVICE CONSULTANT [id number],C, His renal function is worse and sees Dr Zimmerman. 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 Jaja De La Torre SERVICE CONSULTANT [id number],C,l ast doppler 07/2020 - P atent right ICA stent. 2 . <50% stenosis of the left ICA. Jaja De La Torre SERVICE CONSULTANT Cardiology: * Increase crestor to 20 mg/day and start zetia 10 mg/day. 04/2023 Labs: l ipo-a: 39.3 t otal: 162, TG 208, HDL 50, LDL 77 His updated medication list for this problem includes: Crestor 5 Mg Tablet (Rosuvastatin) ..... 1 tablet once a day Anna Kaylen SERVICE CONSULTANT Cardiology: B P today: 114/71 P rior [...] D idn't get proBNP from last time. F johnson with [facility]. * Update labs. Get echo to [...] light cigs. S tressed cessation Anna Abdullahi BEBE Cardiology: H e has gone back to smoking 3/4 pack/day. S tressed cessation Anna Abdullahi SERVICE CONSULTANT Cardiology: Labs: l ipo-a: 39.3 t otal: 162, TG 208, HDL 50, LDL 77 The following medications were removed from the medication list: Ezetimibe 10 Mg Tablet (Ezetimibe) ..... 1 tablet once a day H is updated medication list for this problem includes: Crestor 5 Mg Tablet (Rosuvastatin) ..... 1 tablet once a day Anna JeanJunior BEBE Cardiology: B P today: 130/84 P [...] tablet by mouth once a day Anna JeanJunior SPENCE Cardiology:Will upda te probnp 04/2023 Labs: a lb/Cr ratio: 373 04/2022 Labs: C r 2.20 e GFR = 29 Anna JeanJunior SPENCE Cardiology: c arotid duplex (05/01/2023): 1 . Mild plaque with less than 50% stenosis of the internal carotid arteries bilaterally. 2 . Vertebral flow is antegrade bilaterally. 3 . Right carotid stents are patent with no significant abnormalities. Anna JeanJunior SPENCE Cardiology: s table clinically W ill [...] plantar artery in the foot. Anna Abdullahi SERVICE CONSULTANT Cardiology: d enies chest pain Anna Abdullahi SERVICE CONSULTANT Cardiology: d enies pain Anna Abdullahi NP Cardiology:still andi lujan Bernardo Micah BRO Cardiology: H is updated medication list for this problem includes: Crestor 5 Mg Tablet (Rosuvastatin) ..... 1 tablet once a day Ezetimibe 10 Mg Tablet (Ezetimibe) ..... 1 tablet once a day C HOL: 126 (02/07/2022) LDL: 59 (02/07/2022) HDL: 41 (02/07/2022) T (02/07/2022) will check lipids Bernardo Micah BRO Cardiology: H is updated medication list for this problem includes: Ramipril 5 Mg Capsule (Ramipril) ..... Take 1 capsule by mouth every day Aspirin 81 Mg Tablet,delayed Release (dr/ec) (Aspirin) ..... 1 tablet by mouth once a day Micah BRO Cardiology:check bmp Micah BRO Cardiology:check carotids Micah BRO Cardiology:stable cl inically c heck bárbara Micah BRO Cardiology:no angina Bernardo Micah BRO Cardiology:right arm - once in a while - not bad enough per him Micah BRO Cardiology: Tonja crain has since last visit had his great and 2nd toe amputated - and is healing Tonja crain also had a US to bilateral LE today a ll the stents are patent, and arteries are open Bernardo Obrien MD Cardiology: Tonja crain has since last visit had his great and 2nd toe amputated Tonja crain also had a US to bilateral LE today a ll the stents are patent, and arteries are open Jaja De La Torre SERVICE CONSULTANT Cardiology: l dl 59 w ill check LP(a) Jaja De La Torre SERVICE CONSULTANT Cardiology: B P today: 105/65 P rior BP: 160/95 (07/17/2022) Labs Reviewed: C reat:2.20 - (04/2022) C hol: 126 (02/07/2022) HDL: 41 (02/07/2022) w ill check UACR Jaja De La Torre SERVICE CONSULTANT Cardiology:Has now q uit smoking Jaja De La Torre BEBE Cardiology: n egative doppler 2020 Jaja De La Torre BEBE Cardiology: a bdominal aortic atherosclerosis and stenosis, and left iliac stenosis. . CT Abd/thorax also showed atherosclerosis thoracic aorta likely has CAD as well e cho 2018 - EF 65%, mild AI Jaja De La Torre SERVICE CONSULTANT Cardiology: r are cp a lways sob - copd Jaja De La Torre BEBE Cardiology:takes a puff every no w and then Bernardoxavier Obrien MD Cardiology:advised t o check at [...] ight sfa stents patent on doppler Bernardo Micah BRO Cardiology:ldl 59 c heck Lp(a) Bernardo Micah BRO Cardiology:on jardiance Bernardonicole Obrien MD Cardiology: Since when he underwent the AIF on the Right LE and was admitted for lytic rx afterwards, and 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 The rest of his foot has improved. Bernardo Micah BRO Cardiology:tolerating asa and xa relo Bernardo Micah BRO Cardiology: S juan the last visit he [...] has resolved. Ambulating with a boot. Bernardo Micah BRO Cardiology: gonzalez heck A1c l ast A1c 7% d ouble trulicity to 1.5mg Bernardo Micah BRO Cardiology: L DL 59 His updated medication list for this problem includes: Crestor 5 Mg Tablet (Rosuvastatin) ..... 1 tablet once a day Ezetimibe 10 Mg Tablet (Ezetimibe) ..... 1 tablet once a day Bernardo Micah BRO Cardiology: Tonja crain has now quit smoking - very difficult but he continues to be successful Bernardo Micah BRO Cardiology: r are cp a lways sob - copd Bernardo Micah BRO Cardiology: B P today: 96/53 P rior [...] hol: 126 (02/07/2022) HDL: 41 (02/07/2022) Jaja De La Torre NP Cardiology: Tonja crain has now quit smoking - very difficult but he continues to be successful Jaja De La Torre NP Cardiology: c r 2.22 Jaja De La Torre NP Cardiology: S juan the last visit he [...] post amputation Jaja De La Torre NP Cardiology: H is updated medication list for this problem includes: Aspirin 81 Mg Tablet,delayed Release (dr/ec) (Aspirin) ..... 1 tablet by mouth once a day Candesartan 4 Mg Tablet (Candesartan) ..... 1 tablet once a day Bernardo Obrien MD Cardiology:RLE pain better post intervention but had dry gangrene in disal 1/2 of first and second toes. w ill do close surveillance advised to see Dr Alvarez (his trackman for toe amputation) or might auto amputate h germaine has no pain and this is dry gangrene Bernardoxavier Obrien MD Cardiology:100% isr left kidney on angiogram Bernardoxavier Obrien MD Cardiology:cr 2.22 Micah BRO Cardiology:will do aif in our la b with CO2 angiography Micah BRO Cardiology: H is updated medication [...] Cardiology:improved per pt Micah BRO Cardiology:negative doppler 2020p Micah BRO Cardiology:C/o right leg geting cold and right calf weakness c heck bárbara Micah BRO Cardiology:right arm pain with exertion b ut does not bother enought to fix Micah BRO Cardiology: r are cp a lways sob - copd Micah BRO Cardiology:jardiance 10 i ncrease to 25 uacr 370 Micah BRO Cardiology:wc Bernardo Micah BRO Cardiology:still smo baljit u rged to quit Micah BRO Cardiology:no claudi cation n o wounds or sores Micah BRO Cardiology:no cp or sob Micah BRO Cardiology:no palpitation p Micah BRO Cardiology:right upp er arm pain sometimes - l asts 10 minutes o nce every three days o ptions d/w pt and he does not thinks the sx are bad enough and will leave it be for now Micah BRO Cardiology: s /p left renal stents in 2017 - was a herculink stent a ppear occluded on doppler today with atropic left kidney Micah BRO Cardiology:apparentl y about the same per Micah BRO Cardiology:will check lipids and CRP [...] shows previously treated 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 No curr ent ulcers. He walks with a cane. Back is limiting factor in exertion although does report chronic leg pains. His trackman says left foot pulse getting weak. left SFA is ostially occluded and popliteal collateralizes in the P1 segment via collaterals from the profunda.three-vessel runoff below the knee proximally. check sensilase BÁRBARA Echo Gutierrez RN Cardiology:moderate LICA stenosis 2013 R t carotid artery stent 2012 h [...] States chronic SOB but not worsening lately. H e reports blood in urine about 2 weeks [...] hospital r emains orthostatic today stop hct Bernardo Obrien MD Cardiology -ltr done :foot better -has palpable pulses c ilostazol stopped Bernardo Obrien MD Cardiology -ltr done :he is continuing to work on quitting c utting down, mostly around .25 ppd Bernardo Obrien MD Cardiology -ltr done :RVOT origin [...] r ight 1st toe ingrown toenail, saw trackman (), took part of toenail off about [...] hold left hand for cath call Mason dupontgermaine - 3N Bernardo Obrien MD Cardiology -ltr done:will add ja rdiance Bernardoxavier Obrien MD Cardiology -ltr done:per Calliso n Bernardo Obrien MD Cardiology -ltr done :will try chantix -script given w ill need to r/o AAA Bernardo Obrien MD Cardiology -ltr done:Creat 2 Diandra Obrien MD Cardiology -ltr done :BP today: 134/80 P rior BP: 140/70 (11/20/2016) Bernardo Obrien MD Cardiology -SD TO DO : H is updated medication list for this problem includes: Aspirin Adult Low Dose 81 Mg Oral Tbec (Aspirin) ..... One tab by mouth daily Exforge Hct 10-320-25 Mg Oral Tabs (Imkekvpnab-ueglugezx-bdoa) BP today: 140/70 P rior BP: 138/78 [...] and stenosis, and left iliac stenosis. H germaine has BLE leg weakness, LLLE>RLE, but he [...] MD completed Complex e/m visit add on Bernardoxvaier Obrien MD completed EKG Bernardo Obrien MD completed EKG Bernardo Obrien MD completed EKG Bernardo Obrien MD completed EKG Bernardo Obrien MD completed EKG Bernardo Obrien MD completed Mobile Cardiac Telem etry - Tech Bernardo Obrien MD completed Mobile Cardiac Telem etry - Prof Bernardo Obrien MD completed SNOMED-CT: 894208716 Smoking Cessation Counseling Bernardo Obrien MD completed SNOMED-CT: 83197965 Physical Exam, Performed: Pulse Exam of Foot Bernardo Obrien MD completed SNOMED-CT: 198957270 464458 Current Medications Documented Bernardo Obrien MD completed Stress EKG Anthony Shea MD complet ed Regadenoson, 4 units Bernardo Obrien MD completed Cardiolite, 2 units Bernardo Obrien MD c ompleted SPECT Images Anthony Shea MD compl eted SNOMED-CT: 41092615 Physical Exam, Performed: Pulse Exam of Foot Bernardo Obrien MD completed SNOMED-CT: 822636720 872810 Current Medications Documented Bernardo Obrien MD completed SNOMED-CT: 412567144 Smoking Cessation Counseling Bernardo Obrien MD completed SNOMED-CT: 87703250 Physical Exam, Performed: Pulse Exam of Foot Bernardo Obrien MD completed SNOMED-CT: 589609869 007351 Current Medications Documented Bernardo Obrien MD completed SNOMED-CT: 697937976 Smoking Cessation Counseling Bernardo Obrien MD completed SNOMED-CT: 93500755 Physical Exam, Performed: Pulse Exam of Foot Bernardo Obrien MD completed EKG Bernardo Obrien MD completed SNOMED-CT: 613545626 038673 Current Medications Documented Bernardo Obrien MD completed
== END 2024-06-26 12:01 | disposition home or self-care (01) ==
LOC: ANHLAB 12:05
PROVIDERS: PCP Family Medicine; Visit Provider Internal Medicine Hematology & Oncology
DX: D45 Polycythemia vera (principal)
CPT/HCPCS: 36415; 85027; 99212; G0463

== ENCOUNTER 2024-07-24 12:06 | Outpatient (CLI) | payer MEDICARE, SELFPAY ==
--- OUTSIDE RECORDS SUMMARY | 2024-07-24 12:11 | XMS_ITS | Encounter Summary ---
Author Organization [facility] Address [address] [place] [address] Care Team Providers Care Tumbling Machine Operator Name Role Phone Jere Tillman MD Primary Care Provider [phone] Kieran Albert MD Unavailable [phone] Alek Enrique MD Unavailable [phone] Encounter Details Date Type Department Care Team (Late st Contact Info) Description 06/25/2013 Therapy Visit EXTERNAL NON-[facility] DEPT Unknown, Provider Social History Tobacco Use Types Packs/Day Years Used Date Smoking Tobacco: Former Cigarettes 2 45 1 - 12/29/2012 Smokeless Tobacco: Never Alcohol Use Standard Drinks/Week Comments Yes 0 (1 standard drink = 0.6 oz pur e alcohol) Rarely Sex and Gender Information Value Date Recorded Sex Assigned at Not on file 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 Gender Identity Not on file Sexual Orientation Not on file 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
--- OUTSIDE RECORDS SUMMARY | 2024-07-24 12:11 | XMS_ITS | Clinical Summary ---
Author Organization [facility] [employer] Address [address] [place] [address] Care Team Providers Care Sports Therapist Name Role Phone Jere Tillman MD Primary Care Provider [phone] Kieran Albert MD Unavailable Alek Enrique MD Unavailable [phone] Source Comments [facility],non-owned Affiliates and Associated Physician Practices is amultiple site organization consisting of ambulatory clinics and hospital sitesin [place], [place], [place] and [place]. This disclosure is being madepursuant to the Care Everywhere program and may not contain all information available regarding this patient. 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
--- OUTSIDE RECORDS SUMMARY | 2024-07-24 12:11 | XMS_ITS | Encounter Summary ---
Author Organization [facility] Address [address] [place] [address] Care Team Providers Care Contracting Executive Name Role Phone Wilber Whittington MD Primary Care Provider [phone] Encounter Details Date Type Department Care Team (Late st Contact Info) Description 07/22/2024 External Device Data STL ABSTRACTION Provider, Abstract [...] Description 08/01/2024 11:30 AM CDT Office Visit [facility] [place] [address] [place] [address] [address] [place] [address] Kieran Fowler MD [address] [place] [address] documented as of this encounter Visit Diagnoses Not on filedocumented in this encounter Care Teams Contracting Executive Relationship Specialty Start Date End Date Wilber Whittington MD [address] [facility] [address] [place] [address] PCP - General Family Practice 09/26/23 documented as of this encounter
--- OUTSIDE RECORDS SUMMARY | 2024-07-24 12:11 | XMS_ITS | CONTINUITY OF CARE DOCUMENT ---
Author Name sandoval nick Address Unknown Organization [facility] Address [address] [place] [address] [address] [place] [address] Phone [phone] Care Team Providers Care Lumber Handler Name Role Phone Micah BRO, Bernardo Unavailable [phone] REAGAN SAUL MD Unavailable REAGAN SAUL MD Unavailable [phone] PROBLEMS Condition Status Date Provider Notes Anemia active Zaria Moshernandez Subclavian stenosis - right active Bernardo Obrien MD C V A / Stroke active ? Echo Gutierrez RN ( History of) Diabetes, Type 2 active ? Echo Gutierrez RN Hyperlipidemia active ? Echo Gutierrez RN Hypertension active ? Echo Gutierrez RN Tobacco abuse active Echo Gutierrez supply coordinator artery stenosis active Echo engel supply coordinator insufficiency chronic unspecified active Echo Gutierrez RN [...] Perez Body Mass Index (Ratio) 24.01 kg/m2 [facility] Micah RBO weight E&M 182 [lb_av] Anna O'Junior GAME WARDEN blood pressure, diastolic 84 mm[Hg] Li nkLogic [...] blood pressure, diastolic 65 mm[Hg] Althea santoyole [place] blood pressure, systolic 105 mm[Hg] [facility] hsahab [place] oxygen saturation, oximetry 99 % Jacque Pollard pulse rate 96 /min Jacque mckeon respiratory rate E&M 16 /min Wendy crain [place] blood pressure, cuff size large Nm kash [place] weight E&M 207 [lb_av] Jacque [...] blood pressure, diastolic 66 mm[Hg] Althea hewitt [place] blood pressure, systolic 100 mm[Hg] Bryon gudino [place] oxygen saturation, oximetry 96 % Jacque Atul pulse rate 87 /min Jacque mckeon weight E&M 206 [lb_av] Jacque mckeon respiratory rate E&M 16 /min Wendy crain [place] blood pressure, cuff size large Althea hewitt [place] height E&M 73 [in_i] Jacque mckeon Body [...] /min Aminah ONicolasaJunior pulse rate 73 /min [facility], resting Yes Isael ferreira O'Junior weight E&M 211 [lb_av] Aminah OJunior height E&M 73 [in_i] Aminah OJunior Body Mass Index (Ratio) 28.63 kg/m2 Sund xavier Obrien MD blood pressure, diastolic 89 mm[Hg] Lupe Perez blood pressure, systolic 143 mm[Hg] Lis a Perez weight E&M 217 [lb_av] Dipti Perez pulse rate 77 /min Dipti Perze oxygen saturation, oximetry 97 % Dipti Perez [...] pressure, systolic, supine E&M 116 mm[Hg] Portia Marshall blood pressure, diastolic 80 mm[Hg] Lupe nkLogic blood pressure, systolic 116 mm[Hg] Silvana Quintanillaogic oxygen saturation, oximetry 96 % Portia Marshall respiratory rate E&M 16 /min Portia Marshall pulse rate 75 /min Portia Larry blood pressure, cuff size large Stefany leatha Marshall blood pressure, diastolic 80 mm[Hg] Stefany leatha Larry blood pressure, systolic 116 mm[Hg] Lula rice Larry height E&M 73 [in_i] Jacque mckeon weight E&M 223 [lb_av] Portia Marshall Body Mass Index (Ratio) 27.44 kg/m2 Jaqui Obrien MD blood pressure, cuff size large Althea kash Atul blood pressure, diastolic 90 mm[Hg] Nm kash Atul blood pressure, systolic 150 mm[Hg] [facility] shahab At[place] oxygen saturation, oximetry 97 % [...] Jacque Holly height E&M 73 [in_i] Jacque Elayne Body Mass Index (Ratio) 29.81 kg/m2 Jaqui Obrien MD blood pressure, diastolic 80 mm[Hg] Sandra allen O'Junior blood pressure, systolic 140 mm[Hg] Marysol blankenship O'Jun[place] oxygen saturation, oximetry 98 % Aminha O'Junior respiratory rate E&M 18 /min Aminah [...] Angel Gonzalo pulse rate 72 /min Rafaelonia [place] respiratory rate E&M 16 /min Angel [place] weight E&M 212 [lb_av] Angel [place] height E&M 73 [in_i] [facility] Body Mass Index (Ratio) 29.15 kg/m2 Yadira Gutierrez RN blood pressure, resting Yes Iesh a [place] blood pressure, diastolic 60 mm[Hg] Ie sha [place] blood pressure, systolic 100 mm[Hg] Ies ferreira [place] oxygen saturation, oximetry 97 % [place] respiratory rate E&M 16 /min [place] W [...] High 3 cholesterol, serum 162 mg/dL LinkLogic 272-577 8794/03/1 1 hemoglobin A1C, blood, as % of [...] 44.0-73.0 6 platelet count 166 X10E9/L LinkLogic 610-751 4030/02/1 6 red blood cell distribution width 12.8 [...] High 6 cholesterol, serum 126 mg/dL [employer] 845-221 2290/12/0 6 calcium, serum 10.5 mg/dL [employer] 8.6-10.2 High 6 carbon dioxide, venous blood 21 mmol/L Link[employer]ic 20-29 6 chloride, serum 101 mmol/L [employer] 96-106 6 potassium, serum 5.3 mmol/L [employer]ic 3.5-5.2 High 6 sodium, serum 142 mmol/L [employer]ic 311-458 1251/12/0 6 urea nitrogen/creatinin e ratio, serum 11 [...] Estab. 6 platelet count 178 X10E3/UL [employer]Logic 152-139 3978/12/0 6 red blood cell distribution width 12.2 [...] High 6 cholesterol, serum 113 mg/dL LinkLogic 760-135 8137/11/0 3 microalbumin/creat inine ratio, urine 370 MG/G [...] UNDER THE SKIN ONCE A WEEK 06/17 [facility] PA Specialist Crestor 20 mg tablet active Take 1 tablet by mouth once a day 04/14 Anna Rothman'Junior [employer] Zetia 10 mg tablet active TAKE 1 [...] subcutaneously once a week 03/05 - 06/17 [facility] Specialist Jardiance 25 mg tablet active [...] a week 04/27 - 10/14 Anna Abdullahi [employer] losartan 50 mg tablet completed Take 1 [...] EVERY DAY 07/24 - 04/14 Anna Abdullahi [employer] HYDROCHLOROTHIAZI DE 12.5 MG ORAL CAPSULE completed [...] revi ewed - no changes required Bernardo Orbien MD number of years as a smoker [...] smoking history, tot al pack/day 2 Portia Marshall cigarette use yes Portia Marshall smoking status Current every day smoker Costa [...] P atient has been counseled to quit. Benrardonicole Obrien MD smoking/tobacco cess ation, patient education [...] (inactive) Management Plan continue current therapy Bernardo Micha BRO HRA, CV Assess/Plan, Angina (inactive) Management [...] Payer name Policy type / Coverage type [employer] red [employer] party ID A[employer] MEDICARE ADVANTAGE ST 0 003 (HMO POS) Medicare [id number] ADVANCE DIRECTIVES Name Date DISCUSSED - NO DECISION MADE TREATMENT PLAN Date Name Performer [id number],Tonja Panda has since last visit had his great and 2nd toe amputated - and is healing H germaine also had a US to bilateral LE today a ll the stents are patent, and arteries are open Bernardo Obrien MD [id number],Tonja Panda has since last visit had his great and 2nd toe amputated H germaine also had a US to bilateral LE today a ll the stents are patent, and arteries are open Jaja De La Torre GAME WARDEN [id number],C, l dl 59 w ill check LP(a) Jaja De La Torre G[employer] W[employer]EN [id number],C, B P today: 105/65 P rior BP: 160/95 (07/17/2022) Labs Reviewed: C reat:2.20 - (04/2022) C hol: 126 (02/07/2022) HDL: 41 (02/07/2022) w ill check UACR Jaja De La Torre GAME WARDEN [id number],C,H as now quit smoking Jaja De La Torre [employer]EN [id number],C, n egative doppler 2020 Jaja De La Torre [employer] [id number],C, a bdominal aortic atherosclerosis and stenosis, and left iliac stenosis. . CT Abd/thorax also showed atherosclerosis thoracic aorta likely has CAD as well e cho 2018 - EF 65%, mild AI Jaja De La Torre GAME WARDEN [id number],C, r are cp a lways sob - copd Jaja De La Torre [employer] [id number],C,takes a puff every now and then Bernardonicole Obrien MD [id number],C,a dvised to check at home His updated [...] (02/07/2022) HDL: 41 (02/07/2022) Bernardo Obrien MD [id number],C, n egative doppler 2020 Bernardonicole Obrien MD [id number],C,I s walking and wants amputation for his first two toes/ R ight sfa stents patent on doppler Bernardo Obrien MD [id number],C,l dl 59 c heck Lp(a) Bernardo Obrien MD [id number],C,on jardiance Bernardo Obrien MD [id number],C, Since February when he underwent the AIF on the Right LE and was admitted for lytic rx afterwards, and 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 The rest of his foot has improved. Bernardo Obrien MD [id number],C,tolerating as a and xarelo Bernardo Obrien MD [id number],C, S juan the last visit he now [...] Ambulating with a boot. Bernardo Obrien MD [id number],C, c heck A1c l ast A1c 7% d ouble trulicity to 1.5mg Bernardo Obrien MD [id number],C, L DL 59 His updated medication list for this problem includes: Crestor 5 Mg Tablet (Rosuvastatin) ..... 1 tablet once a day Ezetimibe 10 Mg Tablet (Ezetimibe) ..... 1 tablet once a day Bernardo Obrien MD [id number],S, H e has now quit smoking - very difficult but he continues to be successful [facility] [id number],S, r are cp a lways sob - copd [facility] [id number],C, B P today: 96/53 P rior BP: 94/62 (04/19/2022) The following medications were removed from the medication list: Candesartan 4 Mg Tablet (Candesartan) ..... 1 tablet once a day His updated medication list for this problem includes: Aspirin 81 Mg Tablet,delayed Release (dr/ec) (Aspirin) ..... 1 tablet by mouth once a day Candesartan 4 Mg Tablet (Candesartan) ..... 1 tablet once a day [facility] [id number],C, B P today: 94/62 P rior BP: 120/70 (02/22/2022) Labs Reviewed: C reat: 2.22 (02/07/2022) C hol: 126 (02/07/2022) HDL: 41 (02/07/2022) Jaja Esparza Wil SPENCE [id number],C, H germaine has now quit smoking - very difficult but he continues to be successful Jaja De La Torre NP [id number],C, c r 2.22 Jaja Isaias Wil SPENCE [id number],C, S juan the last visit he now [...] post amputation Jaja De La Torre NP [id number],C, H is updated medication list for this problem includes: Aspirin 81 Mg Tablet,delayed Release (dr/ec) (Aspirin) ..... 1 tablet by mouth once a day Candesartan 4 Mg Tablet (Candesartan) ..... 1 tablet once a day [facility] [id number][facility],R LE pain better post intervention but had dry gangrene in disal 1/2 of first and second toes. w ill do close surveillance advised to see Dr Alvarez (his network director for toe amputation) or might auto amputate h germaine has no pain and this is dry gangrene [facility] [id number],C,100% isr left kidney on angiogram [facility] [id number],C,c r 2.22 [facility] [id number],C,w ill do aif in our lab with CO2 angiography [facility] [id number],C, H is updated medication list for this problem includes: Aspirin 81 Mg Tablet,delayed Release (dr/ec) (Aspirin) ..... 1 tablet by mouth once a day Candesartan 4 Mg Tablet (Candesartan) ..... 1 tablet once a day [facility] [id number],C,urged to quit [facility] [id number],C,C /o right leg geting cold and right calf weakness. He had to walk 600feet and right leg cramped up and had to stop twice 'left leg was fine. He can do 100 to 200 feet before he has to stop. H germaine is still smoking w ill plan aif as he is very sytomatic and finds this very limiting [facility] [id number],C,C /o right arm becoming weak if he does too much but states that he is very inactive. [facility] [id number],C,dm better wti h jardiance - 7% [facility] [id number],C,s till smoking n o intention of quitting l dct Micah BRO [id number],C,improved per pt Micah BRO [id number],C,n egative doppler 2020 Micah BRO [id number],C,C /o right leg geting cold and right calf weakness c heck bárbara Micah BRO [id number],C,r ight arm pain with exertion b ut does not bother enought to fix Micah BRO [id number],C, r are cp a lways sob - copd Micah BRO [id number],C,j ardiance 10 i ncrease to 25 uacr 370 Micah BRO [id number],C,wc s [id number],C,s till smoking u rged to quit Micah BRO [id number],C,n o claudication n o wounds or sores Obrien [id number],C,no cp or sob Obrien [id number],C,no palpitatio n Micah BRO [id number],C,r ight upper arm pain sometimes - l asts 10 minutes o nce every three days o ptions d/w pt and he does not thinks the sx are bad enough and will leave it be for now Micah BRO [id number],C, s /p left renal stents in 2017 - was a herculink stent a ppear occluded on doppler today with atropic left kidney Micah BRO [id number],C,a pparently about the same per Micah BRO [id number],C,will check li pids and CRP Jaja De La Torre GAME WARDEN [id number],C, s dennis last hgb a1c 7 c heck uacr also advised to cut levemir down to 30 u bid Jaja De La Torre G[employer] WARDEN [id number],C, B P today: 150/90 P rior BP: 168/96 (07/05/2020) Jaja De La Torre GAME WARDEN [id number],C, c ontinues to smoke, not able to quit Jaja De La Torre G[employer] WARDEN [id number],C, s /p left renal stents Jaja De La Torre GAME WARDEN [id number],C, His renal function is worse and sees Dr Zimmerman. 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 Jaja De La Torre GAME WARDEN [id number],C,l ast doppler 07/2020 - P atent right ICA stent. 2 . <50% stenosis of the left ICA. Jaja De La Torre GAME WARDEN Cardiology: * Increase crestor to 20 mg/day and start zetia 10 mg/day. 04/2023 Labs: l ipo-a: 39.3 t otal: 162, TG 208, HDL 50, LDL 77 His updated medication list for this problem includes: Crestor 5 Mg Tablet (Rosuvastatin) ..... 1 tablet once a day Anna Kaylen G[employer]ARDEN Cardiology: B P today: 114/71 P rior [...] proBNP from last time. F johnson with [facility]. * Update labs. Get echo to [...] 3/4 pack/day. S tressed cessation Anna Abdullahi G[employer]EN Cardiology: Labs: l ipo-a: 39.3 t otal: [...] plantar artery in the foot. Anna Abdullahi GAME WARDEN Cardiology: d enies chest pain Anna Abdullahi GAME WARDEN Cardiology: d enies pain Anna Abdullahi NP [...] arteries are open Jaja De La Torre G[employer]ARDEN Cardiology: l dl 59 w ill check LP(a) Jaja De La Torre G[employer] Cardiology: B P today: 105/65 P rior BP: 160/95 (07/17/2022) Labs Reviewed: C reat:2.20 - (04/2022) C hol: 126 (02/07/2022) HDL: 41 (02/07/2022) w ill check UACR Jaja De La Torre G[employer]EN Cardiology:Has now q uit smoking Jaja De La Torre BEBE Cardiology: n egative doppler 2020 Jaja De La Torre BEBE Cardiology: a bdominal aortic atherosclerosis and stenosis, and left iliac stenosis. . CT Abd/thorax also showed atherosclerosis thoracic aorta likely has CAD as well e cho 2018 - EF 65%, mild AI Jaja De La Torre G[employer] WARDEN Cardiology: r are cp a lways sob [...] surveillance advised to see Dr Alvarez (his network director for toe amputation) or might auto amputate [...] treated right sfa is ok'left director of donor relations - leave alone as not bothering him [...] treated right sfa is ok'left director of donor relations - leave alone as not bothering him Bernardoxavier Obrien MD Cardiology:. No curr ent ulcers. He walks with a cane. Back is limiting factor in exertion although does report chronic leg pains. His network director says left foot pulse getting weak. left [...] r ight 1st toe ingrown toenail, saw network director (), took part of toenail off about [...] by nuc w ill need cath f hoemr right sharon test unable to straighten left [...] daily Exforge Hct 10-320-25 Mg Oral Tabs (Aqcekejhwh-ybqbwmebq-otxc) BP today: 140/70 P rior BP: 138/78 (09/11/2016) Bernardo Obrien MD Cardiology -SD TO DO :has right sfa occlusion H as limited walking capacity of 200 feet both due to back pain and pain right calf. Bernardo Obrien MD Cardiology -SD TO DO :s/p left renal stents Bernardo Obrien MD Cardiology -ltr done:wc Ehco gamboa RN Cardiology -ltr done:cut back to [...] - Prof Bernardo Obrien MD completed SNOMED-CT: 021308855 Smoking Cessation Counseling Bernardo Obrien MD completed SNOMED-CT: 10287563 Physical Exam, Performed: Pulse Exam of Foot Bernardo Obrien MD completed SNOMED-CT: 154932501 239181 Current Medications Documented Bernardo Obrien MD completed Stress EKG Anthony Shea MD complet ed Regadenoson, 4 units Bernardo Obrien MD completed Cardiolite, 2 units Bernardo Obrien MD c ompleted SPECT Images Anthony Shea MD compl eted SNOMED-CT: 55090753 Physical Exam, Performed: Pulse Exam of Foot Bernardo Obrien MD completed SNOMED-CT: 302232243 657381 Current Medications Documented Bernardo Obrien MD completed SNOMED-CT: 887023060 Smoking Cessation Counseling Bernardo Obrien MD completed SNOMED-CT: 07328916 Physical Exam, Performed: Pulse Exam of Foot Bernardo Obrien MD completed SNOMED-CT: 549955393 607788 Current Medications Documented Bernardo Obrien MD completed SNOMED-CT: 535686645 Smoking Cessation Counseling Bernardo Obrien MD completed SNOMED-CT: 74255359 Physical Exam, Performed: Pulse Exam of Foot Bernardo Obrien MD completed EKG Bernardo Obrien MD completed SNOMED-CT: 194470229 635700 Current Medications Documented Bernardo Obrien MD completed
--- OUTSIDE RECORDS SUMMARY | 2024-07-24 12:11 | XMS_ITS | Encounter Summary ---
Author Organization [facility] Address [address] [place] [address] Care Team Providers Care Personal Computer Specialist Name Role Phone Jere Tillman MD Primary Care Provider [phone] Kieran Albert MD Unavailable [phone] Alek Enrique MD Unavailable [phone] Encounter Details Date Type Department Care Team (Late st Contact Info) Description 07/22/2013 Therapy Visit EXTERNAL NON[facility] Unknown, Provider Social History Tobacco Use Types Packs/Day Years Used Date Smoking Tobacco: Former Cigarettes 2 45 1 - 12/29/2012 Smokeless Tobacco: Never Alcohol Use Standard Drinks/Week Comments Yes 0 (1 standard drink = 0.6 oz pur e alcohol) Rarely Sex and Gender Information Value Date Recorded Sex Assigned at Not on file Legal Sex Male 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 Gender Identity Not on file Sexual Orientation Not on file 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
--- OUTSIDE RECORDS SUMMARY | 2024-07-24 12:11 | XMS_ITS | Encounter Summary ---
Author Organization [facility] Address [address] 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
--- OUTSIDE RECORDS SUMMARY | 2024-07-24 12:12 | XMS_ITS | Clinical Summary ---
Author Organization [facility] bynum [address] Address [address] [facility] [facility] [place] [address] Care Team Providers Care Inspecting Engineer Name Role Phone Wilber Whittington MD Primary Care Provider [phone] Allergies No known active allergies Medications aspirin [...] Encounters Date Type Department Care Team Description 07/22/2024 External Device Data STL ABSTRACTION Provider, Abstract 07/14/2024 Orders Only [facility] - [address] [place] [address] Kieran Fowler MD Polycythemia vera (CMS/HCC) 06/30/2024 Orders Only [facility] - [place] [address] Kieran Fowler MD Polycythemia vera ([facility]) 06/16/2024 Orders Only [facility] - [place] [address] [place] [address] Kieran Fowler MD Polycythemia vera ([facility]) 06/02/2024 Orders Only [facility] - [place] [place] [address] Kieran Fowler MD Polycythemia vera ([facility]) 05/19/2024 Orders Only [facility] - [place] [address] [place] [address] Kieran Fowler MD Polycythemia vera ([facility]) 05/14/2024 External Device Data STL ABSTRACTION Provider, Abstract 05/13/2024 External Device Data STL ABSTRACTION Provider, Abstract 05/12/2024 Orders Only [facility] - [place] [address] [place] [address] Kieran Fowler MD 05/06/2024 External Device Data STL ABSTRACTION Provider, Abstract 05/05/2024 Orders Only [facility] - [place] [address] [place] [address] Kieran Fowler MD Polycythemia vera ([facility]) from Last 3 Months Family History Medical [...] Comments Blood Pressure 123/72 04/18/2024 9:29 AM IT PROGRAM AUDITOR Pulse 78 04/18/2024 9:29 AM IT PROGRAM AUDITOR Temperature 35.9 C (96.7 F) 04/18/2024 9:29 AM IT PROGRAM AUDITOR Respiratory Rate 16 04/18/2024 9:29 AM IT PROGRAM AUDITOR Oxygen Saturation 91% 04/18/2024 9:29 AM IT PROGRAM AUDITOR Inhaled Oxygen Concentration - - Weight 81.6 kg (180 lb) 04/18/2024 9:29 AM IT PROGRAM AUDITOR Height 182.9 cm (6') 10/09/2023 10:30 AM CDT Body Mass Index 24.41 10/09/2023 10:30 AM CDT Plan of Treatment Upcoming Encounters Date Type Department Care Team (Late st Contact Info) Description 08/01/2024 11:30 AM CDT Office Visit [facility] - [place] [address] [facility] [address] [place] [address] Kieran oFwler MD [address] [place] [address] Health Maintenance Due Date Last [...] Name Priority Date/Time Associated Diagnosis Comments CBC MIXED CELL DIFFERENTIAL Routine 06/26/2024 9:28 AM CDT CBC WITH DIFFERENTIAL Routine 05/01/2024 2:24 PM IT PROGRAM AUDITOR from Last 3 Months Results * CBC MIXED CELL DIFFERENTIAL (06/26/2024 9:28 AM CDT) Blood Kieran Fowler MD HEMATOLOGY ORDERABLES Final Res ult * CBC WITH DIFFERENTIAL (05/01/2024 2:24 PM IT PROGRAM AUDITOR) Blood Kieran Fowler MD HEMATOLOGY ORDERABLES Final Res ult from Last 3 Months Insurance [facility] [place] [facility] [id number] Care Teams Inspecting Engineer Relationship Specialty Start Date End Date Wilber Whittington MD [address] [facility] [address] [place] [address] PCP - General Family Practice 09/26/23
--- OUTSIDE RECORDS SUMMARY | 2024-07-24 12:12 | XMS_ITS | Encounter Summary ---
Author Organization [facility] Address [address] 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
--- OUTSIDE RECORDS SUMMARY | 2024-07-24 12:12 | XMS_ITS | Encounter Summary ---
Author Organization [facility] Address [address] [place] [address] Care Team Providers Care Pupil Personnel Worker Name Role Phone Jere Tillman MD Primary Care Provider [phone] Kieran Albert MD Unavailable [phone] Alek Enrique MD Unavailable [phone] Encounter Details Date Type Department Care Team (Late st Contact Info) Description 08/22/2016 [facility] Outpatient Visit [facility] [address] [place] [address] Yoly Moreno, FILTER OPERATOR-EQUIPMENT SERVICE ASSOCIATE [address] [address] Social History Tobacco Use Types Packs/Day Years Used Date Smoking Tobacco: Every Day Cigarettes 2 45 Smokeless Tobacco: Never Alcohol Use Standard Drinks/Week Comments Yes 0 (1 standard drink = 0.6 oz pur e alcohol) Rarely Sex and Gender Information Value Date Recorded Sex Assigned at Not on file Legal Sex Male 11:38 AM FILL PLANT OPERATOR Gender Identity Not on file Sexual Orientation Not on file 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
--- OUTSIDE RECORDS SUMMARY | 2024-07-24 12:12 | XMS_ITS | Encounter Summary ---
Author Organization [facility] Address [address] [place] [address] Care Team Providers Care Police Artist Name Role Phone Jere Tillman MD Primary Care Provider [phone] Kieran Albert MD Unavailable [phone] Alek Enrique MD Unavailable Encounter Details Date Type Department Care Team (Late st Contact Info) Description 09/24/2013 Therapy Visit [facility] Orthopedics [address] [address] [place] [address] [address] Social History Tobacco Use Types Packs/Day Years Used Date Smoking Tobacco: Former Cigarettes 2 45 1 - 12/29/2012 Smokeless Tobacco: Never Alcohol Use Standard Drinks/Week Comments Yes 0 (1 standard drink = 0.6 oz pur e alcohol) Rarely Sex and Gender Information Value Date Recorded Sex Assigned at Not on file Legal Sex Male 11:38 AM 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 Gender Identity Not on file Sexual Orientation Not on file 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
--- OUTSIDE RECORDS SUMMARY | 2024-07-24 12:12 | XMS_ITS | Encounter Summary ---
Author Organization [facility] Address [address] [place] [address] Care Team Providers Care Doll Surgeon Name Role Phone Jere Tillman MD Primary Care Provider [phone] Kieran Albert MD Unavailable [phone] Alek Enrique MD Unavailable Encounter Details Date Type Department Care Team (Late st Contact Info) Description 04/20/2022 Lab Requisition [facility] [address] [place] [address] [place] [address] [facility] [address] [place], [place] [id number] Social History Tobacco Use Types Packs/Day Years Used Date Smoking Tobacco: Every Day Cigarettes 2 45 Smokeless Tobacco: Never Alcohol Use Standard Drinks/Week Comments Yes 0 (1 standard drink = 0.6 oz pur e alcohol) Rarely Sex and Gender Information Value Date Recorded Sex Assigned at Not on file Legal Sex Male 11:38 AM REPAIRER SHOE STICKS Gender Identity Not on file Sexual Orientation Not on file 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 Not on file Not [...] W AUTO DIFFERENTIAL STAT 04/20/2022 11:24 AM REPAIRER SHOE STICKS documented in this encounter Results * (ABNORMAL) CBC WITH DIFFERENTIAL (04/20/2022 11:24 AM REPAIRER SHOE STICKS) WBC 6.9 4.4 - 10.7 x10E9/L 04/20/2022 1:59 PM REPAIRER SHOE STICKS [facility] WBC Corrected 04/20/2022 1:59 PM REPAIRER SHOE STICKS [facility] RBC 5.95(H) 3.80 - 5.40 x10E12/L 04/20/2022 1:59 PM REPAIRER SHOE STICKS [facility] Hemoglobin 18.2(H) 12.0 - 17.6 gm/dL 04/20/2022 1:59 PM REPAIRER SHOE STICKS [facility] Hematocrit 54.4(H) 35.2 - 51.7 % 04/20/2022 1:59 PM REPAIRER SHOE [employer]ICKS [facility] MCV 91.4 80.7 - 98.3 fl 04/20/2022 1:59 PM REPAIRER SHOE STICKS [facility] MCH 30.6 26.7 - 34.0 pg 04/20/2022 1:59 PM REPAIRER SHOE STICKS [facility] MCHC 33.5 30.8 - 35.9 gm/dL 04/20/2022 1:59 PM REPAIRER SHOE STICKS [facility] Platelet Count 166 153 - 416 x10E9/L 04/20/2022 1:59 PM [facility] RDW-CV 12.8 12.1 - 14.9 % 04/20/2022 1:59 PM [facility] MPV 12.3 9.4 - 12.9 fl 04/20/2022 1:59 PM [facility] Neutrophils % 65.5 44.0 - 73.0 % 04/20/2022 1:59 PM [facility] Lymphocytes % 22.5 20.0 - 43.0 % 04/20/2022 1:59 PM [facility] Monocytes % 8.0 5.0 - 13.0 % 04/20/2022 1:59 PM [facility] Eosinophils % 2.2 0.0 - 6.0 % 04/20/2022 1:59 PM [facility] Basophils % 1.4 0.0 - 2.0 % 04/20/2022 1:59 PM [facility] Immature Granulocytes 0.4 0 - 1 % 04/20/2022 1:59 PM [facility] Neutrophil Absolute 4.52 2.01 - 7.14 x10E9/L 04/20/2022 1:59 PM [facility] Lymphocytes Absolute 1.55 1.07 - 3.94 x10E9/L 04/20/2022 1:59 PM [facility] Monocytes Absolute 0.55 0.26 - 1.07 x10E9/L 04/20/2022 1:59 PM [facility] Eosinophils Absolute 0.15 0 - 0.47 x10E9/L 04/20/2022 1:59 PM [facility] Basophils Absolute 0.10(H) 0 - 0.08 x10E9/L 04/20/2022 1:59 PM [facility] Immature Granulocytes Absolute 0.03 0.00 - 0.06 x10E9/L 04/20/2022 1:59 PM [facility] nRBC Auto 0 /100 WBC 04/20/2022 1:59 PM [facility] Blood BLOOD SPECIMEN / Unknown Venipuncture / Unknown 04/20/2022 11:24 AM REPAIRER SHOE STICKS 04/20/2022 1:39 PM REPAIRER SHOE STICKS Bernardo Obrien MD LAB - HEMATOLOGY ORDERABLES Tana josh Result [facility] [address] [place] [address] documented in this encounter Visit Diagnoses Not on filedocumented in this encounter Care Teams Doll Surgeon Relationship Specialty Start Date End Date Jere Tillman MD [address] [place] [address] PCP - General 06/07/10 Kieran Albert MD [address] [place] [address] Orthopedic Surgery 07/10/11 Alek Enrique MD [address] [place] [address] Orthopedic Surgery 05/22/13 documented as of this encounter
--- OUTSIDE RECORDS SUMMARY | 2024-07-24 12:12 | XMS_ITS | Clinical Summary ---
Author Organization [facility] Address [address] [place] [phone] Phone Care Team Providers Care Client Success Specialist Name Role Phone Wilber Whittington MD Primary Care Provider Allergies Active Allergy Reactions Criticality Noted Date [...] on file Legal Sex Male 1:25 PM [facility] Gender Identity Not on file Sexual Orientation [...] 12/11/19 13 Insurance MEDICARE ADVANTAGE Care Teams Client Success Specialist Relationship Specialty Start Date End Date Wilber Whittington MD [address] [facility] [address] [facility] [address] [place] [address] PCP - General Internal Medicine 11/21/21
[2024-07-24 12:26] LABS: Basophils Absolute Auto 0.1 K/mm3 (0.0-0.1); Basophils Percent Auto 1.4 % (0.2-1.2); Eosinophils Absolute Auto 0.1 K/mm3 (0-0.3); Eosinophils Percent Auto 2.2 % (0-4.4); Hematocrit 51.4 % (42.0-52.0); Hemoglobin 17.1 g/dL (14.0-18.0); Immature Granulocyte Absolute 0.03 K/mm3 (0.00-0.031); Immature Granulocyte Percent A 0.5 % (0-0.5); Lymphocytes Absolute Auto 1.47 K/mm3 (0.9-3.2); Lymphocytes Percent Auto 25.3 % (18.3-44.2); Mean Corpuscular HGB Conc 33.3 g/dl (32-36); Mean Corpuscular Hemoglobin 29.7 pg (26-34); Mean Corpuscular Volume 89.2 fl (80-100); Mean Platelet Volume 12.4 fl (7.4-10.4); Monocytes Absolute Auto 0.5 K/mm3 (0.1-0.6); Monocytes Percent Auto 7.8 % (2.6-8.5); Neutrophils Absolute Auto 3.6 K/mm3 (1.3-6.7); Neutrophils Percent Auto 62.8 % (45.5-73.1); Platelet Count Result 134 k/mm3 (150-375); Red Blood Count 5.76 M/mm3 (4.6-6.20); Red Cell Distribution Width 12.9 % (11.5-14.5); White Blood Count 5.8 K/mm3 (4.5-10.0)
== END 2024-07-24 12:07 | disposition home or self-care (01) ==
LOC: ANHLAB 12:09
PROVIDERS: PCP Family Medicine; Visit Provider Internal Medicine Hematology & Oncology
DX: D45 Polycythemia vera (principal)
CPT/HCPCS: 36415; 85025

== ENCOUNTER 2024-12-03 09:09 | Outpatient (CLI) | payer MEDICARE, SELFPAY ==
--- NOTE | ~2024-12-03 | CT_ITS ---
Exam: CT chest without contrast Clinical History: [History of nicotine dependence ] Comparison: [ 12/03/2023] Technique: Multiple axial CT images of the chest without with IV contrast. Sagittal and coronal reformatted images were obtained. FINDINGS: Lungs and pleura: [ No pneumothorax. No pleural effusion. No pulmonary mass. Visualized tracheobronchial tree is patent. Grossly stable centrilobular and paraseptal emphysema primarily in the upper lobes. Mild biapical scarring. Mediastinum and pulmonary rogelio: [ No mass or adenopathy.] Axillary/intramammary and supraclavicular: [ No mass or adenopathy.] Heart and great vessels: [ Normal heart size.[ [ Small pericardial effusion.] [ No aneurysm.] There are a few coronary artery calcifications. Mild atherosclerotic disease in the thoracic aorta. Chest Wall: [ Unremarkable.] Upper Abdomen: [ No significant findings.] Osseous structures: [ No acute fracture or destructive lesion.] [ Multilevel degenerative change in the visualized spine.] Additional findings: [ None of significance.] IMPRESSION: 1. Lung-RADS category 2: Benign appearance or behavior. Continue annual screening with noncontrast low-dose chest CT in 12 months. Reviewed, dictated and finalized at location Q. IMPRESSION: 1. Lung-RADS category 2: Benign appearance or behavior. Continue annual screeni ng with noncontrast low-dose chest CT in 12 months.
== END 2024-12-03 09:10 | disposition home or self-care (01) ==
LOC: MICIMG 09:11
PROVIDERS: PCP Internal Medicine Interventional Cardiology; Visit Provider Internal Medicine Hematology & Oncology
DX: Z12.2 Encounter for screening for malignant neoplasm of respiratory organs (principal); Z87.891 Personal history of nicotine dependence
CPT/HCPCS: 71271